=== PATIENT | male | born 1965 | race Hispanic/Latino ===

== ENCOUNTER 2018-03-19 16:24 | Observation (INO) | payer OTHER ==
--- OUTSIDE RECORDS SUMMARY | 2018-03-19 16:27 | XMS REPORT ---
:1965 [facility] Address [address] [place] [address] Care Team Providers Name Role Phone Unavailable Unavailable Unavailable Payers Payer Name Policy Type Policy Number Effective Date Expiration Date Problems This patient has no known problems. Allergies, Adverse Reactions, Alerts Allergy Name Allergy Status Severity Reaction(s) Onset Inactive Treating Comments Type Date Date Clinician STEROIDS DA Active SV 2018-03 MEDICATIONS -14 00:00:0 0 Medications This patient has no known medications.
--- NOTE | 2018-03-19 17:12 | ER ---
Nurse's Notes [facility] Name: Alexandr Laws Age: 53 yrs Sex: Male : 1965 Arrival Date: 03/19/2018 Time: 16:26 Bed 5 Private MD: Corrine Armstrong F Diagnosis: Other chest pain;Type 2 diabetes mellitus Presentation: 03/19 16:29 Presenting complaint: Patient states: "I am having burning in my throat like I did when aa5 I failed my stress test". pt also reports chest pressure. 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 Pt reports having heart cath on Monday. Transition of care: patient was not received from another setting of care. Onset of symptoms was March 2018. Risk Assessment: Do you want to hurt yourself or someone else? Patient reports no desire to harm self or others. Initial Sepsis Screen: Does the patient meet any 2 criteria? No. Patient's initial sepsis screen is negative. Does the patient have a suspected source of infection? No. Patient's initial sepsis screen is negative. Care prior to arrival: None. 16:29 Method Of Arrival: Ambulatory aa5 16:29 Acuity: MIKEY 2 aa5 Historical: - Allergies: 16:31 No Known Allergies; aa5 - PMHx: 16:31 Diabetes - NIDDM; Gastric Reflux; High Cholesterol; Hypertension; aa5 - PSHx: 16:31 Knee surgery; heart cath; aa5 - Immunization history:: Adult Immunizations unknown. - Social history:: Smoking status: Patient/guardian denies using tobacco. - Ebola Screening: : No symptoms or risks identified at this time. - Family history:: not pertinent. Screenin:45 Abuse screen: Denies threats or abuse. Denies injuries from another. Nutritional sg screening: No deficits noted. Tuberculosis screening: No symptoms or risk factors identified. Never had TB. Fall Risk None identified. Assessment: 16:45 General: Appears in no apparent distress. comfortable, well groomed, well developed, sg well nourished, Behavior is calm, cooperative, appropriate for age. Pain: Complains of pain in epigastric area and neck Quality of pain is described as burning, aching, Pain began 1 hour ago. Neuro: No deficits noted. Cardiovascular: Heart tones S1 S2 present Capillary refill is brisk in bilateral fingers Patient's skin is warm and dry. Chest pain is denied. Respiratory: Airway is patent Respiratory effort is even, unlabored, Respiratory pattern is regular, symmetrical, Denies cough, shortness of breath labored breathing, pain with respiration, pain with cough, pain with movement, air hunger. GI: Abdomen is round non-distended, Bowel sounds present X 4 quads. Reports normal bowel habits. : No signs and/or symptoms were reported regarding the genitourinary system. EENT: No signs and/or symptoms were reported regarding the EENT system. Derm: Skin is pink, warm \\T\\ dry. Musculoskeletal: No signs and/or symptoms reported regarding the musculoskeletal system. 17:50 Reassessment: Patient appears in no apparent distress at this time. Patient and/or sg family updated on plan of care and expected duration. Pain level reassessed. Patient is alert, oriented x 3, equal unlabored respirations, skin warm/dry/pink. pt tolerating PO food at this time, no assistance required. 18:20 Reassessment: Patient appears in no apparent distress at this time. attempt to call sg report to fourth floor, Nurse unavailable for report at this time, pt updated on POC and admission to bed 405, will continue to monitor. 19:34 Reassessment: Patient appears in no apparent distress at this time. Patient and/or ak1 family updated on plan of care and expected duration. Pain level reassessed. Patient is alert, oriented x 3, equal unlabored respirations, skin warm/dry/pink. Patient denies pain at this time. Patient states feeling better. Patient states symptoms have improved. pt informed of shift change and wait for transport to room. . Vital Signs: 16:31 BP 134 / 102; Pulse 82; Resp 18 S; Temp 98.3(TE); Pulse Ox 99% on R/A; Weight 77.11 kg aa5 (R); Height 5 ft. 8 in. (172.72 cm) (R); Pain 6/10; 17:30 BP 139 / 94; Pulse 68; Resp 16 S; Pulse Ox 99% on R/A; jl7 18:15 BP 131 / 92; Pulse 67; Resp 16 S; Pulse Ox 98% on R/A; jl7 19:57 BP 117 / 85; Pulse 68; Resp 16; Temp 98.3; Pulse Ox 97% on R/A; Pain 0/10; ak1 16:31 Body Mass Index 25.85 (77.11 kg, 172.72 cm) aa5 ED Course: 16:26 Patient arrived in ED. rg4 16:27 Corrine Armstrong MD is Private Physician. rg4 16:29 Arm band placed on. aa5 16:30 Triage completed. aa5 16:32 Dangelo Zuniga MD is Attending Physician. joni 16:58 EKG done, by color laboratory technician. reviewed by Dangelo Zuniga MD. sm3 17:11 Corrine Armstrong MD is Hospitalizing Provider. joni 17:20 Lebron Chacon, RN is Primary Nurse. sg 17:20 Inserted saline lock: 20 gauge in right antecubital area, using aseptic technique. ss Blood collected. 19:32 Kim Black, RN is Primary Nurse. ak1 19:33 Patient has correct armband on for positive identification. Placed in gown. Bed in low ak1 position. Call light in reach. Side rails up X 1. buttonhole maker on. Pulse ox on. NIBP on. pt given a urinal and explained as to why he needs not to walk down the rodriguez to the restroom. . 19:53 No provider procedures requiring assistance completed. Patient admitted, IV remains in ak1 place. Administered Medications: 17:25 Drug: NS 0.9% 1000 ml Route: IV; Rate: 125 ml/hr; Site: right antecubital; jl7 19:57 Follow up: BP 117 / 85; Pulse 68 bpm; Resp 16 bpm; Temp 98.3; Pulse Ox 97% RA; Pain ak1 0/10 Adult 19:59 Follow up: IV Status: Completed infusion ak1 17:25 Drug: Lopressor 25 mg Route: PO; jl7 18:00 Follow up: Response: No adverse reaction jl7 17:26 Drug: ProTONIX 40 mg Route: IVP; Site: right antecubital; jl7 18:00 Follow up: Response: No adverse reaction jl7 17:27 Drug: Aspirin 162 mg Route: PO; jl7 18:00 Follow up: Response: No adverse reaction jl7 17:30 Drug: Lovenox 1 mg/kg Route: Sub-Q; Site: right lower abdomen; jl7 18:00 Follow up: Response: No adverse reaction jl7 17:32 Drug: Zofran 4 mg Route: IVP; Site: right antecubital; jl7 18:00 Follow up: Response: No adverse reaction jl7 17:35 Drug: Brilinta - Ticagrelor 90 mg Route: PO; jl7 18:00 Follow up: Response: No adverse reaction jl7 17:36 Drug: morphine 2 mg Route: IVP; Site: right femoral; jl7 18:00 Follow up: Response: No adverse reaction; Pain is decreased jl7 Outcome: 17:12 Decision to Hospitalize by Provider. joni 19:54 Admitted to Tele accompanied by [facility], via wheelchair, room 405, with chart, Report ak1 called to [facility] for room 405 19:54 Condition: stable 19:54 Instructed on the need for admit. 20:22 Patient left the ED. ak1 Signatures: Lebron Chacon, RN Dangelo Montesinos MD MD cha Calderon, Audri RN RN aa5 Xin Bunn RN RN ss Krenek, Amber, RN RN michele1 Leonora Segal4 José Miguel Cruz RN RN jl7 Teresa Rogel 3
--- NOTE | 2018-03-19 17:12 | EDPHYS ---
Physician Documentation [facility] Name: Alexandr Laws Age: 53 yrs Sex: Male : 1965 Arrival Date: 03/19/2018 Time: 16:26 Bed 5 Private MD: Corrine Armstrong F ED Physician Dangelo Zuniga HPI: 03/19 17:07 This 53 yrs old Male presents to ER via Ambulatory with complaints of Burning joni In Throat. 17:07 The patient or guardian reports chest pain that is located primarily in the substernal joni area. Onset: just prior to arrival. The pain radiates to Associated signs and symptoms: The patient has no apparent associated signs or symptoms. The chest pain is described as burning. Modifying factors: The symptoms are alleviated by nothing. the symptoms are aggravated by nothing. Severity of pain:. The patient has experienced similar episodes in the past, several times, recent cath, dr crowe. Historical: - Allergies: 16:31 No Known Allergies; aa5 - PMHx: 16:31 Diabetes - NIDDM; Gastric Reflux; High Cholesterol; Hypertension; aa5 - PSHx: 16:31 Knee surgery; heart cath; aa5 - Immunization history:: Adult Immunizations unknown. - Social history:: Smoking status: Patient/guardian denies using tobacco. - Ebola Screening: : No symptoms or risks identified at this time. - Family history:: not pertinent. ROS: 17:07 Constitutional: Negative for fever, chills, and weight loss, Eyes: Negative for injury, joni pain, redness, and discharge, ENT: Negative for injury, pain, and discharge, Neck: Negative for injury, pain, and swelling, Respiratory: Negative for shortness of breath, cough, wheezing, and pleuritic chest pain, Abdomen/GI: Negative for abdominal pain, nausea, vomiting, diarrhea, and constipation, Back: Negative for injury and pain, : Negative for injury, bleeding, discharge, and swelling, MS/Extremity: Negative for injury and deformity, Skin: Negative for injury, rash, and discoloration, Neuro: Negative for headache, weakness, numbness, tingling, and seizure, Psych: Negative for depression, anxiety, suicide ideation, homicidal ideation, and hallucinations, Allergy/Immunology: Negative for hives, rash, and allergies, Endocrine: Negative for neck swelling, polydipsia, polyuria, polyphagia, and marked weight changes, Hematologic/Lymphatic: Negative for swollen nodes, abnormal bleeding, and unusual bruising. 17:07 Cardiovascular: Positive for chest pain. Exam: 17:07 Constitutional: This is a well developed, well nourished patient who is awake, alert, joni and in no acute distress. Head/Face: Normocephalic, atraumatic. Eyes: Pupils equal round and reactive to light, extra-ocular motions intact. Lids and lashes normal. Conjunctiva and sclera are non-icteric and not injected. Cornea within normal limits. Periorbital areas with no swelling, redness, or edema. ENT: Nares patent. No nasal discharge, no septal abnormalities noted. Tympanic membranes are normal and external auditory canals are clear. Oropharynx with no redness, swelling, or masses, exudates, or evidence of obstruction, uvula midline. Mucous membranes moist. Neck: Trachea midline, no thyromegaly or masses palpated, and no cervical lymphadenopathy. Supple, full range of motion without nuchal rigidity, or vertebral point tenderness. No Meningismus. Chest/axilla: Normal chest wall appearance and motion. Nontender with no deformity. No lesions are appreciated. Cardiovascular: Regular rate and rhythm with a normal S1 and S2. No gallops, murmurs, or rubs. Normal PMI, no JVD. No pulse deficits. Respiratory: Lungs have equal breath sounds bilaterally, clear to auscultation and percussion. No rales, rhonchi or wheezes noted. No increased work of breathing, no retractions or nasal flaring. Abdomen/GI: Soft, non-tender, with normal bowel sounds. No distension or tympany. No guarding or rebound. No evidence of tenderness throughout. Back: No spinal tenderness. No costovertebral tenderness. Full range of motion. Male : Normal genitalia with no discharge or lesions. Skin: Warm, dry with normal turgor. Normal color with no rashes, no lesions, and no evidence of cellulitis. MS/ Extremity: Pulses equal, no cyanosis. Neurovascular intact. Full, normal range of motion. Neuro: Awake and alert, GCS 15, oriented to person, place, time, and situation. Cranial nerves II-XII grossly intact. Motor strength 5/5 in all extremities. Sensory grossly intact. Cerebellar exam normal. Normal gait. Psych: Awake, alert, with orientation to person, place and time. Behavior, mood, and affect are within normal limits. Vital Signs: 16:31 BP 134 / 102; Pulse 82; Resp 18 S; Temp 98.3(TE); Pulse Ox 99% on R/A; Weight 77.11 kg aa5 (R); Height 5 ft. 8 in. (172.72 cm) (R); Pain 6/10; 17:30 BP 139 / 94; Pulse 68; Resp 16 S; Pulse Ox 99% on R/A; jl7 18:15 BP 131 / 92; Pulse 67; Resp 16 S; Pulse Ox 98% on R/A; jl7 19:57 BP 117 / 85; Pulse 68; Resp 16; Temp 98.3; Pulse Ox 97% on R/A; Pain 0/10; ak1 16:31 Body Mass Index 25.85 (77.11 kg, 172.72 cm) aa5 MDM: 16:32 Patient medically screened. [facility] 17:10 Data reviewed: vital signs, nurses notes, lab test result(s), EKG, radiologic studies, [facility] CT scan, plain films. 03/19 17:07 Order name: Basic Metabolic Panel; Complete Time: 18:12 [facility] 03/19 17:07 Order name: CBC with Diff; Complete Time: 17:55 [facility] 03/19 17:07 Order name: LFT's; Complete Time: 18:12 [facility] 03/19 17:07 Order name: Magnesium; Complete Time: 18:12 [facility] 03/19 17:07 Order name: NT PRO-BNP; Complete Time: 18:12 [facility] 03/19 17:07 Order name: PT-INR; Complete Time: 17:55 [facility] 03/19 17:07 Order name: Troponin (emerg Dept Use Only); Complete Time: 18:12 [facility] 03/19 17:07 Order name: Lipase; Complete Time: 18:12 [facility] 03/19 17:24 Order name: Basic Metabolic Panel EDMS 03/19 17:24 Order name: Basic Metabolic Panel EDMS 03/19 17:24 Order name: CBC with Automated Diff EDMS 03/19 17:24 Order name: CBC with Automated Diff [facility]MS 03/19 17:24 Order name: Troponin I EDMS 03/19 17:24 Order name: Troponin I [facility] 03/19 17:07 Order name: XRAY Chest (1 view) [facility] 03/19 17:07 Order name: EKG; Complete Time: 17:08 [facility] 03/19 17:23 Order name: CONS Physician Consult [facility] 03/19 17:23 Order name: Echo with Doppler [facility] 03/19 17:24 Order name: Troponin I [facility] 03/19 19:16 Order name: RAD [facility] 03/19 19:58 Order name: Urine Dipstick--Ancillary (enter results) 03/19 17:07 Order name: Cardiac monitoring; Complete Time: 17:23 [facility] 03/19 17:07 Order name: EKG - Nurse/Tech; Complete Time: 17:23 [facility] 03/19 17:07 Order name: IV Saline Lock; Complete Time: 17:20 [facility] 03/19 17:07 Order name: Labs collected and sent; Complete Time: 17:20 [facility] 03/19 17:07 Order name: O2 Per Protocol; Complete Time: 17:20 [facility] 03/19 17:07 Order name: O2 Sat Monitoring; Complete Time: 17:23 [facility] 03/19 17:07 Order name: Urine Dipstick-Ancillary (obtain specimen); Complete Time: 19:59 [facility] 03/19 17:23 Order name: Consistent Carb (ADA) [address] [facility] 03/19 17:23 Order name: EKG Electrocardiogram [facility] 03/19 17:23 Order name: EKG Electrocardiogram [facility] 03/19 17:23 Order name: EKG Electrocardiogram [facility] 03/19 17:23 Order name: EKG Electrocardiogram [facility] Administered Medications: 17:25 Drug: NS 0.9% 1000 ml Route: IV; Rate: 125 ml/hr; Site: right antecubital; 7 19:57 Follow up: BP 117 / 85; Pulse 68 bpm; Resp 16 bpm; Temp 98.3; Pulse Ox 97% RA; Pain ak1 0/10 Adult 19:59 Follow up: IV Status: Completed infusion ak1 17:25 Drug: Lopressor 25 mg Route: PO; jl7 18:00 Follow up: Response: No adverse reaction 7 17:26 Drug: ProTONIX 40 mg Route: IVP; Site: right antecubital; jl7 18:00 Follow up: Response: No adverse reaction 7 17:27 Drug: Aspirin 162 mg Route: PO; jl7 18:00 Follow up: Response: No adverse reaction jl7 17:30 Drug: Lovenox 1 mg/kg Route: Sub-Q; Site: right lower abdomen; jl7 18:00 Follow up: Response: No adverse reaction jl7 17:32 Drug: Zofran 4 mg Route: IVP; Site: right antecubital; jl7 18:00 Follow up: Response: No adverse reaction jl7 17:35 Drug: Brilinta - Ticagrelor 90 mg Route: PO; jl7 18:00 Follow up: Response: No adverse reaction jl7 17:36 Drug: morphine 2 mg Route: IVP; Site: right femoral; jl7 18:00 Follow up: Response: No adverse reaction; Pain is decreased jl7 Disposition: 03/19/18 17:12 Hospitalization ordered by Corrine Armstrong for Observation. Preliminary diagnosis are Other chest pain, Type 2 diabetes mellitus. - Bed requested for Telemetry/MedSurg (observation). - Status is Observation. ak1 - Condition is Fair. - Problem is new. - Symptoms have improved. UTI on Admission? No Signatures: Dispatcher [employer] [facility] Shea Brink Corey, MD MD cha Calderon, Audri, RN RN aa5 Kim Black RN RN ak1 José Miguel Cruz RN RN jl7 Corrections: (The following items were deleted from the chart) 17:14 17:12 Hospitalization Ordered by Corrine Armstrong MD for Observation. Preliminary joni diagnosis is Other chest pain. Bed requested for Telemetry/MedSurg (observation). Status is Observation. Condition is Fair. Problem is new. Symptoms have improved. UTI on Admission? No. joni 17:26 17:23 CONS Physician Consult ordered. [facility] 18:02 17:14 03/19/2018 17:12 Hospitalization Ordered by Corrine Armstrong MD for Observation. bd Preliminary diagnosis is Other chest pain; Type 2 diabetes mellitus. Bed requested for Telemetry/MedSurg (observation). Status is Observation. Condition is Fair. Problem is new. Symptoms have improved. UTI on Admission? No. joni 20:22 18:02 03/19/2018 17:12 Hospitalization Ordered by Corrine Armstrong MD for Observation. ak1 Preliminary diagnosis is Other chest pain; Type 2 diabetes mellitus. Bed requested for Telemetry/MedSurg (observation). Status is Observation. Condition is Fair. Problem is new. Symptoms have improved. UTI on Admission? No. bd
[2018-03-19] MEDS ORDERED: ONDANSETRON 4 MG/2 ML VIAL IV PRN (17:17)
[2018-03-19] MEDS ORDERED: ACETAMINOPHEN 500 MG TAB PO PRN (17:17)
[2018-03-19] MEDS ORDERED: SODIUM CHLORIDE 0.9% 10ML INJ IV PRN (17:19)
[2018-03-19] MEDS ORDERED: D50W 25 GM/50 ML SYRINGE IV PRN (17:20)
[2018-03-19] MEDS ORDERED: GLUCAGON 1 MG/VIAL IM PRN (17:20)
[2018-03-19 17:28] LABS: Absolute Lymphocytes (CBC) 1.8 K/uL (0.7-4.9); Absolute Monocytes 0.6 K/uL (0.1-1.3); Absolute Neutrophil 3.7 K/uL (1.8-8.0); Basophils % 0.8 % (0-1.3); Eosinophils % 4.7 % (0-4.4); Hematocrit 39.3 % (39.6-49.0); Lymphocytes % 28.3 % (15.3-44.8); MCV 85.5 fL (80-100); MPV 7.9 fL (7.6-11.3); Monocytes % 8.6 % (3.3-12.3); Protime INR 1.18
[2018-03-19] MEDS ORDERED: TICAGRELOR 90 MG TABLET PO ONE (17:32)
[2018-03-19] MEDS ORDERED: METOPROLOL TAR 25 MG TAB ONE (17:32)
[2018-03-19] MEDS ORDERED: PANTOPRAZOLE 40 MG INJ ONE (17:32)
[2018-03-19] MEDS ORDERED: ASPIRIN 81 MG CHEWABLE TABLET ONE (17:32)
[2018-03-19] MEDS ORDERED: ONDANSETRON 4 MG/2 ML VIAL ONE (17:32)
[2018-03-19] MEDS ORDERED: MORPHINE 2 MG/ML SYR ONE (17:33)
[2018-03-19] MEDS ORDERED: ENOXAPARIN 80 MG/0.8 ML SQ ONE (17:33)
[2018-03-19] MEDS ORDERED: NA CHLORIDE 0.9% 1,000 ML ONE (17:33)
[2018-03-19 18:00] LABS: ALT/SGPT 31 U/L (12-78); AST/SGOT 22 U/L (15-37); Albumin 3.9 g/dL (3.4-5.0); Alkaline Phosphatase 67 U/L (45-117); BUN Blood Urea Nitrogen 13 mg/dL (7-18); Bicarbonate 28 mmol/L (21-32); Bilirubin Direct 0.2 mg/dL (0-0.2); Bilirubin Total 0.8 mg/dL (0.2-1.0); Glucose Level 98 mg/dL (74-106); Lipase 106 U/L (73-393); Magnesium 2.4 mg/dL (1.8-2.4); NT PRO-BNP 22 pg/mL (<125); Potassium 4.2 mmol/L (3.5-5.1); Protein, Total 7.5 g/dL (6.4-8.2); Sodium Level 137 mmol/L (136-145); Troponin (Emerg Dept Use Only) < 0.02 ng/mL (0.0-0.045)
[2018-03-19] MEDS ORDERED: ENOXAPARIN 80 MG/0.8 ML SQ SCH (18:00)
--- NOTE | 2018-03-19 19:15 | RAD REPORT ---
EXAM DESCRIPTION: RAD - Chest Single View - 03/19/2018 6:21 pm CLINICAL HISTORY: Chest pain and pressure COMPARISON: November 2016 TECHNIQUE: AP portable chest image was obtained 1804 hours . FINDINGS: Lungs are clear. Heart and vasculature are normal. No measurable pleural effusion and no p neumothorax. No acute bony abnormality seen. No acute aortic findings suspected. IMPRESSION: No acute cardiopulmonary process. No significant change from comparison.
[2018-03-19] MEDS ORDERED: ATORVASTATIN 10 MG TAB PO SCH (21:00)
[2018-03-19] MEDS: ENOXAPARIN 80 MG/0.8 ML SQ SCH (21:00)
[2018-03-19] MEDS: INSULIN -REGULAR HUMAN 50 UNIT/0.5 ML ML SQ SCH (21:00)
[2018-03-19] MEDS: TICAGRELOR 90 MG TABLET PO SCH (21:00)
[2018-03-19] MEDS: CARVEDILOL 3.125 MG TAB PO SCH (22:01)
[2018-03-19] MEDS: MORPHINE 4 MG/ML SYR IV PRN (22:02)
[2018-03-19 22:15] LABS: Urine Blood TRACE (NEG); Urine Glucose NEGATIVE (NEG); Urine Protein NEGATIVE (NEG); Urine Specific Gravity 1.015 (1.005-1.030)
[2018-03-20] MEDS: MORPHINE 4 MG/ML SYR IV PRN (02:36)
[2018-03-20 05:03] VITALS: BMI 25.9
[2018-03-20] MEDS: CARVEDILOL 3.125 MG TAB PO SCH ×2 (05:49→17:25)
--- NOTE | 2018-03-20 06:01 | EKG ---
Test Date: 2018-03-19 Test Time: 16:51:54 Tool Dispatcher: RENÉ MEASUREMENT RESULTS: Intervals: Rate: 70 IN: 168 QRSD: 164 QT: 420 QTc: 453 [place]: P: 41 IN: 168 QRS: 97 T: 35 INTERPRETIVE STATEMENTS: Normal sinus rhythm Right bundle branch block Abnormal ECG Compared to ECG 11/05/2016 16:10:59 No significant changes Electronically Signed On 03-20-18 06:00:39 RADIOLOGY AIDE by Mike Thomas
[2018-03-20 06:25] LABS: Absolute Lymphocytes (CBC) 1.9 K/uL (0.7-4.9); Absolute Monocytes 0.5 K/uL (0.1-1.3); Absolute Neutrophil 3.4 K/uL (1.8-8.0); Basophils % 0.4 % (0-1.3); Eosinophils % 5.5 % (0-4.4); Lymphocytes % 30.8 % (15.3-44.8); MCH 30.2 pg (27.0-35.0); MPV 7.5 fL (7.6-11.3); Monocytes % 7.8 % (3.3-12.3); RBC Red Blood Cell Count 4.48 M/uL (4.33-5.43)
[2018-03-20 06:32] LABS: Potassium 4.6 mmol/L (3.5-5.1)
[2018-03-20] MEDS: INSULIN -REGULAR HUMAN 50 UNIT/0.5 ML ML SQ SCH ×3 (07:30→16:30)
[2018-03-20 08:39] VITALS: O2SAT 97
[2018-03-20] MEDS: ENOXAPARIN 80 MG/0.8 ML SQ SCH (09:00)
[2018-03-20] MEDS: TICAGRELOR 90 MG TABLET PO SCH (09:00)
[2018-03-20] MEDS ORDERED: PANTOPRAZOLE 40 MG INJ IVP SCH (09:00)
[2018-03-20] MEDS ORDERED: ASPIRIN EC 81 MG TAB PO SCH (09:00)
--- NOTE | 2018-03-20 11:06 | EKG ---
Test Date: 2018-03-20 Test Time: 09:27:30 Application Operations Engineer: MARGARITO MEASUREMENT RESULTS: Intervals: Rate: 59 NE: 170 QRSD: 162 QT: 424 QTc: 419 [place]: P: 51 NE: 170 QRS: 109 T: 33 INTERPRETIVE STATEMENTS: Sinus bradycardia Right bundle branch block Abnormal ECG Compared to ECG 03/19/2018 16:51:54 Sinus rhythm no longer present Electronically Signed On 03-20-18 11:05:47 CLINICAL ATHLETIC INSTRUCTOR by Maximiliano Arias
--- NOTE | 2018-03-20 12:20 | ECHO ---
HEIGHT: 5 ft 8 in WEIGHT: 171 lb 0 oz DATE OF STUDY: 03/20/[address]: Dangelo Zuniga MD 2-DIMENSIONAL: YES M.MODE: YES DOPPLER: YES COLOR FLOW: YES TDS: NO PORTABLE: NO DEFINITY: NO BUBBLE STUDY: NO DIAGNOSIS: CHEST PAIN CARDIAC HISTORY: CATHERIZATION: YES SURGERY: NO PROSTHETIC VALVE: NO PACEMAKER: NO MEASUREMENTS (cm) DIASTOLIC (NORMALS) SYSTOLIC (NORMALS) IVSd 0.9 (0.6-1.2) LA Diam 3.2 (1.9-4.0) LVEF 62% LVIDd 4.5 (3.5-5.7) LVIDs 3.0 (2.0-3.5) %FS 33% LVPWd 0.9 (0.6-1.2) Ao Diam 2.7 (2.0-3.7) 2 DIMENSIONAL ASSESSMENT: RIGHT ATRIUM: NORMAL LEFT ATRIUM: NORMAL RIGHT VENTRICLE: NORMAL LEFT VENTRICLE: NORMAL TRICUSPID VALVE: NORMAL MITRAL VALVE: NORMAL PULMONIC VALVE: NORMAL AORTIC VALVE: NORMAL PERICARDIAL EFFUSION: NONE AORTIC ROOT: NORMAL LEFT VENTRICULAR WALL MOTION: NORMAL. DOPPLER/COLOR FLOW: NORMAL. COMMENTS: NORMAL 2D ECHOCARDIOGRAM WITH DOPPLER. NO WALL MOTION ABNORMALITIES. NO EFFUSION. TECHNOLOGIST: ARMOND ULRICH RDCS
--- NOTE | 2018-03-20 14:04 | HP ---
Date of Admission: 03/19/2018 History Of Present Illness: The patient is a 53-year-old male with a history of type 2 diabetes belia maxwell with coronary artery disease. He was following with Dr. Fowler when he did the stress test and af ter that he went ahead and did a left heart catheterization and with that he put a stent in one of hi s coronaries, the specifics of that are not yet available. However, after placement of that stent, tabitha kearney was back on Monday, the patient did well. However, the patient on the day of his admission he re came with a complaint that he started having chest pain in the substernal area, described as burni ng, and he has had that same feeling happen to him before when they found that he has coronary artery disease. The patient had no nausea, no vomiting, no increased shortness of breath, and voiced no ot her complaints. Review of Systems: Cardiovascular: No palpitation, no dizziness. Respiratory: No complaints. Genitourinary: No complaints. Skeletomuscular: No complaints. Gastrointestinal: No complaint. Neurological: No complaint. Past Medical History: 1.Type 2 diabetes. 2.Coronary artery disease as mentioned above. 3.Hyperlipidemia. 4.Hypertension. 5.Gastroesophageal reflux disease. Social History: No smoking, alcohol, or drug abuse history. Family History: Noncontributing. Medications: Include pravastatin 40 mg p.o. b.i.d., omeprazole 20 mg p.o. daily, metformin 750 mg p. o. b.i.d., carvedilol 3.125 mg p.o. b.i.d., and recently patient was put on aspirin 81 mg p.o. daily and Brilinta 90 mg p.o. b.i.d. that was done by Dr. Fowler after the stent. Allergies: STEROIDS. Physical Examination: Vital Signs: Blood pressure 120/65, pulse 68, temperature 98.1. Heart: Regular rate and rhythm. Chest: Clear to auscultation. Abdomen: Soft, nontender, nondistended. Bowel sounds normoactive. Extremities: No edema. No cyanosis. Peripheral pulses are felt. Neurologic: Alert, oriented, nonfocal. Grossly intact. Imaging: Chest x-ray, no acute pathology. EKG normal sinus rhythm with right bundle-branch block. Laboratory Data: CBC noted. Chemistry; troponin is less than 0.02. The rest of his chemistry noted . BUN 19 with a creatinine of 1. Assessment And Plan: Coronary artery disease status post stent placement recently. Have had a compl aint, could be angina or restenoses. History of gastroesophageal reflux disease. His cardiac enzyme s and EKG are negative so far for ischemia. However, we will ask Cardiology to see the patient, and they will contact his transonic engineer, Dr. Fowler for association. An echo was ordered for his heart. Meanwhile, we will continue the patient on current treatment and monitor his blood sugar fingerstick s and put him on sliding scale, and we will follow Cardiology recommendations. Look orders for roxana lopez MFS/MODL Voice ID: [id number]
[2018-03-20 14:06] VITALS: BP 118/72; TEMP 98.2
--- NOTE | 2018-03-20 22:31 | CON ---
Date of Consultation: 03/20/2018 History Of Present Illness: Mr. Laws is a 53-year-old white male. He is a patient of Dr. Armstrong and Dr. Fowler. He just had a stent [address] Fowler of the [facility], a long stent, small vessels. Apparently, he had that done because of abnormal stress test because of chest burning. He comes back today with chest burning of the throat without exertion. Normal CPK, normal MB, normal tr oponin, normal EKG except for right bundle-branch block which is chronic. Asymptomatic now. Past Medical History: Includes dyslipidemia, hypertension, diabetes, gastroesophageal reflux disease . Allergies: NONE. Review of Systems: Negative. Social History: Negative. Family History: Negative. Medications: Medications at home include Coreg, glipizide, Brilinta, aspirin, metformin, and Pravach ol. Physical Examination: Vital Signs: Stable. Afebrile. HEENT: Negative. Neck: Supple with no bruit. Chest: Clear. Cardiac Exam: Revealed a regular rhythm and rate without any murmurs, gallops, or rubs. Abdomen: Benign. Extremities: Revealed no clubbing, cyanosis, or edema. Diagnostic Data: Listed earlier. Impression And Plan: 1.Atypical chest pain, similar symptoms to his pre stent. I think this may be secondary to the sten t itself from stretching of the cardiac muscle and the coronaries. The case was discussed with Dr. Garret galvan. There is an echocardiogram pending. If the echo does not show any wall motion abnormalities or effusion, we will probably send him home. He needs to continue his present regimen. His dyslipi demia, hypertension, diabetes, and gastroesophageal reflux disease are within normal limit. He was c learly instructed to come back if his symptoms worsen. I think if his stent already occluded after 3 days, I think we would see much more radical EKG changes and he would be much sicker. JOEL/BERNIE Voice ID: [id number] Report ID: [id number]
== END 2018-03-20 18:25 | disposition home or self-care (01) ==
LOC: ER 16:24 → ERHOLD 17:16 → 4TH 19:55
PROVIDERS: ADMIT Internal Medicine; ATTEND Internal Medicine
DX: R07.89 Other chest pain (principal); I25.10 Atherosclerotic heart disease of native coronary artery without angina pectoris; E11.9 Type 2 diabetes mellitus without complications; E78.5 Hyperlipidemia, unspecified; K21.9 Gastro-esophageal reflux disease without esophagitis; Z95.5 Presence of coronary angioplasty implant and graft
CPT/HCPCS: 36415; 71045; 80048; 80076; 81003; 82962; 83690; 83735; 83880; 84484; 85025; 85610; 93005; 93306; 96372; 99285; C9113; G0378; J1650; J2270; J2405; J7030

== ENCOUNTER 2018-03-24 02:51 | Observation (INO) | payer OTHER ==
--- OUTSIDE RECORDS SUMMARY | 2018-03-24 02:53 | XMS REPORT ---
:1965 [facility] Address [address] [place] [address] Care Team Providers Name Role Phone Unavailable [...]
[2018-03-24 03:52] LABS: Absolute Monocytes 0.7 K/uL (0.1-1.3); Absolute Neutrophil 4.7 K/uL (1.8-8.0); Basophils % 0.4 % (0-1.3); Eosinophils % 2.8 % (0-4.4); Lymphocytes % 25.7 % (15.3-44.8); MPV 7.7 fL (7.6-11.3); Monocytes % 9.5 % (3.3-12.3); RBC Red Blood Cell Count 4.65 M/uL (4.33-5.43)
[2018-03-24 03:53] LABS: Protime INR 1.14
[2018-03-24] MEDS ORDERED: ASPIRIN 81 MG CHEWABLE TABLET ONE (03:53)
[2018-03-24] MEDS ORDERED: PANTOPRAZOLE 40 MG INJ ONE (03:54)
[2018-03-24] MEDS ORDERED: NA CHLORIDE 0.9% 1,000 ML ONE (03:54)
[2018-03-24] MEDS ORDERED: ONDANSETRON 4 MG/2 ML VIAL ONE (03:54)
[2018-03-24] MEDS ORDERED: MORPHINE 2 MG/ML SYR ONE (03:54)
[2018-03-24] MEDS ORDERED: ENOXAPARIN 80 MG/0.8 ML SQ ONE (03:54)
--- NOTE | 2018-03-24 03:54 | EDPHYS ---
Physician Documentation [facility] Name: Alexandr Laws Age: 53 yrs Sex: Male : 1965 Arrival Date: 03/24/2018 Time: 02:54 Bed 6 Private MD: ED Physician Dangelo Zuniga HPI: 03/24 03:34 The patient or guardian complains of decreased range of motion, pain. The symptoms are joni located on the neck. Onset: The symptoms/episode began/occurred just prior to arrival, last night. Context: The problem was sustained at home, The neck injury/problem resulted from from unknown cause. Associated signs and symptoms: The patient has no apparent associated signs or symptoms. The pain does not radiate. Severity of symptoms: At their worst the symptoms were mild, in the emergency department the symptoms are unchanged. Historical: - Allergies: 03:38 No Known Allergies; bb - Home Meds: 03:38 BRILINTA oral oral [Active]; pravastatin oral oral [Active]; carvedilol oral oral bb [Active]; Nexium Oral [Active]; Aspirin Oral [Active]; - PMHx: 03:38 Diabetes - NIDDM; Gastric Reflux; High Cholesterol; Hypertension; bb - PSHx: 03:38 Knee surgery; heart cath; Heart stents; bb - Immunization history:: Adult Immunizations unknown. - Social history:: Smoking status: unknown. - Family history:: not pertinent. - Ebola Screening: : No symptoms or risks identified at this time. ROS: 03:34 Constitutional: Negative for fever, chills, and weight loss, Eyes: Negative for injury, joni pain, redness, and discharge, ENT: Negative for injury, pain, and discharge, Neck: Negative for injury, pain, and swelling, Respiratory: Negative for shortness of breath, cough, wheezing, and pleuritic chest pain, Abdomen/GI: Negative for abdominal pain, nausea, vomiting, diarrhea, and constipation, Back: Negative for injury and pain, : Negative for injury, bleeding, discharge, and swelling, MS/Extremity: Negative for injury and deformity, Skin: Negative for injury, rash, and discoloration, Neuro: Negative for headache, weakness, numbness, tingling, and seizure, Psych: Negative for depression, anxiety, suicide ideation, homicidal ideation, and hallucinations, Allergy/Immunology: Negative for hives, rash, and allergies, Endocrine: Negative for neck swelling, polydipsia, polyuria, polyphagia, and marked weight changes, Hematologic/Lymphatic: Negative for swollen nodes, abnormal bleeding, and unusual bruising. 03:34 Cardiovascular: Positive for chest pain, with cough, with movement, Negative for edema, orthopnea, palpitations, paroxysmal nocturnal dyspnea, acute changes. Exam: 03:34 Constitutional: This is a well developed, well nourished patient who is awake, alert, joni and in no acute distress. Head/Face: Normocephalic, atraumatic. Eyes: Pupils equal round and reactive to light, extra-ocular motions intact. Lids and lashes normal. Conjunctiva and sclera are non-icteric and not injected. Cornea within normal limits. Periorbital areas with no swelling, redness, or edema. ENT: Nares patent. No nasal discharge, no septal abnormalities noted. Tympanic membranes are normal and external auditory canals are clear. Oropharynx with no redness, swelling, or masses, exudates, or evidence of obstruction, uvula midline. Mucous membranes moist. Neck: Trachea midline, no thyromegaly or masses palpated, and no cervical lymphadenopathy. Supple, full range of motion without nuchal rigidity, or vertebral point tenderness. No Meningismus. Chest/axilla: Normal chest wall appearance and motion. Nontender with no deformity. No lesions are appreciated. Cardiovascular: Regular rate and rhythm with a normal S1 and S2. No gallops, murmurs, or rubs. Normal PMI, no JVD. No pulse deficits. Respiratory: Lungs have equal breath sounds bilaterally, clear to auscultation and percussion. No rales, rhonchi or wheezes noted. No increased work of breathing, no retractions or nasal flaring. Abdomen/GI: Soft, non-tender, with normal bowel sounds. No distension or tympany. No guarding or rebound. No evidence of tenderness throughout. Back: No spinal tenderness. No costovertebral tenderness. Full range of motion. Male : Normal genitalia with no discharge or lesions. Skin: Warm, dry with normal turgor. Normal color with no rashes, no lesions, and no evidence of cellulitis. MS/ Extremity: Pulses equal, no cyanosis. Neurovascular intact. Full, normal range of motion. Neuro: Awake and alert, GCS 15, oriented to person, place, time, and situation. Cranial nerves II-XII grossly intact. Motor strength 5/5 in all extremities. Sensory grossly intact. Cerebellar exam normal. Normal gait. Psych: Awake, alert, with orientation to person, place and time. Behavior, mood, and affect are within normal limits. Vital Signs: 03:38 BP 150 / 93; Pulse 74; Resp 16 S; Temp 97.7; Pulse Ox 100% on R/A; Weight 77.11 kg (R); bb Height 5 ft. 8 in. (172.72 cm) (R); Pain 5/10; 06:24 BP 113 / 76; Pulse 60; Resp 18; Pulse Ox 97% on R/A; tl2 03:38 Body Mass Index 25.85 (77.11 kg, 172.72 cm) bb MDM: 03:30 Patient medically screened. [facility] 03/24 03:32 Order name: Basic Metabolic Panel; Complete Time: 05:52 [facility] 03/24 03:32 Order name: CBC with Diff; Complete Time: 05:52 [facility] 03/24 03:32 Order name: LFT's; Complete Time: 05:52 [facility] 03/24 03:32 Order name: Magnesium; Complete Time: 05:52 [facility] 03/24 03:32 Order name: NT PRO-BNP; Complete Time: 05:52 [facility] 03/24 03:32 Order name: PT-INR; Complete Time: 05:52 [facility] 03/24 03:32 Order name: Troponin (emerg Dept Use Only); Complete Time: 05:52 [facility] 03/24 03:32 Order name: XRAY Chest (1 view) [facility] 03/24 03:32 Order name: Lipase; Complete Time: 05:52 [facility] 03/24 03:32 Order name: EKG; Complete Time: 03:33 [facility] 03/24 03:32 Order name: Cardiac monitoring; Complete Time: 04:02 [facility] 03/24 03:32 Order name: EKG - Nurse/Tech; Complete Time: 04:02 [facility] 03/24 03:32 Order name: IV Saline Lock; Complete Time: 04:02 [facility] 03/24 03:32 Order name: Labs collected and sent; Complete Time: 04:02 [facility] 03/24 03:32 Order name: O2 Per Protocol; Complete Time: 04:02 [facility] 03/24 03:32 Order name: O2 Sat Monitoring; Complete Time: 04:02 [facility] 03/24 04:07 Order name: CONS Physician Consult EDMS Administered Medications: 03:53 Drug: Aspirin 81 mg Route: PO; tl2 06:59 Follow up: Response: No adverse reaction; No change in condition tl1 03:54 Drug: morphine 2 mg Route: IVP; Infused Over: 2 mins; Site: right antecubital; tl2 07:00 Follow up: Response: No adverse reaction; Marked relief of symptoms; Pain is decreased tl1 03:54 Drug: Zofran 4 mg Route: IVP; Infused Over: 2 mins; Site: right antecubital; tl2 06:59 Follow up: Response: No adverse reaction; Marked relief of symptoms; Nausea is decreasedtl1 03:55 Drug: NS 0.9% 1000 ml Route: IV; Rate: 75 ml/hr; Site: right antecubital; tl2 07:00 Follow up: IV Status: Infusion continued upon admission tl1 03:55 Drug: ProTONIX 40 mg Route: IVP; Infused Over: 3 mins; Site: right antecubital; tl2 07:00 Follow up: Response: No adverse reaction; Marked relief of symptoms tl1 03:55 Drug: Lovenox 80 mg Route: Sub-Q; Site: abdomen; tl2 07:01 Follow up: Response: No adverse reaction; No change in condition tl1 Disposition: 03/24/18 03:53 Hospitalization ordered by Corrine Armstrong for Observation. Preliminary diagnosis are Other chest pain, Type 2 diabetes mellitus, Essential (primary) hypertension, Gastro-esophageal reflux disease. - Bed requested for Telemetry/MedSurg (observation). - Status is Observation. tl1 - Condition is Fair. - Problem is new. - Symptoms have improved. UTI on Admission? No Signatures: Dispatcher [employer] EDMS Dangelo Zuniga MD MD cha Ballard, Brenda, RN RN bb Lasagna, Tonya, RN RN tl1 Kellen Segal RN RN cg Abbie Gottlieb RN RN tl2 Corrections: (The following items were deleted from the chart) 05:29 03:53 Hospitalization Ordered by Corrine Armstrong MD for Observation. Preliminary cg diagnosis is Other chest pain; Type 2 diabetes mellitus; Essential (primary) hypertension; Gastro-esophageal reflux disease. Bed requested for Telemetry/MedSurg (observation). Status is Observation. Condition is Fair. Problem is new. Symptoms have improved. UTI on Admission? No. [facility] 07:05 05:29 03/24/2018 03:53 Hospitalization Ordered by Corrine Armstrong MD for Observation. tl1 Preliminary diagnosis is Other chest pain; Type 2 diabetes mellitus; Essential (primary) hypertension; Gastro-esophageal reflux disease. Bed requested for Telemetry/MedSurg (observation). Status is Observation. Condition is Fair. Problem is new. Symptoms have improved. UTI on Admission? No.
--- NOTE | 2018-03-24 03:54 | ER ---
Nurse's Notes [facility] Name: Alexandr Laws Age: 53 yrs Sex: Male : 1965 Arrival Date: 03/24/2018 Time: 02:54 Bed 6 Private MD: Diagnosis: Other chest pain;Type 2 diabetes mellitus;Essential (primary) hypertension;Gastro-esophageal reflux disease Presentation: 03/24 03:34 Presenting complaint: Patient states: pt states he has recent cardiac stent and started bb on Brillinta he is now having a tightness in his throat and a funny taste in his mouth he was driving today and is just unable to get comfortable he is having neck and throat pain of 5/10. Transition of care: patient was not received from another setting of care. Onset of symptoms was March 24, 2018. Risk Assessment: Do you want to hurt yourself or someone else? Patient reports no desire to harm self or others. Initial Sepsis Screen: Does the patient meet any 2 criteria? No. Patient's initial sepsis screen is negative. Does the patient have a suspected source of infection? No. Patient's initial sepsis screen is negative. Care prior to arrival: None. 03:34 Method Of Arrival: Ambulatory bb 03:34 Acuity: MIKEY 3 bb Triage Assessment: 03:15 General: Appears in no apparent distress. Behavior is calm, cooperative, appropriate tl1 for age. Pain: Denies pain. Historical: - Allergies: 03:38 No Known Allergies; bb - Home Meds: 03:38 BRILINTA oral oral [Active]; pravastatin oral oral [Active]; carvedilol oral oral bb [Active]; Nexium Oral [Active]; Aspirin Oral [Active]; - PMHx: 03:38 Diabetes - NIDDM; Gastric Reflux; High Cholesterol; Hypertension; bb - PSHx: 03:38 Knee surgery; heart cath; Heart stents; bb - Immunization history:: Adult Immunizations unknown. - Social history:: Smoking status: unknown. - Family history:: not pertinent. - Ebola Screening: : No symptoms or risks identified at this time. Screenin:11 Abuse screen: Denies threats or abuse. Nutritional screening: No deficits noted. tl2 Tuberculosis screening: No symptoms or risk factors identified. Fall Risk None identified. Assessment: 03:15 General: Appears in no apparent distress. Behavior is calm, cooperative, appropriate tl1 for age. Pain: Denies pain. Neuro: Level of Consciousness is awake, alert, obeys commands, Oriented to person, place, time, situation. Cardiovascular: Denies chest pain. Respiratory: Airway is patent Trachea midline Respiratory effort is even, unlabored, Respiratory pattern is regular, symmetrical, Breath sounds are clear bilaterally. GI: Abdomen is non-distended, Bowel sounds present X 4 quads. Abd is soft and non tender X 4 quads. Reports indigestion. : No signs and/or symptoms were reported regarding the genitourinary system. EENT: Reports metalic taste in mouth. Vital Signs: 03:38 BP 150 / 93; Pulse 74; Resp 16 S; Temp 97.7; Pulse Ox 100% on R/A; Weight 77.11 kg (R); bb Height 5 ft. 8 in. (172.72 cm) (R); Pain 5/10; 06:24 BP 113 / 76; Pulse 60; Resp 18; Pulse Ox 97% on R/A; tl2 03:38 Body Mass Index 25.85 (77.11 kg, 172.72 cm) bb ED Course: 02:54 Patient arrived in ED. ag3 03:30 Dangelo Zuniga MD is Attending Physician. joni 03:36 Triage completed. bb 03:38 Arm band placed on Patient placed in an exam room, on a stretcher, on oracle specialist, bb on pulse oximetry. EKG completed in triage. Results shown to MD. 03:41 X-ray completed. Portable x-ray completed in exam room. Patient tolerated procedure sg4 well. 03:45 XRAY Chest (1 view) In Process Unspecified. EDMS 03:51 Corrine Armstrong MD is Hospitalizing Provider. joni 03:52 Abbie Gottlieb RN is Primary Nurse. tl2 04:00 Inserted saline lock: 20 gauge in right antecubital area, using aseptic technique. tl2 Blood collected. 06:11 Patient has correct armband on for positive identification. Placed in gown. Bed in low tl2 position. Call light in reach. Side rails up X2. 06:11 No provider procedures requiring assistance completed. tl2 07:03 Patient admitted, IV remains in place. tl1 Administered Medications: 03:53 Drug: Aspirin 81 mg Route: PO; tl2 06:59 Follow up: Response: No adverse reaction; No change in condition tl1 03:54 Drug: morphine 2 mg Route: IVP; Infused Over: 2 mins; Site: right antecubital; tl2 07:00 Follow up: Response: No adverse reaction; Marked relief of symptoms; Pain is decreased tl1 03:54 Drug: Zofran 4 mg Route: IVP; Infused Over: 2 mins; Site: right antecubital; tl2 06:59 Follow up: Response: No adverse reaction; Marked relief of symptoms; Nausea is decreasedtl1 03:55 Drug: NS 0.9% 1000 ml Route: IV; Rate: 75 ml/hr; Site: right antecubital; tl2 07:00 Follow up: IV Status: Infusion continued upon admission tl1 03:55 Drug: ProTONIX 40 mg Route: IVP; Infused Over: 3 mins; Site: right antecubital; tl2 07:00 Follow up: Response: No adverse reaction; Marked relief of symptoms tl1 03:55 Drug: Lovenox 80 mg Route: Sub-Q; Site: abdomen; tl2 07:01 Follow up: Response: No adverse reaction; No change in condition tl1 Outcome: 03:53 Decision to Hospitalize by Provider. joni 07:02 Admitted to Tele accompanied by tech, via stretcher, with chart. tl1 07:02 Condition: stable 07:02 Instructed on the need for admit. 07:05 Patient left the ED. tl1 Signatures: Dispatcher [employer] Dangelo Cobos MD MD cha Ballard, Brenda, RN RN bb Lasagna, Tonya, RN RN tl1 Abbie Gottlieb RN RN tl2 Lakesha Elam Susana 4
[2018-03-24 04:08] LABS: ALT/SGPT 63 U/L (12-78); AST/SGOT 30 U/L (15-37); Albumin 4.1 g/dL (3.4-5.0); Alkaline Phosphatase 76 U/L (45-117); BUN Blood Urea Nitrogen 20 mg/dL (7-18); Bicarbonate 27 mmol/L (21-32); Bilirubin Direct 0.3 mg/dL (0-0.2); Glucose Level 117 mg/dL (74-106); Lipase 113 U/L (73-393); Magnesium 2.3 mg/dL (1.8-2.4); NT PRO-BNP 10 pg/mL (<125); Protein, Total 7.9 g/dL (6.4-8.2); Sodium Level 136 mmol/L (136-145); Troponin (Emerg Dept Use Only) < 0.02 ng/mL (0.0-0.045)
[2018-03-24] MEDS ORDERED: ONDANSETRON 4 MG/2 ML VIAL IV PRN (06:40)
[2018-03-24] MEDS ORDERED: MORPHINE 4 MG/ML SYR IV PRN ×2 (06:40→10:23)
[2018-03-24] MEDS ORDERED: ACETAMINOPHEN 500 MG TAB PO PRN ×2 (06:40→10:21)
[2018-03-24] MEDS ORDERED: SODIUM CHLORIDE 0.9% 10ML INJ IV PRN (06:40)
[2018-03-24] MEDS ORDERED: ENOXAPARIN 80 MG/0.8 ML SQ SCH ×2 (09:00→21:00)
[2018-03-24] MEDS ORDERED: TICAGRELOR 90 MG TABLET PO SCH ×2 (09:00→21:00)
[2018-03-24] MEDS ORDERED: PANTOPRAZOLE 40 MG INJ IVP SCH (09:00)
[2018-03-24] MEDS ORDERED: ASPIRIN EC 81 MG TAB PO SCH (09:00)
[2018-03-24] MEDS ORDERED: ATORVASTATIN 10 MG TAB PO SCH ×3 (09:00→21:00)
--- NOTE | 2018-03-24 10:06 | RAD REPORT ---
EXAM DESCRIPTION: Lanie Single View03/24/2018 6:53 am CLINICAL HISTORY: Chest pain COMPARISON: March 19 2018 FINDINGS: The lungs appear clear of acute infiltrate. The heart is normal size IMPRESSION: No acute abnormalities displayed
[2018-03-24 11:10] VITALS: BMI 25.8
[2018-03-24 11:46] LABS: Urine Appearance CLEAR; Urine Bilirubin NEGATIVE (NEG); Urine Blood NEGATIVE (NEG); Urine Color YELLOW; Urine Glucose NEGATIVE (NEG); Urine Protein NEGATIVE (NEG); Urine Specific Gravity 1.015 (1.005-1.030); Urine pH 6.5 (5.0-7.0)
[2018-03-24] MEDS ORDERED: RANITIDINE 150 MG TABLET PO PRN (12:00)
[2018-03-24 12:03] LABS: Urine Microscopic Reflex NO UMIC
[2018-03-24] MEDS ORDERED: CARVEDILOL 3.125 MG TAB PO SCH (13:00)
[2018-03-24 14:54] VITALS: O2SAT 94
[2018-03-24] MEDS ORDERED: D50W 25 GM/50 ML SYRINGE IV PRN (15:30)
[2018-03-24] MEDS ORDERED: GLUCAGON 1 MG/VIAL IM PRN (15:30)
--- NOTE | 2018-03-24 16:09 | EKG ---
Test Date: 2018-03-24 Test Time: 03:29:07 Needle Punch Machine Operator: MARLENA MEASUREMENT RESULTS: Intervals: Rate: 66 NV: 160 QRSD: 162 QT: 426 QTc: 446 Byron: P: 36 NV: 160 QRS: 102 T: 26 INTERPRETIVE STATEMENTS: Normal sinus rhythm Right bundle branch block Abnormal ECG Compared to ECG 03/20/2018 09:27:30 Sinus bradycardia no longer present Electronically Signed On 03-24-18 16:08:00 HEAVY EQUIPMENT FIELD MECHANIC by Maximiliano Arias
[2018-03-24] MEDS ORDERED: INSULIN -REGULAR HUMAN 50 UNIT/0.5 ML ML SQ SCH (16:30)
[2018-03-24 18:35] VITALS: BP 121/75; TEMP 98.2
[2018-03-24] MEDS ORDERED: HOME MED 1 EA UNK (Pravastatin [Pravachol*] 40 MG) PO SCH (21:00)
[2018-03-25] MEDS ORDERED: PANTOPRAZOLE 40 MG INJ IV SCH (09:00)
[2018-03-25] MEDS ORDERED: ASPIRIN EC 81 MG TAB PO SCH (09:00)
[2018-03-25] MEDS ORDERED: SODIUM CHLORIDE 0.9% 10ML INJ IV SCH (09:00)
--- NOTE | 2018-03-25 16:57 | SS ---
Date of Discharge: 03/24/2018 A 53-year-old male with a history of type 2 diabetes along with coronary artery disease and gastroeso phageal reflux disease. The patient recently had a coronary artery stent placed by Dr. Fowler. A f ew days after that placement, he came here to the emergency room with a complaint of having burning i n the throat with a bitter taste, but because of his recent stent placement, he was admitted for atyp ical chest pain. Cardiology seen him, I have seen him, and Cardiology talked with Dr. Fowler, and h is workup during that hospitalization was negative, so it was thought the patient has atypical chest pain most likely from gastroesophageal reflux disease as also the patient said that he has been havin g those symptoms before he had the stent placement and his heart catheterization and stent placement in the coronary artery was done because of a screening stress test that came back positive, and he wa s catheterized at that time, but this symptom of burning in the throat has been for him for a long ti me, many months now because of reflux disease most likely. Anyway, with the above history, he was di scharged 2 days ago. He came back last night, complaining of the same symptom of burning in his neck front area and he described to me that Rolaids have helped that sensation to be markedly less, howev er, in the emergency room again because of his coronary artery history, he was admitted for observati on again. Review of Systems: Cardiovascular: No palpitation. No shortness of breath. No dizziness. No other complaint. Respir atory: No complaints. Gastrointestinal: Chronic gastroesophageal reflux disease symptoms including heartburn, otherwise no complaint. Genitourinary: No complaints. Skeletomuscular: No complaint. Neurological: No complaint. Past Medical History: Kindly currently look his admit and discharge summaries recently. Social History: Kindly currently look his admit and discharge summaries recently. Family History: Kindly currently look his admit and discharge summaries recently. Medications: Kindly currently look his admit and discharge summaries recently. Allergies: KINDLY CURRENTLY LOOK HIS ADMIT AND DISCHARGE SUMMARIES RECENTLY. Physical Examination: Vital signs: Blood pressure 125/72, pulse 74, temperature 97.7, room air pulse oximetry 99%. Heart: Regular rate and rhythm. Chest: Clear to auscultation. Abdomen: Soft, nontender. No hepatosplenomegaly. Bowel sounds are normoactive. Extremities: No edema. No cyanosis. Peripheral pulses are felt. Neurological: Alert, oriented, nonfocal. Grossly intact. Diagnostic Studies: Chest x-ray, no acute pathology. EKG, normal sinus rhythm with right bundle-bra nch block, no change from previous. On his labs, troponin negative, less than 0.02, repeated 3 times . Chemistry noted and CBC noted. UA noted. Hospital Course: The patient was admitted for observation. He was put on telemetry and maintained s inus rhythm, along with serial cardiac enzymes were drawn and came back negative. Cardiology has see n the patient and I talked with Dr. Arias too and they thought that the patient's complaint is nonc ardiac, and at this time, he could be discharged to follow up with Dr. Fowler, his checkering machine adjuster, and to follow up with me. At this time, I have instructed the patient to take Nexium twice a day. He t akes 40 mg b.i.d. and takes p.r.n. Rolaids. At this time, he said he still has this burning feeling since he was admitted for the past many hours now and he still feels that slight burning, but when he takes Rolaids, it eases that off. I think we will see the patient and we will have him also refer t o Gastroenterology. The patient is to continue all his home medications and he was instructed to do so and to follow up with Dr. Fowler and follow up with me. Look dischar ge orders for details. MFS/MODL Voice ID: [id number] Report ID: [id number]
--- NOTE | 2018-03-26 02:52 | CON ---
Date of Consultation: 03/24/[address] Armstrong's service on 03/24/2018. The patient was seen on 03/24/2018. Reason For Consultation: Chest pain. History Of Present Illness: Mr. Laws is a 53-year-old male. He was just in the hospital a few da ys ago for similar symptoms. His story is that he had a stent approximately [address] Don clay of a mid to distal LAD small vessel. This was done because of a positive stress test, which was do ne because of throat burning. The patient continued to have throat burning postoperatively, and he c darlyn in about few days ago when he had a normal echocardiogram, ruled out for an OR. EKG showed chron ic right bundle-branch block. He was sent home with the plan to see Dr. Fowler, but he continued to have more chest burning and he came back to the emergency room where he was admitted again for the s darlyn reason. So far, he had normal chest x-ray and normal troponin. EKG showed right bundle-branch b lock. CPKs and MBs are negative. The patient complained of throat burning that has been going on fo r hours, unrelieved with antacids. He has called Dr. Lela's office and has an appointment coming u p with him in the near future. He also has an appointment coming up with Dr. Fowler. Past Medical History: Includes CAD status post PCI of the LAD, gastroesophageal reflux disease, diab etes, and hypertension. Allergies: TO STEROIDS. Review of Systems: Negative. Social History: Negative. Family History: Negative. Medications: At home include aspirin, Brilinta, Pravachol, Zantac, metformin, and Coreg. Physical Examination: Vital Signs: Stable. Afebrile. HEENT: Negative. Neck: Supple. No bruit. Chest: Clear. Cardiac: Exam revealed a regular rhythm and rate. No murmurs, gallops, or rubs. Abdomen: Benign. Extremities: Revealed no clubbing, cyanosis, or edema. Diagnostic Data: All within normal limits except for the EKG of right bundle-branch block, which is chronic. Echocardiogram in March of 2018 was normal. Impression And Plan: Symptoms are very much consistent with gastroesophageal reflux disease or esoph agitis. I recommended he increase his Zantac or get on Dexilant. Apparently, he has tried different medication before that did not work. Dexilant can certainly be prescribed by Dr. Armstrong or he can see Dr. Leal in the near future. Certainly, combination of aspirin and Brilinta may be exacerbatin g his esophageal symptoms. His other problems including diabetes and hypertension seem to be well co ntrolled. I am pretty confident that Mr. Laws did not close his stent that close to his procedure . The case had been discussed with Dr. Fowler in the past, and I discussed his case with Dr. Arabella olson. Certainly, if his Dexilant down the road does not work and if his symptoms continue despite aggre ssive GI treatment, maybe repeat catheterization would be in order. JOEL/BERNIE Voice ID: [id number] Report ID: [id number]
== END 2018-03-24 17:26 | disposition home or self-care (01) ==
LOC: ER 02:51 → ERHOLD 04:04 → 2ND 06:20
PROVIDERS: ADMIT Internal Medicine; ATTEND Internal Medicine
DX: R07.9 Chest pain, unspecified (principal); I25.10 Atherosclerotic heart disease of native coronary artery without angina pectoris; K21.9 Gastro-esophageal reflux disease without esophagitis; E11.9 Type 2 diabetes mellitus without complications; I10 Essential (primary) hypertension; Z95.5 Presence of coronary angioplasty implant and graft
CPT/HCPCS: 36415; 71045; 80048; 80076; 81003; 82962; 83690; 83735; 83880; 84484; 85025; 85610; 93005; 96361; 96372; 96374; 96375; 99285; C9113; G0378; J1650; J2270; J2405; J7030

== ENCOUNTER 2018-09-23 05:54 | Emergency (ER) | payer OTHER ==
--- OUTSIDE RECORDS SUMMARY | 2018-09-23 05:57 | XMS REPORT ---
:1965 Author Organization [facility] Address [address] [place] [address] Care Team Providers Name Role Phone Unavailable Unavailable Unavailable Payers Payer Name Policy Type Policy Number Effective Date Expiration Date Problems This patient has no known problems. Allergies, Adverse Reactions, Alerts Allergy Name Allergy Status Severity Reaction(s) Onset Inactive Treating Comments Type Date Date Clinician STEROIDS DA Active SV 2018-03 MEDICATIONS -14 00:00:0 0 Medications This patient has no known medications. Results Test Description Test Time Test Comments Text Results Atomic Results Result Comments CBC W/AUTO DIFF 2018-06-24 10:36:00 Test Item Value Reference Range Comments WHITE BLOOD CELL (test code=WBC) 7.3 K/MM3 3.8-9.8 RED BLOOD CELL (test code=RBC) 4.09 M/MM3 3.95-5.67 HEMOGLOBIN (test code=HGB) 12.0 G/DL 12.4-16.7 HEMATOCRIT (test code=HCT) 36.5 % 35.9-49.5 MEAN CELL VOLUME (test code=MCV) 89 fL 81.7-96.1 MEAN CELL HGB (test code=MCH) 29.3 pg 27.6-33.2 MEAN CELL HGB CONCETRATION (test code=MCHC) 32.9 % 32.9-35.5 RED CELL DISTRIBUTION WIDTH (test code=RDW) 13.4 % 12.1-15.2 PLATELET COUNT (test code=PLT) 230 K/MM3 129-368 MEAN PLATELET VOLUME (test code=MPV) 9.3 fl 7.4-10.4 NEUTROPHIL % (test code=NT%) 62.2 % 43-75 IMMATURE GRANULOCYTE % (test code=IG%) 0.3 % 0.0-2.0 LYMPHOCYTE % (test code=LY%) 24.6 % 14-44 MONOCYTE % (test code=MO%) 9.3 % 4-13 EOSINOPHIL % (test code=EO%) 3.2 % 0-6 BASOPHIL % (test code=BA%) 0.4 % 0-2 NUCLEATED RBC % (test code=NRBC%) 0.0 % 0-1.0 NEUTROPHIL # (test code=NT#) 4.53 K/mm3 2.0-7.6 IMMATURE GRANULOCYTE # (test code=IG#) 0.02 x10 3/uL 0-0.03 LYMPHOCYTE # (test code=LY#) 1.79 K/mm3 1.0-3.8 MONOCYTE # (test code=MO#) 0.68 K/mm3 0.1-0.8 EOSINOPHIL # (test code=EO#) 0.23 K/mm3 0.0-0.2 BASOPHIL # (test code=BA#) 0.03 K/mm3 0.0-0.2 NUCLEATED RBC # (test code=NRBC#) 0.00 K/mm3 0.0-0.1 GLUCOSE BEDSIDE [id number] 06:25:00 Test Item Value Reference Range Comments GLUCOSE BEDSIDE TESTING (test code=GLUBED) 81 MG/DL 60-99 BASIC METABOLIC [id number] 05:21:00 Test Item Value Reference Range Comments SODIUM (test code=NA) 135 MMOL/L 137-145 POTASSIUM (test code=K) 4.6 MMOL/L 3.5-5.1 CHLORIDE (test code=CL) 104 MMOL/L 98-107 CARBON DIOXIDE (test code=CO2) 22 MMOL/L 22-30 ANION GAP (test code=GAP) 14 MMOL/L 14-24 GLUCOSE (test code=GLU) 103 MG/DL 74-106 BLOOD UREA NITROGEN (test 21 MG/DL 9-20 code=BUN) GLOMERULAR FILTRATION RATE > 60 Reporting units: ml/min/1.73 (test code=GFR) m2 (Modified MDRD Formula)Reference Range: > or=60 ml/min/1.73 m2 CREATININE (test code=CREAT) 0.90 MG/DL 0.66-1.25 CALCIUM (test code=CA) 8.8 MG/DL 8.4-10.2 GLUCOSE BEDSIDE [id number] 16:56:00 Test Item Value Reference Range Comments GLUCOSE BEDSIDE TESTING (test code=GLUBED) 169 MG/DL 60-99 [id number] 13:33:00 Test Item Value Reference Range Comments ACT-ISTAT (test code=ACTI) 334 SEC 74-137 BASIC METABOLIC [id number] 06:34:00 Test Item Value Reference Range Comments SODIUM (test code=NA) 137 MMOL/L 137-145 POTASSIUM (test code=K) 4.4 MMOL/L 3.5-5.1 CHLORIDE (test code=CL) 101 MMOL/L 98-107 CARBON DIOXIDE (test code=CO2) 26 MMOL/L 22-30 GLUCOSE (test code=GLU) 123 MG/DL 74-106 BLOOD UREA NITROGEN (test 15 MG/DL 9-20 code=BUN) GLOMERULAR FILTRATION RATE > 60 Reporting units: ml/min/1.73 (test code=GFR) m2 (Modified MDRD Formula)Reference Range: > or=60 ml/min/1.73 m2 CREATININE (test code=CREAT) 0.90 MG/DL 0.66-1.25 CALCIUM (test code=CA) 9.7 MG/DL 8.4-10.2 LIPID PROFILE (CORONARY RISK)2018-06-23 06:34:00 Test Item Value Reference Range Comments TRIGLYCERIDES (test code=TRIG) 117 MG/DL TRIGLYCERIDES REFERENCE RANGE:Normal: <150 mg/dLBorderline High: 150-199 mg/dLHigh: 200-499 mg/dLVery High: >=500 mg/dL CHOLESTEROL (test code=CHOL) 144 MG/DL <200 HDL CHOLESTEROL (test 49 MG/DL 40-59 code=HDL) LIPOPROTEIN LDL (test 93 MG/DL 0-99 code=LDL) OPTIMAL.........<100 mg/dLNEAR OPTIMAL/ABOVE OPTIMAL.........100-129 mg/dL BORDERLINE HIGH.........130-159 mg/dL HIGH.........160-189 mg/dL VERY HIGH.........>/=190 mg/dL [id number] 06:34:00 Test Item Value Reference Range Comments MAGNESIUM (test code=MAG) 2.4 MG/DL 1.6-2.3 PROTHROMBIN [id number] 06:29:00 Test Item Value Reference Range Comments PROTHROMBIN TIME PATIENT (test 11.0 SECONDS 9.6-11.6 code=PTP) INTERNATIONAL NORMAL RATIO 1.0 0.8-1.1 The INR is to be used only (test code=INR) for monitoring oral anticoagulanttherapy. INDICATION INR VALUE 1. Prophylaxis, deep venous thrombosis, including high risk surgery. 2.0 - 3.0 2. Prophylaxis, deep venous thrombosis, hip surgery, treatment for deep venous thrombosis or pulmonary prevention of systemic embolism in patients with valvular heart disease, atrial fibrillation, tissue heart valve, or acute myocardial infarction. 2.0 - 3.0 3. Mechanical prosthesis heart valves, recurrent systemic embolism. 3.0 - 4.5 Comments to Jeep Driver: WILL BRING TO LABPTT [id number] 06:29:00 Test Item Value Reference Range Comments PTT ACTIVATED (test code=APTT) 32.0 SECONDS 22.0-33.0 Comments to Jeep Driver: WILL BRING TO LABBASIC METABOLIC [id number] 06:23 :00 Test Item Value Reference Range Comments SODIUM (test code=NA) 137 MMOL/L 137-145 POTASSIUM (test code=K) 4.4 MMOL/L 3.5-5.1 CHLORIDE (test code=CL) 101 MMOL/L 98-107 CARBON DIOXIDE (test code=CO2) 26 MMOL/L 22-30 GLUCOSE (test code=GLU) 123 MG/DL 74-106 BLOOD UREA NITROGEN (test 15 MG/DL 9-20 code=BUN) GLOMERULAR FILTRATION RATE > 60 Reporting units: ml/min/1.73 (test code=GFR) m2 (Modified MDRD Formula)Reference Range: > or=60 ml/min/1.73 m2 CREATININE (test code=CREAT) 0.90 MG/DL 0.66-1.25 CALCIUM (test code=CA) 9.7 MG/DL 8.4-10.2 LIPID PROFILE (CORONARY RISK)2018-06-23 06:23:00 Test Item Value Reference Range Comments TRIGLYCERIDES (test code=TRIG) 117 MG/DL TRIGLYCERIDES REFERENCE RANGE:Normal: <150 mg/dLBorderline High: 150-199 mg/dLHigh: 200-499 mg/dLVery High: >=500 mg/dL CHOLESTEROL (test code=CHOL) 144 MG/DL <200 HDL CHOLESTEROL (test 49 MG/DL 40-59 code=HDL) LIPOPROTEIN LDL (test MG/DL 0-99 code=LDL) [id number] 06:23:00 Test Item Value Reference Range Comments MAGNESIUM (test code=MAG) 2.4 MG/DL 1.6-2.3 CBC W/AUTO [id number] 06:11:00 Test Item Value Reference Range Comments WHITE BLOOD CELL (test code=WBC) 7.5 K/MM3 3.8-9.8 RED BLOOD CELL (test code=RBC) 4.78 M/MM3 3.95-5.67 HEMOGLOBIN (test code=HGB) 14.1 G/DL 12.4-16.7 HEMATOCRIT (test code=HCT) 41.8 % 35.9-49.5 MEAN CELL VOLUME (test code=MCV) 87 fL 81.7-96.1 MEAN CELL HGB (test code=MCH) 29.5 pg 27.6-33.2 MEAN CELL HGB CONCETRATION (test code=MCHC) 33.7 % 32.9-35.5 RED CELL DISTRIBUTION WIDTH (test code=RDW) 13.2 % 12.1-15.2 PLATELET COUNT (test code=PLT) 265 K/MM3 129-368 MEAN PLATELET VOLUME (test code=MPV) 8.7 fl 7.4-10.4 NEUTROPHIL % (test code=NT%) 66.2 % 43-75 IMMATURE GRANULOCYTE % (test code=IG%) 0.7 % 0.0-2.0 LYMPHOCYTE % (test code=LY%) 20.6 % 14-44 MONOCYTE % (test code=MO%) 7.3 % 4-13 EOSINOPHIL % (test code=EO%) 4.5 % 0-6 BASOPHIL % (test code=BA%) 0.7 % 0-2 NUCLEATED RBC % (test code=NRBC%) 0.0 % 0-1.0 NEUTROPHIL # (test code=NT#) 4.99 K/mm3 2.0-7.6 IMMATURE GRANULOCYTE # (test code=IG#) 0.05 x10 3/uL 0-0.03 LYMPHOCYTE # (test code=LY#) 1.55 K/mm3 1.0-3.8 MONOCYTE # (test code=MO#) 0.55 K/mm3 0.1-0.8 EOSINOPHIL # (test code=EO#) 0.34 K/mm3 0.0-0.2 BASOPHIL # (test code=BA#) 0.05 K/mm3 0.0-0.2 NUCLEATED RBC # (test code=NRBC#) 0.00 K/mm3 0.0-0.1
--- OUTSIDE RECORDS SUMMARY | 2018-09-23 05:57 | XMS REPORT ---
:1965 Author Organization [employer] Care Team Providers Name Role Phone Moustapha Washington Provider Role Unavailable Allergies, Adverse Reactions, Alerts Substance Reaction Event Type N.K.D.A. Info Not Available Non Drug Allergy Problems Problem Type Condition Code Onset Dates Condition Status Assessment Elbow pain, left M25.522 Active Problem Elbow pain, left M25.522 Active Assessment Effusion of bursa of left elbow M25.422 Active Medications Medication Code Code Instructions Start End Status Dosage System Date Date Brilinta [facility] [address]-86 Active not defined Clindamycin HCl [facility] [address]-14 Active not defined Sulfamethoxazol [facility] [address]-27 Active not e-Trimethoprim defined Carvedilol [facility] [address]-19 Active not defined MetFORMIN HCl [facility] [address]-23 Active not ER defined Aspirin 81 [facility] [address]40 Active not defined Pravastatin [facility] [address]-23 Active not Sodium defined Bactrim [facility] [address]-09 Active not defined Omeprazole [facility] [id number] Active not defined Results No Known Results Summary Purpose [employer] Submission
--- NOTE | 2018-09-23 07:14 | ER ---
Nurse's Notes [facility] Name: Alexandr Laws Age: 53 yrs Sex: Male : 1965 Arrival Date: 09/23/2018 Time: 05:58 Bed X-Ray Private MD: Corrine Armstrong F Diagnosis: Radiculopathy, lumbar region Presentation: 09/23 06:07 Presenting complaint: Patient states: left upper leg/hip pain since Monday. sitting tl2 and laying down makes it worse. Pt is able to bear weight. Transition of care: patient was not received from another setting of care. Onset of symptoms was September 20, 2018. Risk Assessment: Do you want to hurt yourself or someone else? Patient reports no desire to harm self or others. Initial Sepsis Screen: Does the patient meet any 2 criteria? No. Patient's initial sepsis screen is negative. Does the patient have a suspected source of infection? No. Patient's initial sepsis screen is negative. Care prior to arrival: None. 06:07 Method Of Arrival: Ambulatory tl2 06:07 Acuity: MIKEY 3 tl2 Triage Assessment: 06:11 General: Appears in no apparent distress. uncomfortable, Behavior is calm, cooperative, tl2 appropriate for age. Pain: Complains of pain in left quadriceps Pain does not radiate. Neuro: Level of Consciousness is awake, alert, obeys commands, Oriented to person, place, time, situation. Respiratory: Airway is patent Respiratory effort is even, unlabored, Respiratory pattern is regular, symmetrical. GI: No signs and/or symptoms were reported involving the gastrointestinal system. : No signs and/or symptoms were reported regarding the genitourinary system. Derm: Skin is pink, warm \\T\\ dry. Musculoskeletal: Circulation, motion, and sensation intact. Historical: - Allergies: 06:11 No Known Allergies; tl2 - Home Meds: 06:11 aspirin 81 mg oral chew once daily [Active]; BRILINTA 90 mg oral tab [Active]; tl2 carvedilol 3.125 mg oral tab 1 tab [Active]; Nexium 40 mg oral cpDR [Active]; pravastatin 80 mg oral tab once daily [Active]; metformin 750 mg Oral Tb24 1 tab once daily [Active]; - PMHx: 06:11 Diabetes - NIDDM; Gastric Reflux; High Cholesterol; Hypertension; tl2 - PSHx: 06:11 Heart stents; tl2 - Immunization history:: Adult Immunizations up to date. - Social history:: Smoking status: Patient/guardian denies using tobacco. - Ebola Screening: : No symptoms or risks identified at this time. Screenin:13 Abuse screen: Denies threats or abuse. Nutritional screening: No deficits noted. tl2 Tuberculosis screening: No symptoms or risk factors identified. Fall Risk None identified. Assessment: 06:13 General: see triage assessment. tl2 07:00 Reassessment: Patient is alert, oriented x 3, equal unlabored respirations, skin aa5 warm/dry/pink. Awaiting x-ray results. Asked pt if he need pain medication at this time, pt states "I don't, the pain is bearable now". Pt rates pain 5/10 on a pain scale. . 07:48 Reassessment: Patient is alert, oriented x 3, equal unlabored respirations, skin aa5 warm/dry/pink. Vital Signs: 06:12 BP 134 / 97; Pulse 80; Resp 18; Temp 97.7(O); Pulse Ox 95% on R/A; Weight 75.3 kg; tl2 Height 5 ft. 8 in. (172.72 cm); Pain 5/10; 06:12 Body Mass Index 25.24 (75.30 kg, 172.72 cm) tl2 ED Course: 05:58 Patient arrived in ED. am2 05:58 Corrine Armstrong MD is Private Physician. am2 06:08 Triage completed. tl2 06:11 Josr Del Valle PA is PHCP. jr8 06:11 Angel Navarro MD is Attending Physician. jr8 06:12 Arm band placed on right wrist. tl2 06:13 Patient has correct armband on for positive identification. Bed in low position. Call tl2 light in reach. 06:51 XRAY Hip LEFT 2 view In Process Unspecified. EDMS 07:04 eBa Guevara, WANDY is Primary Nurse. aa5 07:13 Corrine Armstrong MD is Referral Physician. jr8 07:48 No provider procedures requiring assistance completed. Patient did not have IV access aa5 during this emergency room visit. Administered Medications: 07:21 Drug: TORadol - Ketorolac 15 mg Route: IM; Site: right deltoid; aa5 07:45 Follow up: Response: No adverse reaction aa5 Outcome: 07:13 Discharge ordered by . dagmar 07:48 Discharged to home ambulatory. aa5 07:48 Condition: stable 07:48 Discharge instructions given to patient, Instructed on discharge instructions, follow up and referral plans. medication usage, Demonstrated understanding of instructions, follow-up care, medications, Prescriptions given X 3. 07:50 Patient left the ED. aa5 Signatures: Dispatcher [employer] EDBea Foster, RN RN aa5 Josr Del Valle PA PA jr8 Abbie Gottlieb RN RN 2 Sara Cottrell
--- NOTE | 2018-09-23 07:14 | EDPHYS ---
Physician Documentation [facility] Name: Alexandr Laws Age: 53 yrs Sex: Male : 1965 Arrival Date: 09/23/2018 Time: 05:58 Bed X-Ray Private MD: Corrine Armstrong F ED Physician Angel Navarro HPI: 09/23 06:24 This 53 yrs old Male presents to ER via Ambulatory with complaints of Leg jr8 Pain, Groin Pain. 06:24 The patient presents with decreased range of motion, pain. The complaints affect the jr8 lateral aspect of left thigh. Context: The problem was sustained at home, resulted from an unknown cause, the patient can fully bear weight, the patient is able to ambulate, Problem is a result from a previous injury: No. Onset: The symptoms/episode began/occurred gradually, 4 day(s) ago, and became worse last night. Modifying factors: The symptoms are alleviated by nothing. the symptoms are aggravated by movement. Associated signs and symptoms: The patient has no apparent associated signs or symptoms. Severity of symptoms: At their worst the symptoms were moderate, in the emergency department the symptoms are unchanged. The patient has not experienced similar symptoms in the past. The patient has not recently seen a physician. Denies recent trauma to back or leg. Pain main to lateral left leg with motion. Stated that it had been tolerable until last night when it woke him up . Historical: - Allergies: 06:11 No Known Allergies; tl2 - Home Meds: 06:11 aspirin 81 mg oral chew once daily [Active]; BRILINTA 90 mg oral tab [Active]; tl2 carvedilol 3.125 mg oral tab 1 tab [Active]; Nexium 40 mg oral cpDR [Active]; pravastatin 80 mg oral tab once daily [Active]; metformin 750 mg Oral Tb24 1 tab once daily [Active]; - PMHx: 06:11 Diabetes - NIDDM; Gastric Reflux; High Cholesterol; Hypertension; tl2 - PSHx: 06:11 Heart stents; tl2 - Immunization history:: Adult Immunizations up to date. - Social history:: Smoking status: Patient/guardian denies using tobacco. - Ebola Screening: : No symptoms or risks identified at this time. ROS: 06:24 Eyes: Negative for injury, pain, redness, and discharge, ENT: Negative for injury, jr8 pain, and discharge, Neck: Negative for injury, pain, and swelling, Cardiovascular: Negative for chest pain, palpitations, and edema, Respiratory: Negative for shortness of breath, cough, wheezing, and pleuritic chest pain, Abdomen/GI: Negative for abdominal pain, nausea, vomiting, diarrhea, and constipation, Back: Negative for injury and pain, Skin: Negative for injury, rash, and discoloration, Neuro: Negative for headache, weakness, numbness, tingling, and seizure. 06:24 MS/extremity: Positive for pain, of the lateral aspect of left thigh. Exam: 06:24 Eyes: Pupils equal round and reactive to light, extra-ocular motions intact. Lids and jr8 lashes normal. Conjunctiva and sclera are non-icteric and not injected. Cornea within normal limits. Periorbital areas with no swelling, redness, or edema. ENT: Nares patent. No nasal discharge, no septal abnormalities noted. Tympanic membranes are normal and external auditory canals are clear. Oropharynx with no redness, swelling, or masses, exudates, or evidence of obstruction, uvula midline. Mucous membranes moist. Neck: Trachea midline, no thyromegaly or masses palpated, and no cervical lymphadenopathy. Supple, full range of motion without nuchal rigidity, or vertebral point tenderness. No Meningismus. Cardiovascular: Regular rate and rhythm with a normal S1 and S2. No gallops, murmurs, or rubs. Normal PMI, no JVD. No pulse deficits. Respiratory: Lungs have equal breath sounds bilaterally, clear to auscultation and percussion. No rales, rhonchi or wheezes noted. No increased work of breathing, no retractions or nasal flaring. Abdomen/GI: Soft, non-tender, with normal bowel sounds. No distension or tympany. No guarding or rebound. No evidence of tenderness throughout. Skin: Warm, dry with normal turgor. Normal color with no rashes, no lesions, and no evidence of cellulitis. Neuro: Awake and alert, GCS 15, oriented to person, place, time, and situation. Cranial nerves II-XII grossly intact. Motor strength 5/5 in all extremities. Sensory grossly intact. Cerebellar exam normal. Normal gait. 06:24 Back: pain, that is moderate, of the left low back, ROM is painful, with rotation to the right, normal spinal alignment noted, CVA tenderness, is absent, vertebral tenderness, is not appreciated. 06:24 Musculoskeletal/extremity: Extremities: grossly normal except: noted in the left leg: pain, tenderness, lateral aspect left thigh just distal to the great trochanter , ROM: intact in all extremities, full active range of motion, full passive range of motion, limited active range of motion due to pain, limited passive range of motion due to pain, Circulation is intact in all extremities. Pulses: noted to be 2+ in the right radial artery, right dorsalis pedis artery, left radial artery and left dorsalis pedis artery, Sensation intact. Vital Signs: 06:12 BP 134 / 97; Pulse 80; Resp 18; Temp 97.7(O); Pulse Ox 95% on R/A; Weight 75.3 kg; tl2 Height 5 ft. 8 in. (172.72 cm); Pain 5/10; 06:12 Body Mass Index 25.24 (75.30 kg, 172.72 cm) tl2 MDM: 06:11 Patient medically screened. jr8 07:11 Data reviewed: vital signs, nurses notes, radiologic studies, plain films. Data jr8 interpreted: Pulse oximetry: on room air is 95 %. Interpretation: normal. Test interpretation: by ED physician or midlevel provider: plain radiologic studies, No acute osseous findings to the left hip and parts of pelvis imaged . Counseling: I had a detailed discussion with the patient and/or guardian regarding: the historical points, exam findings, and any diagnostic results supporting the discharge/admit diagnosis, radiology results, the need for outpatient follow up, a family practitioner, to return to the emergency department if symptoms worsen or persist or if there are any questions or concerns that arise at home. ED course: Discussed with patient that the combined back pain with hip pain leads me to think that it is radicular pain to the hip that he is feeling. Will treat as such. No other acute findings noted on imaging or physical exam. Recommend f/u after a few days. To come back if worse. Patient good with plan . 09/23 06:24 Order name: XRAY Hip LEFT 2 view jr8 Administered Medications: 07:21 Drug: TORadol - Ketorolac 15 mg Route: IM; Site: right deltoid; aa5 07:45 Follow up: Response: No adverse reaction aa5 Disposition: 09/23/18 07:13 Discharged to Home. Impression: Radiculopathy, lumbar region. - Condition is Stable. - Discharge Instructions: Lumbosacral Radiculopathy, Neuropathic Pain, Back Exercises, Kamu-gi-Cizt. - Prescriptions for Ibuprofen 800 mg Oral Tablet - take 1 tablet by ORAL route every 12 hours As needed take with food; 20 tablet. Skelaxin 800 mg Oral Tablet - take 1 tablet by ORAL route every 8 hours As needed; 30 tablet. Tramadol 50 mg Oral Tablet - take 1 tablet by ORAL route every 8 hours as needed; 12 tablet. - Medication Reconciliation Form, Thank You Letter, Antibiotic Education, Prescription Opioid Use form. - Follow up: Corrine Armstrong MD; When: 5 - 6 days; Reason: Recheck today's complaints, Continuance of care, Re-evaluation by your physician. - Problem is new. - Symptoms have improved. Signatures: Dispatcher [employer] EDMS Bea Guevara, RN RN aa5 Josr Del Valle PA PA jr8 Abbie Gottlieb RN RN tl2 Corrections: (The following items were deleted from the chart) 07:50 07:13 09/23/2018 07:13 Discharged to Home. Impression: Radiculopathy, lumbar region. aa5 Condition is Stable. Forms are Medication Reconciliation Form, Thank You Letter, Antibiotic Education, Prescription Opioid Use. Follow up: Corrine Armstrong; When: 5 - 6 days; Reason: Recheck today's complaints, Continuance of care, Re-evaluation by your physician. Problem is new. Symptoms have improved. jr8
[2018-09-23] MEDS ORDERED: KETOROLAC 30 MG/ML INJ ONE (07:34)
[2018-09-23 07:57] VITALS: BP 134/97; TEMP 97.7; O2SAT 95
--- NOTE | 2018-09-23 08:37 | RAD REPORT ---
EXAM DESCRIPTION: RAD - Hip Left 2 View - 09/23/2018 6:51 am CLINICAL HISTORY: Left hip pain COMPARISON: None. FINDINGS: AP and frogleg views of the left hip were obtained. There is no fracture or dislocation. N o AVN or focal femoral head abnormality. Mild degenerative changes seen along the superior acetabular rim. No periarticular abnormality identified. No soft tissue abnormality. IMPRESSION: Negative left hip examination for acute or significant findings.
== END 2018-09-23 07:50 | disposition home or self-care (01) ==
LOC: ER 05:54
DX: M54.16 Radiculopathy, lumbar region (principal); I10 Essential (primary) hypertension; E78.00 Pure hypercholesterolemia, unspecified; E11.9 Type 2 diabetes mellitus without complications; Z79.82 Long term (current) use of aspirin; Z95.818 Presence of other cardiac implants and grafts
CPT/HCPCS: 96372; 99283

== ENCOUNTER 2019-06-21 03:11 | Emergency (ER) | payer OTHER ==
--- OUTSIDE RECORDS SUMMARY | 2019-06-21 03:13 | XMS REPORT ---
:1965 [facility] Address [address] [place] [address] Care Team Providers Name Role Phone Unavailable [...] (test code=NRBC#) 0.00 K/mm3 0.0-0.1 GLUCOSE BEDSIDE [id number] 06:25:00 Test Item Value Reference Range Comments GLUCOSE BEDSIDE TESTING (test code=GLUBED) 81 MG/DL 60-99 BASIC METABOLIC [id number] 05:21:00 Test Item Value Reference Range Comments [...] (test code=CA) 8.8 MG/DL 8.4-10.2 GLUCOSE BEDSIDE [id number] 16:56:00 Test Item Value Reference Range Comments GLUCOSE BEDSIDE TESTING (test code=GLUBED) 169 MG/DL 60-99 [id number] 13:33:00 Test Item Value Reference Range Comments ACT-ISTAT (test code=ACTI) 334 SEC 74-137 BASIC METABOLIC [id number] 06:34:00 Test Item Value Reference Range Comments [...] HIGH.........130-159 mg/dL HIGH.........160-189 mg/dL VERY HIGH.........>/=190 mg/dL [id number] 06:34:00 Test Item Value Reference Range Comments MAGNESIUM (test code=MAG) 2.4 MG/DL 1.6-2.3 PROTHROMBIN [id number] 06:29:00 Test Item Value Reference Range Comments [...] systemic embolism. 3.0 - 4.5 Comments to Supply Chain Buyer: WILL BRING TO LABPTT [id number] 06:29:00 Test Item Value Reference Range Comments PTT ACTIVATED (test code=APTT) 32.0 SECONDS 22.0-33.0 Comments to Supply Chain Buyer: WILL BRING TO LABBASIC METABOLIC [id number] 06:23 :00 Test Item Value Reference Range [...] code=HDL) LIPOPROTEIN LDL (test MG/DL 0-99 code=LDL) [id number] 06:23:00 Test Item Value Reference Range Comments MAGNESIUM (test code=MAG) 2.4 MG/DL 1.6-2.3 CBC W/AUTO [id number] 06:11:00 Test Item Value Reference Range Comments [...]
--- OUTSIDE RECORDS SUMMARY | 2019-06-21 03:13 | XMS REPORT ---
[...] End Status Dosage System Date Date Brilinta [facility] [address]-11 Active not defined Clindamycin HCl [facility] [address]-61 Active not defined Sulfamethoxazol [facility] [address]-52 Active not e-Trimethoprim defined Carvedilol [facility] [address]-06 Active not defined MetFORMIN HCl [facility] [address]-31 Active not ER defined Aspirin 81 [facility] [address]272 Active not defined Pravastatin [facility] [address]-31 Active not Sodium defined Bactrim [facility] [address]-17 Active not defined Omeprazole [facility] 50608318071 Active not defined Results No Known Results Summary Purpose eClinicalWorks Submission
--- OUTSIDE RECORDS SUMMARY | 2019-06-21 03:13 | XMS REPORT ---
:1965 Author Organization eClinical[employer] Care Team Providers Name Role Phone Keisha Quesada Provider Role Unavailable Allergies, Adverse Reactions, Alerts Substance Reaction Event Type N.K.D.A. Info Not Available Non Drug Allergy Problems Problem Type Condition Code Onset Dates Condition Status Problem Renal cell carcinoma C64.9 Active Problem Elbow pain, left M25.522 Active Problem Renal mass N28.89 Active Assessment Renal mass N28.89 Active Medications Medication Code Code Instructions Start End Status Dosage System Date Date Brilinta [facility] 03217031338 90 MG Orally Active 1 tablet Twice a day Sulfamethoxazol [facility] [address]-22 Active not e-Trimethoprim defined Bactrim [facility] [address]-84 Active not defined Carvedilol [facility] [address]-34 Active not defined MetFORMIN HCl [facility] 67364358495 750 MG Orally Active 1 tablet ER bid with evening meal Clindamycin HCl [facility] [address]-69 Active not defined Aspirin 81 [facility] 21158415808 81 MG Orally Active 1 tablet Once a day Pravastatin [facility] 77235653315 80 MG Orally Active 1 tablet Sodium Once a day Omeprazole [facility] 53238981132 40 MG Orally Active 1 capsule Once a day 30 minutes before morning meal Results Name Result Date Reference Range Unit Abnormality Flag URINALYSIS AUTO W/O SCOPE (33143) ----NIT neg [id number] ----URO >=8.0 [id number] ----PROTEIN neg [id number] ----pH 6.5 [id number] ----BLO 2+ [id number] ----GLUCOSE tr [id number] ----RYAN neg [id number] ----BILIRUBIN neg [id number] ----KETONES neg [id number] ----SPECIFIC GRAVITY 1.020 [id number] Summary Purpose eClinicalWorks Submission
[2019-06-21] MEDS ORDERED: ONDANSETRON 4 MG/2 ML VIAL ONE (03:43)
[2019-06-21] MEDS ORDERED: NA CHLORIDE 0.9% 500 ML ONE (03:43)
[2019-06-21] MEDS ORDERED: NA CHLORIDE 0.9% 1,000 ML ONE (03:43)
[2019-06-21] MEDS ORDERED: MORPHINE 4 MG/ML SYR ONE (03:43)
[2019-06-21 03:50] LABS: Absolute Lymphocytes (CBC) 1.9 K/uL (0.7-4.9); Basophils % 0.7 % (0-1.3); Hematocrit 33.9 % (39.6-49.0); Lymphocytes % 29.1 % (15.3-44.8); MPV 6.6 fL (7.6-11.3); RBC Red Blood Cell Count 3.86 M/uL (4.33-5.43)
[2019-06-21 04:13] LABS: Albumin 3.9 g/dL (3.4-5.0); Bilirubin Direct 0.2 mg/dL (0-0.2); Bilirubin Total 0.8 mg/dL (0.2-1.0); Potassium 3.6 mmol/L (3.5-5.1); Protein, Total 7.7 g/dL (6.4-8.2)
--- NOTE | 2019-06-21 05:11 | EDPHYS ---
Physician Documentation [facility] Name: Alexandr Laws Age: 54 yrs Sex: Male : 1965 Arrival Date: 06/21/2019 Time: 03:14 Bed 5 Private MD: Dangelo Mac HPI: 06/20 03:32 This 54 yrs old Male presents to ER via Ambulatory with complaints of Groin joni Pain. 03:32 The patient presents with abdominal pain right lower quadrant. Onset: The joni symptoms/episode began/occurred 1 day(s) ago. The patient complains of pain in the right mid back and right low back. The pain radiates to the right mid back and right low back. Onset: The symptoms/episode began/occurred 1 day(s) ago. Modifying factors: The symptoms are alleviated by nothing. the symptoms are aggravated by nothing. Associated signs and symptoms: The patient has no apparent associated signs or symptoms. The symptoms radiate to. Associated signs and symptoms: none. Historical: - Allergies: 03:31 No Known Allergies; jd3 - Home Meds: 03:31 aspirin 81 mg Oral chew once daily [Active]; BRILINTA 90 mg Oral tab [Active]; jd3 carvedilol 3.125 mg Oral tab 1 tab [Active]; Nexium 40 mg Oral cpDR [Active]; metformin 750 mg Oral Tb24 1 tab once daily [Active]; pravastatin 80 mg Oral tab once daily [Active]; - PMHx: 03:31 Diabetes - NIDDM; Gastric Reflux; High Cholesterol; Hypertension; jd3 - PSHx: 03:31 Heart stents; jd3 - Immunization history:: Adult Immunizations up to date. - Social history:: Smoking status: Patient denies any tobacco usage or history of. - Family history:: not pertinent. ROS: 03:32 Constitutional: Negative for fever, chills, and weight loss, Eyes: Negative for injury, joni pain, redness, and discharge, ENT: Negative for injury, pain, and discharge, Neck: Negative for injury, pain, and swelling, Cardiovascular: Negative for chest pain, palpitations, and edema, Respiratory: Negative for shortness of breath, cough, wheezing, and pleuritic chest pain, : Negative for injury, bleeding, discharge, and swelling, MS/Extremity: Negative for injury and deformity, Skin: Negative for injury, rash, and discoloration, Neuro: Negative for headache, weakness, numbness, tingling, and seizure, Psych: Negative for depression, anxiety, suicide ideation, homicidal ideation, and hallucinations, Allergy/Immunology: Negative for hives, rash, and allergies, Endocrine: Negative for neck swelling, polydipsia, polyuria, polyphagia, and marked weight changes, Hematologic/Lymphatic: Negative for swollen nodes, abnormal bleeding, and unusual bruising. 03:32 Back: Positive for flank pain, on the right. Exam: 03:32 Constitutional: This is a well developed, well nourished patient who is awake, alert, joni and in no acute distress. Head/Face: Normocephalic, atraumatic. Eyes: Pupils equal round and reactive to light, extra-ocular motions intact. Lids and lashes normal. Conjunctiva and sclera are non-icteric and not injected. Cornea within normal limits. Periorbital areas with no swelling, redness, or edema. ENT: Nares patent. No nasal discharge, no septal abnormalities noted. Tympanic membranes are normal and external auditory canals are clear. Oropharynx with no redness, swelling, or masses, exudates, or evidence of obstruction, uvula midline. Mucous membranes moist. Neck: Trachea midline, no thyromegaly or masses palpated, and no cervical lymphadenopathy. Supple, full range of motion without nuchal rigidity, or vertebral point tenderness. No Meningismus. Chest/axilla: Normal chest wall appearance and motion. Nontender with no deformity. No lesions are appreciated. Cardiovascular: Regular rate and rhythm with a normal S1 and S2. No gallops, murmurs, or rubs. Normal PMI, no JVD. No pulse deficits. Respiratory: Lungs have equal breath sounds bilaterally, clear to auscultation and percussion. No rales, rhonchi or wheezes noted. No increased work of breathing, no retractions or nasal flaring. Abdomen/GI: Soft, non-tender, with normal bowel sounds. No distension or tympany. No guarding or rebound. No evidence of tenderness throughout. Male : Normal genitalia with no discharge or lesions. Skin: Warm, dry with normal turgor. Normal color with no rashes, no lesions, and no evidence of cellulitis. MS/ Extremity: Pulses equal, no cyanosis. Neurovascular intact. Full, normal range of motion. Neuro: Awake and alert, GCS 15, oriented to person, place, time, and situation. Cranial nerves II-XII grossly intact. Motor strength 5/5 in all extremities. Sensory grossly intact. Cerebellar exam normal. Normal gait. Psych: Awake, alert, with orientation to person, place and time. Behavior, mood, and affect are within normal limits. 03:32 Abdomen/GI: Inspection: abdomen appears normal, Bowel sounds: normal, Palpation: mild abdominal tenderness, in the anterior aspect of right lateral abdomen, posterior aspect of right lateral abdomen and right lower quadrant, Liver: no appreciated palpable abnormalities, Hernia: not appreciated. 03:32 Back: pain, that is mild, that is moderate, ROM is normal, normal spinal alignment noted, CVA tenderness, is absent, muscle spasm, is appreciated in the left low back, left mid back, right mid back and right low back. 05:10 Skin: Appearance: Color: normal in color, Temperature: normal temperature, Moisture: [facility] normal moisture, petechiae, not noted, ecchymosis, not noted, no rash present. Vital Signs: 03:31 BP 135 / 99; Pulse 75; Resp 17 S; Temp 98.4; Pulse Ox 98% on R/A; Weight 78.93 kg (R); jd3 Height 5 ft. 8 in. (172.72 cm) (R); Pain 8/10; 04:38 BP 118 / 78; Pulse 80; Resp 17 S; Pulse Ox 95% on R/A; Pain 3/10; jd3 05:31 BP 113 / 72; Pulse 78; Resp 17 S; Pulse Ox 96% on R/A; Pain 0/10; jd3 03:31 Body Mass Index 26.46 (78.93 kg, 172.72 cm) jd3 MDM: 03:22 Patient medically screened. [facility] 03:36 Data reviewed: vital signs, nurses notes, lab test result(s), radiologic studies, CT joni scan. 06/20 03:32 Order name: Basic Metabolic Panel [facility] 06/20 03:32 Order name: CBC with Diff; Complete Time: 04:41 [facility] 06/20 03:32 Order name: Creatinine for Radiology; Complete Time: 04:41 [facility] 06/20 03:32 Order name: Hepatic Function; Complete Time: 04:41 [facility] 06/20 03:32 Order name: Lipase; Complete Time: 04:41 joni 06/20 03:32 Order name: Basic Metabolic Panel; Complete Time: 04:41 EDMS 06/20 03:32 Order name: IV Saline Lock; Complete Time: 03:48 [facility] 06/20 03:32 Order name: Labs collected and sent; Complete Time: 03:48 [facility] 06/20 03:32 Order name: CT Stone Protocol [facility] 06/20 05:11 Order name: Urine Dipstick--Ancillary (enter results) ds4 06/20 04:41 Order name: Urine Dipstick-Ancillary (obtain specimen); Complete Time: 05:09 ea Administered Medications: 03:48 Drug: morphine 4 mg Route: IVP; Site: right antecubital; jd3 04:40 Follow up: Response: No adverse reaction; RASS: Alert and Calm (0) jd3 03:48 Drug: Zofran (Ondansetron) 4 mg Route: IVP; Site: right antecubital; jd3 04:40 Follow up: Response: No adverse reaction jd3 04:05 Drug: NS 0.9% 500 ml Route: IV; Rate: bolus; Site: right antecubital; jd3 05:00 Follow up: Response: No adverse reaction; IV Status: Completed infusion; IV Intake: jd3 500ml 04:05 Drug: NS 0.9% 1000 ml Route: IV; Rate: 125 ml/hr; Site: right antecubital; jd3 05:34 Follow up: Response: No adverse reaction; IV Status: Order to discontinue infusion; IV jd3 Intake: 150ml Disposition: 06/21/19 05:10 Discharged to Home. Impression: Abdominal tenderness, Type 2 diabetes mellitus. - Condition is Stable. - Discharge Instructions: Abdominal Pain, Adult, Type 2 Diabetes Mellitus, Diagnosis, Adult, Abdominal Pain, Adult, [id number], Type 2 Diabetes Mellitus, Diagnosis, Adult, [id number]. - Prescriptions for Bentyl 20 mg Oral Tablet - take 1 tablet by ORAL route every 6 hours As needed; 20 tablet. Tylenol- Codeine #3 300-30 mg Oral Tablet - take 2 tablets by ORAL route every 6 hours As needed; 20 tablet. - Medication Reconciliation Form, Thank You Letter, Antibiotic Education, Prescription Opioid Use form. - Follow up: Private Physician; When: 2 - 3 days; Reason: Recheck today's complaints, Continuance of care, Re-evaluation by your physician. - Problem is new. - Symptoms have improved. Signatures: Dispatcher [employer] EDDangelo Head MD MD cha Antunez, Elena, RN RN Alex Alvarado RN RN jd3 Corrections: (The following items were deleted from the chart) 05:34 05:10 06/21/2019 05:10 Discharged to Home. Impression: Abdominal tenderness; Type 2 jd3 diabetes mellitus. Condition is Stable. Discharge Instructions: Abdominal Pain, Adult, Type 2 Diabetes Mellitus, Diagnosis, Adult, Abdominal Pain, Adult, Bima-ec-Nomg, Type 2 Diabetes Mellitus, Diagnosis, Adult, Ezsy-[id number]-Umyv. Prescriptions for Bentyl 20 mg Oral Tablet - take 1 tablet by ORAL route every 6 hours As needed; 20 tablet, Tylenol-Codeine #3 300-30 mg Oral Tablet - take 2 tablets by ORAL route every 6 hours As needed; 20 tablet. and Forms are Medication Reconciliation Form, Thank You Letter, Antibiotic Education, Prescription Opioid Use. Follow up: Private Physician; When: 2 - 3 days; Reason: Recheck today's complaints, Continuance of care, Re-evaluation by your physician. Problem is new. Symptoms have improved. joni
--- NOTE | 2019-06-21 05:11 | ER ---
Nurse's Notes [facility] Name: Alexandr Laws Age: 54 yrs Sex: Male : 1965 Arrival Date: 06/21/2019 Time: 03:14 Bed 5 Private MD: Diagnosis: Abdominal tenderness;Type 2 diabetes mellitus Presentation: 06/20 03:29 Chief complaint: Patient states: "I am having tight lower abdominal pain that travels j down into my groin. no nausea or vomiting. it just woke me up out of my sleep.". Coronavirus screen: The patient has NOT traveled to a country currently being monitored by the [facility] within the last 14 days. The patient has NOT had contact with any known and/or suspected case of coronavirus. Proceed with normal triage procedures. Ebola Screen: Patient negative for fever greater than or equal to 101.5 degrees Fahrenheit, and additional compatible Ebola Virus Disease symptoms. Initial Sepsis Screen: Does the patient meet any 2 criteria? No. Patient's initial sepsis screen is negative. Does the patient have a suspected source of infection? No. Patient's initial sepsis screen is negative. Risk Assessment: Do you want to hurt yourself or someone else? Patient reports no desire to harm self or others. 03:29 Method Of Arrival: Ambulatory jd3 03:29 Acuity: MIKEY 3 jd3 03:36 Onset of symptoms was June 21, 2019. jd3 Historical: - Allergies: 03:31 No Known Allergies; jd3 - Home Meds: 03:31 aspirin 81 mg Oral chew once daily [Active]; BRILINTA 90 mg Oral tab [Active]; jd3 carvedilol 3.125 mg Oral tab 1 tab [Active]; Nexium 40 mg Oral cpDR [Active]; metformin 750 mg Oral Tb24 1 tab once daily [Active]; pravastatin 80 mg Oral tab once daily [Active]; - PMHx: 03:31 Diabetes - NIDDM; Gastric Reflux; High Cholesterol; Hypertension; jd3 - PSHx: 03:31 Heart stents; jd3 - Immunization history:: Adult Immunizations up to date. - Social history:: Smoking status: Patient denies any tobacco usage or history of. - Family history:: not pertinent. Screenin:36 Abuse screen: Denies threats or abuse. Nutritional screening: No deficits noted. jd3 Tuberculosis screening: No symptoms or risk factors identified. Fall Risk Fall in past 12 months (25 points). Ambulatory Aid- None/Bed Rest/Nurse Assist (0 pts). Gait- Normal/Bed Rest/Wheelchair (0 pts) Mental Status- Oriented to own ability (0 pts). Total Abernathy Fall Scale indicates Low Risk Score (25-44 pts). Fall prevention measures have been instituted. Side Rails Up X 2 Placed close to Nursing Station Frequent Obs/Assesments occuring. Assessment: 03:33 General: Appears in no apparent distress. uncomfortable, Behavior is calm, cooperative, jd3 appropriate for age. Pain: Complains of pain in right upper quadrant and right lower quadrant Pain radiates to groin Quality of pain is described as sharp, shooting, tender. Neuro: Level of Consciousness is awake, alert, obeys commands, Oriented to person, place, time, situation. Cardiovascular: Denies chest pain, Capillary refill < 3 seconds Patient's skin is warm and dry. Respiratory: Airway is patent Respiratory effort is even, unlabored, Respiratory pattern is regular, symmetrical, Denies cough, shortness of breath. GI: Abdomen is round non-distended, Bowel sounds present X 4 quads. Abd is soft X 4 quads Abdomen is tender to palpation in right upper quadrant and right lower quadrant Reports lower abdominal pain, upper abdominal pain, Patient currently denies constipation, diarrhea, nausea, vomiting. : No signs and/or symptoms were reported regarding the genitourinary system. EENT: No signs and/or symptoms were reported regarding the EENT system. Derm: Skin is intact, Skin is dry, Skin is normal, Skin temperature is warm Bruising that is dark purple, on epigastric area, left upper quadrant and left lower quadrant. Musculoskeletal: Circulation, motion, and sensation intact. Range of motion: intact in all extremities. 04:38 Reassessment: Patient appears in no apparent distress at this time. Patient and/or jd3 family updated on plan of care and expected duration. Pain level reassessed. Patient is alert, oriented x 3, equal unlabored respirations, skin warm/dry/pink. Patient states feeling better. 05:31 Reassessment: Patient appears in no apparent distress at this time. Patient and/or jd3 family updated on plan of care and expected duration. Pain level reassessed. Patient is alert, oriented x 3, equal unlabored respirations, skin warm/dry/pink. Patient denies pain at this time. Patient states feeling better. Vital Signs: 03:31 BP 135 / 99; Pulse 75; Resp 17 S; Temp 98.4; Pulse Ox 98% on R/A; Weight 78.93 kg (R); jd3 Height 5 ft. 8 in. (172.72 cm) (R); Pain 8/10; 04:38 BP 118 / 78; Pulse 80; Resp 17 S; Pulse Ox 95% on R/A; Pain 3/10; jd3 05:31 BP 113 / 72; Pulse 78; Resp 17 S; Pulse Ox 96% on R/A; Pain 0/10; jd3 03:31 Body Mass Index 26.46 (78.93 kg, 172.72 cm) jd3 ED Course: 03:14 Patient arrived in ED. cl3 03:22 Dangelo Zuniga MD is Attending Physician. joni 03:29 Alex Borrego RN is Primary Nurse. jd3 03:31 Triage completed. jd3 03:33 Arm band placed on. jd3 03:36 Patient has correct armband on for positive identification. Placed in gown. Bed in low jd3 position. Call light in reach. Pulse ox on. NIBP on. 03:46 Initial lab(s) drawn, by me, sent to lab. Inserted saline lock: 20 gauge in right ah antecubital area, using aseptic technique. 04:06 CT Stone Protocol In Process Unspecified. EDMS 05:32 No provider procedures requiring assistance completed. IV discontinued, intact, jd3 bleeding controlled, No redness/swelling at site. Pressure dressing applied. Administered Medications: 03:48 Drug: morphine 4 mg Route: IVP; Site: right antecubital; jd3 04:40 Follow up: Response: No adverse reaction; RASS: Alert and Calm (0) jd3 03:48 Drug: Zofran (Ondansetron) 4 mg Route: IVP; Site: right antecubital; jd3 04:40 Follow up: Response: No adverse reaction jd3 04:05 Drug: NS 0.9% 500 ml Route: IV; Rate: bolus; Site: right antecubital; jd3 05:00 Follow up: Response: No adverse reaction; IV Status: Completed infusion; IV Intake: jd3 500ml 04:05 Drug: NS 0.9% 1000 ml Route: IV; Rate: 125 ml/hr; Site: right antecubital; jd3 05:34 Follow up: Response: No adverse reaction; IV Status: Order to discontinue infusion; IV jd3 Intake: 150ml Intake: 05:00 IV: 500ml; Total: 500ml. jd3 05:34 IV: 150ml; Total: 650ml. jd3 Outcome: 05:10 Discharge ordered by MD. quinones 05:32 Discharged to home ambulatory, with family. jd3 05:32 Condition: stable 05:32 Discharge instructions given to patient, Instructed on discharge instructions, follow up and referral plans. medication usage, Demonstrated understanding of instructions, follow-up care, medications, Prescriptions given X 2. 05:34 Patient left the ED. jd3 Signatures: Dispatcher [employer] EDMS Dangelo Zuniga MD MD cha Davies, Jonathon, RN RN jd3 Lewis, Charde 3 Angelique Thomas RN RN Corrections: (The following items were deleted from the chart) 05:32 03:31 BP 135 / 99; Pulse 75bpm; Resp 17bpm; Spontaneous; Pulse Ox 98% RA; 78.93 kg jd3 Reported; Height 5 ft. 8 in. Reported; BMI: 26.4; Pain 8/10; jd3
[2019-06-21 05:42] VITALS: TEMP 98.4
[2019-06-21 05:45] VITALS: BP 113/72; O2SAT 96
[2019-06-21 06:01] LABS: Urine Blood NEGATIVE (NEG); Urine Glucose TRACE (NEG); Urine Protein NEGATIVE (NEG); Urine Specific Gravity 1.025 (1.005-1.030); Urine pH 6.5 (5.0-7.0)
--- NOTE | 2019-06-21 11:57 | RAD REPORT ---
EXAM DESCRIPTION: CT abdomen and pelvis without intravenous contrast CLINICAL HISTORY: 54-year-old male with abdominal pain and left flank pain TECHNIQUE: Axial CT imaging of the abdomen and pelvis was performed. Sagittal and coronal reconstr ucted images were then performed. The CT study is performed according to ALARA (as low as reasonably achievable) or ALARA/IMAGE GENTLY, with automatic adjustment of mA and/or kV according to patient perry farooq. Performed on: 06/21/2019 at 3:58 AM COMPARISON: 05/17/2016. FINDINGS: Lung bases: The lung bases are clear. Liver: The liver is normal in size and configuration. No focal hepatic abnormalities are appreciated on this unenhanced scan. Liver attenuation is within normal limits. Spleen: The spleen is normal is size, configuration and attenuation. No focal splenic abnormalities a re appreciated on this unenhanced scan. Gallbladder and bile duct: The gallbladder is well distended and unremarkable. There is no biliary ductal dilatation. Pancreas: The pancreas is grossly normal in size and configuration. Adrenal Glands: The adrenal glands are normal in size and configuration. Kidneys: The kidneys are normal in size and configuration. There is no evidence of hydronephrosis. Th ere is no evidence of nephrolithiasis. No focal renal abnormalities are identified. Stomach: The stomach is grossly normal. There is no definite hiatal hernia. Bowel: The bowel gas pattern is non specific and non obstructive. Appendix: The appendix is normal. Free air: There is no evidence of free air. Free fluid: There is no evidence of free fluid. Vasculature: The aorta is normal in caliber and contour. The inferior vena cava is grossly unremarkab le. Lymphadenopathy: No pathologic lymphadenopathy is identified. Bladder: The bladder is well distended and smooth in contour. Reproductive: The prostate gland is grossly within normal limits. Bones: No acute osseous abnormalities are identified. Soft tissues: There is infiltration of the subcutaneous fat along the left lateral abdominal wall, le ft hip and left anterior chest wall most consistent with contusion in light of the patient's reported history of a recent fall. There is an approximately 1.7 x 1.3 x 1.7 cm focal soft tissue mass adjace nt to the left iliac crest likely representing a hematoma. IMPRESSION: 1. Normal unenhanced CT scan of the abdomen and pelvis. There is no evidence of urinary tract calcification or urinary tract obstruction. 2. Contusion suspected along the left lateral abdominal wall, left hip and left anterior chest wall a nd small hematoma adjacent to the left iliac crest in light of the patient's reported clinical histor y of a recent fall. Electronically signed by: Rere Gaitan DO 06/21/2019 4:22 AM CDT Due to temporary technical issues with the PACS/Fluency reporting system, reports are being signed by the in house radiologist as a courtesy to ensure prompt reporting. The interpreting radiologist is f ully responsible for the content of the report.
== END 2019-06-21 05:34 | disposition home or self-care (01) ==
LOC: ER 03:11
DX: R10.813 Right lower quadrant abdominal tenderness (principal); E11.9 Type 2 diabetes mellitus without complications; I10 Essential (primary) hypertension; E78.00 Pure hypercholesterolemia, unspecified; Z79.82 Long term (current) use of aspirin; Z95.818 Presence of other cardiac implants and grafts
CPT/HCPCS: 96361; 85025; 80048; 36415; 80076; 81003; 83690; 76377; 74176; 96375; 96374; 99284; J7040; J7030; J2405

== ENCOUNTER 2022-08-29 17:57 | Emergency (ER) | payer OTHER ==
--- OUTSIDE RECORDS SUMMARY | 2022-08-29 18:05 | XMS REPORT | Continuity of Care Document ---
:1965 Author Organization [facility] t Address [address] [place] [address] [address] [place] [address] Care Team Providers Name Role Phone Corrine Armstrong MD Primary Care Physician [phone] Corrine Armstrong Attending Clinician Unavailable SRIDHAR GUTIERRES Attending Clinician Unavailable Rolo Birch Attending Clinician Unavailable Moramia Davis Attending Clinician Unavailable Miguel Godfrey Attending Clinician Unavailable SRIDHAR GUTIERRES Attending Clinician Unavailable Billy Shields Attending Clinician ROBINA DELA CRUZ Attending Clinician Unavailable Robina Dela Cruz DO Attending Clinician SHO_Eyal_Rolo_ Attending Clinician Unavailable GRADY LAY Attending Clinician Unavailable Grady Lay MD Attending Clinician Wesley Sal Attending Clinician RADIOLOGY Attending Clinician Unavailable Radiology Attending Clinician Unavailable Sridhar Gutierres MD Attending Clinician Corine Be Attending Clinician Unavailable Corine Be Attending Clinician [phone] Rolo Birch Attending Clinician [phone] EMERSON ROSALES Attending Clinician Unavailable Emerson Rosales APN Attending Clinician ALEXANDRA FITZGERALD Attending Clinician Unavailable Alexandra Fitzgerald MD Attending Clinician Doctor Unassigned, [facility] Attending Clinician Unavailable Prashanth Calderón MD Attending Clinician Vijay Fritz Attending Clinician SRIDHAR GUTIERRES Admitting Clinician Unavailable Hal Fowler Admitting Clinician Unavailable Miguel Godfrey Admitting Clinician Unavailable SHO_Eyal_Rolo_ Admitting Clinician Unavailable GRADY LAY Admitting Clinician Unavailable Grady Lay MD Admitting Clinician WESLEY SAL Admitting Clinician Unavailable EMERSON ROSALES Admitting Clinician Unavailable ALEXANDRA FITZGERALD Admitting Clinician Unavailable Payers Payer Name Policy Type Policy Number Effective Date Expiration Date Elza loomis [facility] [id number] 2019 00:00:00 OPEN ACCESS PLUS - [id number] 2017 [employer]IG[employer] 00:00:00 [facility] [id number] 2015 00:00:00 [facility] [id number] 2001 00:00:00 Problems Condition Condition Condition Status Onset Resolution Last Treating Co mments Source Name Details Category Date Date Treatment Clinician Date Crush Crush Problem Active 2021-04 Zeny injury of Injury of 2-06 Orth ope left foot Left Foot 00:00: dic 00 Sports Medicin [facility] Cellulitis Cellulitis Problem Active 2021-04 A zalea of left of Left 2-06 Orthope foot Foot 00:00: dic 00 Sports Medicin e Hematoma Hematoma Problem Active 2021-04 Azale a of left of Left 2-06 Orthope foot Foot 00:00: dic 00 Sports Medicin e Foot Foot Disease Active 2021-04 Univers infection infection 04-23 ity of 00:00: [place] 00 Medical Branch Acromiocla Acromiocla Problem Active A zalea vicular vicular 2-08 Orthope joint pain Joint Pain 00:00: di c 00 Sports Medicin e 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 Syndrome 00:00: dic 00 Sports Medicin e Strain of Strain of Problem Active Aza josefa muscle of Muscle of 2-08 Orth ope chest wall Chest Wall 00:00: di c 00 Sports Medicin e Pain in Pain in Problem Active 2020-04 Zeny right hand Right Hand 1-15 Or thope 00:00: dic 00 Sports Medicin e Sprain of Sprain of Problem Active Aza josefa left ankle Left Ankle 9-30 Or thope 00:00: dic 00 Sports Medicin e Inflamed Inflamed Problem Active Azale a joint Joint 9-30 Orthope 00:00: dic 00 Sports Medicin e Renal mass Renal mass Disease Active [facility] Calculus Calculus Disease Active [facility] of 3-24 College gallbladde gallbladde 00:00: of r without r without 00 Medi karin cholecysti cholecysti e tis tis without without obstructio obstructio n n Peroneal Peroneal Problem Active Azale a tenosynovi Tenosynovi 3-03 Or thope tis tis 00:00: dic 00 Sports Medicin e Spontaneou Spontaneou Problem Active A zalea s rupture s Rupture 3-03 Orth ope of flexor of Flexor 00:00: dic tendons Tendons 00 Sports Medicin e Left hip Left hip Disease Active 2015-04 Unive rs pain pain 0-21 ity of 00:00: [place] 00 Medical Branch GERD GERD Disease Active [facility] (gastroeso (gastroeso Co llege phageal phageal of reflux reflux Medicin disease) disease) e Diverticul Diverticul Disease Active [facility] of Medicin e Hypertensi Problem Active 2022-08-19 M emoria ve Hypertensi 22:57:45 l disorder, ve [place] systemic disorder, arterial systemic (disorder) arterial (disorder) Active Problem 08/19/2022 [facility] [place] Transient Transient Problem Active 2022-08-19 Memoria visual visual 22:57:45 l loss loss [place] (disorder) (disorder) Active Problem 08/19/2022 [facility] Neuro,[facility]NA [facility] [place] LEAD LEAD Diagnosis Active 2014-05-17 Mem oria TESTING TESTING 09:19:00 l Active KATERIN cruz [facility] Cholestero Cholester Problem Resolve 2021-10-08 [facility] losis of olosis of d 22:50:05 l gallbladde juanaadde Phil rmann r r (disorder) (disorder) Resolved Problem 10/08/2021 [facility] Neuro 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 Herm emil (disorder) of kidney (disorder) Active Problem 08/19/2022 [facility] [place] Diabetes Diabetes Problem Active 2022-08-19 [facility] mellitus mellitus 22:57:45 l (disorder) (disorder) He rmann Active Problem 08/19/2022 [facility] [place] Hyperlipid Problem Active 2022-08-19 M emoria emia Hyperlipid 22:57:45 l (disorder) emlakesha cruz (disorder) Active Problem 08/19/2022 [facility] [place] Elbow Elbow Problem Active Common pain, left pain, left Sp [facility] 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 Spir it [facility] Renal mass Renal mass Problem Active C mon Spirit [facility] Allergies, Adverse Reactions, Alerts Allergy Allergy Status Severity Reaction(s) Onset Inactive Treating Comm ents Source Name Type Date Date Clinician No Known DA Active U 2019-0 [facility] Clear s 00:[facility]: [address] No Known DA Active U 2020-0 [facility] Allergie 3-26 Clear s 00:00: [place] 00 [facility] STEROIDS DA Active SV ALLERGY 2017-04 [facility] MEDICATI 2-14 Clear ONS 00:00: [address] PREDNISO DRUG Active Other-Cmnt 2015-04 Univ ers NE INGREDI 0-21 ity of 00:00: [place] 00 Medical Branch Predniso Propensi Active Other - See 2015-04 Caused U nivers ne ty to comments 0-21 uncontrol ity o f adverse 00:00: lable [place] reaction 00 crying - Medica l s causing Branch him to have suicidal thoughts to end the tears Jia Pizarro 6 10:33 AM Predniso Propensi Active Other (See 2016- Caused Ba [facility] ty to Comments) 0-21 uncontrol Phan ege adverse 00:00: lable of reaction 00 crying - Medici n s to causing e drug him to have suicidal thoughts to end the tears Jia Pizarro 6 10:33 AM NO KNOWN Allergy Active [facility] NO KNOWN Drug Active [place] [facility] Social History Social Habit Start Date Stop Date Quantity Comments Source Gender identity 2021-01-24 Identifies as [facility] 19:03:11 male gender of Medicine (finding) Sexual orientation 2021-01-24 [facility] 19:03:11 of Medicine History SDOH [facility] Alcohol Std Drinks Medica l Center History SDOH [facility] Alcohol Binge Medical [place] [address] History SDOH [facility] Alcohol Comment Medical C enter History of Social 2022-08-25 2022-08-25 [facility] function 00:00:00 00:00:00 of Medicine Exposure to 2022-08-09 2022-08-[address] [facility] Colleg e SARS-CoV-2 (event) 00:00:00 23:53:00 of Med icine Cigarette 2021-08-26 2021-08-26 [facility] pack-years 00:00:00 00:00:00 of Medicine Tobacco use and 2021-08-26 2021-08-26 Smokeless tobacco [facility] exposure 00:00:00 00:00:00 non-user of Medicine Alcohol intake 2019-09-06 2019-09-[address] [facility] 00:00:00 00:00:00 non-drinker of Medical Ce nter alcohol (finding) History SDOH 2019-09-03 2019-09-[address] [facility] Alcohol Frequency 00:00:00 00:00:00 Medical Center Sex Assigned At [address] [facility] kes 00:00:00 00:00:00 Medical Center Smoking Status Start Date Stop Date Source Tobacco smoking status [facility] Medications Ordered Filled Start Stop Current Ordering Indication Dosage Frequency Signature Comments Components Source Medication Medication Date Date Medication? Clinician (SIG) Name Name Diclofenac 2023-0 Yes diclofenac [facility] Sodium 1 % 5-25 1 % [place] GEL 09:18: topical of 05 gel Medicin e aspirin 81 Yes 81mg Take 1 [facility] MG tablet 5-25 Tablet by Colle ge 09:16: mouth of 14 daily. Medicin e Ticagrelor Yes 90mg Take 90 mg B aylor 90 MG TABS 5-25 by mouth Colle ge 09:16: two times of 14 daily. Medicin e FAMOTIDINE Yes Take by [facility] OR 5-25 mouth. College 09:16: of 14 Medicin e Esomeprazol Yes Take by [place] [facility] e Magnesium 5-25 mouth. Colleg e 40 MG PACK 09:16: of 14 Medicin e pravastatin Yes Take by [place] h[place] (PRAVACHOL) 5-25 mouth. Colleg e 40 MG 09:16: of tablet 14 Medicin e metformin 2021-04 Yes 750mg Take 750 Uni vers ER 1-22 mg by ity of (GLUCOPHAGE 16:29: mouth 2 Cesar as -XR) 750 mg 47 (two) Medical 24 hr times Branch tablet daily with meals. pravastatin 2021-04 Yes 80mg Take 80 mg Univers (PRAVACHOL) 1-22 by mouth ity of 40 mg 16:29: at [place] tablet 47 bedtime. Medical Branch carvedilol 2021-04 Yes 3.125mg Take 3.125 Univers (COREG) 1-22 mg by ity of 3.125 mg 16:29: mouth 2 [place] tablet 47 (two) Medical times Branch daily with meals. VITAMIN B 2021-04 Yes Take by Unive rs COMPLEX 1-22 mouth. ity of ORAL 16:29: [place] 47 Medical Branch GABAPENTIN 2021-04 Yes 300mg Take 300 Un umer ORAL 1-22 mg by ity of 16:29: mouth [place] 47 daily. Medical Branch losartan 50 2021-04 Yes 50mg Take 50 mg Univers mg tablet -22 by mouth ity of 16:29: in the [place] morning Medical and 50 mg Branch in the evening. ticagrelor 2021-04 Yes 90mg Take 90 mg U nivers (BRILINTA) 1-22 by mouth 2 ity of 90 mg 16:29: (two) [place] tablet 47 times Medical daily. Branch omeprazole 2021-04 Yes 40mg Take 40 mg U nivers 10 mg -22 by mouth ity of capsule 16:29: in the [place] [address] morning. Medical Branch metformin 2021-04 Yes 750mg Take 750 Uni vers ER 1-22 mg by ity of (GLUCOPHAGE 16:29: mouth 2 Cesar as -XR) 750 mg 47 (two) Medical 24 hr times Branch tablet daily with meals. pravastatin 2021-04 Yes 80mg Take 80 mg Univers (PRAVACHOL) 22 by mouth ity of 40 mg 16:29: at [place] tablet 47 bedtime. Medical Branch carvedilol 2021-04 Yes 3.125mg Take 3.125 Univers (COREG) 1-22 mg by ity of 3.125 mg 16:29: mouth 2 [place] tablet 47 (two) Medical times Branch daily with meals. VITAMIN B 2021-04 Yes Take by Unive rs COMPLEX -22 mouth. ity of ORAL 16:29: [place] Medical Branch GABAPENTIN 2021-04 Yes 300mg Take 300 Un umer ORAL 1-22 mg by ity of 16:29: mouth [place] [address] daily. Medical Branch losartan 50 2021-04 Yes 50mg Take 50 mg Univers mg tablet 22 by mouth ity of 16:29: in the [place] [address] morning Medical and 50 mg Branch in the evening. ticagrelor 2021-04 Yes 90mg Take 90 mg U nivers (BRILINTA) 22 by mouth 2 ity of 90 mg 16:29: (two) [place] tablet 47 times Medical daily. Branch omeprazole 2021-04 Yes 40mg Take 40 mg U nivers 10 mg 22 by mouth ity of capsule 16:29: in the [place] [address] morning. Medical Branch gabapentin 2021-04 Yes 300mg 300 mg, Uni vers (NEURONTIN) -22 Oral, ity of capsule 300 15:00: DAILY, [place] 00 First dose Medical on [facility] Branch 02/22/22 at 0900, Until Discontinu ed ticagrelor 2021-04 Yes 90mg 90 mg, Unive rs (BRILINTA) -22 Oral, BID, ity of tablet 90 14:00: First dose [place] mg 00 on [facility] 02/22/22 Branch at 0800, Until Discontinu ed, Routine losartan 2021-04 Yes 50mg 50 mg, Univers (COZAAR) 04-24 Oral, BID, ity o f tablet 50 14:00: First dose [place] mg 00 on [facility] 02/22/22 Branch at 0800, Until Discontinu ed, Routine carvediloL 2021-04 Yes 3.125mg 3.125 mg, Univers (COREG) 04-24 Oral, BID ity of tablet 14:00: MEALS, [place] 3.125 mg 00 First dose Medic al on [facility] Branch 02/22/22 at 0800, Until Discontinu ed, Routine Sliding 2021-04 Yes Subcutaneo Univ ers Scale 04-24 us, AC+HS, ity of Insulin-Reg 13:30: First dose [place] ular + Fsbg 00 on [facility] Medica l Testing 02/22/22 Branch at 0730, Until Discontinu ed, Routine clindamycin 2021-04 Yes 600mg 600 mg, IV Univers in 5 % 04-24 Piggyback, ity of dextrose 10:30: Q8H ABX, [place] (CLEOCIN) 00 First dose Medi marie 600 mg/50 on [facility] mL IV 02/22/22 piggyback at 0430, RTU 600 mg Until Discontinu ed, Administer over 30 Minutes, 50 mL
Reas on for Anti-Infec tive: Empiric Therapy for Suspected Infection< br>Empiric Therapy Site: Skin / Soft tissue
Duration of therapy: 5 days
Re stricted use approved by: After Hours (for ADC, CLC, LCC ONLY) clindamycin 2021-04 600mg 600 mg, IV Univers in 5 % 04-24 Piggyback, ity of dextrose 10:30: 10:40 ONCE, 1 [place] (CLEOCIN) 00 :00 dose, On Medica l 600 mg/50 [facility] mL IV 02/22/22 piggyback at 0430, RTU 600 mg Administer over 30 Minutes, 50 mL
R kirstie for Anti-Infec tive: Empiric Therapy for Suspected Infection< br>Empiric Therapy Site: Skin / Soft tissue
Duration of therapy: 5 days
Re stricted use approved by: After Hours (for ADC, CLC, LCC ONLY) glucagon 2021-04 Yes 1mg 1 mg, Univers (GLUCAGEN 04-24 Intramuscu ity of DIAGNOSTIC 05:39: lar, PRN, [place] KIT) 38 Starting Medical injection 1 on [facility] mg 02/21/22 at 2339, Until Discontinu ed, MARCELO, Blood Glucose < or = 70 mg/dL and patient is unable to swallow or has mental changes. dextrose 50 2021-04 Yes 25mL 25 mL, Univ ers % in water 04-24 Slow IV ity of (D50W) 05:39: Push, PRN, [place] injection 38 Starting Medica l 25 mL on [facility] 02/21/22 at 2339, Until Discontinu ed, MARCELO, Blood Glucose < or = 70 mg/dL and patient is unable to swallow or has mental status changes. ondansetron 2021-04 Yes 4mg 4 mg, Slow Univers (ZOFRAN 04-24 IV Push, ity of (PF)) 05:30: Q6HPRN [place] injection 4 02 Starting Medi marie mg on [facility] 02/21/22 at 2330, Until Discontinu ed, Routine, Nausea and Vomiting (N/V) morpHINE (2 2021-04 Yes 2mg 2 mg, Slow Univers mg/mL) 04-24 IV Push, ity of injection 2 05:29: Q4HPRN, Cesar as mg 56 Starting Medical on [facility] 02/21/22 at 2329, Until Discontinu ed, Routine, Pain (scale 7-10) traMADoL 2021-04 Yes 50mg 50 mg, Univers (ULTRAM) 04-24 Oral, ity of tablet 50 05:29: Q6HPRN [place] mg 55 Starting Medical on [facility] 02/21/22 at 2329, Until Discontinu ed, Routine, Pain (scale 4-6) acetaminoph 2021-04 Yes 650mg 650 mg, Un umer en 04-24 Oral, ity of (TYLENOL) 05:29: [facility] [place] tablet 650 52 Starting Medic al mg on [facility] 02/21/22 at 2329, Until Discontinu ed, Routine, Pain (scale 1-3) ampicillin- 2021-04 202- No 3g 3 g, IV Un umer sulbactam 04-24 Piggyback, ity of (UNASYN) 3 02:00: 02:50 ONCE, 1 Cesar as g in NaCl 00 :00 dose, On Medica l 0.9% (NS) Mon Branch 100 mL 02/21/22 MINI-BAG at 2000, Administer over 30 Minutes, 100 mL
R kirstie for Anti-Infec tive: Empiric Therapy for Suspected Infection< br>Empiric Therapy Site: Skin / Soft tissue
Duration of therapy: 72 hours clindamycin 2021-04 [id number] 300mg Take 1 Univers 300 mg 04-24 capsule by ity of capsule 00:00: 05:59 mouth 4 [place] 00 :00 (four) Medical times Branch daily for 10 days. traMADoL 50 2021-04 [id number] 50mg Take 1 Uni vers mg tablet 04-24 tablet by ity of 00:00: 05:59 mouth [place] 00 :00 every 6 Medical (six) Branch hours as needed for Pain (scale 4-6) for up to 7 days. Indication s: acute pain esomeprazol 2021-04 No 40mg Take 40 mg Univers e (NEXIUM 04-23 by mouth ity o f PACKET) 40 23:36: 00:00 daily with [place] mg packet 41 :00 breakfast. [facility] Branch FAMOTIDINE 2021-04 No Take by Uni vers (PEPCID AC 04-23 mouth. ity of ORAL) 23:36: 00:00 [place] 41 :00 Medical Branch ERGOCALCIFE 2021-04- No Take by Dom GIBBS, 04-23 mouth ity of VITAMIN D2, 23:36: 00:00 daily. Cesar as (VITAMIN D 41 :00 Medical ORAL) Branch barium 2021-04- No [id number] 355mL 355 mL, U nivers sulfate 001-12 Oral, ity of (LIQUID E-Z 20:00: 19:48 ONCE, 1 [place] PATANJA) 60 % 00 :00 dose, On Medi marie (w/v) oral Wed Branch suspension 01/12/22 355 mL at 1500, Routine Ticagrelor Yes 90mg Take 90 mg B [facility] 90 MG TABS 9-29 by mouth Colle ge 11:20: two times of 12 daily. Medicin e FAMOTIDINE Yes Take by [facility] OR 12-30 mouth. [place] 11:20: of 12 Medicin e Esomeprazol Yes Take by [place] [facility] Magnesium 12-30 mouth. Colleg e 40 MG PACK 11:20: of 12 Medicin e pravastatin Yes Take by [place] [facility] (PRAVACHOL) 12-30 mouth. Colleg e 40 MG 11:20: of tablet 12 Medicin e Cyanocobala 2021- No Take by [facility] min 12-30 mouth. [place] (VITAMIN B 11:19: 00:00 of 12 OR) 55 :00 Medicin e aspirin 81 Yes 81mg Take 81 mg B a[facility] MG tablet 12-30 by mouth Colleg e 11:19: daily. of 53 Medicin e ondansetron 2021- No 4mg 4 mg, Slow Univers (ZOFRAN 10-06 IV Push, ity of (PF)) 00:30: 00:42 ONCE, 1 [place] injection 4 00 :00 dose, On Medi marie mg Mon10/05/21 Branch at 1930, MARCELO NaCl 0.9% 2021- No 1000mL at 999 Uni vers (NS) bolus 10-05 mL/hr, ity of infusion 22:30: 00:37 1,000 mL, Cesar as 1,000 mL 00 :00 IV Medical Infusion, Branch ONCE, 1 dose, On Mon10/05/21 at 1730, STAT acetaminoph 2021- No 650mg 650 mg, U nivers en 10-05 Oral, ity of (TYLENOL) 21:45: 22:46 ONCE, 1 [place] tablet 650 00 :00 dose, On Medic al mg Mon10/05/21 Branch at 1645, MARCELO proMETHazin Yes [id number] 25mg Insert 1 Univers e 25 mg 10-05 Suppositor ity of suppository 00:00: y into [place] 00 rectum Medical every 6 Branch (six) hours as needed for N/V unresponsi ve to oral antiemetic s. proMETHazin Yes [id number] 25mg Take 1 Univers e 25 mg 7-05 tablet by ity of tablet 00:00: mouth [place] 00 every 6 Medical (six) Branch hours as needed for Nausea and Vomiting (N/V). proMETHazin 0 Yes [id number] 25mg Insert 1 Univers e 25 mg 7-05 Suppositor ity of suppository 00:00: y [place] 00 rectum Medical every 6 Branch (six) hours as needed for N/V unresponsi ve to oral antiemetic s. proMETHazin 0 Yes [id number] 25mg Take 1 Univers e 25 mg 7-05 tablet by ity of tablet 00:00: mouth [place] 00 every 6 Medical (six) Branch hours as needed for Nausea and Vomiting (N/V). proMETHazin Yes [id number] 25mg Insert 1 Univers e 25 mg 7-05 Suppositor ity of suppository 00:00: [facility] Medical every 6 Branch (six) hours as needed for N/V unresponsi ve to oral antiemetic s. proMETHazin Yes [id number] 25mg Take 1 Univers e 25 mg 7-05 tablet by ity of tablet 00:00: mouth [place] 00 every 6 Medical (six) Branch hours as needed for Nausea and Vomiting (N/V). proMETHazin 2021- No [id number] 25mg Take 1 Univers e 25 mg 7-05 11-21 tablet by ity of tablet 00:00: 00:00 mouth [place] 00 :00 every 6 Medical (six) Branch hours as needed for Nausea and Vomiting (N/V). proMETHazin 0 2021- No [id number] 25mg Insert 1 Univers e 25 mg 7-05 11-21 Suppositor ity o f suppository 00:00: 00:00 y into Cesar as 00 :00 rectum Medical every 6 Branch (six) hours as needed for N/V unresponsi ve to oral antiemetic s. aspirin 81 0 Yes 81mg Take 81 mg B ayl[facility] MG tablet 5-26 by mouth Colleg e 09:34: daily. of 05 Medicin e Ticagrelor 0 Yes 90mg Take 90 mg [facility] 90 MG TABS 5-26 by mouth Colle ge 09:34: two times of 05 daily. Medicin e FAMOTIDINE Yes Take by [facility] OR 5-26 mouth. College 09:34: of 05 Medicin e Cyanocobala 0 Yes Take by [place] min 5-26 mouth. College (VITAMIN B 09:34: of 12 OR) 05 Medicin e Esomeprazol Yes Take by [place] [facility] e Magnesium 5-26 mouth. Colleg e 40 MG PACK 09:34: of 05 Medicin e pravastatin Yes Take by [place] (PRAVACHOL) 5-26 mouth. Colleg e 40 MG 09:34: of tablet 05 Medicin e losartan 50 Yes 0 Memori a mg oral 5-20 Refill(s) l tablet 14:34: Saad omeprazole 0 Yes 0 Memoria 40 mg oral 5-20 Refill(s) l delayed 14:34: [place] release capsule pravastatin 2021-0 Yes 0 Memori a 80 mg oral 5-20 Refill(s) l tablet 14:34: [place] 00 gabapentin 2021-0 Yes 0 Memoria 300 mg oral 5-20 Refill(s) l capsule 14:34: Saad 00 carvedilol 2021-0 Yes 0 Memoria 3.125 mg 5-20 Refill(s) l oral tablet 14:34: Jimi n losartan 50 0 Yes 0 Memori a mg oral 5-20 Refill(s) l tablet 14:34: Saad omeprazole 2021-0 Yes 0 Memoria 40 mg oral 5-20 Refill(s) l delayed 14:34: Saad release 00 capsule pravastatin 2021-0 Yes 0 Memori a 80 mg oral 5-20 Refill(s) l tablet 14:34: Saad gabapentin 2021-0 Yes 0 Memoria 300 mg oral 5-20 Refill(s) l capsule 14:34: Saad 00 carvedilol 2021-0 Yes 0 Memoria 3.125 mg 5-20 Refill(s) l oral tablet 14:34: Jimi n losartan 50 2021-0 Yes 0 Memori a mg oral 5-20 Refill(s) l tablet 14:34: Saad omeprazole 2021-0 Yes 0 Memoria 40 mg oral 5-20 Refill(s) l delayed 14:34: capsule pravastatin 2021-0 Yes 0 Memori a 80 mg oral 5-20 Refill(s) l tablet 14:34: gabapentin 2021-0 Yes 0 Memoria 300 mg oral 5-20 Refill(s) l capsule 14:34: carvedilol 2021-0 Yes 0 Memoria 3.125 mg 5-20 Refill(s) l oral tablet 14:34: Jimi n losartan 50 2021-0 Yes 0 Memori a mg oral 5-20 Refill(s) l tablet 14:34: omeprazole 2021-0 Yes 0 Memoria 40 mg oral 5-20 Refill(s) l delayed 14:34: capsule pravastatin 2021-0 Yes 0 Memori a 80 mg oral 5-20 Refill(s) l tablet 14:34: gabapentin 2021-0 Yes 0 Memoria 300 mg oral 5-20 Refill(s) l capsule 14:34: carvedilol 2021-0 Yes 0 Memoria 3.125 mg 5-20 Refill(s) l oral tablet 14:34: Jimi n losartan 50 2021-0 Yes 0 Memori a mg oral 5-20 Refill(s) l tablet 14:34: omeprazole 2021-0 Yes 0 Memoria 40 mg oral 5-20 Refill(s) l delayed 14:34: capsule pravastatin 2021-0 Yes 0 Memori a 80 mg oral 5-20 Refill(s) l tablet 14:34: gabapentin 2021-0 Yes 0 Memoria 300 mg oral 5-20 Refill(s) l capsule 14:34: carvedilol 2-0 Yes 0 Memoria 3.125 mg 5-20 Refill(s) l oral tablet 14:34: [place]i n losartan 50 2021-0 Yes 0 Memori a mg oral 5-20 Refill(s) l tablet 14:34: omeprazole 2021-0 Yes 0 Memoria 40 mg oral 5-20 Refill(s) l delayed 14:34: [place] release 00 capsule pravastatin 2022-0 Yes 0 Memori a 80 mg oral 5-20 Refill(s) l tablet 14:34: [place] gabapentin 0 Yes 0 Memoria 300 mg oral 5-20 Refill(s) l capsule 14:34: Saad 00 carvedilol 0 Yes 0 Memoria 3.125 mg 5-20 Refill(s) l oral tablet 14:34: [place]i n losartan 50 0 Yes 0 Memori a mg oral 5-20 Refill(s) l tablet 14:34: [place] 00 omeprazole 0 Yes 0 Memoria 40 mg oral 5-20 Refill(s) l delayed 14:34: [place] release 00 capsule pravastatin 0 Yes 0 Memori a 80 mg oral 5-20 Refill(s) l tablet 14:34: gabapentin 0 Yes 0 Memoria 300 mg oral 5-20 Refill(s) l capsule 14:34: carvedilol 0 Yes 0 Memoria 3.125 mg 5-20 Refill(s) l oral tablet 14:34: [place] metFORMIN 0 Yes 0 Memoria 750 mg oral 5-20 Refill(s) l tablet, 14:33: Saad extended 00 release Brilinta 2021-0 Yes 0 Memoria (ticagrelor 5-20 Refill(s) l ) 90 mg 14:33: [place] oral tablet 00 metFORMIN 0 Yes 0 Memoria 750 mg oral 5-20 Refill(s) l tablet, 14:33: [place] extended 00 release Brilinta 2021-0 Yes 0 Memoria (ticagrelor 5-20 Refill(s) l ) 90 mg 14:33: [place] oral tablet 00 metFORMIN 2021-0 Yes 0 Memoria 750 mg oral 5-20 Refill(s) l tablet, 14:33: [place] extended 00 release Brilinta 2021-0 Yes 0 Memoria (ticagrelor 5-20 Refill(s) l ) 90 mg 14:33: [place] oral tablet 00 metFORMIN 2021-0 Yes 0 Memoria 750 mg oral 5-20 Refill(s) l tablet, 14:33: Saad extended 00 release Brilinta 2021-0 Yes 0 [facility] (ticagrelor 5-20 Refill(s) l ) 90 mg 14:33: [facility] oral tablet 00 metFORMIN Yes 0 [facility] 750 mg oral 5-20 Refill(s) l tablet, 14:33: [place] extended 00 release Brilinta 0 Yes 0 [facility] (ticagrelor 5-20 Refill(s) l ) 90 mg 14:33: [place] oral tablet 00 metFORMIN 0 Yes 0 [facility] 750 mg oral 5-20 Refill(s) l tablet, 14:33: [facility] extended 00 release Brilinta 0 Yes 0 [facility] (ticagrelor 5-20 Refill(s) l ) 90 mg 14:33: [facility] oral tablet 00 metFORMIN Yes 0 [facility] 750 mg oral 5-20 Refill(s) l tablet, 14:33: [facility] extended 00 release Brilinta 0 Yes 0 [facility] (ticagrelor 5-20 Refill(s) l ) 90 mg 14:33: [facility] oral tablet 00 acetaminoph Yes TAKE 1 [facility] en-codeine 5-20 TABLET BY [facility] (TYLENOL 00:00: MOUTH of #3) 300-30 00 EVERY 6 TO Med icin MG per 8 HOURS e tablet NEEDED FOR PAIN ondansetron Yes TAKE 1 [facility] (ZOFRAN) 4 5-20 TABLET BY [facility] MG tablet 00:00: MOUTH of 00 EVERY 6 Medicin HOURS e NEEDED FOR NAUSEA AND VOMITING acetaminoph 0 Yes TAKE 1 [facility] en-codeine 5-20 TABLET BY [facility] (TYLENOL 00:00: MOUTH of #3) 300-30 00 EVERY 6 TO Med icin MG per 8 HOURS e tablet NEEDED FOR PAIN ondansetron Yes TAKE 1 [facility] (ZOFRAN) 4 5-20 TABLET BY [facility] MG tablet 00:00: MOUTH of 00 EVERY 6 Medicin HOURS e NEEDED FOR NAUSEA AND VOMITING acetaminoph 0 Yes TAKE 1 [facility] en-codeine 5-20 TABLET BY [facility] (TYLENOL 00:00: MOUTH of #3) 300-30 00 EVERY 6 TO Med icin MG per 8 HOURS e tablet NEEDED FOR PAIN ondansetron Yes TAKE 1 [facility] (ZOFRAN) 4 5-20 TABLET BY [facility] MG tablet 00:00: MOUTH of 00 EVERY 6 Medicin HOURS e NEEDED FOR NAUSEA AND VOMITING aspirin 81 2020-04 Yes 81mg Take 81 mg [facility] tablet 1-18 by mouth [facility] e 09:11: daily. of 42 Medicin e Ticagrelor 2020-04 Yes 90mg Take 90 mg [facility] 90 MG TABS 1-18 by mouth [facility]le [facility] 09:11: two times of 42 daily. Medicin e clindamycin 2020-04 Yes [facility] (CLEOCIN) -12 [facility] 300 MG 00:00: of capsule 00 Medicin e mupirocin 2020-04 Yes [facility] (BACTROBAN) 04-14 College 2 % 00:00: of ointment 00 Medicin e clindamycin 2020-04- No [place] [facility] (CLEOCIN) 04-14 05-26 [facility] 300 MG 00:00: 00:00 of capsule 00 :00 Medicin e mupirocin 2020-04- No [facility] (BACTROBAN) 04-14 05-26 College 2 % 00:00: 00:00 of ointment 00 :00 Medicin e ONETOUCH 2020-[address] [facility] VERIO 0-21 College 00:00: of 00 Medicin e ONETOUCH 2020-[address] [facility] VERIO 0-21 College 00:00: of 00 Medicin e ONETOUCH 2020-[address] [facility] VERIO 0-21 College 00:00: of 00 Medicin e ONETOUCH 2020-[address] [facility] VERIO 0-21 College 00:00: of 00 Medicin e losartan 2020-04 Yes [facility] (COZAAR) 50 0-18 College MG tablet 00:00: of 00 Medicin e losartan 2020-04 Yes [facility] (COZAAR) 50 0-18 College MG tablet 00:00: of 00 Medicin e losartan 2020-04 Yes [facility] (COZAAR) 50 0-18 College MG tablet 00:00: of 00 Medicin e losartan 2020-04 Yes [facility] (COZAAR) 50 0-18 College MG tablet 00:00: of 00 Medicin e acetaminoph acetaminoph 2019-04 No acetaminop [facility] en 300 en 300 -17 hen 300 [facility] mg-codeine mg-codeine 00:00: mg-codeine dic 30 mg 30 mg 00 30 mg Sports tablet 1 tablet 1 tablet 1 Med icin tab po q tab po q tab po q e 4-6 hrs prn 4-6 hrs prn 4-6 hrs pain pain prn pain gabapentin 2019-04 Yes ORAL TAKE [facility] (NEURONTIN) 17 1 [facility] 300 MG 00:00: BY MOUTH of capsule 00 EVERYDAY Medicin AT BEDTIME e gabapentin 2019-04 Yes ORAL TAKE [facility] (NEURONTIN) 04-19 1 CAPSU[facility] 300 MG 00:00: BY MOUTH of capsule 00 EVERYDAY Medicin AT BEDTIME e gabapentin 2019-04 Yes ORAL TAKE [facility] (NEURONTIN) 17 1 CAPSULE [facility] 300 MG 00:00: BY MOUTH of capsule 00 EVERYDAY Medicin AT BEDTIME e gabapentin 2019-04 Yes ORAL TAKE [facility] (NEURONTIN) 04-19 1 CAPSULE [facility] 300 MG 00:00: BY MOUTH of capsule 00 EVERYDAY Medicin AT BEDTIME e gabapentin 2019-04 Yes ORAL TAKE [facility] (NEURONTIN) 17 1 CAPSULE [facility] 300 MG 00:00: BY MOUTH of capsule 00 EVERYDAY Medicin AT BEDTIME e gabapentin 2019-04 Yes ORAL TAKE [facility] (NEURONTIN) 17 1 CAPSULE [facility] 300 MG 00:00: BY MOUTH of capsule 00 EVERYDAY Medicin AT BEDTIME e pravastatin 2019-04 Yes TAKE 1 [facility] (PRAVACHOL) 0-29 TABLET BY [facility] 80 MG 00:00: MOUTH of tablet 00 EVERY DAY Medicin e pravastatin 2019-04 Yes TAKE 1 [facility] (PRAVACHOL) 0-29 TABLET BY [facility] 80 MG 00:00: MOUTH of tablet 00 EVERY DAY Medicin e pravastatin 2019-04 Yes TAKE 1 [facility] (PRAVACHOL) 0-29 TABLET BY [facility] 80 MG 00:00: MOUTH of tablet 00 EVERY DAY Medicin e pravastatin 2019-04- No TAKE 1 [place] [facility] (PRAVACHOL) 0-29 05-26 TABLET BY Co llege 80 MG 00:00: 00:00 MOUTH of tablet 00 :00 EVERY DAY Medicin e ondansetron ondansetron 2019-04 No ondansetro [facility] HCl 8 mg HCl 8 mg 0-28 n HCl 8 mg [facility] tablet 1 tablet 1 00:00: tablet 1 d ic tab po q 8 tab po q 8 00 tab po q 8 Sports hrs prn for hrs prn for hrs prn Medicin nausea nausea for nausea e ondansetron ondansetron 2019-04 No ondansetro [facility] HCl 8 mg HCl 8 mg 0-28 n HCl 8 mg [facility] tablet 1 tablet 1 00:00: tablet 1 d ic tab po q 8 tab po q 8 00 tab po q 8 Sports hrs prn for hrs prn for hrs prn Medicin nausea nausea for nausea e ondansetron ondansetron 2019-04 No ondansetro [facility] HCl 8 mg HCl 8 mg 0-28 n HCl 8 mg [facility] tablet 1 tablet 1 00:00: tablet 1 d ic tab po q 8 tab po q 8 00 tab po q 8 Sports hrs prn for hrs prn for hrs prn Medicin nausea nausea for nausea e ondansetron ondansetron 2019-04 No ondansetro [facility] HCl 8 mg HCl 8 mg 0-28 n HCl 8 mg [facility] tablet 1 tablet 1 00:00: tablet 1 d ic tab po q 8 tab po q 8 00 tab po q 8 Sports hrs prn for hrs prn for hrs prn Medicin nausea nausea for nausea e ondansetron ondansetron 2019-04 No ondansetro [facility] HCl 8 mg HCl 8 mg 0-28 n HCl 8 mg [facility] tablet 1 tablet 1 00:00: tablet 1 d ic tab po q 8 tab po q 8 00 tab po q 8 Sports hrs prn for hrs prn for hrs prn Medicin nausea nausea for nausea e Mobic 15 mg Mobic 15 mg 2019-04 No Mobic 15 [facility] tablet 1 tablet 1 0-20 mg tablet Or thope tab po qd tab po qd 00:00: 1 tab po dic prn pain prn pain 00 qd prn Sport s pain Medicin e [place] 7.5 [place] 7.5 2019-04 No [place] 7.5 [facility] mg-325 mg mg-325 mg 0-12 mg-325 mg [facility] tablet 1 tablet 1 00:00: tablet 1 d ic tab po q tab po q 00 tab po q Spo rts 4-6 hrs prn 4-6 hrs prn 4-6 hrs Medicin pain pain prn pain e [place] 7.5 [place] 7.5 2019- No [place] 7.5 [facility] mg-325 mg mg-325 mg 0-12 mg-325 mg [facility] tablet 1 tablet 1 00:00: tablet 1 d ic tab po q tab po q 00 tab po q Spo rts 4-6 hrs prn 4-6 hrs prn 4-6 hrs Medicin pain pain prn pain e [place] 7.5 [place] 7.5 2019-04 No [place] 7.5 [facility] mg-325 mg mg-325 mg 0-12 mg-325 mg [facility] tablet 1 tablet 1 00:00: tablet 1 d ic tab po q tab po q 00 tab po q Spo rts 4-6 hrs prn 4-6 hrs prn 4-6 hrs Medicin pain pain prn pain e [place] 7.5 [place] 7.5 2019-04 No [place] 7.5 [facility] mg-325 mg mg-325 mg 0-12 mg-325 mg [facility] tablet 1 tablet 1 00:00: tablet 1 d ic tab po q tab po q 00 tab po q Spo rts 4-6 hrs prn 4-6 hrs prn 4-6 hrs Medicin pain pain prn pain e [place] 7.5 [place] 7.5 2019-04 No [place] 7.5 [facility] mg-325 mg mg-325 mg 0-12 mg-325 mg [facility] tablet 1 tablet 1 00:00: tablet 1 d ic tab po q tab po q 00 tab po q Spo rts 4-6 hrs prn 4-6 hrs prn 4-6 hrs Medicin pain pain prn pain e tramadol 50 tramadol 50 2019-0 No tramadol [facility] mg tablet 1 mg tablet 1 12-04 50 mg [facility] tab po q tab po q 00:00: tablet 1 d ic 4-6 hrs prn 4-6 hrs prn 00 tab po q Sports pain pain 4-6 hrs Medicin prn pain e tramadol 50 tramadol 50 2019-0 No tramadol [facility] mg tablet 1 mg tablet 1 12-04 50 mg [facility] tab po q tab po q 00:00: tablet 1 d ic 4-6 hrs prn 4-6 hrs prn 00 tab po q Sports pain pain 4-6 hrs Medicin prn pain e tramadol 50 tramadol 50 2020-0 No tramadol [facility] mg tablet 1 mg tablet 1 12-04 50 mg [facility] tab po q tab po q 00:00: tablet 1 d ic 4-6 hrs prn 4-6 hrs prn 00 tab po q Sports pain pain 4-6 hrs Medicin prn pain e tramadol 50 tramadol 50 2020-0 No tramadol [facility] mg tablet 1 mg tablet 1 12-04 50 mg [facility] tab po q tab po q 00:00: tablet 1 d ic 4-6 hrs prn 4-6 hrs prn 00 tab po q Sports pain pain 4-6 hrs Medicin prn pain e cephALEXin 2019-0 2020- No 500mg Take 1 [facility] (KEFLEX) - 12 by mouth [facility] 500 MG 00:00: 00:00 four times of capsule 00 :00 daily. Medicin e sulfamethox 2019-0 2020- No 1{tbl} Take 1 Tab [facility] azole-trime 09-28 by mouth [facility] thoprim 00:00: 00:00 two times of (BACTRIM 00 :00 daily. Medicin DS) 800-160 e MG per tablet aspirin 81 2020-0 Yes 81mg Take 81 mg [facility] MG tablet 6-25 by mouth [facility] e 19:12: daily. of 10 Medicin e Ticagrelor 2020-0 Yes 90mg Take 90 mg [facility] 90 MG TABS 6-25 by mouth Colle ge 19:12: two times of 10 daily. Medicin e aspirin 81 2020-0 Yes 81mg Take 81 mg [facility] MG tablet 6-25 by mouth [facility] 19:12: daily. of 10 Medicin e Ticagrelor 2020-0 Yes 90mg Take 90 mg [facility] 90 MG TABS 6-25 by mouth Colle ge 19:12: two times of 10 daily. Medicin e aspirin 81 2020-0 Yes 81mg Take 81 mg [facility] MG tablet 6-25 by mouth [facility] 14:12: daily. of 10 Medicin e Ticagrelor 2020-0 Yes 90mg Take 90 mg [facility] 90 MG TABS 6-25 by mouth Colle ge 14:12: two times of 10 daily. Medicin e carvediloL 2020-0 Yes 3.125mg Take 3.[address] [facility] (COREG) 6-08 mg [facility] 3.[facility] MG 18:53: mouth 2 Medica l tablet 36 (two) Center times daily with breakfast and dinner. gabapentin 2020-0 Yes 300mg QD Take [address] (NEURONTIN) 6-08 mg by [facility] 300 MG 18:53: mouth Medical capsule 36 daily. [place] pravastatin 2020-0 Yes 80mg QD Take [address] [facility] (PRAVACHOL) 6-08 by mouth [facility] 80 MG 18:53: daily. Medical tablet 36 [place] metFORMIN 2020-0 Yes 750mg Q.5D Take [address] [facility] (GLUCOPHAGE 6-08 mg by [facility] -XR) 750 MG 18:53: mouth 2 Med ical 24 hr 36 (two) Center tablet times daily. omeprazole 2020-0 Yes 40mg QD Take [address] (PRILOSEC) 6-08 by mouth [facility] 40 MG 18:53: daily. Medical capsule 36 [place] aspirin 81 2020-0 Yes 81mg QD Take [address] MG EC 6-08 by mouth [facility] tablet 18:53: daily. Medical [address] [place] [address] ticagrelor 2020-0 Yes Q.5D Take by [facility] (BRILINTA) 6-08 mouth 2 [facility] 90 mg Tab 18:53: (two) Medical tablet 36 times Center daily. carvediloL 2020-0 Yes 3.125mg Take 3.[address] [facility] [address] (COREG) 6-08 mg by [facility] 3.125 MG 18:53: mouth 2 Medica l tablet 36 (two) Center times daily with breakfast and dinner. gabapentin 2020-0 Yes 300mg QD Take [address] (NEURONTIN) 6-08 mg by [facility] 300 MG 18:53: mouth Medical capsule 36 daily. [place] pravastatin 2020-0 Yes 80mg QD Take [address] [facility] (PRAVACHOL) 6-08 by mouth [facility] 80 MG 18:53: daily. Medical tablet 36 [place] metFORMIN 2020-0 Yes 750mg Q.5D Take [address] [facility] [address] (GLUCOPHAGE 6-08 mg by [facility] -XR) 750 MG 18:53: mouth 2 Med ical 24 hr 36 (two) Center tablet times daily. omeprazole 2020-0 Yes 40mg QD Take [address] (PRILOSEC) 6-08 by mouth [facility] 40 MG 18:53: daily. Medical capsule [address] [place] [address] aspirin 81 2020-0 Yes 81mg QD Take [address] MG EC 6-08 by mouth [facility] tablet 18:53: daily. [address] ticagrelor 2020-0 Yes Q.5D Take by [facility] (BRILINTA) 6-08 mouth 2 [facility] 90 mg Tab 18:53: (two) Medical tablet 36 times Center daily. carvediloL 2020-0 Yes 3.125mg Take 3.[address] [facility] [address] (COREG) 6-08 mg by [facility] 3.125 MG 18:53: mouth 2 Medica l tablet 36 (two) Center times daily with breakfast and dinner. gabapentin 2020-0 Yes 300mg QD Take [address] (NEURONTIN) 6-08 mg by [facility] 300 MG 18:53: mouth Medical capsule 36 daily. [place] pravastatin 2020-0 Yes 80mg QD Take [address] [facility] (PRAVACHOL) 6-08 by mouth [facility] 80 MG 18:53: daily. Medical tablet [address] [place] [address] metFORMIN 2020-0 Yes 750mg Q.5D Take [address] [address] (GLUCOPHAGE 6-08 mg by [facility] -XR) 750 MG 18:53: mouth 2 Med ical 24 hr 36 (two) Center tablet times daily. omeprazole 2020-0 Yes 40mg QD Take [address] (PRILOSEC) 6-08 by mouth [facility] 40 MG 18:53: daily. Medical capsule [address] [place] [address] aspirin 81 2020-0 Yes 81mg QD Take [address] MG EC 6-08 by mouth [facility] tablet 18:53: daily. [address] ticagrelor 2020-0 Yes Q.5D Take by [facility] (BRILINTA) 6-08 mouth 2 [facility] 90 mg Tab 18:53: (two) Medical tablet 36 times Center daily. carvediloL 2020-0 Yes 3.125mg Take 3.[address] [facility] [address] (COREG) 6-08 mg by [facility] 3.125 MG 18:53: mouth 2 Medica l tablet 36 (two) Center times daily with breakfast and dinner. gabapentin 2020-0 Yes 300mg QD Take [address] (NEURONTIN) 6-08 mg by [facility] 300 MG 18:53: mouth Medical capsule 36 daily. Center pravastatin 2020-0 Yes 80mg QD Take [address] [facility] (PRAVACHOL) 6-08 by mouth [facility] 80 MG 18:53: daily. Medical tablet 36 [place] metFORMIN 2020-0 Yes 750mg Q.5D Take [address] [address] (GLUCOPHAGE 6-08 mg by [facility] -XR) 750 MG 18:53: mouth 2 Med ical 24 hr 36 (two) Center tablet times daily. omeprazole 2020-0 Yes 40mg QD Take [address] (PRILOSEC) 6-08 by mouth [facility] 40 MG 18:53: daily. Medical capsule 36 [place] aspirin 81 2020-0 Yes 81mg QD Take [address] MG EC 6-08 by mouth [facility] tablet 18:53: daily. [address] ticagrelor 2020-0 Yes Q.5D Take by [facility] (BRILINTA) 6-08 mouth 2 [facility] 90 mg Tab 18:53: (two) Medical tablet 36 times Center daily. carvediloL 2020-0 Yes 3.125mg Take 3.[address] [facility] [address] (COREG) 6-08 mg by [facility] 3.125 MG 18:53: mouth 2 Medica l tablet 36 (two) Center times daily with breakfast and dinner. gabapentin 2020-0 Yes 300mg QD Take [address] (NEURONTIN) 6-08 mg by [facility] 300 MG 18:53: mouth Medical capsule 36 daily. [place] pravastatin 2020-0 Yes 80mg QD Take [address] [facility] (PRAVACHOL) 6-08 by mouth [facility] 80 MG 18:53: daily. Medical tablet 36 [place] metFORMIN 2020-0 Yes 750mg Q.5D Take [address] [facility] [address] (GLUCOPHAGE 6-08 mg by [facility] -XR) 750 MG 18:53: mouth 2 Med ical 24 hr 36 (two) Center tablet times daily. omeprazole 2020-0 Yes 40mg QD Take [address] (PRILOSEC) 6-08 by mouth [facility] 40 MG 18:53: daily. Medical capsule 36 [place] aspirin 81 2020-0 Yes 81mg QD Take [address] MG EC 6-08 by mouth [facility] tablet 18:53: daily. [address] ticagrelor 2020-0 Yes Q.5D Take by [facility] (BRILINTA) 6-08 mouth 2 [facility] 90 mg Tab 18:53: (two) Medical tablet 36 times Center daily. carvediloL 2020-0 Yes 3.125mg Take 3.[address] [facility] [address] (COREG) 6-08 mg by [facility] 3.125 MG 18:53: mouth 2 Medica l tablet 36 (two) Center times daily with breakfast and dinner. gabapentin 2020-0 Yes 300mg QD Take [address] (NEURONTIN) 6-08 mg by [facility] 300 MG 18:53: mouth Medical capsule 36 daily. Center pravastatin 2020-0 Yes 80mg QD Take [address] [facility] (PRAVACHOL) 6-08 by mouth [facility] 80 MG 18:53: daily. Medical tablet 36 Center metFORMIN 2020-0 Yes 750mg Q.5D Take [address] [address] (GLUCOPHAGE 6-08 mg by [facility] -XR) 750 MG 18:53: mouth 2 Med ical 24 hr 36 (two) Center tablet times daily. omeprazole 2020-0 Yes 40mg QD Take [address] (PRILOSEC) 6-08 by mouth [facility] 40 MG 18:53: daily. Medical capsule 36 [place] aspirin 81 2020-0 Yes 81mg QD Take [address] MG EC 6-08 by mouth [facility] tablet 18:53: daily. Medical 36 Center ticagrelor 2020-0 Yes Q.5D Take by [facility] (BRILINTA) 6-08 mouth 2 [facility] 90 mg Tab 18:53: (two) Medical tablet 36 times Center daily. Ticagrelor 2020-0 Yes 90mg Take 90 mg [facility] 90 MG TABS 3-24 by mouth Colle ge 21:16: two times of 18 daily. Medicin e Ticagrelor 2020-0 Yes 90mg Take 90 mg [facility] 90 MG TABS 3-24 by mouth Colle ge 21:16: two times of 18 daily. Medicin e aspirin 81 2020-0 Yes 81mg Take 81 mg [facility] MG tablet 3-24 by mouth [facility] 20:20: daily. of 16 Medicin e aspirin 81 2020-0 Yes 81mg Take 81 mg [facility] MG tablet 3-24 by mouth [facility] 20:20: daily. of 16 Medicin e cefUROXime 2020-0 Yes 500mg Take 500 [facility] (CEFTIN) 3-23 mg by [place] 500 MG 00:00: mouth two of tablet 00 times Medicin daily. e metronidazo 2020-0 Yes 500mg Take 500 [facility] (FLAGYL) 3-23 mg by [place] 500 MG 00:00: mouth two of tablet 00 times Medicin daily. e cefUROXime 2020-0 Yes 500mg Take 500 [facility] (CEFTIN) 3-23 mg by [place] 500 MG 00:00: mouth two of tablet 00 times Medicin daily. e metronidazo 2020-0 Yes 500mg Take 500 [facility] (FLAGYL) 3-23 mg by [place] 500 MG 00:00: mouth two of tablet 00 times Medicin daily. e cefUROXime 2020-0 2020- No 500mg Take 500 [facility] (CEFTIN) 3-23 06-25 mg by [place] 500 MG 00:00: 00:00 mouth two of tablet 00 :00 times Medicin daily. e metronidazo 2020-0 2020- No 500mg Take [address] [facility] le (FLAGYL) 3-23 06-25 mg by [facility] e 500 MG 00:00: 00:00 mouth two of tablet 00 :00 times Medicin daily. e carvedilol 2020-0 Yes 3.125mg Take 3.125 [facility] (COREG) 3-19 mg by [place] 3.125 MG 00:00: mouth two of tablet 00 times Medicin daily. e carvedilol 2020-0 Yes 3.125mg Take 3.125 [facility] (COREG) 3-19 mg by [place] 3.125 MG 00:00: mouth two of tablet 00 times Medicin daily. e carvedilol 2020-0 Yes 3.125mg Take 3.125 [facility] (COREG) 3-19 mg by [place] 3.125 MG 00:00: mouth two of tablet 00 times Medicin daily. e carvedilol 2020-0 Yes 3.125mg Take 3.[address] [facility] (COREG) 3-19 mg by [place] 3.125 MG 00:00: mouth two of tablet 00 times Medicin daily. e carvedilol 2020-0 Yes 3.125mg Take 3.125 [facility] (COREG) 3-19 mg by [place] 3.125 MG 00:00: mouth two of tablet 00 times Medicin daily. e carvedilol 2020-0 Yes 3.125mg Take 1 [facility] (COREG) 3-19 Tablet by [place] 3.125 MG 00:00: mouth two of tablet 00 times Medicin daily. e carvedilol 2020-0 Yes 3.125mg Take 3.125 [facility] (COREG) 3-19 mg by [place] 3.125 MG 00:00: mouth two of tablet 00 times Medicin daily. e carvedilol 2020-0 Yes 3.125mg Take 3.[address] [facility] (COREG) 3-19 mg by [place] 3.125 MG 00:00: mouth two of tablet 00 times Medicin daily. e carvedilol 2020-0 Yes 3.125mg Take 3.125 [facility] (COREG) 3-19 mg by [place] 3.125 MG 00:00: mouth two of tablet 00 times Medicin daily. e metformin 2020-0 Yes 750mg Take 750 [place] [facility] (GLUCOPHAGE 3-18 mg by [place] -XR) 750 MG 00:00: mouth two o f XR tablet 00 times Medicin daily. e omeprazole 2020-0 Yes 40mg Take 40 mg [facility] (PRILOSEC) 3-18 by mouth [facility]le [facility] 40 MG 00:00: daily. of capsule 00 Medicin e metformin 2020-0 Yes 750mg Take 750 [place] (GLUCOPHAGE 3-18 mg by [place] -XR) 750 MG 00:00: mouth two o f XR tablet 00 times Medicin daily. e omeprazole 2020-0 Yes 40mg Take 40 mg [facility] (PRILOSEC) 3-18 by mouth [facility]le [facility] 40 MG 00:00: daily. of capsule 00 Medicin e metformin 2020-0 Yes 750mg Take 750 [place] (GLUCOPHAGE 3-18 mg by [place] -XR) 750 MG 00:00: mouth two o f XR tablet 00 times Medicin daily. e omeprazole 2020-0 Yes 40mg Take 40 mg [facility] (PRILOSEC) 3-18 by mouth Colle [facility] 40 MG 00:00: daily. of capsule 00 Medicin e metformin 2020-0 Yes 750mg Take 750 [place] (GLUCOPHAGE 3-18 mg by [place] -XR) 750 MG 00:00: mouth two o f XR tablet 00 times Medicin daily. e omeprazole 2020-0 Yes 40mg Take 40 mg [facility] (PRILOSEC) 3-18 by mouth [facility]le [facility] 40 MG 00:00: daily. of capsule 00 Medicin e metformin 2020-0 Yes 750mg Take 750 [place] (GLUCOPHAGE 3-18 mg by [place] -XR) 750 MG 00:00: mouth two o f XR tablet 00 times Medicin daily. e omeprazole 2020-0 Yes 40mg Take 40 mg [facility] (PRILOSEC) 3-18 by mouth [facility]le [facility] 40 MG 00:00: daily. of capsule 00 Medicin e metformin 2020-0 Yes 750mg Take 1 [facility] (GLUCOPHAGE 3-18 Tablet by [facility] -XR) 750 MG 00:00: mouth two o f XR tablet 00 times Medicin daily. e omeprazole 2020-0 Yes 40mg Take 1 [facility] (PRILOSEC) 3-18 Capsule by [facility] 40 MG 00:00: mouth of capsule 00 daily. Medicin e metformin 2020-0 Yes 750mg Take 750 [place] (GLUCOPHAGE 3-18 mg by [facility] -XR) 750 MG 00:00: mouth two o f XR tablet 00 times Medicin daily. e omeprazole 2020-0 Yes 40mg Take 40 mg [facility] (PRILOSEC) 3-18 by mouth Colle [facility] 40 MG 00:00: daily. of capsule 00 Medicin e metformin 2020-0 Yes 750mg Take 750 [place] (GLUCOPHAGE 3-18 mg by [facility] -XR) 750 MG 00:00: mouth two o f XR tablet 00 times Medicin daily. e omeprazole 2020-0 Yes 40mg Take 40 mg [facility] (PRILOSEC) 3-18 by mouth Colle [facility] 40 MG 00:00: daily. of capsule 00 Medicin e metformin 2020-0 Yes 750mg Take 750 [place] (GLUCOPHAGE 3-18 mg by [facility] -XR) 750 MG 00:00: mouth two o f XR tablet 00 times Medicin daily. e omeprazole 2020-0 Yes 40mg Take 40 mg [facility] (PRILOSEC) 3-18 by mouth Colle ge 40 MG 00:00: daily. of capsule 00 Medicin e pravastatin pravastatin 2020-0 No pravastati [facility] 10 mg 10 mg 3-03 n 10 mg [facility] tablet RX tablet RX 00:00: tablet RX dic by other MD by chad FERNANDEZ 00 by other Sports MD Cindi farooq Brilinta 60 Brilinta 60 2020-0 No Brilinta [facility] mg tablet mg tablet 3-03 60 mg [facility] RX by other RX by other 00:00: tablet RX dic MD FERNANDEZ 00 by other Sports MD Cindi farooq omeprazole omeprazole 2020-0 No omeprazole [facility] 20 mg 20 mg 3-03 20 mg [facility] tablet,zoya tablet,zoya 00:00: tablet,del dic yed release yed release 00 ayed S ports RX by other RX by other release RX Cindi FERNANDEZ MD by other oseas FERNANDEZ pravastatin pravastatin 2020-0 No pravastati [facility] 10 mg 10 mg 3-03 n 10 mg [facility] tablet RX tablet RX 00:00: tablet RX dic by other MD by other 00 by other Sports MD Cindi farooq Brilinta 60 Brilinta 60 2019-0 No Brilinta [facility] mg tablet mg tablet 3-03 60 mg [facility] RX by other RX by other 00:00: tablet RX dic MD FERNANDEZ 00 by other Sports MD Cindi farooq omeprazole omeprazole 2020-0 No omeprazole [facility] 20 mg 20 mg 3-03 20 mg [facility] tablet,zoya tablet,zoya 00:00: tablet,del dic yed release yed release 00 ayed S ports RX by other RX by other release RX Cindi FERNANDEZ MD by other oseas FERNANDEZ pravastatin pravastatin 2020-0 No pravastati [facility] 10 mg 10 mg 3-03 n 10 mg [facility] tablet RX tablet RX 00:00: tablet RX dic by other MD by other 00 by other Sports MD Cindi farooq Brilinta 60 Brilinta 60 2020-0 No Brilinta [facility] mg tablet mg tablet 3-03 60 mg [facility] RX by other RX by other 00:00: tablet RX dic MD FERNANDEZ 00 by other Sports MD [place] omeprazole omeprazole 2020-0 No omeprazole [facility] 20 mg 20 mg 3-03 20 mg [facility] tablet,zoya tablet,zoya 00:00: tablet,del dic yed release yed release 00 ayed S ports RX by other RX by other release RX Cindi FERNANDEZ MD by other oseas FERNANDEZ pravastatin pravastatin 2020-0 No pravastati [facility] 10 mg 10 mg 3-03 n 10 mg [facility] tablet RX tablet RX 00:00: tablet RX dic by other MD by chad FERNANDEZ 00 by other Sports MD [place] Brilinta 60 Brilinta 60 2020-0 No Brilinta [facility] mg tablet mg tablet 3-03 60 mg [facility] RX by other RX by other 00:00: tablet RX dic MD FERNANDEZ 00 by other Sports MD Cindi farooq carvedilol carvedilol 2020-0 No carvedilol [facility] 3.125 mg 3.125 mg 3-03 3.125 mg [facility] tablet RX tablet RX 00:00: tablet RX dic by other MD by chad FERNANDEZ 00 by other Sports MD Cindi farooq metformin metformin 2020-0 No metformin [facility] ER 750 mg ER 750 mg 3-03 ER 750 mg [facility] tablet,exte tablet,exte 00:00: tablet,ext dic nded nded 00 ended Sports release 24 release 24 release 24 Medicin hr RX by hr RX by hr RX by e chad bonilla MD omeprazole omeprazole 2019-0 No omeprazole [facility] 20 mg 20 mg 3-03 20 mg [facility] tablet,zoya tablet,zoya 00:00: tablet,del dic yed release yed release 00 ayed S ports RX by other RX by other release RX Cindi FERNANDEZ MD by other e pravastatin pravastatin 2019-0 No pravastati [facility] 10 mg 10 mg 3-03 n 10 mg [facility] tablet RX tablet RX 00:00: tablet RX dic by other MD by other 00 by other Sports MD Cindi farooq Brilinta 60 Brilinta 60 2019-0 No Brilinta [facility] mg tablet mg tablet 3-03 60 mg [facility] RX by other RX by other 00:00: tablet RX dic MD FERNANDEZ 00 by other Sports MD Cindi farooq omeprazole omeprazole 2019-0 No omeprazole [facility] 20 mg 20 mg 3-03 20 mg [facility] tablet,zoya tablet,zoya 00:00: tablet,del dic yed release yed release 00 ayed S ports RX by other RX by other release RX Cindi FERNANDEZ MD by other e GABAPENTIN 2015-04 Yes Take by [facility] [employer] ORAL 0-27 mouth. ity of 10:08: [address] GABAPENTIN 2015-04 Yes Take by [facility] ers ORAL 0-27 mouth. ity of 10:08: [address] GABAPENTIN 2015-04 Yes Take by [employer] [facility] ORAL 0-27 mouth. ity of 10:08: [address] GABAPENTIN 2015-04 Yes Take by [facility] [employer] ORAL 0-27 mouth. ity of 10:08: [address] GABAPENTIN 2015-04 Yes Take by Univ ers ORAL 0-27 mouth. ity of 10:08: [place] 07 [facility] metformin 2015-04 Yes 750mg Take 750 Uni vers ER 0-27 mg by ity of (GLUCOPHAGE 10:06: mouth 2 Cesar as -XR) 750 mg 19 (two) Medical 24 hr times Branch tablet daily with meals. pravastatin 2015-04 Yes 40mg Take 40 mg Univers (PRAVACHOL) 0-27 by mouth ity of 40 mg 10:06: at [place] tablet 19 bedtime. Medical Branch carvedilol 2015-04 Yes 3.125mg Take 3.125 Univers (COREG) 0-27 mg by ity of 3.125 mg 10:06: mouth 2 [place] tablet 19 (two) Medical times Branch daily with meals. metformin 2015-04 Yes 750mg Take 750 Uni vers ER 0-27 mg by ity of (GLUCOPHAGE 10:06: mouth 2 Cesar as -XR) 750 mg 19 (two) Medical 24 hr times Branch tablet daily with meals. esomeprazol 2015-04 Yes 40mg Take 40 mg Univers e (NEXIUM 0-27 by mouth ity of PACKET) 40 10:06: daily with [place] mg packet 19 breakfast. [facility] ERGOCALCIFE 2015-04 Yes Take by Uni vers ROL, 0-27 mouth ity of VITAMIN D2, 10:06: daily. Margaret s (VITAMIN D 19 Medical ORAL) Branch VITAMIN B 2015-04 Yes Take by Unive rs COMPLEX 0-27 mouth. ity of ORAL 10:06: [place] 19 Medical Branch pravastatin 2015-04 Yes 40mg Take 40 mg Univers (PRAVACHOL) 0-27 by mouth ity of 40 mg 10:06: at [place] tablet 19 bedtime. Medical Branch carvedilol 2015-04 Yes 3.125mg Take 3.125 Univers (COREG) 0-27 mg by ity of 3.125 mg 10:06: mouth 2 [place] tablet 19 (two) Medical times Branch daily with meals. esomeprazol 2015-04 Yes 40mg Take 40 mg Univers e (NEXIUM 0-27 by mouth ity of PACKET) 40 10:06: daily with [place] mg packet 19 breakfast. [facility] ERGOCALCIFE 2015-04 Yes Take by Uni vers ROL, 0-27 mouth ity of VITAMIN D2, 10:06: daily. [place] s (VITAMIN D 19 Medical ORAL) Branch VITAMIN B 2015-04 Yes Take by Unive rs COMPLEX 0-27 mouth. ity of ORAL 10:06: [address] Branch metformin 2015-04 Yes 750mg Take 750 Uni vers ER 0-27 mg by ity of (GLUCOPHAGE 10:06: mouth 2 Cesar as -XR) 750 mg 19 (two) Medical 24 hr times Branch tablet daily with meals. pravastatin 2015-04 Yes 40mg Take 40 mg Univers (PRAVACHOL) 0-27 by mouth ity of 40 mg 10:06: at [place] tablet 19 bedtime. Medical Branch carvedilol 2015-04 Yes 3.125mg Take 3.125 Univers (COREG) 0-27 mg by ity of 3.125 mg 10:06: mouth 2 [place] tablet 19 (two) Medical times Branch daily with meals. esomeprazol 2015-04 Yes 40mg Take 40 mg Univers e (NEXIUM 0-27 by mouth ity of PACKET) 40 10:06: daily with [place] mg packet 19 breakfast. [facility] ERGOCALCIFE 2015-04 Yes Take by Uni vers ROL, 0-27 mouth ity of VITAMIN D2, 10:06: daily. [place] s (VITAMIN D 19 Medical ORAL) Branch VITAMIN B 2015-04 Yes Take by Unive rs COMPLEX 0-27 mouth. ity of ORAL 10:06: [address] metformin 2015-04 Yes 750mg Take 750 Uni vers ER 0-27 mg by ity of (GLUCOPHAGE 10:06: mouth 2 Cesar as -XR) 750 mg 19 (two) Medical 24 hr times Branch tablet daily with meals. pravastatin 2015-04 Yes 40mg Take 40 mg Univers (PRAVACHOL) 0-27 by mouth ity of 40 mg 10:06: at [place] tablet 19 bedtime. Medical Branch carvedilol 2015-04 Yes 3.125mg Take 3.125 Univers (COREG) 0-27 mg by ity of 3.125 mg 10:06: mouth 2 [place] tablet 19 (two) Medical times Branch daily with meals. esomeprazol 2015-04 Yes 40mg Take 40 mg Univers e (NEXIUM 0-27 by mouth ity of PACKET) 40 10:06: daily with [place] mg packet 19 breakfast. [facility] ERGOCALCIFE 2015-04 Yes Take by Uni vers ROL, 0-27 mouth ity of VITAMIN D2, 10:06: daily. [place] s (VITAMIN D 19 Medical ORAL) Branch VITAMIN B 2015-04 Yes Take by Unive rs COMPLEX 0-27 mouth. ity of ORAL 10:06: [address] metformin 2015-04 Yes 750mg Take 750 Uni vers ER 0-27 mg by ity of (GLUCOPHAGE 10:06: mouth 2 [facility]esar as -XR) 750 mg 19 (two) Medical 24 hr times Branch tablet daily with meals. pravastatin 2015-04 Yes 40mg Take 40 mg Univers (PRAVACHOL) 0-27 by mouth ity of 40 mg 10:06: at [place] tablet 19 bedtime. Medical Branch carvedilol 2015-04 Yes 3.125mg Take 3.125 Univers (COREG) 0-27 mg by ity of 3.125 mg 10:06: mouth 2 [place] tablet 19 (two) Medical times Branch daily with meals. esomeprazol 2015-04 Yes 40mg Take 40 mg Univers e (NEXIUM 0-27 by mouth ity of PACKET) 40 10:06: daily with [place] mg packet 19 breakfast. [facility] Branch ERGOCALCIFE 2015-04 Yes Take by Uni vers ROL, 0-27 mouth ity of VITAMIN D2, 10:06: daily. [place] s (VITAMIN D 19 Medical ORAL) Branch VITAMIN B 2015-04 Yes Take by Unive rs COMPLEX 0-27 mouth. ity of ORAL 10:06: [address] FAMOTIDINE 2015-04 Yes Take by [facility] ers (PEPCID AC [id number] mouth. ity of ORAL) 10:37: [address] FAMOTIDINE 2015-04 Yes Take by [facility] ers (PEPCID AC 0-21 mouth. ity of ORAL) 10:37: [address] FAMOTIDINE 2015-04 Yes Take by [facility] ers (PEPCID AC 0-21 mouth. ity of ORAL) 10:37: [address] FAMOTIDINE 2015-04 Yes Take by Uni vers (PEPCID AC 0-21 mouth. ity of ORAL) 10:37: [address] FAMOTIDINE 2015-04 Yes Take by [facility] ers (PEPCID AC 0-21 mouth. ity of ORAL) 10:37: [address] methylPREDN 2015-04 Yes 84mg Take 21 Uni vers ISolone 0-21 tablets by ity of (MEDROL, 00:00: mouth [place] MICHEAL,) 4 mg 00 SEE-INSTRU Med ical tablets CTIONS. Branch follow package directions methylPREDN 2015-04 Yes 84mg Take 21 Uni vers ISolone 0-21 tablets by ity of (MEDROL, 00:00: mouth [place] MICHEAL,) 4 mg 00 SEE-INSTRU Med ical tablets CTIONS. Branch follow package directions methylPREDN 2015-04 Yes 84mg Take 21 Uni vers ISolone 0-21 tablets by ity of (MEDROL, 00:00: mouth [place] MICHEAL,) 4 mg 00 SEE-INSTRU Med ical tablets CTIONS. Branch follow package directions methylPREDN 2015-04 Yes 84mg Take 21 Uni vers ISolone 0-21 tablets by ity of (MEDROL, 00:00: mouth [place] MICHEAL,) 4 mg 00 SEE-INSTRU Med ical tablets CTIONS. Branch follow package directions methylPREDN 2015-04 Yes 84mg Take 21 Uni vers ISolone 0-21 tablets by ity of (MEDROL, 00:00: mouth [place] MICHEAL,) 4 mg 00 SEE-INSTRU Med ical tablets CTIONS. Branch follow package directions methylPREDN 2015-04- No 84mg Take 21 Un umer ISolone 0-21 11-21 tablets by ity o f (MEDROL, 00:00: 00:00 mouth [place] MICHEAL,) 4 mg 00 :00 SEE-INSTRU Med ical tablets CTIONS. Branch follow package directions Clindamycin Clindamycin Yes Keisha not Common HCl HCl [place] [facility] Sulfamethox Sulfamethox Yes Keisha not Common azole-Trime azole-Trime [place] [facility] thoprim thoprim - [facility] Carvedilol Carvedilol Yes Keisha not Co mmon [place] [facility] Pravastatin Pravastatin Yes Keisha 1 tablet Common Sodium Sodium [facility] Brilinta Brilinta Yes Keisha 1 tablet Co mmon [facility] Bactrim Bactrim Yes Keisha not Common [place] [facility] MetFORMIN MetFORMIN Yes Keisha 1 tablet Common HCl ER HCl ER [place] [facility] evening - [facility] meal [facility] Aspirin 81 Aspirin 81 Yes Keisha 1 tablet Common [facility] Omeprazole Omeprazole Yes Keisha 1 capsule Common [facility] 30 minutes Spiri t before - [facility] morning [facility] ondansetron ondansetron No ondansetro Zeny HCl 4 mg HCl 4 mg n HCl 4 mg O [facility]ope tablet TAKE tablet TAKE tablet dic 1 TABLET BY 1 TABLET BY TAKE 1 Sports MOUTH EVERY MOUTH EVERY TABLET BY Medicin 6 HOURS 6 HOURS MOUTH e NEEDED FOR NEEDED FOR EVERY 6 NAUSEA AND NAUSEA AND HOURS VOMITING VOMITING NEEDED FOR NAUSEA AND VOMITING OneTouch OneTouch No OneTouch Aza josefa Verio test Verio test Verio test [facility] strips USE strips USE strips USE dic TO CHECK TO CHECK TO CHECK Spo rts GLUCOSE GLUCOSE GLUCOSE Medici n TWICE DAILY TWICE DAILY TWICE e DAILY Paxlovid Paxlovid No Paxlovid Aza josefa 300 mg (150 300 mg (150 300 mg [facility] mg x 2)-100 mg x 2)-100 (150 mg x dic mg tablets mg tablets 2)-100 mg Sports in a dose in a dose tablets in Medicin pack (EUA) pack (EUA) a dose e TAKE 3 TAKE 3 pack (EUA) TABLETS BY TABLETS BY TAKE 3 MOUTH TWICE MOUTH TWICE TABLETS BY A DAY A DAY MOUTH TWICE A DAY pravastatin pravastatin No pravastati Zeny 80 mg 80 mg n 80 mg [facility] tablet TAKE tablet TAKE tablet dic 1 TABLET BY 1 TABLET BY TAKE 1 Sports MOUTH EVERY MOUTH EVERY TABLET BY Medicin DAY DAY MOUTH e EVERY DAY promethazin promethazin No promethazi Zeny e 25 mg e 25 mg ne 25 mg Ortho pe tablet TAKE tablet TAKE tablet dic 1 TABLET BY 1 TABLET BY TAKE 1 Sports MOUTH EVERY MOUTH EVERY TABLET BY Medicin 6 HOURS 6 HOURS MOUTH e NEEDED FOR NEEDED FOR EVERY 6 NAUSEA AND NAUSEA AND HOURS VOMITING VOMITING NEEDED FOR NAUSEA AND VOMITING Pulmicort Pulmicort No Pulmicort Zeny Flexhaler Flexhaler Flexhaler [facility] 180 180 180 dic mcg/actuati mcg/actuati mcg/actuat Sports on breath on breath ion breath Medicin activated activated activated e INHALE BY INHALE BY INHALE BY MOUTH 1 MOUTH 1 MOUTH 1 PUFF EVERY PUFF EVERY PUFF EVERY 12 HOURS 12 HOURS 12 HOURS FOR 2 WEEKS FOR 2 WEEKS FOR 2 WEEKS Sutab Sutab No Sutab Zeny 1.479-0.188 1.479-0.188 1.479-0.18 Orthope -0.225 gram -0.225 gram 8-0.225 dic tablet tablet gram Sports PLEASE SEE PLEASE SEE tablet M edicin ATTACHED ATTACHED PLEASE SEE e FOR FOR ATTACHED DETAILED DETAILED FOR DIRECTIONS DIRECTIONS DETAILED DIRECTIONS acetaminoph acetaminoph No acetaminop Zeny en 300 en 300 hen 300 [facility] mg-codeine mg-codeine mg-codeine dic 30 mg 30 mg 30 mg Sports tablet TAKE tablet TAKE tablet Medicin 1 TABLET BY 1 TABLET BY TAKE 1 e MOUTH EVERY MOUTH EVERY TABLET BY 6 TO 8 6 TO 8 MOUTH HOURS HOURS EVERY 6 TO NEEDED FOR NEEDED FOR 8 HOURS PAIN PAIN NEEDED FOR PAIN azithromyci azithromyci No azithromyc Zeny n 250 mg n 250 mg in 250 mg Or thope tablet TAKE tablet TAKE tablet dic 2 TABLETS 2 TABLETS TAKE 2 Spo rts BY MOUTH BY MOUTH TABLETS BY Martha peres TODAY, THEN TODAY, THEN MOUTH e TAKE 1 TAKE 1 TODAY, TABLET TABLET THEN TAKE DAILY FOR 4 DAILY FOR 4 1 TABLET DAYS DAYS DAILY FOR 4 DAYS Brilinta 90 Brilinta 90 No Brilinta Ezny mg tablet mg tablet 90 mg Orth ope TAKE 1 TAKE 1 tablet dic TABLET BY TABLET BY TAKE 1 Spo rts MOUTH TWICE MOUTH TWICE TABLET BY Medicin A DAY A DAY MOUTH e TWICE A DAY carvedilol carvedilol No carvedilol Zeny 3.125 mg 3.125 mg 3.125 mg Ort hope tablet TAKE tablet TAKE tablet dic 1 TABLET BY 1 TABLET BY TAKE 1 Sports MOUTH TWICE MOUTH TWICE TABLET BY Medicin A DAY A DAY MOUTH e TWICE A DAY clindamycin clindamycin No clindamyci Zeny HCl 300 mg HCl 300 mg n HCl 300 [facility] capsule capsule mg capsule dic TAKE 1 TAKE 1 TAKE 1 Sports CAPSULE BY CAPSULE BY CAPSULE BY Medicin MOUTH THREE MOUTH THREE MOUTH e TIMES A DAY TIMES A DAY THREE TIMES A DAY famotidine famotidine No famotidine Zeny 20 mg 20 mg 20 mg [facility] tablet TAKE tablet TAKE tablet dic 1 TABLET BY 1 TABLET BY TAKE 1 Sports MOUTH EVERY MOUTH EVERY TABLET BY Medicin 12 HOURS 12 HOURS MOUTH e FOR 14 DAYS FOR 14 DAYS EVERY 12 HOURS FOR 14 DAYS gabapentin gabapentin No gabapentin Zeny 300 mg 300 mg 300 mg [facility] capsule capsule capsule dic TAKE 1 TAKE 1 TAKE 1 Sports CAPSULE BY CAPSULE BY CAPSULE BY Medicin MOUTH EVERY MOUTH EVERY MOUTH e DAY DAY EVERY DAY hyoscyamine hyoscyamine No hyoscyamin Zeny 0.125 mg 0.125 mg e 0.125 mg O rthope disintegrat disintegrat disintegra dic ing tablet ing tablet ting Spo rts TAKE 1-2 TAKE 1-2 tablet Medic in TABLETS BY TABLETS BY TAKE 1-2 e MOUTH EVERY MOUTH EVERY TABLETS BY 4-6 HOURS 4-6 HOURS MOUTH EVERY 4-6 HOURS Lidocaine Lidocaine No Lidocaine Zeny Viscous 2 % Viscous 2 % Viscous 2 [facility] mucosal mucosal % mucosal dic solution solution solution Spo rts TAKE 5 ML TAKE 5 ML TAKE 5 ML Medicin SWISH AND SWISH AND SWISH AND e SPIT OUT SPIT OUT SPIT OUT EVERY 6 EVERY 6 EVERY 6 HOURS HOURS HOURS NEEDED NEEDED NEEDED losartan 50 losartan 50 No losartan Zeny mg tablet mg tablet 50 mg Orth ope TAKE 1 TAKE 1 tablet dic TABLET BY TABLET BY TAKE 1 Spo rts MOUTH TWICE MOUTH TWICE TABLET BY Medicin A DAY EVERY A DAY EVERY MOUTH e MORNING AND MORNING AND TWICE A EVERY EVERY DAY EVERY EVENING EVENING MORNING AND EVERY EVENING meloxicam meloxicam No meloxicam Zeny 15 mg 15 mg 15 mg [facility] tablet TAKE tablet TAKE tablet dic 1 TABLET BY 1 TABLET BY TAKE 1 Sports MOUTH DAILY MOUTH DAILY TABLET BY Medicin MOUTH e DAILY metformin metformin No metformin Zeny ER 750 mg ER 750 mg ER 750 mg [facility] tablet,exte tablet,exte tablet,ext dic nded nded ended Sports release 24 release 24 release 24 Medicin hr TAKE 1 hr TAKE 1 hr TAKE 1 e TABLET BY TABLET BY TABLET BY MOUTH TWICE MOUTH TWICE MOUTH A DAY A DAY TWICE A DAY metoclopram metoclopram No metoclopra Zeny mindy 10 mg mindy 10 mg mide 10 mg [facility] tablet TAKE tablet TAKE tablet dic 3 TABLETS 3 TABLETS TAKE 3 Spo rts BY MOUTH BY MOUTH TABLETS BY Medicin DIRECTED DIRECTED MOUTH e USE USE DIRECTED DIRECTED DIRECTED USE PER YOUR PER YOUR DIRECTED COLONOSCOPY COLONOSCOPY PER YOUR PREP PACKET PREP PACKET COLONOSCOP Y PREP PACKET mometasone mometasone No mometasone Zeny 50 50 50 [facility] mcg/actuati mcg/actuati mcg/actuat dic on nasal on nasal ion nasal Sp orts spray TAKE spray TAKE spray TAKE Medicin 2 SPRAYS IN 2 SPRAYS IN 2 SPRAYS e EACH EACH IN EACH NOSTRIL NOSTRIL NOSTRIL EVERY DAY EVERY DAY EVERY DAY mupirocin 2 mupirocin 2 No mupirocin Zeny % topical % topical 2 % Ortho pe ointment ointment topical dic APPLY 1 APPLY 1 ointment Sport s APPLICATION APPLICATION APPLY 1 Medicin ON THE SKIN ON THE SKIN APPLICATIO e TWICE A DAY TWICE A DAY N ON THE SKIN TWICE A DAY omeprazole omeprazole No omeprazole Zeny 40 mg 40 mg 40 mg [facility] capsule,del capsule,del capsule,de dic ayed ayed layed Sports release release release Medici n TAKE 1 TAKE 1 TAKE 1 e CAPSULE BY CAPSULE BY CAPSULE BY MOUTH EVERY MOUTH EVERY MOUTH DAY DAY EVERY DAY ondansetron ondansetron No ondansetro Zeny 4 mg 4 mg n 4 mg [facility] disintegrat disintegrat disintegra dic ing tablet ing tablet ting Spo rts DISSOLVE IN DISSOLVE IN tablet Medicin MOUTH 1 MOUTH 1 DISSOLVE e TABLET TABLET IN MOUTH 1 EVERY 8 EVERY 8 TABLET HOURS HOURS EVERY 8 NEEDED FOR NEEDED FOR HOURS NAUSEA AND NAUSEA AND NEEDED FOR VOMITING VOMITING NAUSEA AND VOMITING ondansetron ondansetron No ondansetro Zeny HCl 4 mg HCl 4 mg n HCl 4 mg O rthope tablet TAKE tablet TAKE tablet dic 1 TABLET BY 1 TABLET BY TAKE 1 Sports MOUTH EVERY MOUTH EVERY TABLET BY Medicin 6 HOURS 6 HOURS MOUTH e NEEDED FOR NEEDED FOR EVERY 6 NAUSEA AND NAUSEA AND HOURS VOMITING VOMITING NEEDED FOR NAUSEA AND VOMITING OneTouch OneTouch No OneTouch Aza josefa Verio test Verio test Verio test [facility] strips USE strips USE strips USE dic TO CHECK TO CHECK TO CHECK Spo rts GLUCOSE GLUCOSE GLUCOSE Medici n TWICE DAILY TWICE DAILY TWICE e DAILY Paxlovid Paxlovid No Paxlovid Aza josefa 300 mg (150 300 mg (150 300 mg [facility] mg x 2)-100 mg x 2)-100 (150 mg x dic mg tablets mg tablets 2)-100 mg Sports in a dose in a dose tablets in Medicin pack (EUA) pack (EUA) a dose e TAKE 3 TAKE 3 pack (EUA) TABLETS BY TABLETS BY TAKE 3 MOUTH TWICE MOUTH TWICE TABLETS BY A DAY A DAY MOUTH TWICE A DAY pravastatin pravastatin No pravastati Zeny 80 mg 80 mg n 80 mg [facility] tablet TAKE tablet TAKE tablet dic 1 TABLET BY 1 TABLET BY TAKE 1 Sports MOUTH EVERY MOUTH EVERY TABLET BY Medicin DAY DAY MOUTH e EVERY DAY promethazin promethazin No promethazi Zeny e 25 mg e 25 mg ne 25 mg Ortho pe tablet TAKE tablet TAKE tablet dic 1 TABLET BY 1 TABLET BY TAKE 1 Sports MOUTH EVERY MOUTH EVERY TABLET BY Medicin 6 HOURS 6 HOURS MOUTH e NEEDED FOR NEEDED FOR EVERY 6 NAUSEA AND NAUSEA AND HOURS VOMITING VOMITING NEEDED FOR NAUSEA AND VOMITING Pulmicort Pulmicort No Pulmicort Zeny Flexhaler Flexhaler Flexhaler [facility]ope 180 180 180 dic mcg/actuati mcg/actuati mcg/actuat Sports on breath on breath ion breath Medicin activated activated activated e INHALE BY INHALE BY INHALE BY MOUTH 1 MOUTH 1 MOUTH 1 PUFF EVERY PUFF EVERY PUFF EVERY 12 HOURS 12 HOURS 12 HOURS FOR 2 WEEKS FOR 2 WEEKS FOR 2 WEEKS Sutab Sutab No Sutab Zeny 1.479-0.188 1.479-0.188 1.479-0.18 Orthope -0.225 gram -0.225 gram 8-0.225 dic tablet tablet gram Sports PLEASE SEE PLEASE SEE tablet M edicin ATTACHED ATTACHED PLEASE SEE e FOR FOR ATTACHED DETAILED DETAILED FOR DIRECTIONS DIRECTIONS DETAILED DIRECTIONS acetaminoph acetaminoph No acetaminop Zeny en 300 en 300 hen 300 [facility] mg-codeine mg-codeine mg-codeine dic 30 mg 30 mg 30 mg Sports tablet TAKE tablet TAKE tablet Medicin 1 TABLET BY 1 TABLET BY TAKE 1 e MOUTH EVERY MOUTH EVERY TABLET BY 6 HOURS 6 HOURS MOUTH NEEDED FOR NEEDED FOR EVERY 6 ACUTE PAIN ACUTE PAIN HOURS NEEDED FOR ACUTE PAIN azithromyci azithromyci No azithromyc Zeny n 250 mg n 250 mg in 250 mg Or thope tablet TAKE tablet TAKE tablet dic 2 TABLETS 2 TABLETS TAKE 2 Spo rts BY MOUTH BY MOUTH TABLETS BY M edicin TODAY, THEN TODAY, THEN MOUTH e TAKE 1 TAKE 1 TODAY, TABLET TABLET THEN TAKE DAILY FOR 4 DAILY FOR 4 1 TABLET DAYS DAYS DAILY FOR 4 DAYS Brilinta 90 Brilinta 90 No Brilinta Zeny mg tablet mg tablet 90 mg Orth ope TAKE 1 TAKE 1 tablet dic TABLET BY TABLET BY TAKE 1 Spo rts MOUTH TWICE MOUTH TWICE TABLET BY Medicin A DAY A DAY MOUTH e TWICE A DAY carvedilol carvedilol No carvedilol Zeny 3.125 mg 3.125 mg 3.125 mg Ort hope tablet TAKE tablet TAKE tablet dic 1 TABLET BY 1 TABLET BY TAKE 1 Sports MOUTH TWICE MOUTH TWICE TABLET BY Medicin A DAY A DAY MOUTH e TWICE A DAY cephalexin cephalexin No cephalexin Zeny 500 mg 500 mg 500 mg [facility] capsule capsule capsule dic TAKE 1 TAKE 1 TAKE 1 Sports CAPSULE BY CAPSULE BY CAPSULE BY Medicin MOUTH EVERY MOUTH EVERY MOUTH e 8 HOURS FOR 8 HOURS FOR EVERY 8 10 DAYS 10 DAYS HOURS FOR 10 DAYS clindamycin clindamycin No clindamyci Zeny HCl 300 mg HCl 300 mg n HCl 300 [facility] capsule capsule mg capsule dic TAKE 1 TAKE 1 TAKE 1 Sports CAPSULE BY CAPSULE BY CAPSULE BY Medicin MOUTH 4 MOUTH 4 MOUTH 4 e TIMES DAILY TIMES DAILY TIMES FOR 10 FOR 10 DAILY FOR DAYS. DAYS. 10 DAYS. desoximetas desoximetas No desoximeta Zeny one 0.05 % one 0.05 % sone 0.05 [facility] topical topical % topical dic ointment ointment ointment Spo rts Medicin e diclofenac diclofenac No diclofenac Zeny 1 % topical 1 % topical 1 % O r[facility]ope gel gel topical dic gel Sports Medicin e doxycycline doxycycline No doxycyclin Zeny hyclate 100 hyclate 100 e hyclate Orth[facility] mg tablet mg tablet 100 mg dic TAKE 1 TAKE 1 tablet Sports TABLET BY TABLET BY TAKE 1 Med icin MOUTH EVERY MOUTH EVERY TABLET BY e 12 HOURS 12 HOURS MOUTH FOR 10 DAYS FOR 10 DAYS EVERY 12 HOURS FOR 10 DAYS famotidine famotidine No famotidine Zeny 20 mg 20 mg 20 mg [facility] tablet TAKE tablet TAKE tablet dic 1 TABLET BY 1 TABLET BY TAKE 1 Sports MOUTH EVERY MOUTH EVERY TABLET BY Medicin 12 HOURS 12 HOURS MOUTH e FOR 14 DAYS FOR 14 DAYS EVERY 12 HOURS FOR 14 DAYS gabapentin gabapentin No gabapentin Zeny 300 mg 300 mg 300 mg [facility] capsule capsule capsule dic TAKE 1 TAKE 1 TAKE 1 Sports CAPSULE BY CAPSULE BY CAPSULE BY Medicin MOUTH EVERY MOUTH EVERY MOUTH e DAY DAY EVERY DAY hyoscyamine hyoscyamine No hyoscyamin Zeny 0.125 mg 0.125 mg e 0.125 mg O r[facility]ope disintegrat disintegrat disintegra dic ing tablet ing tablet ting Spo rts TAKE 1-2 TAKE 1-2 tablet Medic in TABLETS BY TABLETS BY TAKE 1-2 e MOUTH EVERY MOUTH EVERY TABLETS BY 4-6 HOURS 4-6 HOURS MOUTH EVERY 4-6 HOURS lidocaine 5 lidocaine 5 No lidocaine Zeny % topical % topical 5 % Ortho pe ointment ointment topical dic ointment Sports Medicin e Lidocaine Lidocaine No Lidocaine Zeny Viscous 2 % Viscous 2 % Viscous 2 Orthope mucosal mucosal % mucosal dic solution solution solution Spo rts TAKE 5 ML TAKE 5 ML TAKE 5 ML Medicin SWISH AND SWISH AND SWISH AND e SPIT OUT SPIT OUT SPIT OUT EVERY 6 EVERY 6 EVERY 6 HOURS HOURS HOURS NEEDED NEEDED NEEDED losartan 50 losartan 50 No losartan Zeny mg tablet mg tablet 50 mg Orth ope TAKE 1 TAKE 1 tablet dic TABLET BY TABLET BY TAKE 1 Spo rts MOUTH TWICE MOUTH TWICE TABLET BY Medicin A DAY FOR A DAY FOR MOUTH e 90 DAYS 90 DAYS TWICE A DAY FOR 90 DAYS meloxicam meloxicam No meloxicam Zeny 15 mg 15 mg 15 mg [facility] tablet TAKE tablet TAKE tablet dic 1 TABLET BY 1 TABLET BY TAKE 1 Sports MOUTH DAILY MOUTH DAILY TABLET BY Medicin MOUTH e DAILY metformin metformin No metformin Zeny ER 750 mg ER 750 mg ER 750 mg [facility] tablet,exte tablet,exte tablet,ext dic nded nded ended Sports release 24 release 24 release 24 Medicin hr TAKE 1 hr TAKE 1 hr TAKE 1 e TABLET BY TABLET BY TABLET BY MOUTH TWICE MOUTH TWICE MOUTH A DAY A DAY TWICE A DAY metoclopram metoclopram No metoclopra Zeny mindy 10 mg mindy 10 mg mide 10 mg [facility] tablet TAKE tablet TAKE tablet dic 3 TABLETS 3 TABLETS TAKE 3 Spo rts BY MOUTH BY MOUTH TABLETS BY Medicin DIRECTED DIRECTED MOUTH e USE USE DIRECTED DIRECTED DIRECTED USE PER YOUR PER YOUR DIRECTED COLONOSCOPY COLONOSCOPY PER YOUR PREP PACKET PREP PACKET COLONOSCOP Y PREP PACKET mometasone mometasone No mometasone Zeny 50 50 50 [facility] mcg/actuati mcg/actuati mcg/actuat dic on nasal on nasal ion nasal Sp orts spray TAKE spray TAKE spray TAKE Medicin 2 SPRAYS IN 2 SPRAYS IN 2 SPRAYS e EACH EACH IN EACH NOSTRIL NOSTRIL NOSTRIL EVERY DAY EVERY DAY EVERY DAY mupirocin 2 mupirocin 2 No mupirocin Zeny % topical % topical 2 % Ortho pe ointment ointment topical dic APPLY 1 APPLY 1 ointment Sport s APPLICATION APPLICATION APPLY 1 Medicin ON THE SKIN ON THE SKIN APPLICATIO e TWICE A DAY TWICE A DAY N ON THE SKIN TWICE A DAY omeprazole omeprazole No omeprazole Zeny 40 mg 40 mg 40 mg [facility] capsule,del capsule,del capsule,de dic ayed ayed layed Sports release release release Medici n TAKE 1 TAKE 1 TAKE 1 e CAPSULE BY CAPSULE BY CAPSULE BY MOUTH EVERY MOUTH EVERY MOUTH DAY DAY EVERY DAY ondansetron ondansetron No ondansetro Zeny 4 mg 4 mg n 4 mg [facility] disintegrat disintegrat disintegra dic ing tablet ing tablet ting Spo rts DISSOLVE IN DISSOLVE IN tablet Medicin MOUTH 1 MOUTH 1 DISSOLVE e TABLET TABLET IN MOUTH 1 EVERY 8 EVERY 8 TABLET HOURS HOURS EVERY 8 NEEDED FOR NEEDED FOR HOURS NAUSEA AND NAUSEA AND NEEDED FOR VOMITING VOMITING NAUSEA AND VOMITING ondansetron ondansetron No ondansetro Zeny HCl 4 mg HCl 4 mg n HCl 4 mg O [facility]ope tablet TAKE tablet TAKE tablet dic 1 TABLET BY 1 TABLET BY TAKE 1 Sports MOUTH EVERY MOUTH EVERY TABLET BY Medicin 6 HOURS 6 HOURS MOUTH e NEEDED FOR NEEDED FOR EVERY 6 NAUSEA AND NAUSEA AND HOURS VOMITING VOMITING NEEDED FOR NAUSEA AND VOMITING OneTouch OneTouch No OneTouch Aza josefa Verio test Verio test Verio test [facility] strips USE strips USE strips USE dic TO CHECK TO CHECK TO CHECK Spo rts GLUCOSE GLUCOSE GLUCOSE Medici n TWICE DAILY TWICE DAILY TWICE e DAILY Paxlovid Paxlovid No Paxlovid Aza josefa 300 mg (150 300 mg (150 300 mg [facility] mg x 2)-100 mg x 2)-100 (150 mg x dic mg tablets mg tablets 2)-100 mg Sports in a dose in a dose tablets in Medicin pack (EUA) pack (EUA) a dose e TAKE 3 TAKE 3 pack (EUA) TABLETS BY TABLETS BY TAKE 3 MOUTH TWICE MOUTH TWICE TABLETS BY A DAY A DAY MOUTH TWICE A DAY pravastatin pravastatin No pravastati Zeny 80 mg 80 mg n 80 mg [facility] tablet TAKE tablet TAKE tablet dic 1 TABLET BY 1 TABLET BY TAKE 1 Sports MOUTH EVERY MOUTH EVERY TABLET BY Medicin DAY DAY MOUTH e EVERY DAY promethazin promethazin No promethazi Zeny e 25 mg e 25 mg ne 25 mg Ortho pe tablet TAKE tablet TAKE tablet dic 1 TABLET BY 1 TABLET BY TAKE 1 Sports MOUTH EVERY MOUTH EVERY TABLET BY Medicin 6 HOURS 6 HOURS MOUTH e NEEDED FOR NEEDED FOR EVERY 6 NAUSEA AND NAUSEA AND HOURS VOMITING VOMITING NEEDED FOR NAUSEA AND VOMITING Pulmicort Pulmicort No Pulmicort Zeny Flexhaler Flexhaler Flexhaler [facility] 180 180 180 dic mcg/actuati mcg/actuati mcg/actuat Sports on breath on breath ion breath Medicin activated activated activated e INHALE BY INHALE BY INHALE BY MOUTH 1 MOUTH 1 MOUTH 1 PUFF EVERY PUFF EVERY PUFF EVERY 12 HOURS 12 HOURS 12 HOURS FOR 2 WEEKS FOR 2 WEEKS FOR 2 WEEKS Sutab Sutab No Sutab Zeny 1.479-0.188 1.479-0.188 1.479-0.18 [facility] -0.225 gram -0.225 gram 8-0.225 dic tablet tablet gram Sports PLEASE SEE PLEASE SEE tablet M edicin ATTACHED ATTACHED PLEASE SEE e FOR FOR ATTACHED DETAILED DETAILED FOR DIRECTIONS DIRECTIONS DETAILED DIRECTIONS tramadol 50 tramadol 50 No tramadol Zeny mg tablet mg tablet 50 mg Orth ope PLEASE SEE PLEASE SEE tablet d ic ATTACHED ATTACHED PLEASE SEE S ports FOR FOR ATTACHED Medicin DETAILED DETAILED FOR e DIRECTIONS DIRECTIONS DETAILED DIRECTIONS acetaminoph acetaminoph No acetaminop Zeny en 300 en 300 hen 300 [facility] mg-codeine mg-codeine mg-codeine dic 30 mg 30 mg 30 mg Sports tablet TAKE tablet TAKE tablet Medicin 1 TABLET BY 1 TABLET BY TAKE 1 e MOUTH EVERY MOUTH EVERY TABLET BY 6 TO 8 6 TO 8 MOUTH HOURS HOURS EVERY 6 TO NEEDED FOR NEEDED FOR 8 HOURS PAIN PAIN NEEDED FOR PAIN azithromyci azithromyci No azithromyc Zeny n 250 mg n 250 mg in 250 mg Or thope tablet TAKE tablet TAKE tablet dic 2 TABLETS 2 TABLETS TAKE 2 Spo rts BY MOUTH BY MOUTH TABLETS BY M edicin TODAY, THEN TODAY, THEN MOUTH e TAKE 1 TAKE 1 TODAY, TABLET TABLET THEN TAKE DAILY FOR 4 DAILY FOR 4 1 TABLET DAYS DAYS DAILY FOR 4 DAYS Brilinta 90 Brilinta 90 No Brilinta Zeny mg tablet mg tablet 90 mg Orth ope TAKE 1 TAKE 1 tablet dic TABLET BY TABLET BY TAKE 1 Spo rts MOUTH TWICE MOUTH TWICE TABLET BY Medicin A DAY A DAY MOUTH e TWICE A DAY carvedilol carvedilol No carvedilol Zeny 3.125 mg 3.125 mg 3.125 mg Ort hope tablet TAKE tablet TAKE tablet dic 1 TABLET BY 1 TABLET BY TAKE 1 Sports MOUTH TWICE MOUTH TWICE TABLET BY Medicin A DAY A DAY MOUTH e TWICE A DAY clindamycin clindamycin No clindamyci Zeny HCl 300 mg HCl 300 mg n HCl 300 [facility] capsule capsule mg capsule dic TAKE 1 TAKE 1 TAKE 1 Sports CAPSULE BY CAPSULE BY CAPSULE BY Medicin MOUTH THREE MOUTH THREE MOUTH e TIMES A DAY TIMES A DAY THREE TIMES A DAY famotidine famotidine No famotidine Zeny 20 mg 20 mg 20 mg [facility] tablet TAKE tablet TAKE tablet dic 1 TABLET BY 1 TABLET BY TAKE 1 Sports MOUTH EVERY MOUTH EVERY TABLET BY Medicin 12 HOURS 12 HOURS MOUTH e FOR 14 DAYS FOR 14 DAYS EVERY 12 HOURS FOR 14 DAYS gabapentin gabapentin No gabapentin Zeny 300 mg 300 mg 300 mg [facility] capsule capsule capsule dic TAKE 1 TAKE 1 TAKE 1 Sports CAPSULE BY CAPSULE BY CAPSULE BY Medicin MOUTH EVERY MOUTH EVERY MOUTH e DAY DAY EVERY DAY hyoscyamine hyoscyamine No hyoscyamin Zeny 0.125 mg 0.125 mg e 0.125 mg O rthope disintegrat disintegrat disintegra dic ing tablet ing tablet ting Spo rts TAKE 1-2 TAKE 1-2 tablet Medic in TABLETS BY TABLETS BY TAKE 1-2 e MOUTH EVERY MOUTH EVERY TABLETS BY 4-6 HOURS 4-6 HOURS MOUTH EVERY 4-6 HOURS Lidocaine Lidocaine No Lidocaine Zeny Viscous 2 % Viscous 2 % Viscous 2 [facility] mucosal mucosal % mucosal dic solution solution solution Spo rts TAKE 5 ML TAKE 5 ML TAKE 5 ML Medicin SWISH AND SWISH AND SWISH AND e SPIT OUT SPIT OUT SPIT OUT EVERY 6 EVERY 6 EVERY 6 HOURS HOURS HOURS NEEDED NEEDED NEEDED losartan 50 losartan 50 No losartan Zeny mg tablet mg tablet 50 mg Orth ope TAKE 1 TAKE 1 tablet dic TABLET BY TABLET BY TAKE 1 Spo rts MOUTH TWICE MOUTH TWICE TABLET BY Medicin A DAY EVERY A DAY EVERY MOUTH e MORNING AND MORNING AND TWICE A EVERY EVERY DAY EVERY EVENING EVENING MORNING AND EVERY EVENING meloxicam meloxicam No meloxicam Zeny 15 mg 15 mg 15 mg [facility] tablet TAKE tablet TAKE tablet dic 1 TABLET BY 1 TABLET BY TAKE 1 Sports MOUTH DAILY MOUTH DAILY TABLET BY Medicin MOUTH e DAILY metformin metformin No metformin Zeny ER 750 mg ER 750 mg ER 750 mg [facility] tablet,exte tablet,exte tablet,ext dic nded nded ended Sports release 24 release 24 release 24 Medicin hr TAKE 1 hr TAKE 1 hr TAKE 1 e TABLET BY TABLET BY TABLET BY MOUTH TWICE MOUTH TWICE MOUTH A DAY A DAY TWICE A DAY metoclopram metoclopram No metoclopra Zeny mindy 10 mg mindy 10 mg mide 10 mg [facility] tablet TAKE tablet TAKE tablet dic 3 TABLETS 3 TABLETS TAKE 3 Spo rts BY MOUTH BY MOUTH TABLETS BY Medicin DIRECTED DIRECTED MOUTH e USE USE DIRECTED DIRECTED DIRECTED USE PER YOUR PER YOUR DIRECTED COLONOSCOPY COLONOSCOPY PER YOUR PREP PACKET PREP PACKET COLONOSCOP Y PREP PACKET mometasone mometasone No mometasone Zeny 50 50 50 [facility] mcg/actuati mcg/actuati mcg/actuat dic on nasal on nasal ion nasal Sp orts spray TAKE spray TAKE spray TAKE Medicin 2 SPRAYS IN 2 SPRAYS IN 2 SPRAYS e EACH EACH IN EACH NOSTRIL NOSTRIL NOSTRIL EVERY DAY EVERY DAY EVERY DAY mupirocin 2 mupirocin 2 No mupirocin Zeny % topical % topical 2 % Ortho pe ointment ointment topical dic APPLY 1 APPLY 1 ointment Sport s APPLICATION APPLICATION APPLY 1 Medicin ON THE SKIN ON THE SKIN APPLICATIO e TWICE A DAY TWICE A DAY N ON THE SKIN TWICE A DAY omeprazole omeprazole No omeprazole Zeny 40 mg 40 mg 40 mg [facility] capsule,del capsule,del capsule,de dic ayed ayed layed Sports release release release Medici n TAKE 1 TAKE 1 TAKE 1 e CAPSULE BY CAPSULE BY CAPSULE BY MOUTH EVERY MOUTH EVERY MOUTH DAY DAY EVERY DAY ondansetron ondansetron No ondansetro Zeny 4 mg 4 mg n 4 mg [facility] disintegrat disintegrat disintegra dic ing tablet ing tablet ting Spo rts DISSOLVE IN DISSOLVE IN tablet Medicin MOUTH 1 MOUTH 1 DISSOLVE e TABLET TABLET IN MOUTH 1 EVERY 8 EVERY 8 TABLET HOURS HOURS EVERY 8 NEEDED FOR NEEDED FOR HOURS NAUSEA AND NAUSEA AND NEEDED FOR VOMITING VOMITING NAUSEA AND VOMITING ondansetron ondansetron No ondansetro Zeny HCl 4 mg HCl 4 mg n HCl 4 mg O rthope tablet TAKE tablet TAKE tablet dic 1 TABLET BY 1 TABLET BY TAKE 1 Sports MOUTH EVERY MOUTH EVERY TABLET BY Medicin 6 HOURS 6 HOURS MOUTH e NEEDED FOR NEEDED FOR EVERY 6 NAUSEA AND NAUSEA AND HOURS VOMITING VOMITING NEEDED FOR NAUSEA AND VOMITING OneTouch OneTouch No OneTouch Aza josefa Verio test Verio test Verio test [facility] strips USE strips USE strips USE dic TO CHECK TO CHECK TO CHECK Spo rts GLUCOSE GLUCOSE GLUCOSE Medici n TWICE DAILY TWICE DAILY TWICE e DAILY Paxlovid Paxlovid No Paxlovid Aza josefa 300 mg (150 300 mg (150 300 mg [facility] mg x 2)-100 mg x 2)-100 (150 mg x dic mg tablets mg tablets 2)-100 mg Sports in a dose in a dose tablets in Medicin pack (EUA) pack (EUA) a dose e TAKE 3 TAKE 3 pack (EUA) TABLETS BY TABLETS BY TAKE 3 MOUTH TWICE MOUTH TWICE TABLETS BY A DAY A DAY MOUTH TWICE A DAY pravastatin pravastatin No pravastati Zeny 80 mg 80 mg n 80 mg [facility] tablet TAKE tablet TAKE tablet dic 1 TABLET BY 1 TABLET BY TAKE 1 Sports MOUTH EVERY MOUTH EVERY TABLET BY Medicin DAY DAY MOUTH e EVERY DAY promethazin promethazin No promethazi Zeny e 25 mg e 25 mg ne 25 mg Ortho pe tablet TAKE tablet TAKE tablet dic 1 TABLET BY 1 TABLET BY TAKE 1 Sports MOUTH EVERY MOUTH EVERY TABLET BY Medicin 6 HOURS 6 HOURS MOUTH e NEEDED FOR NEEDED FOR EVERY 6 NAUSEA AND NAUSEA AND HOURS VOMITING VOMITING NEEDED FOR NAUSEA AND VOMITING Pulmicort Pulmicort No Pulmicort Zeny Flexhaler Flexhaler Flexhaler Orthope 180 180 180 dic mcg/actuati mcg/actuati mcg/actuat Sports on breath on breath ion breath Medicin activated activated activated e INHALE BY INHALE BY INHALE BY MOUTH 1 MOUTH 1 MOUTH 1 PUFF EVERY PUFF EVERY PUFF EVERY 12 HOURS 12 HOURS 12 HOURS FOR 2 WEEKS FOR 2 WEEKS FOR 2 WEEKS Sutab Sutab No Sutab Zeny 1.479-0.188 1.479-0.188 1.479-0.18 Orthope -0.225 gram -0.225 gram 8-0.225 dic tablet tablet gram Sports PLEASE SEE PLEASE SEE tablet M edicin ATTACHED ATTACHED PLEASE SEE e FOR FOR ATTACHED DETAILED DETAILED FOR DIRECTIONS DIRECTIONS DETAILED DIRECTIONS acetaminoph acetaminoph No acetaminop Zeny en 300 en 300 hen 300 [facility] mg-codeine mg-codeine mg-codeine dic 30 mg 30 mg 30 mg Sports tablet TAKE tablet TAKE tablet Medicin 1 TABLET BY 1 TABLET BY TAKE 1 e MOUTH EVERY MOUTH EVERY TABLET BY 6 TO 8 6 TO 8 MOUTH HOURS HOURS EVERY 6 TO NEEDED FOR NEEDED FOR 8 HOURS PAIN PAIN NEEDED FOR PAIN azithromyci azithromyci No azithromyc Zeny n 250 mg n 250 mg in 250 mg Or thope tablet TAKE tablet TAKE tablet dic 2 TABLETS 2 TABLETS TAKE 2 Spo rts BY MOUTH BY MOUTH TABLETS BY M edicin TODAY, THEN TODAY, THEN MOUTH e TAKE 1 TAKE 1 TODAY, TABLET TABLET THEN TAKE DAILY FOR 4 DAILY FOR 4 1 TABLET DAYS DAYS DAILY FOR 4 DAYS Brilinta 90 Brilinta 90 No Brilinta Zeny mg tablet mg tablet 90 mg Orth ope TAKE 1 TAKE 1 tablet dic TABLET BY TABLET BY TAKE 1 Spo rts MOUTH TWICE MOUTH TWICE TABLET BY Medicin A DAY A DAY MOUTH e TWICE A DAY carvedilol carvedilol No carvedilol Zeny 3.125 mg 3.125 mg 3.125 mg Ort hope tablet TAKE tablet TAKE tablet dic 1 TABLET BY 1 TABLET BY TAKE 1 Sports MOUTH TWICE MOUTH TWICE TABLET BY Medicin A DAY A DAY MOUTH e TWICE A DAY clindamycin clindamycin No clindamyci Zeny HCl 300 mg HCl 300 mg n HCl 300 [facility] capsule capsule mg capsule dic TAKE 1 TAKE 1 TAKE 1 Sports CAPSULE BY CAPSULE BY CAPSULE BY Medicin MOUTH THREE MOUTH THREE MOUTH e TIMES A DAY TIMES A DAY THREE TIMES A DAY famotidine famotidine No famotidine Zeny 20 mg 20 mg 20 mg [facility] tablet TAKE tablet TAKE tablet dic 1 TABLET BY 1 TABLET BY TAKE 1 Sports MOUTH EVERY MOUTH EVERY TABLET BY Medicin 12 HOURS 12 HOURS MOUTH e FOR 14 DAYS FOR 14 DAYS EVERY 12 HOURS FOR 14 DAYS gabapentin gabapentin No gabapentin Zeny 300 mg 300 mg 300 mg [facility] capsule capsule capsule dic TAKE 1 TAKE 1 TAKE 1 Sports CAPSULE BY CAPSULE BY CAPSULE BY Medicin MOUTH EVERY MOUTH EVERY MOUTH e DAY DAY EVERY DAY hyoscyamine hyoscyamine No hyoscyamin Zeny 0.125 mg 0.125 mg e 0.125 mg O r[facility]ope disintegrat disintegrat disintegra dic ing tablet ing tablet ting Spo rts TAKE 1-2 TAKE 1-2 tablet Medic in TABLETS BY TABLETS BY TAKE 1-2 e MOUTH EVERY MOUTH EVERY TABLETS BY 4-6 HOURS 4-6 HOURS MOUTH EVERY 4-6 HOURS Lidocaine Lidocaine No Lidocaine Zeny Viscous 2 % Viscous 2 % Viscous 2 [facility] mucosal mucosal % mucosal dic solution solution solution Spo rts TAKE 5 ML TAKE 5 ML TAKE 5 ML Medicin SWISH AND SWISH AND SWISH AND e SPIT OUT SPIT OUT SPIT OUT EVERY 6 EVERY 6 EVERY 6 HOURS HOURS HOURS NEEDED NEEDED NEEDED losartan 50 losartan 50 No losartan Zeny mg tablet mg tablet 50 mg Orth ope TAKE 1 TAKE 1 tablet dic TABLET BY TABLET BY TAKE 1 Spo rts MOUTH TWICE MOUTH TWICE TABLET BY Medicin A DAY EVERY A DAY EVERY MOUTH e MORNING AND MORNING AND TWICE A EVERY EVERY DAY EVERY EVENING EVENING MORNING AND EVERY EVENING meloxicam meloxicam No meloxicam Zeny 15 mg 15 mg 15 mg [facility] tablet TAKE tablet TAKE tablet dic 1 TABLET BY 1 TABLET BY TAKE 1 Sports MOUTH DAILY MOUTH DAILY TABLET BY Medicin MOUTH e DAILY metformin metformin No metformin Zeny ER 750 mg ER 750 mg ER 750 mg [facility] tablet,exte tablet,exte tablet,ext dic nded nded ended Sports release 24 release 24 release 24 Medicin hr TAKE 1 hr TAKE 1 hr TAKE 1 e TABLET BY TABLET BY TABLET BY MOUTH TWICE MOUTH TWICE MOUTH A DAY A DAY TWICE A DAY metoclopram metoclopram No metoclopra Zeny midny 10 mg mindy 10 mg mide 10 mg [facility] tablet TAKE tablet TAKE tablet dic 3 TABLETS 3 TABLETS TAKE 3 Spo rts BY MOUTH BY MOUTH TABLETS BY Medicin DIRECTED DIRECTED MOUTH e USE USE DIRECTED DIRECTED DIRECTED USE PER YOUR PER YOUR DIRECTED COLONOSCOPY COLONOSCOPY PER YOUR PREP PACKET PREP PACKET COLONOSCOP Y PREP PACKET mometasone mometasone No mometasone Zeny 50 50 50 [facility] mcg/actuati mcg/actuati mcg/actuat dic on nasal on nasal ion nasal Sp orts spray TAKE spray TAKE spray TAKE Medicin 2 SPRAYS IN 2 SPRAYS IN 2 SPRAYS e EACH EACH IN EACH NOSTRIL NOSTRIL NOSTRIL EVERY DAY EVERY DAY EVERY DAY mupirocin 2 mupirocin 2 No mupirocin Zeny % topical % topical 2 % Ortho pe ointment ointment topical dic APPLY 1 APPLY 1 ointment Sport s APPLICATION APPLICATION APPLY 1 Medicin ON THE SKIN ON THE SKIN APPLICATIO e TWICE A DAY TWICE A DAY N ON THE SKIN TWICE A DAY omeprazole omeprazole No omeprazole Zeny 40 mg 40 mg 40 mg [facility] capsule,del capsule,del capsule,de dic ayed ayed layed Sports release release release Medici n TAKE 1 TAKE 1 TAKE 1 e CAPSULE BY CAPSULE BY CAPSULE BY MOUTH EVERY MOUTH EVERY MOUTH DAY DAY EVERY DAY ondansetron ondansetron No ondansetro Zeny 4 mg 4 mg n 4 mg [facility] disintegrat disintegrat disintegra dic ing tablet ing tablet ting Spo rts DISSOLVE IN DISSOLVE IN tablet Medicin MOUTH 1 MOUTH 1 DISSOLVE e TABLET TABLET IN MOUTH 1 EVERY 8 EVERY 8 TABLET HOURS HOURS EVERY 8 NEEDED FOR NEEDED FOR HOURS NAUSEA AND NAUSEA AND NEEDED FOR VOMITING VOMITING NAUSEA AND VOMITING Immunizations Ordered Immunization Filled Immunization Date Status Commen ts Source Name Name [facility] 2018-08-02 Formerly [facility] 00:00:00 of Medicine [facility] 2018-08-02 [facility] 00:00:00 of Medicine [facility] 2018-08-02 [facility] 00:00:00 of Medicine [facility] 2018-08-02 [facility] 00:00:00 of Medicine Vital Signs Vital Name Observation Time Observation Value Comments Source HEIGHT 2019-07-18 00:00:00 172.7 cm WEIGHT 2019-07-18 00:00:00 75.7 kg Systolic blood 2022-08-25 14:13:00 126 mm[Hg] [facility] Medicine Diastolic blood 2022-08-25 14:13:00 86 mm[Hg] [facility] Medicine Heart rate 2022-08-25 14:13:00 80 /min [facility] Body temperature 2022-08-25 14:13:00 36.78 Courtney [facility] Respiratory rate 2022-08-25 14:13:00 16 /min [facility] Body height 2022-08-25 14:13:00 172.7 cm [facility] Body weight 2022-08-25 14:13:00 81.647 kg [facility] BMI 2022-08-25 14:13:00 27.37 kg/m2 [facility] Systolic blood 2022-06-04 06:25:00 120 mm[Hg] [facility] Diastolic blood 2022-06-04 06:25:00 92 mm[Hg] [facility] of pressure [facility] Heart rate 2022-06-04 06:25:00 89 /min [facility] Body temperature 2022-06-04 06:25:00 36.61 Courtney [facility] Respiratory rate 2022-06-04 06:25:00 18 /min [facility] Body height 2022-06-04 06:25:00 172.7 cm [facility] Body weight 2022-06-04 06:25:00 77.111 kg [facility] BMI 2022-06-04 06:25:00 25.85 kg/m2 [facility] Oxygen saturation in 2022-06-04 06:25:00 97 /min [facility] blood by [place] [employer] [facility] Systolic blood 2022-02-22 17:31:00 106 mm[Hg] [facility] Diastolic blood 2022-02-22 17:31:00 66 mm[Hg] [facility] rs[facility] of pressure [facility] Heart rate 2022-02-22 17:31:00 66 /min [facility] Body temperature 2022-02-22 17:31:00 35.72 Courtney [facility] Respiratory rate 2022-02-22 17:31:00 16 /min [facility] Oxygen saturation in 2022-02-22 17:31:00 98 /min [facility] Arterial blood by [place] [employer] marie [facility] Branch Body weight 2022-02-22 09:29:00 84.959 kg [facility] BMI 2022-02-22 09:29:00 28.48 kg/m2 [facility] Body height 2022-02-22 01:51:00 172.7 cm [facility] Systolic blood 2021-12-30 16:20:00 127 mm[Hg] [facility] pressure Medicine Diastolic blood 2021-12-30 16:20:00 86 mm[Hg] [facility] pressure Medicine Heart rate 2021-12-30 16:20:00 73 /min [facility] Medicine Body height 2021-12-30 16:20:00 172.7 cm [facility] Body weight 2021-12-30 16:20:00 82.555 kg [facility] of Medicine BMI 2021-12-30 16:20:00 27.67 kg/m2 [facility] Systolic blood 2021-10-06 01:39:00 109 mm[Hg] Univer [facility]ity of [facility] Diastolic blood 2021-10-06 01:39:00 89 mm[Hg] Unive rsity of [facility] Heart rate 2021-10-06 01:39:00 72 /min [facility]i ty of [facility] Body temperature 2021-10-06 01:39:00 36.22 Courtney [facility] Respiratory rate 2021-10-06 01:39:00 20 /[facility] 2021-10-06 01:39:00 99 /min [facility] Arterial blood by [facility] Pulse oximetry Branch Body height 2021-10-05 21:02:00 172.7 cm Universi ty of [facility] Body weight 2021-10-05 21:02:00 79.606 kg [facility]i ty of [facility] BMI 2021-10-05 21:02:00 26.68 kg/m2 Universi ty [facility] Systolic blood 2021-08-26 14:30:00 119 mm[Hg] [facility] pressure Medicine Diastolic blood 2021-08-26 14:30:00 82 mm[Hg] [facility] Medicine Heart rate 2021-08-26 14:30:00 71 /min [facility] of Medicine Body height 2021-08-26 14:30:00 171.5 cm [facility] of Medicine Body weight 2021-08-26 14:30:00 81.647 kg Mario C ol[facility] of Medicine BMI 2021-08-26 14:30:00 27.78 kg/m2 [facility] ollege of Medicine Body height 2021-02-18 15:12:[address] [facility] C ollege of Medicine Body weight 2021-02-18 15:12:[address] [facility] ol[facility] of Medicine BMI 2021-02-18 15:12:00 27.22 kg/m2 [facility] ol[facility] of Medicine Systolic blood 2020-08-27 15:19:00 111 mm[Hg] [facility] pressure Medicine Diastolic blood 2020-08-27 15:19:00 76 mm[Hg] [facility] pressure Medicine Heart rate 2020-08-27 15:19:00 82 /min [facility] ol[facility] of Medicine Body weight 2020-08-27 15:19:[address] [facility] ol[facility] of Medicine BMI 2020-08-27 15:19:00 26.61 kg/m2 [facility] ol[facility] of Medicine Systolic blood 2019-09-26 19:11:00 110 mm[Hg] [facility] pressure Medicine Diastolic blood 2019-09-26 19:11:00 70 mm[Hg] [facility] of pressure Medicine Heart rate 2019-09-26 19:11:00 78 /min [facility] ol[facility] of Medicine Body temperature 2019-09-26 19:11:00 36.78 Courtney [facility] Respiratory rate 2019-09-26 19:11:00 18 /min [facility] Body height 2019-09-26 19:11:00 [address] [facility] C ol[facility] of Medicine Body weight 2019-09-26 19:11:[address] [facility] ol[facility] of Medicine BMI 2019-09-26 19:11:00 24.63 kg/m2 [facility] ol[facility] of Medicine Systolic blood 2019-09-26 19:11:00 110 mm[Hg] [facility] pressure Medicine Diastolic blood 2019-09-26 19:11:00 70 mm[Hg] [facility] of pressure Medicine Heart rate 2019-09-26 19:11:00 78 /min [facility] ollege of Medicine Body temperature 2019-09-26 19:11:00 36.78 Courtney [facility] Respiratory rate 2019-09-26 19:11:00 18 /min [facility] Body height 2019-09-26 19:11:00 172.7 cm [facility] Body weight 2019-09-26 19:11:00 73.483 kg [facility] of Medicine BMI 2019-09-26 19:11:00 24.63 kg/m2 [facility] ollege of [facility] HEIGHT 2019-07-18 00:00:00 172.7 cm WEIGHT 2019-07-18 00:00:00 75.7 kg Systolic blood 2019-06-25 20:07:00 123 mm[Hg] [facility] pressure Medicine Diastolic blood 2019-06-25 20:07:00 84 mm[Hg] [facility] Medicine Heart rate 2019-06-25 20:07:00 92 /min [facility] Medicine Body temperature 2019-06-25 20:07:00 36.72 Courtney [facility] Respiratory rate 2019-06-25 20:07:00 18 /min [facility] Body height 2019-06-25 20:07:00 172.7 cm [facility] Body weight 2019-06-25 20:07:00 78.019 kg [facility] BMI 2019-06-25 20:07:00 26.15 kg/m2 [facility] Systolic blood 2019-06-25 20:07:00 123 mm[Hg] [facility] Medicine Diastolic blood 2019-06-25 20:07:00 84 mm[Hg] [facility] Medicine Heart rate 2019-06-25 20:07:00 92 /min [facility] Medicine Body temperature 2019-06-25 20:07:00 36.72 Courtney [facility] Respiratory rate 2019-06-25 20:07:00 18 /min [facility] Body height 2019-06-25 20:07:00 172.7 cm [facility] of Medicine Body weight 2019-06-25 20:07:00 78.019 kg [facility] Medicine BMI 2019-06-25 20:07:00 26.15 kg/m2 [facility] Systolic (mm Hg) 2021-08-20 14:26:00 [place] Diastolic (mm Hg) 2021-08-20 14:26:00 [place] Heart Rate 2021-08-20 14:26:00 Pily [place] Respitory Rate 2021-08-20 14:26:00 Alvaro Gutierrez Height 2021-08-20 14:26:00 170.18 cm Pily [facility] Weight 2021-08-20 14:26:00 Pily Nash BMI Calculated 2021-08-20 14:26:00 Alvaro Gutierrez Procedures Procedure Date / Time Performing Clinician Source Performed POCT URINALYSIS DIPSTICK 2022-08-25 14:30:00 Sridhar Gutierres [facility] URINALYSIS W REFLEX 2022-08-25 10:29:48 [facility] POCT URINALYSIS DIPSTICK 2022-08-25 09:30:00 [facility] CBC W/AUTO DIFF WITH 2022-08-25 09:23:05 [facility] COMPREHENSIVE METABOLIC 2022-08-25 09:23:05 [facility] RAPID STREP SCREEN FOR 2022-06-04 06:34:00 Robina Dela Cruz [facility] GROUP A [facility] NOTICE OF PRIVACY 2022-06-04 06:24:18 Doctor Unassigned, No [facility] PRACTICES Name [facility] CONSENT/REFUSAL FOR 2022-06-04 06:23:57 Doctor Unassigned, No [facility] DIAGNOSIS AND TREATMENT Name [facility] POCT GLUCOSE (AUTOMATED) 2022-02-22 14:13:00 Grady Lay [facility] BASIC METABOLIC PANEL 2022-02-22 09:33:00 Grady Lay [facility] (NA, K, CL, CO2, Medical Branch GLUCOSE, BUN, CREATININE, CA) CBC WITH DIFF 2022-02-22 09:33:00 Grady Lay [facility] XR FOOT <3 VW LEFT 2022-02-22 02:29:17 Robina Dela Cruz [facility] BLOOD CULTURE SCREEN 2022-02-22 02:07:00 Robina Dela Cruz [facility] C-REACTIVE PROTEIN 2022-02-22 02:07:00 Robina Dela Cruz [facility] COMP. METABOLIC PANEL 2022-02-22 02:07:00 Robina Dela [facility] ([id number]) Medical Branch SEDIMENTATION RATE 2022-02-22 02:07:00 Robina Dela Cruz [facility] CBC WITH DIFF 2022-02-22 02:07:00 Robina Dela Cruz [facility] NOTICE OF PRIVACY 2022-02-22 01:44:36 Doctor Unassigned, No [facility] PRACTICES Name Medical Branch CONSENT/REFUSAL FOR 2022-02-22 01:42:46 Doctor Unassigned, No [facility] DIAGNOSIS AND TREATMENT Name [facility] URINALYSIS W REFLEX 2021-12-30 11:44:19 [facility] POCT URINALYSIS DIPSTICK 2021-12-30 00:00:00 [facility] POCT URINALYSIS DIPSTICK 2021-12-30 00:00:00 Sridhar Gutierres [facility] XR, knee, 1 or 2 view 2021-12-14 00:00:00 [facility], knee, w/o contrast 2021-12-14 00:00:00 [facility] XR, ankle, 3 or more 2021-11-26 00:00:00 [facility] RAPID STREP SCREEN FOR 2021-10-05 22:42:00 Emerson Rosales [facility] GROUP A Medical Branch COMP. METABOLIC PANEL 2021-10-05 22:40:00 Emerson Rosales [facility] ([id number]) [facility] CBC WITH DIFF 2021-10-05 22:40:[address] [facility] URINALYSIS 2021-10-05 22:40:[address] [facility] RAPID INFLUENZA A/B 2021-10-05 22:40:00 Emerson Rosales [facility] COVID-19 (ID NOW RAPID 2021-10-05 22:40:00 Emerson Rosales [facility] 2 VW 2021-10-05 22:09:[address] [facility] POCT URINALYSIS DIPSTICK 2021-08-26 00:00:00 [facility] POCT URINALYSIS DIPSTICK 2021-08-26 00:00:00 Sridhar Gutierres [facility] US SCROTUM AND CONTENTS 2021-07-20 14:44:23 Alexandra Fitzgerald [facility] ASSIGNMENT OF BENEFITS 2021-07-20 14:12:34 Doctor Unassigned, No [facility] Name [facility] POCT URINALYSIS DIPSTICK 2021-02-18 00:00:00 Sridhar Gutierres [facility] POCT URINALYSIS DIPSTICK 2020-08-27 00:00:00 Sridhar Gutierres [facility] POCT URINALYSIS DIPSTICK 2020-03-05 00:00:00 Sridhar Gutierres [facility] POCT URINALYSIS DIPSTICK 2019-09-26 00:00:00 Sridhar Gutierres [facility] Plan of Care Planned Activity Planned Date Details Comments Source Future Scheduled 2028-08-02 DTAP/TDAP/TD VACCINES [facility] Test 00:00:00 (2 - Td or Tdap) [code Medic al Center = DTAP/TDAP/TD VACCINES (2 - Td or Tdap)] Future Scheduled 2028-08-02 DTAP/TDAP/TD VACCINES [facility] Test 00:00:00 (2 - Td or Tdap) [code Medic al Center = DTAP/TDAP/TD VACCINES (2 - Td or Tdap)] Future Scheduled 2028-08-02 DTAP/TDAP/TD VACCINES [facility] Test 00:00:00 (2 - Td or Tdap) [code Medic al Center = DTAP/TDAP/TD VACCINES (2 - Td or Tdap)] Future Scheduled 2028-08-02 DTAP/TDAP/TD VACCINES [facility] Test 00:00:00 (2 - Td or Tdap) [code Medic al Center = DTAP/TDAP/TD VACCINES (2 - Td or Tdap)] Future Scheduled 2023-08-26 CT ABDOMEN PELVIS W WO Expected: [employer] Test 00:00:00 CONTRAST [code = 08/26/2023 of Medicine 57121-1] (Approximate), Expires: 08/26/2023 Future Scheduled 2022-12-[address] [facility] Test 00:00:00 (Season Ended) [code = Medic al Center INFLUENZA VACCINE (Season Ended)] Future Scheduled 2022-12-[address] [facility] Test 00:00:00 (Season Ended) [code = Medic al Center INFLUENZA VACCINE (Season Ended)] Future Scheduled 2022-12-[address] [facility] Test 00:00:00 (Season Ended) [code = Medic al Center INFLUENZA VACCINE (Season Ended)] Future Scheduled 2022-12-[address] [facility] Test 00:00:00 (Season Ended) [code = Medic al Center INFLUENZA VACCINE (Season Ended)] Future Scheduled 2022-08-26 CT ABDOMEN W WO Expected: [facility] [employer] Test 00:00:00 CONTRAST [code = 08/26/2022 of Medicine 74102-6] (Approximate), Expires: 09/26/2022 Future Scheduled 2022-08-25 Screening for [facility] [employer] Test 17:57:13 malignant neoplasm of of Med icine colon (procedure) [code = 496349221] Future Scheduled 2022-08-25 COVID-19 Vaccine (#1) [facility] Test 17:57:13 [code = COVID-19 of Medicine Vaccine (#1)] Future Scheduled 2022-08-25 Pneumococcal Combined [employer] Test 17:57:13 (1 - PCV) [code = of Medicin e Pneumococcal Combined (1 - PCV)] Future Scheduled 2022-08-25 Diabetic foot [facility] [employer] Test 17:57:13 examination of Medicine (regime/therapy) [code = 425524254] Future Scheduled 2022-08-25 Annual Diabetic [facility] [employer] Test 17:57:13 Retinopathy Screening of Med icine [code = Annual Diabetic Retinopathy Screening] Future Scheduled 2022-08-25 BMI Follow Up Plan [employer] Test 17:57:13 [code = BMI Follow Up of Med icine Plan] Future Scheduled 2022-08-25 Human immunodeficiency [facility] Test 17:57:13 virus screening of Medicine (procedure) [code = 645601469] Future Scheduled 2022-08-25 Hepatitis C screening [facility] Test 17:57:13 (procedure) [code = of Medic ine 117666090] Future Scheduled 2022-08-25 Zoster Vaccine (1 of [place] [facility] Test 17:57:13 2) [code = Zoster of Medicin e Vaccine (1 of 2)] Future Scheduled 2022-08-25 FLU VACCINE > 6 MONTHS B [facility] [employer] Test 17:57:13 [code = FLU VACCINE > of Med icine 6 MONTHS] Future Scheduled 2022-08-25 TETANUS SHOT (ADULT) [facility] Test 17:57:13 [code = TETANUS SHOT of Medi cine (ADULT)] Future Scheduled 2022-08-25 URINALYSIS W REFLEX Ordered: [facility] Test 10:29:48 MICRO [code = NOCPT] 08/25/2022 of Medi cine Future Scheduled 2022-08-25 COMPREHENSIVE Ordered: [facility] Test 09:23:06 METABOLIC PANEL [code 08/25/2022 of Med icine = 11716-1] Future Scheduled 2022-08-25 XR CHEST PA AND 1 Occurrences [facility] Test 09:23:06 LATERAL [code = starting of Medicine 44267-1] 08/25/2022 until 08/26/2023 Future Scheduled 2022-08-25 CT ABDOMEN PELVIS W WO 1 Occurrences [facility] Test 09:23:06 CONTRAST [code = starting of Medicine 58697-6] 08/25/2022 until 08/26/2023 Future Scheduled 2022-08-25 CBC W/AUTO DIFF WITH Ordered: [facility] [employer] Test 09:23:05 PLATELETS [code = 08/25/2022 of Medicin e 38878-1] Future Scheduled 2022-04-[address] [facility] Test 00:00:00 (12+) [code = Medical Center DEPRESSION SCREENING (12+)] Future Scheduled 2022-04-[address] [facility] Test 00:00:00 (12+) [code = Medical Center DEPRESSION SCREENING (12+)] Future Scheduled 2022-04-[address] [facility] Test 00:00:00 (12+) [code = Medical Center DEPRESSION SCREENING (12+)] Future Scheduled 2022-04-[address] [facility] Test 00:00:00 (12+) [code = Medical Center DEPRESSION SCREENING (12+)] Future Scheduled 2021-12-30 Screening [address] [facility] Test 18:26:41 malignant neoplasm of of Med icine colon (procedure) [code = 619990222] Future Scheduled 2021-12-30 COVID-19 Vaccine (#1) [employer] Test 18:26:41 [code = COVID-19 of Medicine Vaccine (#1)] Future Scheduled 2021-12-30 Pneumococcal Combined [facility] Test 18:26:41 (1 - PCV) [code = of Medicin e Pneumococcal Combined (1 - PCV)] Future Scheduled 2021-12-30 Diabetic foot [facility] Test 18:26:41 examination of Medicine (regime/therapy) [code = 339862822] Future Scheduled 2021-12-30 ANNUAL DIABETIC [facility] Test 18:26:41 RETINOPATHY SCREENING of Med icine [code = ANNUAL DIABETIC RETINOPATHY SCREENING] Future Scheduled 2021-12-30 BMI FOLLOW UP PLAN [facility] Test 18:26:41 [code = BMI FOLLOW UP of Med icine PLAN] Future Scheduled 2021-12-30 Hepatitis C screening [facility] Test 18:26:41 (procedure) [code = of Medic ine 719101706] Future Scheduled 2021-12-30 Human immunodeficiency [facility] Test 18:26:41 virus screening of Medicine (procedure) [code = 879990637] Future Scheduled 2021-12-30 ZOSTER VACCINE (1 of [place] Test 18:26:41 2) [code = ZOSTER of Medicin e VACCINE (1 of 2)] Future Scheduled 2021-12-30 MEDICARE AWV (Initial) [facility] Test 18:26:41 [code = MEDICARE AWV of Medi cine (Initial)] Future Scheduled 2021-12-30 FLU VACCINE > 6 MONTHS [facility] Test 18:26:41 [code = FLU VACCINE > of Med icine 6 MONTHS] Future Scheduled 2021-12-30 TETANUS SHOT (ADULT) [facility] Test 18:26:41 [code = TETANUS SHOT of Medi cine (ADULT)] Future Scheduled 2021-12-30 URINALYSIS W REFLEX Ordered: [facility] or [place] Test 11:44:19 MICRO [code = NOCPT] 12/30/2021 of [employer] [facility] Future Scheduled 2021-12-02 INFLUENZA VACCINE (#1[facility]:00[facility]00 [code = INFLUENZA Medical Ce nter VACCINE (#1)] Future Scheduled 2021-12-02 INFLUENZA VACCINE (#1) [facility] 00:00:00 [code = INFLUENZA Medical Ce nter VACCINE (#1)] Future Scheduled 2021-08-[address] [facility] Test 10:13:04 malignant neoplasm of of Med icine colon (procedure) [code = 097792088] Future Scheduled 2021-08-26 COVID-19 Vaccine (#1) [employer] Test 10:13:04 [code = COVID-19 of Medicine Vaccine (#1)] Future Scheduled 2021-08-26 Pneumococcal Combined [facility] Test 10:13:04 (1 - PCV) [code = of Medicin e Pneumococcal Combined (1 - PCV)] Future Scheduled 2021-08-26 [address] [facility] Test 10:13:04 examination of Medicine (regime/therapy) [code = 052111744] Future Scheduled 2021-08-26 ANNUAL DIABETIC [facility] Test 10:13:04 RETINOPATHY SCREENING of Med icine [code = ANNUAL DIABETIC RETINOPATHY SCREENING] Future Scheduled 2021-08-26 BMI FOLLOW UP PLAN [facility] Test 10:13:04 [code = BMI FOLLOW UP of Med icine PLAN] Future Scheduled 2021-08-26 Hepatitis C screening [facility] Test 10:13:04 (procedure) [code = of Medic ine 408628780] Future Scheduled 2021-08-26 Human immunodeficiency B [facility] [employer] Test 10:13:04 virus screening of Medicine (procedure) [code = 150546263] Future Scheduled 2021-08-26 ZOSTER VACCINE (1 of [facility] [employer] Test 10:13:04 2) [code = ZOSTER of Medicin e VACCINE (1 of 2)] Future Scheduled 2021-08-26 FLU VACCINE > 6 MONTHS [facility] Test 10:13:04 [code = FLU VACCINE > of Med icine 6 MONTHS] Future Scheduled 2021-08-26 TETANUS SHOT (ADULT) [employer] Test 10:13:04 [code = TETANUS SHOT of Medi cine (ADULT)] Future Scheduled 2021-08-10 COMPREHENSIVE Expected: [facility] Test 00:00:00 METABOLIC PANEL [code 08/10/2021 of Med icine = 10314-0] (Approximate), Expires: 09/10/2021 Future Scheduled 2021-08-10 CBC W/AUTO DIFF WITH Expected: [employer] Test 00:00:00 PLATELETS [code = 08/10/2021 of Medicin e 81685-3] (Approximate), Expires: 09/10/2021 Future Scheduled 2021-08-09 CT ABDOMEN PELVIS W WO Expected: [employer] Test 00:00:00 CONTRAST [code = 08/09/2021 of Medicine 23499-3] (Approximate), Expires: 09/09/2021 Future Scheduled 2021-08-09 XR CHEST PA AND Expected: [facility] [employer] Test 00:00:00 LATERAL [code = 08/09/2021 of Medicine 04544-4] (Approximate), Expires: 09/09/2021 Future Scheduled 2021-04-[address] [facility] Test 00:00:00 (12+) [code = Medical Center DEPRESSION SCREENING (12+)] Future Scheduled 2021-04-[address] [facility] Test 00:00:00 (12+) [code = Medical Center DEPRESSION SCREENING (12+)] Future Scheduled 2021-02-27 CT ABDOMEN PELVIS W WO Expected: [employer] Test 00:00:00 CONTRAST [code = 02/27/2021 of Medicine 94857-1] (Approximate), Expires: 03/29/2021 Future Scheduled 2021-02-25 COMPREHENSIVE Expected: [facility] Test 00:00:00 METABOLIC PANEL [code 02/25/2021 of Med icine = 55816-4] (Approximate), Expires: 03/28/2021 Future Scheduled 2021-02-25 CBC W/AUTO DIFF WITH Expected: [employer] Test 00:00:00 PLATELETS [code = 02/25/2021 of Medicin e 36772-7] (Approximate), Expires: 03/28/2021 Future Scheduled 2021-02-23 PHI PANEL (URO DEPT) Expected: [facility] Test 00:00:00 [code = 25039] 02/23/2021 of Medicine (Approximate), Expires: 03/11/2021 Future Scheduled 2021-02-18 Scre[address] [facility] Test 12:36:49 malignant neoplasm of of Med icine colon (procedure) [code = 402927569] Future Scheduled 2021-02-18 Pneumococcal Combined [facility] Test 12:36:49 (1 of 2 - PPSV23) of Medicin e [code = Pneumococcal Combined (1 of 2 - PPSV23)] Future Scheduled 2021-02-18 COVID-19 Vaccine (1) [place] [facility] Test 12:36:49 [code = COVID-19 of Medicine Vaccine (1)] Future Scheduled 2021-02-18 [address] [facility] Test 12:36:49 examination of Medicine (regime/therapy) [code = 792950093] Future Scheduled 2021-02-18 ANNUAL DIABETIC [facility] Test 12:36:49 RETINOPATHY SCREENING of Med icine [code = ANNUAL DIABETIC RETINOPATHY SCREENING] Future Scheduled 2021-02-18 BMI FOLLOW UP PLAN [facility] Test 12:36:49 [code = BMI FOLLOW UP of Med icine PLAN] Future Scheduled 2021-02-18 Hepatitis C screening [facility] Test 12:36:49 (procedure) [code = of Medic ine 551619992] Future Scheduled 2021-02-18 Human immunodeficiency B [facility] Test 12:36:49 virus screening of Medicine (procedure) [code = 294076003] Future Scheduled 2021-02-18 ZOSTER VACCINE (1 of [place] Test 12:36:49 2) [code = ZOSTER of Medicin e VACCINE (1 of 2)] Future Scheduled 2021-02-18 FLU VACCINE > 6 MONTHS B [facility] Test 12:36:49 [code = FLU VACCINE > of Med icine 6 MONTHS] Future Scheduled 2021-02-18 TETANUS SHOT (ADULT) [place] [facility] Test 12:36:49 [code = TETANUS SHOT of Medi cine (ADULT)] Future Scheduled 2021-02-18 XR CHEST PA AND 1 Occurrences [facility] Test 09:26:42 LATERAL [code = starting of Medicine 34433-8] 02/18/2021 until 02/09/2022 Future Scheduled 2020-09-[address] [facility] Test 00:00:00 Counseling and Medical Cente r Screening (12+) [code = Tobacco Cessation Counseling and Screening (12+)] Future Scheduled 2020-09-[address] [facility] Test 00:00:00 Counseling and Medical Cente r Screening (12+) [code = Tobacco Cessation Counseling and Screening (12+)] Future Scheduled 2020-09-[address] [facility] Test 00:00:00 Counseling and Medical Cente r Screening (12+) [code = Tobacco Cessation Counseling and Screening (12+)] Future Scheduled 2020-09-[address] [facility] Test 00:00:00 Counseling and Medical Cente r Screening (12+) [code = Tobacco Cessation Counseling and Screening (12+)] Diagnostic Test 2020-09-03 COMPREHENSIVE Expected: [facility] [employer] Pending 00:00:00 METABOLIC PANEL [code 09/03/2020 of Med icine = 33206-0] (Approximate), Expires: 10/04/2020 Diagnostic Test 2020-09-03 CBC W/AUTO DIFF WITH Expected: [employer] Pending 00:00:00 PLATELETS [code = 09/03/2020 of Medicin e 18882-7] (Approximate), Expires: 10/04/2020 Diagnostic Test 2020-09-03 CT ABDOMEN PELVIS W WO Expected: [facility] Pending 00:00:00 CONTRAST [code = 09/03/2020 of Medicine 41173-4] (Approximate), Expires: 10/03/2020 Diagnostic Test 2020-09-03 XR CHEST PA AND Expected: [facility] [employer] Pending 00:00:00 LATERAL [code = 09/03/2020 of Medicine 36694-2] (Approximate), Expires: 10/03/2020 Future Scheduled 2020-08-27 URINALYSIS W REFLEX Ordered: [employer] Test 10:43:14 MICRO [code = NOCPT] 08/27/2020 of Medi cine Future Scheduled 2020-08-[address] [facility] Test 10:42:45 malignant neoplasm of of Med icine colon (procedure) [code = 148981621] Future Scheduled 2020-08-27 COVID-19 Vaccine (1) [place] Test 10:42:45 [code = COVID-19 of Medicine Vaccine (1)] Future Scheduled 2020-08-27 TETANUS SHOT (ADULT) [place] Test 10:42:45 [code = TETANUS SHOT of Medi cine (ADULT)] Future Scheduled 2020-08-27 Diabetic foot [facility] Test 10:42:45 examination of Medicine (regime/therapy) [code = 570153869] Future Scheduled 2020-08-27 ANNUAL DIABETIC [facility] Test 10:42:45 RETINOPATHY SCREENING of Med icine [code = ANNUAL DIABETIC RETINOPATHY SCREENING] Future Scheduled 2020-08-27 BMI FOLLOW UP PLAN [facility] Test 10:42:45 [code = BMI FOLLOW UP of Med icine PLAN] Future Scheduled 2020-08-27 Hepatitis C screening [facility] Test 10:42:45 (procedure) [code = of Medic ine 323338603] Future Scheduled 2020-08-27 Human immunodeficiency [facility] Test 10:42:45 virus screening of Medicine (procedure) [code = 335995721] Future Scheduled 2020-08-27 ZOSTER VACCINE (1 of [place] Test 10:42:45 2) [code = ZOSTER of Medicin e VACCINE (1 of 2)] Future Scheduled 2020-08-27 FLU VACCINE > 6 MONTHS B [facility] Test 10:42:45 [code = FLU VACCINE > of Med icine 6 MONTHS] Diagnostic Test 2020-03-26 CT ABDOMEN PELVIS W WO Expected: [facility] Pending 00:00:00 CONTRAST [code = 03/26/2020 of Medicine 76657-9] (Approximate), Expires: 04/26/2020 Diagnostic Test 2020-03-26 XR CHEST PA AND Expected: [facility] [employer] Pending 00:00:00 LATERAL [code = 03/26/2020 of [facility] 24803-9] (Approximate), Expires: 04/26/2020 Diagnostic Test 2020-03-26 PSA,TOTAL AND FREE Expected: [facility] Pending 00:00:00 [code = 52290-6] 03/26/2020 of Medicine (Approximate), Expires: 03/26/2020 Diagnostic Test 2020-03-25 CBC W/AUTO DIFF WITH Expected: [facility] Pending 00:00:00 PLATELETS [code = 03/25/2020 of Medicin e 14736-7] (Approximate), Expires: 04/25/2020 Diagnostic Test 2020-03-25 COMPREHENSIVE Expected: [facility] Pending 00:00:00 METABOLIC PANEL [code 03/25/2020 of Med icine = 61395-0] (Approximate), Expires: 04/25/2020 Diagnostic Test 2020-03-19 PHI PANEL (URO DEPT) Expected: [facility] Pending 00:00:00 [code = 52519] 03/19/2020 of Medicine (Approximate), Expires: 04/04/2020 Future Scheduled 2013 SHINGLES VACCINES ([address] [facility] Test 00:00:00 of 2) [code = SHINGLES Medic al Center VACCINES (1 of 2)] Future Scheduled 2013 SHINGLES VACCINES ([address] [facility] Test 00:00:00 of 2) [code = SHINGLES Medic al Center VACCINES (1 of 2)] Future Scheduled 2013 SHINGLES VACCINES ([address] [facility] Test 00:00:00 of 2) [code = SHINGLES Medic al Center VACCINES (1 of 2)] Future Scheduled 2013 SHINGLES VACCINES ([address] [facility] Test 00:00:00 of 2) [code = SHINGLES Medic al Center VACCINES (1 of 2)] Future Scheduled 2013 SHINGLES VACCINES ([address] [facility] Test 00:00:00 of 2) [code = SHINGLES Medic al Center VACCINES (1 of 2)] Future Scheduled 2013 SHINGLES VACCINES ([address] [facility] Test 00:00:00 of 2) [code = SHINGLES Medic al Center VACCINES (1 of 2)] Future Scheduled [address] [facility] Test 00:00:00 (procedure) [code = [facility] 14963717] Future Scheduled [address] [facility] Test 00:00:00 (procedure) [code = [facility] 90210633] Future Scheduled [address] [facility] Test 00:00:00 (procedure) [code = [facility] 42814980] Future Scheduled [address] [facility] Test 00:00:00 (procedure) [code = [facility] 57898971] Future Scheduled [address] [facility] Test 00:00:00 (procedure) [code = [facility] 51482809] Future Scheduled [address] [facility] Test 00:00:00 (procedure) [code = [facility] 10308857] Future Scheduled 1982 DTAP/TDAP/TD [facility]ACCINES [facility] Test 00:00:00 (1 - Tdap) [code = Medical C enter DTAP/TDAP/TD VACCINES (1 - Tdap)] Future Scheduled 1982 DTAP/TDAP/TD [facility]ACCINES [facility] Test 00:00:00 (1 - Tdap) [code = Medical C enter DTAP/TDAP/TD VACCINES (1 - Tdap)] Future Scheduled 1981 HEPATITIS C SCRE[facility]ING [facility] Test 00:00:00 [code = HEPATITIS C Medical Center SCREENING] Future Scheduled 1981 HEPATITIS C [facility]CRE[facility]ING [facility] Test 00:00:00 [code = HEPATITIS C Medical Center SCREENING] Future Scheduled 1981 HEPATITIS C [facility]CRE[facility]ING [facility] Test 00:00:00 [code = HEPATITIS C Medical Center SCREENING] Future Scheduled 1981 HEPATITIS C [facility] Test 00:00:00 [code = HEPATITIS C Medical Center SCREENING] Future Scheduled 1981 HEPATITIS C [facility] Test 00:00:00 [code = HEPATITIS C Medical Center SCREENING] Future Scheduled 1981 HEPATITIS C [facility] Test 00:00:00 [code = HEPATITIS C Medical Center SCREENING] Future Scheduled 1963 COVID-19 VACCINE (#1) [facility] Test 00:00:00 [code = COVID-[address] VACCINE (#1)] Future Scheduled 1963 COVID-19 VACCINE (#1) [facility] Test 00:00:00 [code = COVID-[address] VACCINE (#1)] Future Scheduled 1963 COVID-19 VACCINE (#1) [facility] Test 00:00:00 [code = COVID-[address] VACCINE (#1)] Future Scheduled 1963 COVID-19 VACCINE (#1) [facility] Test 00:00:00 [code = COVID-[address] VACCINE (#1)] Future Scheduled 1963 COVID-19 VACCINE (#1) [facility] Test 00:00:00 [code = COVID-[address] VACCINE (#1)] Future Scheduled 1963 COVID-19 VACCINE (#1) [facility] 00:00:00 [code = COVID-[address] VACCINE (#1)] Future Scheduled [address] [facility] Test 00:00:00 (combo) [code = CT Medical C enter Colonography (combo)] Future Scheduled [address] [facility] Test 00:00:00 malignant neoplasm of Medica l Center colon (procedure) [code = 085699899] Future Scheduled [address] [facility] Test 00:00:00 malignant neoplasm of Medica l Center colon (procedure) [code = 431056584] Future Scheduled [address] [facility] Test 00:00:00 malignant neoplasm of Medica l Center colon (procedure) [code = 550532557] Future Scheduled [address] [facility] Test 00:00:00 malignant neoplasm of Medica l Center colon (procedure) [code = 090984841] Future Scheduled 1963 Sigmoidoscopy [facility]] Medical Cente r Future Scheduled [address] [facility] Test 00:00:00 (combo) [code = CT Medical C enter Colonography (combo)] Future Scheduled [address] [facility] Test 00:00:00 malignant neoplasm of Medica l Center colon (procedure) [code = 882120043] Future Scheduled [address] [facility] Test 00:00:00 malignant neoplasm of Medica l Center colon (procedure) [code = 851258459] Future Scheduled [address] [facility] Test 00:00:00 malignant neoplasm of Medica l Center colon (procedure) [code = 761445390] Future Scheduled [address] [facility] Test 00:00:00 malignant neoplasm of Medica l Center colon (procedure) [code = 032088695] Future Scheduled 1963 Sigmoidoscopy [facility]] [facility] Future Scheduled [address] [facility] Test 00:00:00 (combo) [code = CT Medical C enter Colonography (combo)] Future Scheduled [address] [facility] Test 00:00:00 malignant neoplasm of Medica l Center colon (procedure) [code = 321080474] Future Scheduled [address] [facility] Test 00:00:00 malignant neoplasm of Medica l Center colon (procedure) [code = 637566683] Future Scheduled [address] [facility] Test 00:00:00 malignant neoplasm of Medica l Center colon (procedure) [code = 414183704] Future Scheduled [address] [facility] Test 00:00:00 malignant neoplasm of Medica l Center colon (procedure) [code = 917834896] Future Scheduled 1963 Sigmoidoscopy [facility]] Medical [facility] Future Scheduled [address] [facility] Test 00:00:00 (combo) [code = CT Medical C enter Colonography (combo)] Future Scheduled [address] [facility] Test 00:00:00 malignant neoplasm of Medica l Center colon (procedure) [code = 123348598] Future Scheduled [address] [facility] Test 00:00:00 malignant neoplasm of Medica l Center colon (procedure) [code = 794172751] Future Scheduled 1963 Screening for [facility] colon (procedure) [code = 850981297] Future Scheduled [address] [facility] 00:[facility]00 malignant neoplasm [facility] colon (procedure) [code = 320858189] Future Scheduled 1963 Sigmoidoscopy [facility]code [facility] Scheduled [address] [facility] 00:00:00 (combo) [code = CT Medical C enter Colonography (combo)] Future Scheduled [address] [facility] 00:00:00 malignant neoplasm of [facility] colon (procedure) [code = 073483571] Future Scheduled [address] [facility] 00:00:00 malignant neoplasm [facility] colon (procedure) [code = 275648188] Future Scheduled [address] [facility] 00:00:00 malignant neoplasm of [facility] colon (procedure) [code = 019899398] Future Scheduled [address] [facility] 00:00:00 malignant neoplasm [facility] colon (procedure) [code = 496679838] Future Scheduled 1963 Sigmoidoscopy [facility]code = [facility]] [facility]z r Future Scheduled [address] [facility] 00:00:00 (combo) [code = CT Medical C enter Colonography (combo)] Future Scheduled [address] [facility] 00:00:00 malignant neoplasm of [facility] colon (procedure) [code = 548421318] Future Scheduled [address] [facility] 00:00:00 malignant neoplasm of [facility] colon (procedure) [code = 051799955] Future Scheduled [address] [facility] 00:00:00 malignant neoplasm of [facility] colon (procedure) [code = 940768869] Future Scheduled [address] [facility] 00:00:00 malignant neoplasm of [facility] Center colon (procedure) [code = 248021142] Future Scheduled 1963 S[facility]oid[facility]code [facility]] [facility] r Future Scheduled URINALYSIS W REFLEX Ordered: [facility] or [place] Test MICRO [code = NOCPT] 03/05/2020 of Medi cine Future Scheduled CULTURE, Ordered: [facility] Phan ege Test URINE/SENSITIVITY ON 03/05/2020 of Medi cine ALL [code = 64787-8] Future Scheduled COLON CANCER [facility] Phan ege Test SCREENING: COLONOSCOPY of dicine [code = COLON CANCER SCREENING: COLONOSCOPY] Future Scheduled TETANUS SHOT (ADULT) [employer] Test [code = TETANUS SHOT of Medi cine (ADULT)] Future Scheduled Diabetic foot [facility] [employer] Test examination of Medicine (regime/therapy) [code = 836191718] Future Scheduled ANNUAL DIABETIC [facility] C ollege Test RETINOPATHY SCREENING of Med icine [code = ANNUAL DIABETIC RETINOPATHY SCREENING] Future Scheduled HEPATITIS C SCREENING [employer] Test [code = HEPATITIS C of Medic ine SCREENING] Future Scheduled HIV SCREENING [code = [employer] [facility] HIV SCREENING] of Medicine Future Scheduled ZOSTER VACCINE (1 of [employer] Test 2) [code = ZOSTER of Medicin e VACCINE (1 of 2)] Future Scheduled FLU VACCINE > 6 MONTHS [employer] Test [code = FLU VACCINE > of Med icine 6 MONTHS] Future Scheduled COLON CANCER [facility] Phan ege Test SCREENING: COLONOSCOPY of dicine [code = COLON CANCER SCREENING: COLONOSCOPY] Future Scheduled TETANUS SHOT (ADULT) [employer] Test [code = TETANUS SHOT of Medi cine (ADULT)] Future Scheduled BMI FOLLOW UP PLAN [employer] Test [code = BMI FOLLOW UP of Med icine PLAN] Future Scheduled HEPATITIS C SCREENING [employer] Test [code = HEPATITIS C of Medic ine SCREENING] Future Scheduled HIV SCREENING [code = [employer] Test HIV SCREENING] of Medicine Future Scheduled FLU VACCINE > 6 MONTHS [employer] Test [code = FLU VACCINE > of Med icine 6 MONTHS] Future Scheduled COLON CANCER [facility] Phan ege Test SCREENING: COLONOSCOPY of dicine [code = COLON CANCER SCREENING: COLONOSCOPY] Future Scheduled TETANUS SHOT (ADULT) [employer] Test [code = TETANUS SHOT of Medi cine (ADULT)] Future Scheduled Diabetic foot [facility] Col lege Test examination of Medicine (regime/therapy) [code = 406284261] Future Scheduled ANNUAL DIABETIC [facility] [employer] Test RETINOPATHY SCREENING of Med icine [code = ANNUAL DIABETIC RETINOPATHY SCREENING] Future Scheduled BMI FOLLOW UP PLAN [employer] Test [code = BMI FOLLOW UP of Med icine PLAN] Future Scheduled HEPATITIS C SCREENING [employer] Test [code = HEPATITIS C of Medic ine SCREENING] Future Scheduled HIV SCREENING [code = [employer] Test HIV SCREENING] of Medicine Future Scheduled FLU VACCINE > 6 MONTHS [employer] Test [code = FLU VACCINE > of Med icine 6 MONTHS] Future Scheduled COLON CANCER [facility] Phan ege Test SCREENING: COLONOSCOPY of Me dicine [code = COLON CANCER SCREENING: COLONOSCOPY] Future Scheduled TETANUS SHOT (ADULT) [facility] Test [code = TETANUS SHOT of Medi cine (ADULT)] Future Scheduled Diabetic foot [facility] Col lege Test examination of Medicine (regime/therapy) [code = 522707340] Future Scheduled ANNUAL DIABETIC [facility] C ollege Test RETINOPATHY SCREENING of Med icine [code = ANNUAL DIABETIC RETINOPATHY SCREENING] Future Scheduled HEPATITIS C SCREENING [employer] Test [code = HEPATITIS C of Medic ine SCREENING] Future Scheduled HIV SCREENING [code = [employer] [facility] HIV SCREENING] of Medicine Future Scheduled FLU VACCINE > 6 MONTHS [employer] Test [code = FLU VACCINE > of Med icine 6 MONTHS] Instructions [facility] Encounters Start End Encounter Admission Attending Care Care Encounter Source Date/Time Date/Time Type Type Clinicians Facility Department ID 2021-04-28 Outpatient Nathaniel [facility] [id number] Common 11:14:04 Mouin 23258 [facility] 2021-04-28 Outpatient Nathaniel [facility] [id number] Common 11:13:33 Mouin 25087 [facility] 2021-01-05 Inpatient ALEKSANDR GUTIERRES Surgery [id number] [facility] 14:32:28 SRIDHAR 2020-01-06 Inpatient CLINT EspitiaTO DAYS [id number] [facility] 10:45:[address] [place] [address] Orthope dic Hospita l 2019-07-02 Inpatient [place] [id number] [facility] 09:30:00 Eseroghene 21 [facility] 2019-06-23 Inpatient EM Epifanio, HCAPM MEDI.01 [id number] [facility] 03:41:00 Musaddiq 72 [facility] 2022-08-25 2022-08-25 Office ERNESTO GUTIERRES 1.2.840.[id number] [facility] 09:11:58 14:10:35 Visit SRIDHAR AMBULATOR 350.1.13.21 College Y 0.2.7.2.686 [id number] [facility] karin 300 e 2022-08-25 2022-08-25 Outpatient [facility] [id number] [facility] 09:55:30 09:55:30 Colleg e of Medicin e 2022-08-17 2022-08-17 Ambulatory MHIE MNA [id number] [facility] 15:00:00 15:00:00 Pre-Reg Neurology 02 l [place] 2022-08-17 2022-08-17 Ambulatory MHIE MNA [id number] [facility] 15:00:00 15:00:00 Pre-Reg Neurology 02 l [place] 2022-08-17 2022-08-17 Outpatient MHIE MHIE [id number] [facility] 10:00:00 10:00:00 02 l Saad 2022-08-17 2022-08-17 [facility] [id number] 10:00:00 10:00:00 Billy 02 [facility] 2022-06-04 2022-06-04 Emergency X [facility] ERT [id number] Univers 00:34:00 02:11:00 ROBINA gustafson [facility] 2022-06-04 2022-06-04 Emergency [facility] 1.2.840.114 [id number] Univers 00:34:00 02:11:00 Robina [facility]AG[facility] 4[facility]2.7.[facility].686 [facility] [id number] [facility] [address] Branch 2022-03-08 2022-03-08 Outpatient FOG_Eyal_ SO AO [id number] Zeny 00:00:00 00:00:00 Inez [id number] Ortho pe dic Sports Medicin e 2022-03-08 2022-03-08 Rolo RIZZO [place] - Ortho [id number] [facility] 00:00:00 00:00:00 Jesika Birch MD: [id number] FOG_Ofc dic [facility], [place] [address] , Ph. [phone] 2022-02-21 2022-02-22 Outpatient X ROSANNE [facility] [id number] Univers 19:53:00 16:24:00 GRADY ity of [facility] 2022-02-21 2022-02-22 Emergency Robina Dela Cruz [facility] 1.2.8 40.114 [id number] Univers 19:53:00 16:24:00 Grady Lay 350.1.13.10 ity of [place] [id number] [facility] [address] 2022-01-17 2022-01-17 Telephone Mel, UNIVERSIT 1.2.840.114 [id number] Univers 00:00:00 00:00:00 Wesley Y HEALTH 350.1.13.10 i ty of [place] [id number] [facility] 0[address] Branch 2022-01-12 2022-01-12 Outpatient R RADIOLOGY [facility] [id number] Univers 12:18:12 23:59:00 ity of [facility] 2022-01-12 2022-01-12 Hospital Radiology UNIVERSIT 1.2.840.114 [id number] Univers 12:18:12 23:59:00 Encounter Y HEALTH 350.1.13.10 ity of [place] [id number] [facility] 807 Branch 2021-12-30 2021-12-30 Office ERNESTO Gutierres 1.2.840.[id number] [facility] 11:15:00 16:46:25 Visit Sridhar Aiken AMBULATOR 350.1.13.21 [place] Y 0.2.7.2.686 of [id number] [facility] 300 e 2021-12-24 2021-12-24 Outpatient FOG_Bloome_ AOSM AOSM 594 [id number] Zeny 00:00:00 00:00:00 Inez [id number] Ortho pe dic Sports Medicin e 2021-12-24 2021-12-24 Outpatient FOG_[place]_ AOSM AOSM 594 4949-20 Zeny 00:00:00 00:00:00 Inez [id number] Ortho pe dic Sports Medicin e 2021-12-22 2021-12-22 Outpatient FOG_[place]_ AOSM AOSM 594 [id number] Zeny 00:00:00 00:00:00 Inez [id number] Ortho pe dic Sports Medicin e 2021-12-22 2021-12-22 Corine Bertrand AOSM [place] - Ortho [id number] [facility] 00:00:00 00:00:00 Jesika Be MD: 7401 FOG_[place] [address] , Ph. 2021-12-21 2021-12-21 [facility] [id number] [facility] 12:28:00 12:28:00 Corine Singh [facility] 2021-12-14 2021-12-14 Outpatient FOG_[place]_ AOSM AOSM 594 [id number] Zeny 00:00:00 00:00:00 Inez 737358 Ortho pe dic Sports Medicin e 2021-12-14 2021-12-14 Outpatient SO Be AOSM [id number] f6-3 00:00:00 00:00:00 Corine Bertrand [id number] 2021-12-14 2021-12-14 Outpatient SO Birch AOSM [id number] a-3 00:00:00 00:00:00 Rolo Thomas [id number] 2021-12-14 2021-12-14 Corine RIZZO [place] - Orth[place] [id number] [facility] 00:00:00 00:00:00 Jesika Be MD: 7401 FOG_Ofc dic [facility] e [address] , Ph. [phone] 2021-11-26 2021-11-26 Outpatient FOG_Bloome_ AOSM AOSM 594 [id number] Zeny 00:00:00 00:00:00 Inez [id number] Ortho pe dic Sports Medicin e 2021-11-26 2021-11-26 Rolo Thomas MISAELRENÉ [place] - Ortho [id number] [facility]y 00:00:00 00:00:00 Jesika Birch MD: [id number] FOG_Ofc dic [facility] Medicin [address], [place] [address] , Ph. [phone] 2021-11-26 2021-11-26 Outpatient LjSO farooq AOSM [id number] 0-2 00:00:00 00:00:00 Rolo Thomas [id number] 2021-10-06 2021-10-06 Ambulatory nullFlavo MNA [id number] Memoria 18:00:00 18:00:00 Pre-Reg r Neurology 01 l Jean Paul Nash 2021-10-06 2021-10-06 Ambulatory nullFlavo MNA [id number] [facility] 18:00:00 18:00:00 Pre-Reg r Neurology 01 l Jean Paul Nash 2021-10-06 2021-10-06 Outpatient URI Shields RASHARD 131 [id number] 13:00:00 13:00:00 Billy 01 [facility] 2021-10-05 2021-10-05 Emergency X [facility] ERT [id number] Univers 16:05:00 20:49:00 EMERSON gustafson [facility] 2021-10-05 2021-10-[address] [facility] 1.2.151.507 [id number] Univers 16:05:00 20:49:00 Emerson Jasmine [place] 350.1.13.10 [facility] 4.2.7.2.686 [facility] [id number] [address] 2021-10-01 2021-10-01 Outpatient MHIE KATERINIE [id number] [facility] 10:45:00 10:45:00 01 demarcus Nash 2021-09-07 2021-09-07 Outpatient FOG_Bloome_ AOSM AOSM 594 [id number] Zeny 00:00:00 00:00:00 Inez [id number] Ortho pe dic Sports Medicin e 2021-08-26 2021-08-26 Office ERNESTO Gutierres 1.2.840.[id number] [place] [address] 09:15:00 10:13:20 Visit Sridhar Aiken AMBULATOR 350.1.13.21 College Y 0.2.7.2.686 [id number] [facility] 300 e 2021-08-20 2021-08-21 Outpatient nullFlavo MNA [id number] [facility] 14:00:00 04:59:59 r Neurology 00 l Jean Paul Nash 2021-08-20 2021-08-21 Outpatient nullFlavo MNA [id number] [facility] 14:00:00 04:59:59 r Neurology 00 l Jean Paul Nash 2021-08-20 2021-08-20 Outpatient Cornelius MHMISCHER MHMISCHER 158 [id number] 09:00:00 23:59:59 Billy 00 Wesley 2021-08-20 2021-08-20 Outpatient KATERINIE MATTHEW [id number] [facility] 09:00:00 09:00:00 00 l Saad 2021-07-20 2021-07-20 Outpatient R LOURDES [facility] [id number] Univers 09:15:25 23:59:00 ALEXANDRA ity of [facility] 2021-07-20 2021-07-20 [facility] 1.2.532.995 [id number] Univers 09:00:00 23:59:00 Encounter Alexandra SANTIAGO 350.1.13.10 ity of [place] 4.2.7.2.686 [facility] [id number] [facility] 8[address] 2021-07-20 2021-07-20 Orders Doctor POOL 1.2.840.114 [id number] Univers 00:00:00 00:00:00 Only Unassigned, EMILIANO 350.1.13.[address] [place] [facility] 4.2.7.2.686 Cesar [id number] [facility] 009 Branch 2021-02-19 2021-02-23 Outpatient BCM ERNESTO [id number] [facility] 10:52:06 12:30:46 Donnie farooq of Medicin e 2021-02-18 2021-02-18 Office ERNESTO GUTIERRES 1.2.840.[id number] [facility] 09:05:39 10:04:21 Visit SRIDHAR AMBULATOR 350.1.13.21 College Y 0.2.7.2.686 of [id number] Medi karin 300 e 2021-01-25 2021-01-25 Outpatient [facility] [id number] [facility] 12:17:46 12:17:46 Colleg e of Medicin e 2020-08-27 2020-09-09 Outpatient [facility] [id number] [facility] 11:46:06 10:19:38 Colleg e of Medicin e 2020-08-27 2020-08-27 Office ERNESTO Gutierres 1.2.840.[id number] [facility] 09:59:02 11:19:34 Visit Sridhar Aiken AMBULATOR 350.1.13.21 College Y 0.2.7.2.686 of [id number] Medi karin 300 e 2020-03-30 2020-03-30 Outpatient ALPHONSO [facility] [id number] [facility] 00:00:00 00:00:00 SRIDHAR 2020-03-30 2020-03-30 Outpatient GUTIERRES [facility] [id number] SLE 00:00:00 00:00:00 BUCHANAN 2020-03-05 2020-03-05 Office AKASH Gutierres 1.2.840.114 [id number] 13:00:57 14:19:08 Visit Sridhar Aiken AMBULATOR 350.1.13.21 Y 0.2.7.2.[id number] [facility] 2020-03-05 2020-03-05 Office AKASH Gutierres 1.2.840.[id number] [facility] 13:00:57 14:19:08 Visit Sridhar Aiken AMBULATOR 350.1.13.21 College Y 0.2.7.2.686 of [id number] Medi karin 300 e 2020-01-01 2020-01-01 Outpatient BUSHRA Birch LABO [id number] [facility] 17:51:00 17:51:00 Rolo Phillips [facility] 2019-12-25 2019-12-25 Outpatient DANUTA Birch RADI [id number] [facility] 09:15:00 09:15:00 Rolo [place] [facility] 2019-09-26 2019-09-26 Office ERNESTO Gutierres 1.2.840.114 [id number] 13:22:53 14:39:20 Visit Sridhar Aiken AMBULATOR 350.1.13.21 Y 0.2.7.2.686 [id number] 300 2019-09-26 2019-09-26 Office ERNESTO Gutierres 1.2.840.[id number] [facility] 13:22:53 14:39:20 Visit Sridhar Aiken AMBULATOR 350.1.13.21 College Y 0.2.7.2.686 of [id number] Medi karin 300 e 2019-09-03 2019-09-03 Outpatient [facility] SLE [id number] 488 [facility] 00:00:00 00:00:00 2019-06-25 2019-06-25 Office ERNESTO Gutierres 1.2.840.114 [id number] 16:47:42 16:53:42 Visit Sridhar Aiken AMBULATOR 350.1.13.21 Y 0.2.7.2.686 [id number] 300 2019-06-25 2019-06-25 Office ERNESTO Gutierres 1.2.840.[id number] [place] [address] 16:47:42 16:53:42 Visit Sridhar Aiken AMBULATOR 350.1.13.21 College Y 0.2.7.2.686 of [id number] [facility] karin 300 e 2019-06-25 2019-06-25 Office ERNESTO Calderón 1.2.840.114 [id number] 14:47:42 15:02:42 Visit Prashanth P AMBULATOR 350.1.13.21 Y 0.2.7.2.686 [id number] 300 2019-06-25 2019-06-25 Office ERNESTO Calderón 1.2.840.[id number] [facility] 14:47:42 15:02:42 Visit Prashanth P AMBULATOR 350.1.13.21 College Y 0.2.7.2.686 of [id number] Medi karin 300 e 2019-06-23 2019-06-23 Outpatient BUSHRA Godfrey [id number] [place] [address] 07:56:00 07:56:00 Musaddiq 51 [facility] 2019-06-20 2019-06-20 Outpatient Vic Dorsey [id number] Common 16:24:00 16:24:00 t Specialty/U Sp quinn Specialty rology - [facility] 2019-06-17 2019-06-17 Outpatient Vic Hot 29 [id number] Common 15:15:00 15:15:00 t Specialty/U Sp quinn Specialty rology - [facility] 2018-06-26 2018-06-26 Outpatient Vic Hot 24 [id number] Common 11:00:00 11:00:00 t Bone Bone and Spiri t [facility] 2014-05-22 2014-08-21 [facility] 3746 [id number] Memoria 14:00:00 04:59:59 n Patient r [address] 2014-05-22 2014-08-21 [facility] 3746 [id number] Memoria 14:00:00 04:59:59 n Patient r [address] 2014-05-22 2014-08-20 Outpatient Catrina, 2.16.840. 2.16.840.1. 3 [id number] 08:00:00 23:59:59 Farid Raif [id number]. [id number] 3.615.0.1 5.0.101 01 Results Test Description Test Time Test Comments Results Result Comments Source POCT URINALYSIS DIPSTICK 2022-08-25 14:30:00 Test Item Value Reference Range Interpretation Comme nts COLOR UA (test code = 5778-6) Yellow YELLOW/STRAW CLARITY UA (test code = 84332-9) Clear CLEAR GLUCOSE UA (test code = 5792-7) Negative NEGATIVE BILIRUBIN UA (test code = 5770-3) Negative NEGATIVE KETONES UA (test code = 95602-9) Negative NEGATIVE SPECIFIC GRAVITY UA (test code = 5811-5) 1.015 1.005-1.035 BLOOD UA (test code = 5794-3) Trace NEGATIVE PH UA (test code = 5803-2) 6.5 5-9 PROTEIN UA (test code = 5804-0) Trace NEGATIVE UROBILINOGEN UA (test code = 5818-0) 0.02 E.U/DL NORMAL MG/DL LEUKOCYTE ESTERASE UA (test code = 5799-2) Negative NEGATIVE NITRITE UA (test code = 5802-4) Negative NEGATIVE REDUCING SUBSTANCES URINE (test code = 66990-5) negative NEGATI VE Lab Interpretation (test code = 76645-0) Abnormal [facility] [id number] 16:08:31 Test Item Value Reference Range Interpretation Comments CRP (test code = 0.3 mg/dL See_Comment [Automated message] 8043536128) The system [employer] generated this result transmit alexandra reference range : <=0.8. The refe rence range was not u sed to interpret th is result as normal/abnormal . Lab Interpretation (test Normal code = 86307-9) [facility] GLUCOSE (AUTOMATED)2022-02-22 14:18:10 Test Item Value Reference Range Interpretation Comments POCT GLU (test code = 7469483599) 111 mg/dL 70-110 H Lab Interpretation (test code = Abnormal 93868-4) [facility] Metabolic Panel (NA, K, CL, CO2, GLUCOSE, BUN, CREATININE, CA)2022-02-22 11:09:58 Test Item Value Reference Range Interpretation Comments NA (test code = 140 mmol/L 135-145 8260836668) K (test code = 4.1 mmol/L 3.5-5.0 6012966130) CL (test code = 106 mmol/L 98-108 8476761000) CO2 TOTAL (test code = 26 mmol/L 23-31 9277129761) AGAP (test code = 2-16 4147138235) BUN (test code = 26 mg/dL 7-23 H 3563158632) GLUCOSE (test code = 104 mg/dL 70-110 5744131019) CREATININE (test code = 1.03 mg/dL 0.60-1.25 1526209409) CALCIUM (test code = 9.1 mg/dL 8.6-10.6 7222982474) eGFR (test code = mL/min/1.73m2 3690554376) AVA (test code = AVA) Association of Glomerular Filtration Rate (GFR) and Staging of Kidney Disease* + --+ --+ ------+| GFR (mL/min/1.73 m2) ?| With Kidney Damage ?| ?Without Kidney Damage+ --------+ --------+ +| ?>90 ?| ?Stage one ?| ? Normal ?+ ---+ ---+ -------+| ?60-89 ?| ?Stage two ?| ? Decreased GFR ? + --+ --+ ------+| ?30-59 ?| ?Stage three ?| ? Stage three ? + --+ --+ ------+| ?15-29 ?| ?Stage four ? | ? Stage four ?+ ---+ ---+ -------+| ?<15 (or dialysis) ? ?| ?Stage five ? | ? Stage five ?+ ---+ ---+ -------+ *Each stage assumes the associated GFR level has been in effect for at least three months. ?Stages 1 to 5, with or without kidney disease, indicate chronic kidney disease. Notes: Determination of stages one and two (with eGFR >59mL/min/1.73 m2) requires estimation of kidney damage for at least three months as defined by structural or functional abnormalities of the kidney, manifested by either:Pathological abnormalities or Markers of kidney damage (including abnormalities in the composition of the blood or urine or abnormalities in imaging tests). Lab Interpretation Abnormal (test code = 98613-3) [facility] with Heomjhvhksaf5032-08-19 10:29:11 Test Item Value Reference Range Interpretation Comments WBC (test code = See_Comment [Automated 7990-2) message] The sy stem which generated this result transmitted reference range : 4.20 - 10.70 10*3/?L. The reference range was not used to interpret this result as normal/abnormal . RBC (test code = See_Comment L [Automated 9-8) message] The sy stem which generated this result transmitted reference range : 4.26 - 5.52 10*6/?L. The reference range was not used to interpret this result as normal/abnormal . HGB (test code = 11.7 g/dL 12.2-16.4 L 718-7) HCT (test code = 34.3 % 38.4-49.3 L 4544-3) MCV (test code = 88.4 fL 81.7-95.6 787-2) MCH (test code = 30.2 pg 26.1-32.7 785-6) MCHC (test code = 34.1 g/dL 31.2-35.0 786-4) RDW-SD (test code = 40.5 fL 38.5-51.6 89327-3) RDW-CV (test code = 12.6 % 12.1-15.4 788-0) PLT (test code = See_Comment [Automated 777-3) message] The sy stem which generated this result transmitted reference range : 150 - 328 10*3/ ?L. The reference r meghan was not used to interpret this result as normal/abnormal . MPV (test code = 9.3 fL 9.8-13.0 L 41608-2) NRBC/100 WBC (test See_Comment [Automat ed code = 6908612496) message] The system which generated this result transmitted reference range : 0.0 - 10.0 /100 WBCs. The refer ence range was not u sed to interpret th is result as normal/abnormal . NRBC x10^3 (test code See_Comment [Auto mated = 6037113727) message] The s ystem which generated this result transmitted reference range : 10*3/?L. The reference range was not used to interpret this result as normal/abnormal . GRAN MAT (NEUT) % 53.1 % (test code = 770-8) IMM GRAN % (test code 0.10 % = 1331346747) LYMPH % (test code = 34.8 % 736-9) MONO % (test code = 7.8 % 5905-5) EOS % (test code = 3.6 % 713-8) BASO % (test code = 0.6 % 706-2) GRAN MAT x10^3(ANC) 3.72 10*3/uL 1.99-6.95 (test code = [id number]) IMM GRAN x10^3 (test 0.00-0.06 code = [id number]) LYMPH x10^3 (test code 2.44 10*3/uL 1.09-3.23 = 731-0) MONO x10^3 (test code 0.55 10*3/uL 0.36-1.02 = 742-7) EOS x10^3 (test code = 0.25 10*3/uL 0.06-0.53 711-2) BASO x10^3 (test code 0.04 10*3/uL 0.01-0.09 = 704-7) Lab Interpretation Abnormal (test code = 87404-9) [facility] [id number] 02:55:45 Test Item Value Reference Range Interpretation Comments ESR (test code = See_Comment H [Automated message] 09887-2) The system [employer] generated this result transmitted ref erence range: 0 - 10 m m/HR. The reference r meghan was not used to interpret this result as normal/abnor mal. Lab Interpretation (test Abnormal code = 68195-5) [facility] [place]. METABOLIC PANEL ([id number])2022-02-22 02:35:28 Test Item Value Reference Range Interpretation Comments NA (test code = 139 mmol/L 135-145 1146327602) K (test code = 4.4 mmol/L 3.5-5.0 0218817429) CL (test code = 105 mmol/L 98-108 7419746855) CO2 TOTAL (test code = 22 mmol/L 23-31 L 4743132102) AGAP (test code = 2-16 7153106440) BUN (test code = 25 mg/dL 7-23 H 2704235174) GLUCOSE (test code = 131 mg/dL 70-110 H 4504575226) CREATININE (test code = 1.07 mg/dL 0.60-1.25 4542589461) TOTAL BILI (test code = 0.6 mg/dL 0.1-1.6 0743544784) CALCIUM (test code = 9.6 mg/dL 8.6-10.6 9188211426) T PROTEIN (test code = 7.5 g/dL 6.3-8.2 9003895683) ALBUMIN (test code = 4.8 g/dL 3.5-5.0 2573434630) ALK PHOS (test code = 67 U/L 34-122 7757668846) ALTv (test code = 31 U/L 5-50 1742-6) AST(SGOT) (test code = 30 U/L 13-40 4796318828) eGFR (test code = mL/min/1.73m2 4588088541) AVA (test code = AVA) Association of Glomerular Filtration Rate (GFR) and Staging of Kidney Disease* + --+ --+ ------+| GFR (mL/min/1.73 m2) ?| With Kidney Damage ?| ?Without Kidney Damage+ --------+ --------+ +| ?>90 ?| ?Stage one ?| ? Normal ?+ ---+ ---+ -------+| ?60-89 ?| ?Stage two ?| ? Decreased GFR ? + --+ --+ ------+| ?30-59 ?| ?Stage three ?| ? Stage three ? + --+ --+ ------+| ?15-29 ?| ?Stage four ? | ? Stage four ?+ ---+ ---+ -------+| ?<15 (or dialysis) ? ?| ?Stage five ? | ? Stage five ?+ ---+ ---+ -------+ *Each stage assumes the associated GFR level has been in effect for at least three months. ?Stages 1 to 5, with or without kidney disease, indicate chronic kidney disease. Notes: Determination of stages one and two (with eGFR >59mL/min/1.73 m2) requires estimation of kidney damage for at least three months as defined by structural or functional abnormalities of the kidney, manifested by either:Pathological abnormalities or Markers of kidney damage (including abnormalities in the composition of the blood or urine or abnormalities in imaging tests). Lab Interpretation Abnormal (test code = 14309-3) [facility] WITH [id number] 02:23:02 Test Item Value Reference Range Interpretation Comments WBC (test code = See_Comment [Automated 8963-2) message] The sy stem which generated this result transmitted reference range : 4.20 - 10.70 10*3/?L. The reference range was not used to interpret this result as normal/abnormal . RBC (test code = See_Comment L [Automated 173-2) message] The sy stem which generated this result transmitted reference range : 4.26 - 5.52 10*6/?L. The reference range was not used to interpret this result as normal/abnormal . HGB (test code = 12.9 g/dL 12.2-16.4 718-7) HCT (test code = 36.1 % 38.4-49.3 L 4544-3) MCV (test code = 84.9 fL 81.7-95.6 787-2) MCH (test code = 30.4 pg 26.1-32.7 785-6) MCHC (test code = 35.7 g/dL 31.2-35.0 H 786-4) RDW-SD (test code = 38.5 fL 38.5-51.6 53452-7) RDW-CV (test code = 12.5 % 12.1-15.4 788-0) PLT (test code = See_Comment [Automated 777-3) message] The sy stem which generated this result transmitted reference range : 150 - 328 10*3/ ?L. The reference r meghan was not used to interpret this result as normal/abnormal . MPV (test code = 9.2 fL 9.8-13.0 L 71787-5) NRBC/100 WBC (test See_Comment [Automat ed code = 6965715876) message] The system which generated this result transmitted reference range : 0.0 - 10.0 /100 WBCs. The refer ence range was not u sed to interpret th is result as normal/abnormal . NRBC x10^3 (test code See_Comment [Auto mated = 7511464414) message] The s ystem which generated this result transmitted reference range : 10*3/?L. The reference range was not used to interpret this result as normal/abnormal . GRAN MAT (NEUT) % 56.9 % (test code = 770-8) IMM GRAN % (test code 0.40 % = 3783017170) LYMPH % (test code = 30.6 % 736-9) MONO % (test code = 8.1 % 5905-5) EOS % (test code = 3.3 % 713-8) BASO % (test code = 0.7 % 706-2) GRAN MAT x10^3(ANC) 4.17 10*3/uL 1.99-6.95 (test code = 7696801192) IMM GRAN x10^3 (test 0.03 10*3/uL 0.00-0.06 code = 8756107959) LYMPH x10^3 (test code 2.24 10*3/uL 1.09-3.23 = 731-0) MONO x10^3 (test code 0.59 10*3/uL 0.36-1.02 = 742-7) EOS x10^3 (test code = 0.24 10*3/uL 0.06-0.53 711-2) BASO x10^3 (test code 0.05 10*3/uL 0.01-0.09 = 704-7) Lab Interpretation Abnormal (test code = 39571-4) [facility] URINALYSIS [id number] 00:00:00 Test Item Value Reference Range Interpretation Comments COLOR UA (test code = 5778-6) Yellow YELLOW/STRAW CLARITY UA (test code = 34336-4) Clear CLEAR GLUCOSE UA (test code = 5792-7) Negative NEGATIVE BILIRUBIN UA (test code = 5770-3) Negative NEGATIVE KETONES UA (test code = 49742-5) Negative NEGATIVE SPECIFIC GRAVITY UA (test code = 1.005-1.035 5811-5) BLOOD UA (test code = 5794-3) Moderate 2+ NEGATIVE PH UA (test code = 5803-2) 5-9 PROTEIN UA (test code = 5804-0) Trace NEGATIVE UROBILINOGEN UA (test code = 0.02 E.U/DL NORMAL MG/DL 5818-0) LEUKOCYTE ESTERASE UA (test code Negative NEGATIVE = 5799-2) NITRITE UA (test code = 5802-4) Negative NEGATIVE REDUCING SUBSTANCES URINE (test code = 55212-1) [facility] [place] LOWER EXTRM W/O C [id number] 13:41:00 [facility] : 1965 Sex: M PatientName: EDNA LAWS Unit No: [id number] EXAMS: CPT CODE: [id number] [place]TR[place] W/[place] [address] CTOF THE LEFT KNEE WITH SAGITTAL AND CORONAL RECONSTRUCTIONS DIAGNOSIS: There is narrowing of the medial compartment with sclerosis and small osteophytes. There is no evidence for a loose body. COMMENT: COMPARISON: No prior exams available. Scans were performed with thin sections and reconstructions were obtained. CT radiation dose optimization is achieved for this examination by the use of a CT protocol in accordance with ACR practice standards and adherence to assistant producer's recommendations. Bony abnormalities are as described. There is no evidence for fracture. at 1341 Reported and signed by: Kevin Miller MD CC: Hal Fowler MD; Corine Be MD Technologist: Bandar Albright(R) CTDI: DLP: Trnscrpt: 12/21/2021 (1341) t.SDR.[facility] NAME: EDNA LAWS [address] [place] [address] PHYS: HAROWEN.Corine Park MD : 1965 AGE: 56 SEX: M [place] [address] LOC: Y.RAD PHONE #: [phone] EXAM DATE: 12/21/2021 STATUS: REG CLI FAX #: [phone] RAD #: D/C DT PAGE 1 Signed Report Patient Name: EDNA LAWS Unit No: [id number] EXAMS: CPT CODE: [id number] CT LOWER EXTRM W/[place] [address] (Continued) Orig Print D/T: S: 12/21/2021 (1345) [facility] NAME: EDNA LAWS [facility] PHYS: Corine Garcia MD : 1965 AGE:56 SEX: M [place] [address] LOC: Y.RAD PHONE #: [phone] EXAM DATE: 12/21/2021 STATUS: REG CLI FAX #: [phone] RAD #: D/C DT PAGE 2 Signed ReportCBC WITH DIFF 2021-10-05 23:38:23 Test Item Value Reference Range Interpretation Comments WBC (test code = See_Comment H [Automated 6690-2) message] The sy stem which generated this result transmitted reference range : 4.20 - 10.70 10*3/?L. The reference range was not used to interpret this result as normal/abnormal . RBC (test code = See_Comment [Automated 789-8) message] The sy stem which generated this result transmitted reference range : 4.26 - 5.52 10*6/?L. The reference range was not used to interpret this result as normal/abnormal . HGB (test code = 15.5 g/dL 12.2-16.4 718-7) HCT (test code = 45.1 % 38.4-49.3 4544-3) MCV (test code = 87.6 fL 81.7-95.6 787-2) MCH (test code = 30.1 pg 26.1-32.7 785-6) MCHC (test code = 34.4 g/dL 31.2-35.0 786-4) RDW-SD (test code = 41.1 fL 38.5-51.6 74782-4) RDW-CV (test code = 13.0 % 12.1-15.4 788-0) PLT (test code = See_Comment H [Automated 777-3) message] The sy stem which generated this result transmitted reference range : 150 - 328 10*3/ ?L. The reference r meghan was not used to interpret this result as normal/abnormal . MPV (test code = 9.3 fL 9.8-13.0 L 33123-8) NRBC/100 WBC (test See_Comment [Automat ed code = 0911954998) message] The system which generated this result transmitted reference range : 0.0 - 10.0 /100 WBCs. The refer ence range was not u sed to interpret th is result as normal/abnormal . NRBC x10^3 (test code <0.01 See_Comment [Auto mated = 4363362037) message] The s ystem which generated this result transmitted reference range : 10*3/?L. The reference range was not used to interpret this result as normal/abnormal . SEG % (test code = 58 % 33-76 99725-7) BAND % (test code = 7 % 0-1 H 08335-5) LYMPH % (test code = 25 % 14-54 06997-5) REACT LYMPH % (test 1 % code = 7794617186) MONO % (test code = 8 % 0-4 H 82710-8) EOS % (test code = 1 % 0-3 20193-5) ANC (test code = 7.03 10*3/uL 1.99-6.95 H 753-4) TOXIC CHANGES (test Present A code = 803-7) Lab Interpretation Abnormal (test code = 79096-7) [facility]. METABOLIC PANEL ([id number])2021-10-05 23:14:58 Test Item Value Reference Range Interpretation Comments NA (test code = 138 mmol/L 135-145 7703169247) K (test code = 5.3 mmol/L 3.5-5.0 H 8946398395) CL (test code = 101 mmol/L 98-108 1601430452) CO2 TOTAL (test code = 25 mmol/L 23-31 2854368381) AGAP (test code = 2-16 4564473097) BUN (test code = 33 mg/dL 7-23 H 5922577940) GLUCOSE (test code = 195 mg/dL 70-110 H 8422309358) CREATININE (test code = 1.20 mg/dL 0.60-1.25 4345479420) TOTAL BILI (test code = 0.8 mg/dL 0.1-1.7 3126537798) CALCIUM (test code = 10.0 mg/dL 8.6-10.6 2049999460) T PROTEIN (test code = 8.1 g/dL 6.3-8.2 6757047433) ALBUMIN (test code = 4.9 g/dL 3.5-5.0 9411964674) ALK PHOS (test code = 67 U/L 34-122 4210134401) ALTv (test code = 45 U/L 5-50 1742-6) AST(SGOT) (test code = 28 U/L 13-40 2093021019) eGFR (test code = mL/min/1.73m2 8475777686) AVA (test code = AVA) Association of Glomerular Filtration Rate (GFR) and Staging of Kidney Disease* + --+ --+ ------+| GFR (mL/min/1.73 m2) ?| With Kidney Damage ?| ?Without Kidney Damage+ --------+ --------+ +| ?>90 ?| ?Stage one ?| ? Normal ?+ ---+ ---+ -------+| ?60-89 ?| ?Stage two ?| ? Decreased GFR ? + --+ --+ ------+| ?30-59 ?| ?Stage three ?| ? Stage three ? + --+ --+ ------+| ?15-29 ?| ?Stage four ? | ? Stage four ?+ ---+ ---+ -------+| ?<15 (or dialysis) ? ?| ?Stage five ? | ? Stage five ?+ ---+ ---+ -------+ *Each stage assumes the associated GFR level has been in effect for at least three months. ?Stages 1 to 5, with or without kidney disease, indicate chronic kidney disease. Notes: Determination of stages one and two (with eGFR >59mL/min/1.73 m2) requires estimation of kidney damage for at least three months as defined by structural or functional abnormalities of the kidney, manifested by either:Pathological abnormalities or Markers of kidney damage (including abnormalities in the composition of the blood or urine or abnormalities in imaging tests). Lab Interpretation Abnormal (test code = 69897-9) [facility] URINALYSIS [id number] 00:00:00 Test Item Value Reference Range Interpretation Comments COLOR UA (test code = 5778-6) Yellow YELLOW/STRAW CLARITY UA (test code = 57541-0) Clear CLEAR GLUCOSE UA (test code = 5792-7) Negative NEGATIVE BILIRUBIN UA (test code = 5770-3) Negative NEGATIVE KETONES UA (test code = 41060-6) Negative NEGATIVE SPECIFIC GRAVITY UA (test code = 1.005-1.035 5811-5) BLOOD UA (test code = 5794-3) Negative NEGATIVE PH UA (test code = 5803-2) 5-9 PROTEIN UA (test code = 5804-0) Trace NEGATIVE UROBILINOGEN UA (test code = 0.02 E.U/DL NORMAL MG/DL 5818-0) LEUKOCYTE ESTERASE UA (test code Negative NEGATIVE = 5799-2) NITRITE UA (test code = 5802-4) Negative NEGATIVE REDUCING SUBSTANCES URINE (test code = 75078-7) [facility] URINALYSIS [id number] 00:00:00 Test Item Value Reference Range Interpretation Comments COLOR UA (test code = 5778-6) Yellow YELLOW/STRAW CLARITY UA (test code = 31924-3) Clear CLEAR GLUCOSE UA (test code = 5792-7) Negative NEGATIVE BILIRUBIN UA (test code = 5770-3) Negative NEGATIVE KETONES UA (test code = 07813-6) Negative NEGATIVE SPECIFIC GRAVITY UA (test code = 1.005-1.035 5811-5) BLOOD UA (test code = 5794-3) Trace NEGATIVE PH UA (test code = 5803-2) 5-9 PROTEIN UA (test code = 5804-0) Trace NEGATIVE UROBILINOGEN UA (test code = 0.02 E.U/DL NORMAL MG/DL 5818-0) LEUKOCYTE ESTERASE UA (test code Negative NEGATIVE = 5799-2) NITRITE UA (test code = 5802-4) Negative NEGATIVE REDUCING SUBSTANCES URINE (test code = 59952-6) [facility] URINALYSIS [id number] 00:00:00 Test Item Value Reference Range Interpretation Comments COLOR UA (test code = 5778-6) Yellow YELLOW/STRAW CLARITY UA (test code = 49729-9) Clear CLEAR GLUCOSE UA (test code = 5792-7) Negative NEGATIVE BILIRUBIN UA (test code = 5770-3) Negative NEGATIVE KETONES UA (test code = 74696-6) Negative NEGATIVE SPECIFIC GRAVITY UA (test code = 1.005-1.035 5811-5) BLOOD UA (test code = 5794-3) Negative NEGATIVE PH UA (test code = 5803-2) 5.0-9.0 PROTEIN UA (test code = 5804-0) Trace NEGATIVE UROBILINOGEN UA (test code = 0.02 E.U/DL NORMAL MG/DL 5818-0) LEUKOCYTE ESTERASE UA (test code Negative NEGATIVE = 5799-2) NITRITE UA (test code = 5802-4) Negative NEGATIVE REDUCING SUBSTANCES URINE (test code = 08276-2) [facility] [id number] 00:00:00 Test Item Value Reference Range Interpretation Comments COLOR UA (test code = 5778-6) Yellow YELLOW/STRAW CLARITY UA (test code = Clear CLEAR 44808-8) GLUCOSE UA (test code = Negative NEGATIVE 5792-7) BILIRUBIN UA (test code = Negative NEGATIVE 5770-3) KETONES UA (test code = Negative NEGATIVE 43416-2) SPECIFIC GRAVITY UA (test 1.005-1.035 code = 5811-5) BLOOD UA (test code = 5794-3) Hemolyzed Trace NEGATIVE PH UA (test code = 5803-2) 5-9 PROTEIN UA (test code = 1+ NEGATIVE 5804-0) UROBILINOGEN UA (test code = 0.02 E.U/DL NORMAL MG/DL 5818-0) LEUKOCYTE ESTERASE UA (test Negative NEGATIVE code = 5799-2) NITRITE UA (test code = Negative NEGATIVE 5802-4) REDUCING SUBSTANCES URINE (test code = 77540-7) [id number] 12:27:00 Test Item Value Reference Range Interpretation Comments GLUBED (test code = GLUBED) 151 mg/dL 60-125 H [id number] 10:56:00 Test Item Value Reference Range Interpretation Comments GLUBED (test code = GLUBED) 110 mg/dL 60-125 N BASIC METABOLIC [id number] 06:35:00 Test Item Value Reference Range Interpretation Comments SODIUM (test code = 137 mmol/L 136-145 N NA) POTASSIUM (test code = 4.4 mmol/L 3.5-5.1 N K) CHLORIDE (test code = 99.0 mmol/L 98-107 N CL) CARBON DIOXIDE (test 28.3 mmol/L 21-32 N code = CO2) GLUCOSE (test code = 116 mg/dL 70-110 H GLU) BLOOD UREA NITROGEN 19 mg/dL 7-18 H (test code = BUN) GLOMERULAR FILTRATION 59.2 >60 Unit o f measure: RATE (test code = GFR) mL/mi n/1.73 [id number] Range:Healthy A dults >90 mL/min/1.73 m2 For Chronic Kid trae Disease: Stage II Mild Decrease i n GFR 60-90 Stage III Moderate Decrea se in GFR 30-59 Stage IV Severe Decrease in GFR 15-29 Stage V Kidney Failure <15 CREATININE (test code 1.26 mg/dL 0.55-1.30 N = CREAT) CALCIUM (test code = 8.8 mg/dL 8.2-10.1 N CA) CBC W/AUTO [id number] 06:09:00 Test Item Value Reference Range Interpretation Comments WHITE BLOOD CELL (test code = 12.3 K/mm3 5.7-10.5 H WBC) RED BLOOD CELL (test code = RBC) 4.27 M/mm3 4.2-5.4 N HEMOGLOBIN (test code = HGB) 12.2 g/dL 12-16 N HEMATOCRIT (test code = HCT) 36.2 % 37-47 L MEAN CELL VOLUME (test code = 85 fL 80-98 N MCV) MEAN CELL HGB (test code = MCH) 28.6 pg 27-34 N MEAN CELL HGB CONCENTRATION (test 33.7 g/dL 30.8-34.1 N code = MCHC) RED CELL DISTRIBUTION WIDTH (test 13.5 % 11-16 N code = RDW) PLT (test code = PLT) 238 K/mm3 130-400 N MEAN PLATELET VOLUME (test code = 9.5 fL 8.9-12.1 N MPV) NEUTROPHIL % (test code = NT%) 81.8 % 45-70 H LYMPHOCYTE % (test code = LY%) 10.1 % 20-40 L MONOCYTE % (test code = MO%) 7.4 % 3-10 N EOSINOPHIL % (test code = EO%) 0.1 % 1-5 L BASOPHIL % (test code = BA%) 0.2 % 0.0-1.1 N NEUTROPHIL # (test code = NT#) 10.07 K/mm3 2.00-7.50 H LYMPHOCYTE # (test code = LY#) 1.24 K/mm3 1.50-4.00 L MONOCYTE # (test code = MO#) 0.91 K/mm3 0.2-0.8 H EOSINOPHIL # (test code = EO#) 0.01 K/mm3 0.04-0.4 L BASOPHIL # (test code = BA#) 0.02 K/mm3 0.02-0.10 N MANUAL DIFF REQUIRED (test code = NO MANUAL DIFF MDIFF) NUCLEATED RED BLOOD CELL (test 0 % 0-0 N code = NRBC) [id number] 05:31:00 Test Item Value Reference Range Interpretation Comments GLUBED (test code = GLUBED) 119 mg/dL 60-125 N [id number] 20:18:00 Test Item Value Reference Range Interpretation Comments GLUBED (test code = GLUBED) 125 mg/dL 60-125 N [id number] 16:25:00 Test Item Value Reference Range Interpretation Comments GLUBED (test code = GLUBED) 169 mg/dL 60-125 H Novel Coronavirus 2018 [id number] 09:16:00 Test Item Value Reference Range Interpretation Comments Novel Coronavirus Negative Negative Positive r esults are 2019 Inhouse (test indicativ e of the presence code = COVNONPUI) ofSARS-CoV -2 RNA, clinical correlation wit h patient historyand othe r diagnostic info rmation is necessary to determinepatien t infection status. Positiv e results do not rule out bacterial infection or co -infection with other viru ses. Negative result s do not preclude SARS-C oV-2 infection andsh ould not be used as the sujatha e basis for patient managementdecis ions. Negative result s must be combined with otherclinical observations, p atient history, and epidemiological information . Detection of SARS-CoV-2 RNA may be affe cted bysample collec tion methods, storag e conditions, and /or stageof infection. Lucero l RNA mutations, vacc inations, antiviraltherap eutics, antibiotics, chemotherapeuti c orimmunosuppres randall drugs have not been e valuated for effectson d etection. Results are for the identification of SARS-CoV-2 RNA usingthe Parada M2000 Sy stem under the FDA Emergen cy UseAuthorizatio n. The testing is perf ormed by frankie vega in the procedures for the Parada M2000 molecular diagnostic SARS-CoV-2 assa y in vitro. SPECIMEN COMMENT: NNovel Coronavirus 2018 [id number] 09:16:00 Test Item Value Reference Range Interpretation Comments Novel Coronavirus Negative Negative Positive r esults are 2019 Inhouse (test indicativ e of the presence code = COVNONPUI) ofSARS-CoV -2 RNA, clinical correlation wit h patient historyand othe r diagnostic info rmation is necessary to determinepatien t infection status. Positiv e results do not rule out bacterial infection or co -infection with other viru ses. Negative result s do not preclude SARS-C oV-2 infection andsh ould not be used as the sujatha e basis for patient managementdecis ions. Negative result s must be combined with otherclinical observations, p atient history, and epidemiological information . Detection of SARS-CoV-2 RNA may be affe cted bysample collec tion methods, storag e conditions, and /or stageof infection. Lucero l RNA mutations, vacc inations, antiviraltherap eutics, antibiotics, chemotherapeuti c orimmunosuppres randall drugs have not been e valuated for effectson d etection. Results are for the identification of SARS-CoV-2 RNA usingthe [employer] M2000 Sy stem under the FDA Emergen cy UseAuthorizatio n. The testing is perf ormed by personneltraine d in the procedures for the [employer] M2000 molecular diagnostic SARS-CoV-2 assa y in vitro. SPECIMEN COMMENT: NCOMPREHENSIVE METABOLIC [id number] 12:53:00 Test Item Value Reference Range Interpretation Comments SODIUM (test code = 138 mmol/L 136-145 N NA) POTASSIUM (test code = 4.6 mmol/L 3.5-5.1 N K) CHLORIDE (test code = 101.0 mmol/L 98-107 N CL) CARBON DIOXIDE (test 31.4 mmol/L 21-32 N code = CO2) GLUCOSE (test code = 108 mg/dL 70-110 N GLU) BLOOD UREA NITROGEN 20 mg/dL 7-18 H (test code = BUN) GLOMERULAR FILTRATION 73.9 >60 Unit o f measure: RATE (test code = GFR) mL/mi n/1.73 [id number] Range:Healthy Adults >90 mL/min/1.73 m2 For Chronic Kidney Disease: Stage II Mild Decrease i n GFR 60-90 Stage III Moderate Decrea se in GFR 30-59 St age IV Severe Decre ase in GFR 15-29 St age V Kidney Failur e <15 CREATININE (test code 1.04 mg/dL 0.55-1.30 N = CREAT) TOTAL PROTEIN (test 7.5 g/dL 6.4-8.2 N code = PROT) ALBUMIN (test code = 4.1 g/dL 3.4-5.0 N ALB) GLOBULIN (test code = 3.4 g/dL 2.2-4.2 N GLOB) ALBUMIN/GLOBULIN RATIO 1.2 0.7-2.0 N (test code = A/G) CALCIUM (test code = 9.0 mg/dL 8.2-10.1 N CA) BILIRUBIN TOTAL (test 0.60 mg/dL 0.2-1.00 N code = BILT) SGOT/AST (test code = 16.0 U/L 15-37 N AST) SGPT/ALT (test code = 22.0 U/L 12-78 N Please note new ALT) normal range. ALKALINE PHOSPHATASE 75 U/L 46-116 N TOTAL (test code = ALKP) CBC W/AUTO [id number] 12:34:00 Test Item Value Reference Range Interpretation Comments WHITE BLOOD CELL (test code = WBC) 6.3 K/mm3 5.7-10.5 N RED BLOOD CELL (test code = RBC) 4.53 M/mm3 4.2-5.4 N HEMOGLOBIN (test code = HGB) 12.8 g/dL 12-16 N HEMATOCRIT (test code = HCT) 38.1 % 37-47 N MEAN CELL VOLUME (test code = MCV) 84 fL 80-98 N MEAN CELL HGB (test code = MCH) 28.3 pg 27-34 N MEAN CELL HGB CONCENTRATION (test 33.6 g/dL 30.8-34.1 N code = MCHC) RED CELL DISTRIBUTION WIDTH (test 13.5 % 11-16 N code = RDW) PLT (test code = PLT) 235 K/mm3 130-400 N MEAN PLATELET VOLUME (test code = 9.0 fL 8.9-12.1 N MPV) NEUTROPHIL % (test code = NT%) 58.1 % 45-70 N LYMPHOCYTE % (test code = LY%) 30.2 % 20-40 N MONOCYTE % (test code = MO%) 7.6 % 3-10 N EOSINOPHIL % (test code = EO%) 3.5 % 1-5 N BASOPHIL % (test code = BA%) 0.3 % 0.0-1.1 N NEUTROPHIL # (test code = NT#) 3.66 K/mm3 2.00-7.50 N LYMPHOCYTE # (test code = LY#) 1.90 K/mm3 1.50-4.00 N MONOCYTE # (test code = MO#) 0.48 K/mm3 0.2-0.8 N EOSINOPHIL # (test code = EO#) 0.22 K/mm3 0.04-0.4 N BASOPHIL # (test code = BA#) 0.02 K/mm3 0.02-0.10 N MANUAL DIFF REQUIRED (test code = NO MANUAL DIFF MDIFF) NUCLEATED RED BLOOD CELL (test 0 % 0-0 N code = NRBC) [facility] [id number] 10:08:00 Patient Name: EDNA LAWS Unit No: [id number] EXAMS: CPT CODE: [id number] [id number] MRI OF THE LEFT ANKLE DIAGNOSIS: 1. The patient is status post lateral ligament reconstructionwith the peroneus brevis tendon. There is edema adjacent to the tip of the lateral malleolus and distal to the malleolus. The peroneus longus tendon is intact. No definite evidence for tearing of the tendon transfer is seen. There is attenuation of the fibular and of the anterior talofibular ligamentwithout retraction. The anterior tibiofibular ligament is intact. The calcaneofibular ligament is not clearly seen. 2. Partial-thickness tearing of the distal posterior tibial tendon with tenosynovitis. 3. Degenerative change in the medial naviculocuneiform joint with subchondral cyst formation in the navicular bone. There is also degenerative change of the dorsal talonavicular joint with osteophyte formation. COMMENT: COMPARISON: No prior exams available. Scans were performed in the sagittal, axialand coronal planes utilizing T1, spin density with and without fat saturation and inversion recoveryimages. Bony abnormalities are present as noted. Postsurgical change is as described. No deltoid ligament abnormality is seen. The posterior tibial and peroneal tendons are as noted. No other tendon abnormalities are identified. The plantar fascia is mildly thickened at the insertion with a small plantar calcaneal spur but no evidence for plantar fasciitis or tearing. at 1008 Reported and signed by: Kevin Miller MD CC: Rolo Birch MD Technologist: SANJANA MARCOS, MRI Transcribed D/ (1008) [facility] NAME: EDNA LAWS [address] [place] [address] PHYS: Rolo Kumar MD : 1965 AGE: 54 SEX: M [place] [address] LOC: Y.MRI PHONE #: [phone] EXAM DATE: 12/25/2019 STATUS: REG CLI FAX #: [phone] RAD #: D/C DT PAGE 1 Signed Report PatientName: EDNA LAWS Unit No: [id number] EXAMS: CPT CODE: [id number] [place] J[place] [id number] <Continued> Orig Print D/T: S: 12/25/2019 (1011) [facility] NAME: EDNA LAWS [address] [place] [address] PHYS: Rolo Kumar MD : 1965 AGE: 54 SEX: M [place], [place] [address] LOC: Y.MRI PHONE #: [phone] EXAM DATE: 12/25/2019 STATUS: REG CLI FAX #: [phone] RAD #: D/C DT PAGE 2 Signed ReportPOCT URINALYSIS [id number] 00:00:00 Test Item Value Reference Range Interpretation Comments COLOR UA (test code = 5778-6) Yellow YELLOW/STRAW CLARITY UA (test code = 24147-3) Clear CLEAR GLUCOSE UA (test code = 5792-7) Negative NEGATIVE BILIRUBIN UA (test code = 5770-3) Negative NEGATIVE KETONES UA (test code = 81617-0) Negative NEGATIVE SPECIFIC GRAVITY UA (test code = 1.005-1.035 5811-5) BLOOD UA (test code = 5794-3) Moderate 2+ NEGATIVE PH UA (test code = 5803-2) 5-9 PROTEIN UA (test code = 5804-0) Trace NEGATIVE UROBILINOGEN UA (test code = 0.02 E.U/DL NORMAL MG/DL 5818-0) LEUKOCYTE ESTERASE UA (test code Negative NEGATIVE = 5799-2) NITRITE UA (test code = 5802-4) Negative NEGATIVE REDUCING SUBSTANCES URINE (test code = 62248-9) [facility] [id number] 18:10:00Surgical Pathology Report Case: [id number] Authorizing Provider: Sridhar Gutierres MD Collected: 09/06/2019 09:43 AM Ordering Location: [facility] PERIOPERATIVE Received: 09/06/2019 11:21 AM SERVICES Pathologist: Zechariah Vu MD Specimens: A) - Lymph Node, Paracaval Lymph Node B) - Soft Tissue, Other, FatOverlying Tumor C) - Soft Tissue, Other, Base of tumor from the right kidney D) - Renal, Right, Right Renal Mass A. LYMPH NODE, PARACAVAL, BIOPSY: - TWO BENIGN LYMPH NODES (0/2)B. SOFT TISSUE, RIGHT PERINEPHRIC, "FAT OVERLYING TUMOR", EXCISION: - BENIGN FIBROADIPOSE TISSUE - NEGATIVE FOR MALIGNANCYC.KIDNEY, RIGHT, "BASE OF TUMOR", BIOPSY: - BENIGN RENAL PARENCHYMA - NEGATIVE FOR MALIGNANCYD. 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 Focal tumor capsule is disrupted. Taken together with part C, the tumor base, the final resection margin is considered to be negative. Clinical correlation is recommended. KIDNEY: Nephrectomy (Kidney - All Specimens)8th Edition -Protocol posted: 11/28/2018SPECIMEN Procedure: Partial nephrectomy Specimen Laterality: Right TUMOR Tumor Site: Upper pole Histologic Type: Clear cell renal cell carcinoma Histologic Grade: G3: Nucleoliconspicuous and eosinophilic at 100x magnification Tumor Size: Greatest Dimension (Centimeters): 4.2cm Additional Dimension (Centimeters): 3.5 cm Additional Dimension (Centimeters): 3.2 cm Tumor Focality: Unifocal Tumor Extension: Tumor limited to kidney Sarcomatoid Features: Not identified Rhabdoid Features: Not identified Tumor Necrosis: Not identified Lymphovascular Invasion: Not identified MARGINS Margins: Uninvolved by invasive carcinoma LYMPH NODES Number of Lymph Nodes Involved: 0 Number of L ymph Nodes Examined: 2 PATHOLOGIC STAGE CLASSIFICATION (pTNM, AJCC 8th Edition) Primary Tumor (pT): pT1b Regional Lymph Nodes (pN): pN0 ADDITIONAL FINDINGS Pathologic Findings in Nonneoplastic Kidney: None identified A. 21503U. 41733I. 03060, 74436T. 09473Emmxc massA. Pericaval lymph nodeB. Fat overlying tumor C. Base of tumor from the right kidneyD. Right renal massA. Received fresh labelled with the patient's name, medical record number and "lymph node" is a 1.7 x 0.9 x 0.4 cm irregular red-yellowadipose tissue fragment. The specimen is bisected and a lymph node is not identified. The specimen is entirely submitted in A1.B. Received fresh labelled with the patient's name, medical record number and "soft tissue, other" is is a 2.8 x 2.1 x 0.5 cm irregular portion of red-yellow adipose tissue. The outer surface is inked blue, the specimen is serially sectioned. No gross lesions are identified. The specimen is entirely submitted in B1-B3.SHARONA Robertson PA (ASCP)C. Received fresh for intraoperative frozen consultation labeled with the patient's accession number and "soft tissue" is a 0.3 x0.3 x 0.2 cm gaitan-pink to red-brown irregular portion of tissue which is submitted entirely in cassette FSC1 for frozen section. HS/plD. Received fresh labelled with the patient's name, medical record number and "renal, right" is a 49 g, 5.2 x 5.2 x 3.7 cm irregular portion of renal parenchyma. There is a moderate amount of attached perinephric fat.The specimen is serially sectioned to reveal a well-circumscribed, mackey yellow, gaitan-pink mass measuring 4.2 x 3.5 x 3.2 cm. The mass is 0.1 cm from the parenchymal margin, and abuts the capsule, but does not invade into the perinephric fat. The mass is 50% necrotic and hemorrhagic. The remaining renal parenchyma is gaitan and smooth. Manual Arts Therapy Teacher sections are submitted.Ink code:Blue: Parenchymal marginBlack: Outer surfaceSection code: D1-D3: Mass to closest parenchymal marginD4-D8: Mass to renal capsuleD9-D 10 mass to uninvolved parenchymaSHARONA Robetrson, PA (ASCP)FSC1, BASE OF TUMOR: - NEGATIVE FOR TUMOR Reported by Dr. Vu to Dr. Gutierres on September 06, 2019, at 11:46 a.m. A-D. Performed.[facility], Department of Pathology, [address] [place] [address], [facility], [address] [place] [address], [facility], Department of [facility], [address] [place] [address], DLILXWHHNY AND [id number] 12:45:00 Test Item Value Reference Range Interpretation Comments HEMOGLOBIN (BEAKER) (test code = 9.9 GM/DL 13.7-17.5 L 410) HEMATOCRIT (BEAKER) (test code = 30.2 % 40.1-51.0 L 411) Respiratory Equipment Assistant ID - [id number]-GLUCOSE [id number] 11:41:00 Test Item Value Reference Range Interpretation Comments POC-GLUCOSE METER 183 mg/dL 70-110 H : TESTED A T [employer] 6720 (BEAKER) (test code = [facility] [employer] [facility], 153) [address]: Respiratory Equipment Assistant/Techni mazin ID = [id number] for NESTOR IQBAL CREATININE, RANDOM [id number] 10:07:00 Test Item Value Reference Range Interpretation Comments CREATININE URINE (BEAKER) (test code < mg/dL = 375) Reference Range: No NormalsOperator ID - TANNA CPOCT-GLUCOSE [id number] 08:39:00 Test Item Value Reference Range Interpretation Comments POC-GLUCOSE METER 135 mg/dL 70-110 H : TESTED A T [facility] 6720 (BEAKER) (test code = [facility] [employer] [facility], 153) 708[address]: Respiratory Equipment Assistant/Techni mazin ID = [id number] for NESTOR IQBAL [id number] 05:33:00 Test Item Value Reference Range Interpretation Comments PHOSPHORUS (BEAKER) (test code = 2.4 mg/dL 2.3-4.7 604) Respiratory Equipment Assistant ID - MARIKA [id number] 05:33:00 Test Item Value Reference Range Interpretation Comments MAGNESIUM (BEAKER) (test code = 2.0 mg/dL 1.6-2.6 627) Respiratory Equipment Assistant ID - MARIKA MBASIC METABOLIC [id number] 05:33:00 Test Item Value Reference Range Interpretation Comments SODIUM (BEAKER) 136 meq/L 136-145 (test code = 381) POTASSIUM (BEAKER) 4.1 meq/L 3.5-5.1 (test code = 379) CHLORIDE (BEAKER) 104 meq/L 98-107 (test code = 382) CO2 (BEAKER) (test 29 meq/L 22-29 code = 355) BLOOD UREA NITROGEN 12 mg/dL 7-21 (BEAKER) (test code = 354) CREATININE (BEAKER) 1.00 mg/dL 0.57-1.25 (test code = 358) GLUCOSE RANDOM 118 mg/dL 70-105 H (BEAKER) (test code = 652) CALCIUM (BEAKER) 8.5 mg/dL 8.4-10.2 (test code = 697) EGFR (BEAKER) (test 77 mL/min/1.73 ESTIMA ALEXANDRA GFR IS code = 1092) sq m NOT ACCURATE CREATININE CLEARANCE IN PREDICTING GLOMERULAR FILTRATION RATE . ESTIMATED GFR I S NOT APPLICABLE FOR DIALYSIS PATIEN TS. Respiratory Equipment Assistant ID - MARIKA MHEMOGLOBIN AND [id number] 05:04:00 Test Item Value Reference Range Interpretation Comments HEMOGLOBIN (BEAKER) (test code = 9.6 GM/DL 13.7-17.5 L 410) HEMATOCRIT (BEAKER) (test code = 29.3 % 40.1-51.0 L 411) Respiratory Equipment Assistant ID - [id number]-GLUCOSE [id number] 21:13:00 Test Item Value Reference Range Interpretation Comments POC-GLUCOSE METER 141 mg/dL 70-110 H : TESTED A T [facility] 6720 (BEAKER) (test code [facility], = 1538) 57265: Respiratory Equipment Assistant/Techni mazin ID = [id number] for CHUNG LUCAS POCT-GLUCOSE [id number] 17:40:00 Test Item Value Reference Range Interpretation Comments POC-GLUCOSE METER 126 mg/dL 70-110 H : TESTED A T [facility] 6720 (BEAKER) (test code = [facility], 1538) [address]: Respiratory Equipment Assistant/Techni mazin ID = [id number] for REKHA PIERREYL HEMOGLOBIN AND [id number] 15:06:00 Test Item Value Reference Range Interpretation Comments HEMOGLOBIN (BEAKER) (test code = 10.9 GM/DL 13.7-17.5 L 410) HEMATOCRIT (BEAKER) (test code = 33.5 % 40.1-51.0 L 411) Respiratory Equipment Assistant ID - [id number]-GLUCOSE [id number] 13:06:00 Test Item Value Reference Range Interpretation Comments POC-GLUCOSE METER 126 mg/dL 70-110 H : TESTED A T [facility] 6720 (BEAKER) (test code = [facility], 1538) 92639: Respiratory Equipment Assistant/Techni mazin ID = [id number] for GA PIERRE POCT-GLUCOSE [id number] 07:41:00 Test Item Value Reference Range Interpretation Comments POC-GLUCOSE METER 134 mg/dL 70-110 H : TESTED A T [facility] 6720 (BEAKER) (test code = [facility], 1538) 649[address]: Respiratory Equipment Assistant/Techni mazin ID = [id number] for GA PIERRE BASIC METABOLIC [id number] 06:05:00 Test Item Value Reference Range Interpretation Comments SODIUM (BEAKER) 138 meq/L 136-145 (test code = 381) POTASSIUM (BEAKER) 4.0 meq/L 3.5-5.1 (test code = 379) CHLORIDE (BEAKER) 109 meq/L 98-107 H (test code = 382) CO2 (BEAKER) (test 25 meq/L 22-29 code = 355) BLOOD UREA NITROGEN 11 mg/dL 7-21 (BEAKER) (test code = 354) CREATININE (BEAKER) 0.94 mg/dL 0.57-1.25 (test code = 358) GLUCOSE RANDOM 117 mg/dL 70-105 H (BEAKER) (test code = 652) CALCIUM (BEAKER) 7.7 mg/dL 8.4-10.2 L (test code = 697) EGFR (BEAKER) (test 83 mL/min/1.73 ESTIMA ALEXANDRA GFR IS code = 1092) sq m NOT ACCURATE CREATININE CLEARANCE IN PREDICTING GLOMERULAR FILTRATION RATE . ESTIMATED GFR I S NOT APPLICABLE FOR DIALYSIS PATIEN TS. Respiratory Equipment Assistant ID - MARIKA [id number] 05:59:00 Test Item Value Reference Range Interpretation Comments PHOSPHORUS (BEAKER) (test code = 1.9 mg/dL 2.3-4.7 L 604) Respiratory Equipment Assistant ID - MARIKA [id number] 05:59:00 Test Item Value Reference Range Interpretation Comments MAGNESIUM (BEAKER) (test code = 2.1 mg/dL 1.6-2.6 627) Respiratory Equipment Assistant ID - MARIKA MHEMOGLOBIN AND [id number] 05:21:00 Test Item Value Reference Range Interpretation Comments HEMOGLOBIN (BEAKER) (test code = 10.1 GM/DL 13.7-17.5 L 410) HEMATOCRIT (BEAKER) (test code = 31.2 % 40.1-51.0 L 411) Respiratory Equipment Assistant ID - [id number]-GLUCOSE [id number] 20:51:00 Test Item Value Reference Range Interpretation Comments POC-GLUCOSE METER 126 mg/dL 70-110 H : TESTED A T [facility] 6720 (BEAKER) (test code [facility], = 1538) 50467: Respiratory Equipment Assistant/Techni mazin ID = [id number] for OZZ, CHUNG POCT-GLUCOSE [id number] 17:38:00 Test Item Value Reference Range Interpretation Comments POC-GLUCOSE METER 145 mg/dL 70-110 H : TESTED A T [facility] 6720 (BEAKER) (test code = [facility], 1538) 74032: Respiratory Equipment Assistant/Techni mazin ID = [id number] for CHAS MESSER NESTOR POCT-GLUCOSE [id number] 13:01:00 Test Item Value Reference Range Interpretation Comments POC-GLUCOSE METER 121 mg/dL 70-110 H : TESTED A T [facility] 6720 (BEAKER) (test code = [facility], 1538) 31002: Respiratory Equipment Assistant/Techni mazin ID = [id number] for NESTOR IQBAL POCT-GLUCOSE [id number] 09:00:00 Test Item Value Reference Range Interpretation Comments POC-GLUCOSE METER 147 mg/dL 70-110 H : [facility] ([facility]ER[facility] (test code = [facility], 1538) 16654: Respiratory Equipment Assistant/Techni mazin ID = [id number] for NESTOR IQBAL [id number] 04:04:00 Test Item Value Reference Range Interpretation Comments PHOSPHORUS (BEAKER) (test code = 4.4 mg/dL 2.3-4.7 604) Respiratory Equipment Assistant ID - JOEL [id number] 04:04:00 Test Item Value Reference Range Interpretation Comments MAGNESIUM (BEAKER) (test code = 1.8 mg/dL 1.6-2.6 627) Respiratory Equipment Assistant ID - JOEL WBASIC METABOLIC [id number] 04:04:00 Test Item Value Reference Range Interpretation Comments SODIUM (BEAKER) 137 meq/L 136-145 (test code = 381) POTASSIUM (BEAKER) 4.5 meq/L 3.5-5.1 (test code = 379) CHLORIDE (BEAKER) 106 meq/L 98-107 (test code = 382) CO2 (BEAKER) (test 22 meq/L 22-29 code = 355) BLOOD UREA NITROGEN 17 mg/dL 7-21 (BEAKER) (test code = 354) CREATININE (BEAKER) 1.16 mg/dL 0.57-1.25 (test code = 358) GLUCOSE RANDOM 146 mg/dL 70-105 H (BEAKER) (test code = 652) CALCIUM (BEAKER) 8.3 mg/dL 8.4-10.2 L (test code = 697) EGFR (BEAKER) (test 65 mL/min/1.73 ESTIMA ALEXANDRA GFR IS code = 1092) sq m NOT ACCURATE CREATININE CLEARANCE IN PREDICTING GLOMERULAR FILTRATION RATE . ESTIMATED GFR I S NOT APPLICABLE FOR DIALYSIS PATIEN TS. Respiratory Equipment Assistant ID - JOEL WHEMOGLOBIN AND [id number] 03:31:00 Test Item Value Reference Range Interpretation Comments HEMOGLOBIN (BEAKER) (test code = 12.0 GM/DL 13.7-17.5 L 410) HEMATOCRIT (BEAKER) (test code = 37.5 % 40.1-51.0 L 411) Respiratory Equipment Assistant ID - [id number]-GLUCOSE [id number] 23:49:00 Test Item Value Reference Range Interpretation Comments POC-GLUCOSE METER 146 mg/dL 70-110 H : TESTED A T [facility] 6720 (BEAKER) (test code = [facility], 1538) 94921: Respiratory Equipment Assistant/Techni mazin ID = [id number] for SE ANDREA CIFUENTES POCT-GLUCOSE [id number] 19:07:00 Test Item Value Reference Range Interpretation Comments POC-GLUCOSE METER 162 mg/dL 70-110 H : TESTED A T [facility] 6720 (BEAKER) (test code = [facility], 1538) 19390: Respiratory Equipment Assistant/Techni mazin ID = [id number] for RUBIA NIXON BASIC METABOLIC [id number] 14:36:00 Test Item Value Reference Range Interpretation Comments SODIUM (BEAKER) 136 meq/L 136-145 (test code = 381) POTASSIUM (BEAKER) 4.7 meq/L 3.5-5.1 Specimen slightly (test code = 379) hemolyzed CHLORIDE (BEAKER) 108 meq/L 98-107 H (test code = 382) CO2 (BEAKER) (test 22 meq/L 22-29 code = 355) BLOOD UREA NITROGEN 19 mg/dL 7-21 (BEAKER) (test code = 354) CREATININE (BEAKER) 0.99 mg/dL 0.57-1.25 Specimen slightly (test code = 358) hemolyzed GLUCOSE RANDOM 156 mg/dL 70-105 H (BEAKER) (test code = 652) CALCIUM (BEAKER) 7.8 mg/dL 8.4-10.2 L (test code = 697) EGFR (BEAKER) (test 78 mL/min/1.73 ESTIMA ALEXANDRA GFR IS code = 1092) sq m NOT ACCURATE CREATININE CLEARANCE IN PREDICTING GLOMERULAR FILTRATION RATE . ESTIMATED GFR I S NOT APPLICABLE FOR DIALYSIS PATIEN TS. Respiratory Equipment Assistant ID - NTPHEMOGLOBIN AND [id number] 14:04:00 Test Item Value Reference Range Interpretation Comments HEMOGLOBIN (BEAKER) (test code = 12.1 GM/DL 13.7-17.5 L 410) HEMATOCRIT (BEAKER) (test code = 36.0 % 40.1-51.0 L 411) Respiratory Equipment Assistant ID - [id number]-GLUCOSE [id number] 14:00:00 Test Item Value Reference Range Interpretation Comments POC-GLUCOSE METER 142 mg/dL 70-110 H : TESTED A T [facility] 6720 (BEAKER) (test code = [facility], 1538) 51760: Respiratory Equipment Assistant/Techni mazin ID = [id number] for WILMER ROSE POCT-GLUCOSE [id number] 06:24:00 Test Item Value Reference Range Interpretation Comments POC-GLUCOSE METER 128 mg/dL 70-110 H : TESTED A T [facility] 6720 (BEAKER) (test code = [facility], 1538) 73982: Respiratory Equipment Assistant/Techni mazin ID = [id number] for ANTOINE HERZOG [id number] 13:20:00 RUN DATE: 07/03/19 [facility] PAGE 1 RUN TIME: 1320 Specimen Inquiry RUN USER: INTERFACE ----- -------PATIENT: EDNA LAWS LOC: SUDHEER U #: [id number] AGE/SX: 54/M ROOM: RE07/02/19REG DR: Moraima Davis MD : 61 BED: DIS: STATUS: DEP [facility] TLOC: SPEC #: [id number] RECD: 07/02/19 STATUS: MARIO CR #: [id number] PHAN: 07/02/[address]: Moraima Davis MD ENTERED: 07/02/19 SP TYPE: SURG OTHR DR: Hal Fowler MD ORDERED: SURG PATH LVL 3 COPIES TO: Hal Fowler MD [address] [place] [address] [address] [place] [id number] [email or web address] Moraima Davis MD [address] [place] [address] HISTOLOGY: TISSUE ID BLK PCS JEAN LEV PROCEDURE DISPOSITION ____ ___ ___ ___ GALLBLADDER, NO A 1 PROCEDURES: SURG PATH LVL 3 (07/03/19) TISSUES: A. GALLBLADDER, NOS - GALLBLADDER CLINICAL HISTORY ACUTE CHOLECYSTITIS -K81.0 CPT CODES CPT CODE(S): 07425 , , , , , , FINAL DIAGNOSIS Gallbladder, laparoscopiccholecystectomy: CHRONIC CHOLECYSTITIS WITH MILD ACUTE CHOLECYSTITIS GROSS DESCRIPTION Gallbladder. Received in formalin is a collapsed gallbladder, 7.7 x 3.7 x 1.5 cm, with a wall, 0.3 cm in average th ickness and with a defect in the body, 0.5 cm. The mucosa is brown-green, smooth and velvety. The lumen contains less than 2 mL of dark green-brown slightly viscous bile. No calculus is identified. Manual Arts Therapy Teacher sections submitted as A. ba/nr CONTINUED ON NEXT PAGE RUN DATE: 07/03/19 [facility] - LAB PAGE 2 RUN TIME: 1320 Specimen Inquiry RUN USER: INTERFACE SPEC #: [facility]:[id number] PATIENT: EDNA LAWS #[id number] (Continued) GROSS DESCRIPTION (Continued) Grossing performed at [facility] Pathology, [address] [place] [address], [address], [place] [address]. Lining Vamper: Mark Mejia M.D. MICROSCOPIC DESCRIPTION Gallbladder. Sections of gastric gallbladder with associated mucosa. The mucosa demonstratesacute and chronic inflammation. Inflammation involves the muscular wall. The muscular wall is slightly thickened with areas of hemorrhage. No dysplasia or malignancy is identified. Signed SIGNATURE ON FILE Moustapha Hamm 07/03/19 1320 END OF REPORT GLUCOSE BEDSIDE [id number] 14:29:00 Test Item Value Reference Range Interpretation Comments GLUCOSE BEDSIDE TESTING (test code 174 mg/dL 70-110 H = GLUBED) GLUCOSE BEDSIDE [id number] 07:50:00 Test Item Value Reference Range Interpretation Comments GLUCOSE BEDSIDE TESTING (test code 105 mg/dL 70-110 N = GLUBED) GLUCOSE BEDSIDE [id number] 12:08:00 Test Item Value Reference Range Interpretation Comments GLUCOSE BEDSIDE TESTING (test code 121 mg/dL 70-110 H = GLUBED) GLUCOSE BEDSIDE [id number] 07:52:00 Test Item Value Reference Range Interpretation Comments GLUCOSE BEDSIDE TESTING (test code 104 mg/dL 70-110 N = GLUBED) GLUCOSE BEDSIDE [id number] 20:18:00 Test Item Value Reference Range Interpretation Comments GLUCOSE BEDSIDE TESTING (test code 127 mg/dL 70-110 H = GLUBED) GLUCOSE BEDSIDE [id number] 16:39:00 Test Item Value Reference Range Interpretation Comments GLUCOSE BEDSIDE TESTING (test code = 87 mg/dL 70-110 N GLUBED) GLUCOSE BEDSIDE [id number] 12:16:00 Test Item Value Reference Range Interpretation Comments GLUCOSE BEDSIDE TESTING (test code 114 mg/dL 70-110 H = GLUBED) BASIC METABOLIC [id number] 08:07:00 Test Item Value Reference Range Interpretation Comments SODIUM (test code = NA) 138 mmol/L 134-147 N POTASSIUM (test code = 4.0 mmol/L 3.4-5.0 N K) CHLORIDE (test code = 107 mmol/L 100-108 N CL) CARBON DIOXIDE (test 27 mmol/L 21-32 N code = CO2) ANION GAP (test code = 4.0 GAP calc 4.0-15.0 N GAP) GLUCOSE (test code = 112 MG/DL 70-110 H GLU) BLOOD UREA NITROGEN 13 MG/DL 7-18 N (test code = BUN) GLOMERULAR FILTRATION >=60 max estimate >60 RATE (test code = GFR) estGFR CREATININE (test code = 0.8 MG/DL 0.8-1.3 N CREAT) CALCIUM (test code = CA) 8.9 MG/DL 8.5-10.1 N [id number] 08:07:00 Test Item Value Reference Range Interpretation Comments LIPASE (test code = LIP) 76 Unit/L 114-286 L CBC W/AUTO [id number] 07:41:00 Test Item Value Reference Range Interpretation Comments WHITE BLOOD CELL (test code = 6.7 K/mm3 3.5-11.0 N WBC) RED BLOOD CELL (test code = RBC) 3.57 M/mm3 4.70-6.10 L HEMOGLOBIN (test code = HGB) 10.9 G/DL 12.3-15.9 L HEMATOCRIT (test code = HCT) 31.5 % 35.8-46.7 L MEAN CELL VOLUME (test code = 88.2 Fl 86.3-98.9 N MCV) MEAN CELL HGB (test code = MCH) 30.5 pg 28.9-34.4 N MEAN CELL HGB CONCETRATION (test 34.6 G/DL 32.1-34.5 H code = MCHC) RED CELL DISTRIBUTION WIDTH (test 14.2 SD 11.5-14.5 N code = RDW) PLATELET COUNT (test code = PLT) 270.0 K/mm3 150-450 N MEAN PLATELET VOLUME (test code = 8.50 fL 7.0-9.6 N MPV) NEUTROPHIL % (test code = NT%) 62.3 % 40-76 N LYMPHOCYTE % (test code = LY%) 20.4 % 20.5-51.1 L MONOCYTE % (test code = MO%) 8.8 % 1.7-9.3 N EOSINOPHIL % (test code = EO%) 8.4 % 0.0-6.0 H BASOPHIL % (test code = BA%) 0.1 % 0.0-2.0 N NEUTROPHIL # (test code = NT#) 4.17 K/mm3 1.8-7.6 N LYMPHOCYTE # (test code = LY#) 1.4 K/mm3 0.6-3.0 N MONOCYTE # (test code = MO#) 0.6 K/mm3 0.2-1.5 N EOSINOPHIL # (test code = EO#) 0.6 K/mm3 0.0-0.4 H BASOPHIL # (test code = BA#) 0.0 K/mm3 0.0-0.2 N MANUAL DIFF REQUIRED (test code = NO DIFF/SCN CRITERIA MDIFF) CBC W/AUTO [id number] 10:36:00 Test Item Value Reference Range Interpretation Comments WHITE BLOOD CELL (test code = 7.3 K/MM3 3.8-9.8 N WBC) RED BLOOD CELL (test code = 4.09 M/MM3 3.95-5.67 N RBC) HEMOGLOBIN (test code = HGB) 12.0 G/DL 12.4-16.7 L HEMATOCRIT (test code = HCT) 36.5 % 35.9-49.5 MEAN CELL VOLUME (test code = 89 fL 81.7-96.1 N MCV) MEAN CELL HGB (test code = MCH) 29.3 pg 27.6-33.2 N MEAN CELL HGB CONCETRATION 32.9 % 32.9-35.5 N (test code = MCHC) RED CELL DISTRIBUTION WIDTH 13.4 % 12.1-15.2 N (test code = RDW) PLATELET COUNT (test code = 230 K/MM3 129-368 N PLT) MEAN PLATELET VOLUME (test code 9.3 fl 7.4-10.4 N = MPV) NEUTROPHIL % (test code = NT%) 62.2 % 43-75 N IMMATURE GRANULOCYTE % (test 0.3 % 0.0-2.0 N code = IG%) LYMPHOCYTE % (test code = LY%) 24.6 % 14-44 N MONOCYTE % (test code = MO%) 9.3 % 4-13 N EOSINOPHIL % (test code = EO%) 3.2 % 0-6 N BASOPHIL % (test code = BA%) 0.4 % 0-2 N NUCLEATED RBC % (test code = 0.0 % 0-1.0 N NRBC%) NEUTROPHIL # (test code = NT#) 4.53 K/mm3 2.0-7.6 N IMMATURE GRANULOCYTE # (test 0.02 x10 3/uL 0-0.03 N code = IG#) LYMPHOCYTE # (test code = LY#) 1.79 K/mm3 1.0-3.8 N MONOCYTE # (test code = MO#) 0.68 K/mm3 0.1-0.8 N EOSINOPHIL # (test code = EO#) 0.23 K/mm3 0.0-0.2 H BASOPHIL # (test code = BA#) 0.03 K/mm3 0.0-0.2 N NUCLEATED RBC # (test code = 0.00 K/mm3 0.0-0.1 N NRBC#) GLUCOSE BEDSIDE [id number] 06:25:00 Test Item Value Reference Range Interpretation Comments GLUCOSE BEDSIDE TESTING (test code = 81 MG/DL 60-99 N GLUBED) BASIC METABOLIC [id number] 05:21:00 Test Item Value Reference Range Interpretation Comments SODIUM (test code = 135 MMOL/L 137-145 L NA) POTASSIUM (test code = 4.6 MMOL/L 3.5-5.1 N K) CHLORIDE (test code = 104 MMOL/L 98-107 N CL) CARBON DIOXIDE (test 22 MMOL/L 22-30 N code = CO2) ANION GAP (test code = 14 MMOL/L 14-24 N GAP) GLUCOSE (test code = 103 MG/DL 74-106 GLU) BLOOD UREA NITROGEN 21 MG/DL 9-20 H (test code = BUN) GLOMERULAR FILTRATION > 60 Report ing units: RATE (test code = GFR) ml/mi n/1.73 m2 (Modified MDRD Formula)Referen ce Range: > or = 6 0 ml/min/1.73 m2 CREATININE (test code 0.90 MG/DL 0.66-1.25 N = CREAT) CALCIUM (test code = 8.8 MG/DL 8.4-10.2 N CA) GLUCOSE BEDSIDE [id number] 16:56:00 Test Item Value Reference Range Interpretation Comments GLUCOSE BEDSIDE TESTING (test code 169 MG/DL 60-99 H = GLUBED) [id number] 13:33:00 Test Item Value Reference Range Interpretation Comments ACT-ISTAT (test code = ACTI) 334 SEC 74-137 H BASIC METABOLIC [id number] 06:34:00 Test Item Value Reference Range Interpretation Comments SODIUM (test code = 137 MMOL/L 137-145 N NA) POTASSIUM (test code = 4.4 MMOL/L 3.5-5.1 N K) CHLORIDE (test code = 101 MMOL/L 98-107 N CL) CARBON DIOXIDE (test 26 MMOL/L 22-30 N code = CO2) GLUCOSE (test code = 123 MG/DL 74-106 H GLU) BLOOD UREA NITROGEN 15 MG/DL 9-20 N (test code = BUN) GLOMERULAR FILTRATION > 60 Report ing units: RATE (test code = GFR) ml/mi n/1.73 m2 (Modified MDRD Formula)Referen ce Range: > or = 6 0 ml/min/1.73 m2 CREATININE (test code 0.90 MG/DL 0.66-1.25 N = CREAT) CALCIUM (test code = 9.7 MG/DL 8.4-10.2 N CA) LIPID PROFILE (CORONARY RISK)2018-06-23 06:34:00 Test Item Value Reference Range Interpretation Comments TRIGLYCERIDES (test 117 MG/DL TRIGLYCE RIDES code = TRIG) REFERENCE RANGE:Normal: < 150 mg/dLBorderline High: 150-199 mg/dLHi gh: 200-499 mg/dLVe ry High: >=500 mg/ dL CHOLESTEROL (test code 144 MG/DL <200 = CHOL) HDL CHOLESTEROL (test 49 MG/DL 40-59 N code = HDL) LIPOPROTEIN LDL (test 93 MG/DL 0-99 N OPTIM AL.........<100 code = LDL) mg/dLNEAR OPTIMAL/ABOVE OPTIMAL........ .100-12 9 mg/dL BORDER LINE HIGH.........13 0-159 mg/dL HIGH.........16 0-189 mg/dL VERY HIGH.........>/ = 190 mg/dL [id number] 06:34:00 Test Item Value Reference Range Interpretation Comments MAGNESIUM (test code = MAG) 2.4 MG/DL 1.6-2.3 H PROTHROMBIN [id number] 06:29:00 Test Item Value Reference Range Interpretation Comments PROTHROMBIN TIME 11.0 SECONDS 9.6-11.6 N PATIENT (test code = PTP) INTERNATIONAL NORMAL 1.0 0.8-1.1 N The INR is to be RATIO (test code = used only for INR) monitoring oral anticoagulantth erap y. INDICATION I NR VALUE ---- ---- ---- -------1. Prophylaxis, de ep venous thrombos is, including high risk surgery. 2.0 - 3.0 2. Prophylaxis, deep venous thrombosis, hip surgery, treatm ent for deep venous thrombosis or pulmonary prevention of systemic emboli sm in patients wit h valvular heart disease, atrial fibrillation, tissue heart va lve, or acute myocar dial infarction. 2.0 - 3.0 3. Deicer Tester al prosthesis hear t valves, recurre nt systemic emboli sm. 3.0 - 4.5 Comments to Chicken Sexer: WILL BRING TO LABPTT [id number] 06:29:00 Test Item Value Reference Range Interpretation Comments PTT ACTIVATED (test code = APTT) 32.0 SECONDS 22.0-33.0 N Comments to Chicken Sexer: WILL BRING TO LABBASIC METABOLIC [id number] 06:23:00 Test Item Value Reference Range Interpretation Comments SODIUM (test code = 137 MMOL/L 137-145 N NA) POTASSIUM (test code = 4.4 MMOL/L 3.5-5.1 N K) CHLORIDE (test code = 101 MMOL/L 98-107 N CL) CARBON DIOXIDE (test 26 MMOL/L 22-30 N code = CO2) GLUCOSE (test code = 123 MG/DL 74-106 H GLU) BLOOD UREA NITROGEN 15 MG/DL 9-20 N (test code = BUN) GLOMERULAR FILTRATION > 60 Report ing units: RATE (test code = GFR) ml/mi n/1.73 m2 (Modified MDRD Formula)Referen ce Range: > or = 6 0 ml/min/1.73 m2 CREATININE (test code 0.90 MG/DL 0.66-1.25 N = CREAT) CALCIUM (test code = 9.7 MG/DL 8.4-10.2 N CA) LIPID PROFILE (CORONARY RISK)2018-06-23 06:23:00 Test Item Value Reference Range Interpretation Comments TRIGLYCERIDES (test 117 MG/DL TRIGLYCE RIDES code = TRIG) REFERENCE RANGE:Normal: < 150 mg/dLBorderline High: 150-199 mg/dLHi gh: 200-499 mg/dLVe ry High: >=500 mg/ dL CHOLESTEROL (test code 144 MG/DL <200 = CHOL) HDL CHOLESTEROL (test 49 MG/DL 40-59 N code = HDL) LIPOPROTEIN LDL (test MG/DL 0-99 code = LDL) [id number] 06:23:00 Test Item Value Reference Range Interpretation Comments MAGNESIUM (test code = MAG) 2.4 MG/DL 1.6-2.3 H CBC W/AUTO [id number] 06:11:00 Test Item Value Reference Range Interpretation Comments WHITE BLOOD CELL (test code = 7.5 K/MM3 3.8-9.8 N WBC) RED BLOOD CELL (test code = 4.78 M/MM3 3.95-5.67 N RBC) HEMOGLOBIN (test code = HGB) 14.1 G/DL 12.4-16.7 N HEMATOCRIT (test code = HCT) 41.8 % 35.9-49.5 N MEAN CELL VOLUME (test code = 87 fL 81.7-96.1 N MCV) MEAN CELL HGB (test code = MCH) 29.5 pg 27.6-33.2 N MEAN CELL HGB CONCETRATION 33.7 % 32.9-35.5 N (test code = MCHC) RED CELL DISTRIBUTION WIDTH 13.2 % 12.1-15.2 N (test code = RDW) PLATELET COUNT (test code = 265 K/MM3 129-368 N PLT) MEAN PLATELET VOLUME (test code 8.7 fl 7.4-10.4 N = MPV) NEUTROPHIL % (test code = NT%) 66.2 % 43-75 N IMMATURE GRANULOCYTE % (test 0.7 % 0.0-2.0 N code = IG%) LYMPHOCYTE % (test code = LY%) 20.6 % 14-44 N MONOCYTE % (test code = MO%) 7.3 % 4-13 N EOSINOPHIL % (test code = EO%) 4.5 % 0-6 N BASOPHIL % (test code = BA%) 0.7 % 0-2 N NUCLEATED RBC % (test code = 0.0 % 0-1.0 N NRBC%) NEUTROPHIL # (test code = NT#) 4.99 K/mm3 2.0-7.6 N IMMATURE GRANULOCYTE # (test 0.05 x10 3/uL 0-0.03 H code = IG#) LYMPHOCYTE # (test code = LY#) 1.55 K/mm3 1.0-3.8 N MONOCYTE # (test code = MO#) 0.55 K/mm3 0.1-0.8 N EOSINOPHIL # (test code = EO#) 0.34 K/mm3 0.0-0.2 H BASOPHIL # (test code = BA#) 0.05 K/mm3 0.0-0.2 N NUCLEATED RBC # (test code = 0.00 K/mm3 0.0-0.1 N NRBC#) Notes Date/Time Note Provider Source 2020-01-07 09:46:00-00:00 [facility] Clinical Note REPORT#:[id number] REPORT STATUS: Signed DATE:01/07/20 TIME: 945 PATIENT: EDNA LAWS UNIT #: [id number] ROOM/BED: [address] : 63 AGE: 54 SEX: M ATTEND: Anton Birch MD ADM AUTHOR: Rufus Courtney MD * ALL edits or amendments must be made on the [employer]/computer document * Clinical Note Note: [facility] Rfuus melissa M.D. (cell text [phone]) Assessment/Plan 1.) Anemia of acute blood loss- .Hgb 12.2, asymp tomatic. 2.) S/p Left Calcaneal osteotomy Tendon repair a nd transfer- .acute pain control. Anticoagulation as per Dr. Birch. PT t o see how he can walk. Lives alone. Nephew to stay tonight. 3.) Hypertension CAD- .follow BP and hold Rxs if SBP<120. Stable. 4.) Diabetes-2 GERD OsteoArt hritis Hyperlipidemia R nephrectomy status for prior renal Ca- .continue on Rx. Prior Events/Overnight: Uneventful. Chief Complaint: No significant complaints. Objective Vital Signs Date Temp Pulse Resp B/P B/P Mean Pulse Ox FiO2 01/05-01/06 96.8-98.1 60-105 12-18 100-152/58-92 83.3-111.7 94-100 32 Gen: Alert, oriented, in mild discomfort - has n ot ambulated to bathroom. Neck: No Masses, No Thyromegaly- CV: Regular Rate Rhythm / Edema- no significant Resp: Clear To Ascultation / Normal Respiratory Effort ABD: NonTender / NonDistended MS/Skin: No sign of compartment syndrome / +toes DF/PF / nl capillary refill of toes Other: splint on foot Labs/X-ray: Laboratory Tests: 01/06 01/06 01/05 01/05 0516 0300 2002 1558 Chemistry Sodium (136 - 145 mmol/L) 137 Potassium (3.5 - 5.1 mmol/L) 4.4 Chloride (98 - 107 mmol/L) 99.0 Carbon Dioxide (21 - 32 mmol/L) 28.3 BUN (7 - 18 mg/dL) 19 H Creatinine (0.55 - 1.30 mg/dL) 1.26 Glomerular Filtr Rate (>60) 59.2 Glucose (70 - 110 mg/dL) 116 H POC Glucose (60 - 125 mg/dL) 119 125 169 H Calcium (8.2 - 10.1 mg/dL) 8.8 Hematology WBC (5.7 - 10.5 K/mm3) 12.3 H RBC (4.2 - 5.4 M/mm3) 4.27 Hgb (12 - 16 g/dL) 12.2 Hct (37 - 47 %) 36.2 L MCV (80 - 98 fL) 85 MCH (27 - 34 pg) 28.6 MCHC (30.8 - 34.1 g/dL) 33.7 RDW (11 - 16 %) 13.5 Plt Count (130 - 400 K/mm3) 238 MPV (8.9 - 12.1 fL) 9.5 Neut % (Auto) (45 - 70 %) 81.8 H Lymph % (Auto) (20 - 40 %) 10.1 L Carroll % (Auto) (3 - 10 %) 7.4 Eos % (Auto) (1 - 5 %) 0.1 L Baso % (Auto) (0.0 - 1.1 %) 0.2 Neut # (Auto) (2.00 - 7.50 K/mm3) 10.07 H Lymph # (Auto) (1.50 - 4.00 K/mm3) 1.24 L Carroll # (Auto) (0.2 - 0.8 K/mm3) 0.91 H Eos # (Auto) (0.04 - 0.4 K/mm3) 0.01 L Baso # (Auto) (0.02 - 0.10 K/mm3) 0.02 Add Manual Diff (MANUAL DIFF) NO Nucleated RBC % (0 - 0 %) 0 Rufus Mccarty M.D. at 1059 RPT #:[id number] END OF REPORT 2020-01-07 07:09:00-00:00 [facility] Pain Management Progress Note REPORT#:[id number] REPORT STATUS: Signed DATE:01/07/20 TIME: 708 PATIENT: EDNA LAWS UNIT #: [id number] ROOM/BED: [address] : 63 AGE: 54 SEX: M ATTEND: Anton Birch MD ADM AUTHOR: Charmaine Bales CERTIFIED NURSE PRACTITIONER * ALL edits or amendments must be made on the [employer] document * Subjective Chief Complaint: L FOOT PAIN S/P CALCANEAL OSTEOTOMY, TENDON REPA IR Comments: Last Documented: Result Date Time Pulse Ox 95 01/06 234 FiO2 32 01/06 234 O2 Delivery Nasal cannula 01/06 234 O2 Flow Rate 3 01/06 234 B/P 120/65 01/06 229 B/P Mean 83.3 01/06 229 Temp 36.2 01/06 229 Pulse 80 01/06 229 Resp 16 01/06 229 History: PMH: HTN, NIDDM, CAD-STENTS x 2, GERD, R NEPHRE CTOMY POD: 1 APMS RN: Lissy WING RN Medication: DILAUDID Pump settings: BASAL RATE: O DOSE: 0.2MG DELAY: 8 MIN 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 PT TALKATIVE. Plan: TEXTILES PRINTER TO BE DC'D BY FLOOR NURSE THIS AM PT TO TRANSITION TO ORAL PAIN MEDS ANTICIPATE D/C HOME TODAY. at 0710 RPT #:[id number] END OF REPORT 2020-01-07 07:09:00-00:00 [facility] Pain Management Progress Note REPORT#:[id number] REPORT STATUS: Signed DATE:01/07/20 TIME: 708 PATIENT: EDNA LAWS UNIT #: [id number] ROOM/BED: [address] : 63 AGE: 54 SEX: M ATTEND: Anton Birch MD ADM AUTHOR: Charmaine Bales NP * ALL edits or amendments must be made on the [employer]/computer document * Subjective Chief Complaint: L FOOT PAIN S/P CALCANEAL OSTEOTOMY, TENDON REPA IR Comments: Last Documented: Result Date Time Pulse Ox 95 01/06 234 FiO2 32 01/06 234 O2 Delivery Nasal cannula 01/06 234 O2 Flow Rate 3 01/06 234 B/P 120/65 01/06 229 B/P Mean 83.3 01/06 229 Temp 36.2 01/06 229 Pulse 80 01/06 229 Resp 16 01/06 229 History: PMH: HTN, NIDDM, CAD-STENTS x 2, GERD, R NEPHRE CTOMY POD: 1 APMS RN: Lissy WING RN Medication: DILAUDID Pump settings: BASAL RATE: O DOSE: 0.2MG DELAY : 8 MIN 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 PT TALKATIVE. Plan: TEXTILES PRINTER TO BE DC'D BY FLOOR NURSE THIS AM PT TO TRANSITION TO ORAL PAIN MEDS ANTICIPATE D/C HOME TODAY. at 0710 at 0920 RPT #:[id number] END OF REPORT 2020-01-07 06:32:00-00:00 [facility] Clinical Note REPORT#:[id number] REPORT STATUS: Signed DATE:01/07/20 TIME: 06 PATIENT: EDNA LAWS UNIT #: [id number] [facility] AGE: 54 SEX: M ATTEND: Anton Birch MD ADM AUTHOR: Rolo Birch MD * ALL edits or amendments must be made on the [employer] document * Clinical Note Note: pain under control afebrile VSS LLE--splint intact, +DF/PF toes, LT intact, good cap refill in toes plan--d/c home Electronically Signed by Rolo Birch MD on at 0633 RPT #:[id number] END OF REPORT 2020-01-06 18:48:00-00:00 [facility] Clinical Note REPORT#:[id number] REPORT STATUS: Signed DATE:01/06/20 TIME: 1847 PATIENT: EDNA LAWS UNIT #: [id number] ROOM/BED: [address] : 63 AGE: 54 SEX: M ATTEND: Anton Birch MD ADM AUTHOR: Rufus Courtney MD * ALL edits or amendments must be made on the [employer] document * Clinical Note Note: [facility] Rufus melissa MD (cell text [phone]) Internal Medicine Consult at request of : Dr Shady Birch Chief Complaint: left foot pain HPI: 54 yo M is now s/p Left calcaneal osteotomy , peroneal tendon repair of posterior-tibialis tenolysis, flexor dig itorium londus transfer by Dr. Birch. Comorbidities: see below. PmHx: .CAD (stents x 2 in 03/2018, 06/2018), Type 2 diabetes, hypertension, hyperlipidemia, GERD, right renal cell carcinoma stage 3 (right partial nephrectomy) ALLERGY: Allergies: No Known Allergies (Coded, 06/27/19) Home Medications: Home Medications: metFORMIN XR (GLUCOPHAGE XR) 750 MG PO BID TICAGRELOR (BRILINTA) 90 MG PO BID PRAVASTATIN (PRAVACHOL) 80 MG PO BEDTIME GABAPENTIN (NEURONTIN) 300 MG PO BEDTIME IBUPROFEN (ADVIL) 400 MG PO Q6H PRN PRN PAIN ASPIRIN EC (ECOTRIN) 81 MG PO DAILY CARVEDILOL (COREG) 3.125 MG PO BID OMEPRAZOLE ER (PriLOSEC) 40 MG PO DAILY HYDROcodone/APAP (NORCO 5/325) 1 TAB PO Q4H PRN PRN pain SgHx: . Cholecystectomy, partial nephrectomy SHx: Tob: none FHx: .No significant hx of DVT/PE . Alcohol: none Drugs: none Lives: alone ROS: [X] all systems reviewed and negative excep t- [ ] Con: . Fever/ Wt loss [ ] CV: cpain/edema. [ ] Pul: . cough/SOB [ ] GI: hematemesis/diarrhe a [ ] : . dysuria or hematuria [X] MS: knee pain [ ] Neuro: . headache/loss sensation [ ] Heme: . adenopathy/Ecchymosis Vitals: Vital Signs Date Temp Pulse Resp B/P B/P Mean Pulse Ox FiO2 10/05 96.8-98.1 60-89 12-18 100-152/58-92 108.4 -111.7 98-100 32 Gen: Groggy, in mild discomfort, nl nutrition. EYE: Nl lids conjunctiva. ENT: Nl ears Nose, nl lips,. Neck: Supple, nl thyroid, No masses. CV: Regular Rate Rhythm, no heave or significan t murmur. Edema- none Feet toes normal temperature. RESP: Clear to Auscultation, normal Respiratory effort. ABD: Soft, NonDistended,. LYM: No significant cervical Lymphadenopathy. MS: No sign of compartment syndrome, distal foot is wrapped, NEURO: Nonfocal, grossly normal sensation of LE, +toes (slight) DF/PF, pink and warm . Preop Labs (01/01/20): CBC:. Hgb 12.8, Plt 235, CHEM: Na 138, K 4.6, Cr 1.04 (eGFR 73.9%) (medium to high risk of complications or morbidi ty) (major surgery) (IV sedative, meds) Assessment Plan 1.) Anemia of Acute Blood Loss- .will recheck to barbara. 2.) S/p Left Calcaneal osteotomy Tendon repair a nd transfer- .acute pain control. Anticoagulation as per Dr. Birch. 3.) Hypertension CAD- .follow BP and hold Rxs if SBP<120. Stable. 4.) Diabetes-2 GERD OsteoArt hritis Hyperlipidemia R nephrectomy status for prior renal Ca- .continue on Rx. Rufus Mccarty M.D. Thanks! at 2157 RPT #:[id number] END OF REPORT 2020-01-06 10:38:00-00:00 [id number] [place] [address] PATIENT NAME: EDNA LAWS ADMIT DATE: 0 ACCOUNT NO: [id number] ROOM NO: Y.O20 AGE: 54 REPORT TYPE: OPERATIVE REPORT SEX: M ADMITTING PHYSICIAN:Rolo Birch MD ATTENDING PHYSICIAN:Rolo Birch MD OPERATION DATE: 01/06/2020 PREOPERATIVE DIAGNOSES: 1. 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 2. Left peroneal tendinopathy. POSTOPERATIVE DIAGNOSES: 1. 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 2. Left peroneal tendinopathy. PROCEDURES PERFORMED: 1. Left hindfoot reconstruction: a. Medial displacing calcaneal osteotomy. b. Posterior tibialis tenolysis. c. Flexor digitorum longus tendon transfer. d. Spring ligament repair/reconstruction. 2. Left peroneal tendon repair/tenodesis. SURGEON: Rolo Birch M.D. BUTTON BUTTONHOLE MARKER: Dr. Theresa De Dios. ANESTHESIA: General plus local. ESTIMATED BLOOD LOSS: Minimal. SPECIMENS: None. COMPLICATIONS: None. DISPOSITION: The patient was taken to recovery r oom in stable condition and admitted to the observation unit for continued c are. INDICATIONS FOR THE OPERATION: The patie nt is a 54-year-old gentleman with the aforementioned problems in his left hindfoot martínez t have become unresponsive to nonoperative management. He presents today elect ively for the aforementioned procedures and I verified the [facility] has submitted a letter of certification to the [facility] quali fying for the exemption for performing elective surgery during the COVID-19 pandemic. PATIENT NAME: EDNA LAWS 4052 DESCRIPTION OF PROCEDURE: After obtaining the pr oper informed consent and discussing risks and benefits of surgery, the pa tient was given preoperative antibiotics in the holding area. The cor rect leg was identified and signed. He was taken to the operating r oom and was placed on the operating table in supine position. He was placed under general anesthesia by the anesthesiologist without any complications. A tourniquet was plac ed onto his left thigh and a bump was placed under his left hip. His left low er extremity was then prepped and draped in a sterile fashion. The leg was benjy vated, exsanguinated with an Esmarch, and the tourniquet was inflated to 300 mmHg. We then made a curvilinear lateral hindfoot incision from the retrofibular groove region across the calcaneal tuberosity. Careful attent ion was made to protect any identified branches of the sural nerve. The peronea l tendons were then exposed. There was significant flattening of the peroneus brevis wi th a low lying muscle belly, which was removed. There was also a peroneus melanie rtus, which was excised. We then performed a tenodesis of the peroneus brevi s to the peroneus longus with 2-0 PDS suture. Next, a medial displacing calcan eal osteotomy was then performed with a sagittal sa w, translating the tuberosity medially approximately 8 to 10 mm. The osteotomy was stabilized with an Arthrex 7.0 mm headless screw placed through a small stab incision at the post erior heel under radiographic guidance with good fixation. The prominent later al wall was then smoothened with a reciprocating rasp. T hese wounds were then irrigated and closed in usual fashion making sure to close the superior perone al retinaculum. The bump was then removed in order to allow the leg to senior support analyst ally rotate. An incision was then made from the medial malleolus just past th e navicular. Full-thickness flaps were created. The dise ased posterior tibialis tendon was then observed at the insertion site. This was taken down off the navicular and released near the medial malleolus. A healthy flexor digitorum samuel philly tendon was then harvested near the knot of Ryan. A whipstitch was placed onto this tendon. We then placed an Arthrex internal b race into the sustentaculum lara under radiographic guidance. The attenuated spring ligament was the n repaired with 0 Ethibond suture in a [id number] fashion. A drill hol e was placed into the medial aspect of the navicular. One limb of the internal brace was placed from dorsal to plantar. The other limb was brought out from plantar to dorsal with the flexor digitorum longus tendon. These structures were then tensioned appropriately and stabilized in the tunnel with a tenodesis screw with good fixation. The wound was then irrigated and close d in the usual fashion in layers. The wounds were infiltrated with 30 mL of 0.5% Marcaine plain and then sterilely dressed. He was pl aced into a well-padded posterior splint in gravity equinus. The tourniquet was let down and the toe s were well perfused at that time. The patient tolerated procedure well. He a woke from general anesthesia without any complications. He was placed on his hospital bed, taken to the recovery room in stable condition where he will be admitted to the observation unit for continued care. Dictated By: Rolo Birch MD WT: OP:JIM/HEMANT/BAILEY Conf#: [id number]/DID#: [id number] Authenticated and Edited by Rolo Birch MD O n 01/07/20 6:38:49 AM PATIENT NAME: EDNA LAWS 4052 Electronically Signed by Rolo Birch MD on at 0642 PATIENT NAME: EDNA LAWS 4052 2020-01-06 08:42:00-00:00 [facility] Brief Op Note REPORT#:[id number] REPORT STATUS: Signed DATE:01/06/20 TIME: 08 PATIENT: EDNA LAWS UNIT #: [id number] ROOM/BED: : 61 AGE: 54 SEX: M ATTEND: Anton Birch MD ADM AUTHOR: Rolo Birch MD * ALL edits or amendments must be made on the el [employer]/computer document * Op/Inv Proc Note - Brief Pre-procedure diagnosis: left PTTD left peroneal tendinopathy Post-procedure diagnosis: same as pre procedure dx Procedures performed: left hindfoot reconstruction left peroneal tendon repair Primary Surgeon: Eyal Assembler Production Line(s): [employer] Findings: left PTTD left peroneal tendinopathy Complications: none Estimated blood loss in ml's: 35 Specimens removed/altered: none Electronically Signed by Rolo Birch MD on at 1024 RPT #:[id number] END OF REPORT 2019-09-06 22:20:22-00:00 SRIDHAR GUTIERRES [facility] OPERATIVE/PROCEDURE REPORT EDNA LAWS FACILITY: [facility] Billing #: [id number] Room: [address] [place] [address] MR #: [id number] : 1965 DATE OF PROCEDURE: 09/06/2019 SURGEON: Sridhar Gutierres MD PREOPERATIVE DIAGNOSIS: Right renal mass. POSTOPERATIVE DIAGNOSIS: Right renal mass. OPERATIVE PROCEDURES: Right robotic-assisted lap aroscopic partial nephrectomy with intraoperative ultrasou nd. BUTTON BUTTONHOLE MARKER: Anthony Mason RES ANESTHESIA: General. DRAINS: A 19-Dominican round Rodrigo-Carson drain an d a 16-Dominican Ch catheter. BLOOD LOSS: 150 mL. COMPLICATIONS: None. NEPHROMETRY SCORE: 2+ 3+ 3+T+1 Gerota's fat mode rately adherent. SPECIMENS: 1. Right renal mass. 2. Fat overlying tumor. 3. Base of tumor biopsy. FINDINGS: 1. Early branching right renal artery. 2. 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 3. Mostly endophytic lateral upper pole posterio r renal mass abutting the upper pole calyx and renal sinus fa t. DESCRIPTION OF PROCEDURE: Mr. Laws is a 54-ye ar-old gentleman, who was referred to me by my partner for incidentally detected right renal mass. He also had gallstones and was undergoing a cholecystectomy recently. H e has fully recovered from that and after informed consent, wished to proceed with a partial nephrectomy for managemen t of a small enhancing renal mass. The patient was identified in the preoperative [facility] area and in the operating room, both verbally and by tavia zheng. Informed consent had been obtained and the patie nt was brought to the operating room, placed in the supine posi tion where appropriate anesthesia was induced. A Ch cath eter was then placed by the nursing staff and he was then plac ed in the modified flank position with his right side supp orted on gel roll and his right arm cradled in pink foam. He was secured to the table about the hips, legs, and shoulders to avoid shifting during the procedure. His abdomen was prepped an d draped in the usual sterile fashion. We began the procedure with a Veress needle in t he right lower quadrant and inflated to a pressure of 15 mmHg. We then selected four robotic trocar sites spreading fro m about 2 fingerbreadths below the costal margin in the mi dclavicular line and four fingerbreadths in between each spa nning down in a semicircular fashion towards the anterior superi or iliac spine. We then placed a 12 mm AirSeal port in the uppe r midline, which would later be our extraction port as well as a 5 mm therapy assistant port in the umbilicus. This was at the location of a previous cholecystectomy port. We placed an marlo tional 5 mm liver retractor port just to the left of the upp er midline. All port sites were placed under direct vision a nd the initial port was placed with the OptiView device and the re was no injury noted during access and the Veress needle was removed. We then fully rotated the table and docked the X i da Kaia surgical system. A white line of Toldt was incis ed and the colon was reflected medially. The duodenum was i dentified and Kocherized to expose the anterior surface of the vena cava. It was during this process that we realized that th e gonadal vein was not inserting into the vena cava rather into the renal vein. We then established a plane in the lateral border of the vena cava and elevated the gonadal vein as well as the ureter and freed and took care posterior attachments to the psoas muscle. We marched and secured packets of lympha tic tissue as we approached the renal vein. Then, became clear that we would not have good access to the posterior aspect of the renal vein with the gonadal vein with this particular aberr ant insertion. We skeletonized and secured with a firing of the Endo-BRISEYDA stapler. This allowed us to place the kidney on more traction with our 4th robotic arm, which allowed exposure of the slightly cephalad renal artery. It was skeletoni zed for later clamping. Detailed review of his preoperative CT scan show ed an early branch of the renal artery. Indeed, we were able to identify this in the superior border of the renal vein. I t was skeletonized for later clamping. We then proceeded to perform a full mobilization of the kidney, given the location of the mass. A plane was deve loped between the upper medial aspect of the kidney and the ad renal gland that was carried down to the psoas muscle and th en out laterally to the sidewall. Then, all the lateral and most of the posterior attachments were secured down to t he level of the lower pole. This allowed the kidney to rotate me dially in the upper pole to rotate as well. We placed a vagina l packing behind the kidney to prop it up and into a more favorable view. We then unroofed the Gerota's fat to identify r enal capsule. We left fat over the tumor, but did send a sampl e of this separate for final pathology. We used a BK robotic ultrasound drop-in probe an d performed a diagnostic ultrasound. This demonstrated a mostl y endophytic renal mass, it abutted the upper pole collecting system and renal sinus. We marked out our planned resection . The patient had received Lasix and mannitol. We then clamped both artery branches aforementioned and the pat ent received ICG to confirm ischemia. With the pneumoperitone um turned up to 20, for that portion of the resection, we beg an a wedge resection of the mass. This was carried down thr ough the upper pole calyx and into the renal sinus fat in order to obtain good margins. We did send a biopsy for frozen section , which came back negative for tumor. We completed our resect ion and then performed our renorrhaphy in several layers. We closed the collecting system in a dedicated 3 -0 Vicryl layer to great effect. We then used two separate 3-0 V -Loc sutures to secure the corticomedullary junction for hemo stasis. There was an additional 3-0 Vicryl, which was used on a few large venous sinuses in the base of the defect. We the n unclamped for a total warm ischemia time of 36 minutes. Th is was due to the complexity of the resection as well a s the repair. This was also made more difficult by the slightl y posterior lateral upper position of the tumor. There was g reat hemostasis upon unclamping and only one addition al suture needed to be passed, 3-0 Vicryl, the base of the defect. We then performed our renorrhaphy with 2-0 Vicryl w [facility] Weck clips and buyer internship ties. We used a total of six to great affect. Tisseel was placed at the base of the defect and the tumor was placed in a 10 mm EndoCatch bag. The vaginal pac davi was removed and the additional Tisseel was placed in the hilar dissection area. The kidney was replaced in its normal anatomic position. The specimen was extracted th rough an extended AirSeal port and all port sites were lo oked out under direct vision and there was no bleeding noted. T his was only after 10 mL of Marcaine was placed in a tap bloc k configuration. The extraction site was closed wi th a 0 Vicryl in a continuous fashion. All port sites were microscopist iously irrigated and closed with a 4-0 Monocryl and sea led with Dermabond. It is important to note that the late ral inferior robotic trocar was used as a drain site and a 19 -Dominican round Rodrigo-Carson drain had been placed while we wer e still docked with the robot and sutured into position with a permanent suture. The patient was returned to the supine p osition, where he awoke from anesthesia without event. All need le counts and instrument counts were correct at the end of the case. I was present and performed all shetty aspects of the pro cedure. MAGDALENO/MODL /[id number] 2019-07-02 15:31:00-00:00 [facility] ([facility]) Post Anesthesia Evaluation REPORT#:[id number] REPORT STATUS: Signed DATE:07/02/19 TIME:1531 PATIENT: EDNA LAWS UNIT #: [id number] ROOM/BED: : 63 AGE: 54 SEX: M ATTEND: Seb Davis MD ADM AUTHOR: Faye Freeman MD * ALL edits or amendments must be made on the el [employer]/computer document * General Post-op: post surgery rounds Post Anesthesia Evaluation Anes. changes from pre-op eval ORM Surgeries: Surgery Date and Time: 07/02/2019929 Primary Procedure: LAPAROSCOPIC CHOLECYSTECTOMY Anesthetic: GETA Date: 07/02/19 Level of consciousness: pat ent awake, able to answer questions, participate in this eval. Neurological assessment: Neuromuscular block: resolved as expected Vital signs: Last Documented: Result Date Time Pulse Ox 98 07/01 1401 B/P 136/85 07/01 1401 O2 Delivery Room air 07/01 1401 Temp 36.2 07/01 1401 Pulse 68 07/01 1401 Resp 18 07/01 1401 O2 Flow Rate 10.501679 07/01 1300 Cardiovascular: CV system stable, vital signs st able Respiratory/Airway: respiratory system stable, m aintains without support Pain: adequately controlled, pain med. administe red Hydration: adequate Temp status: greater than 96.8F, normothermic Presence of N/V: yes (meds given) Anesthesia complications: no Other changes requiring f/u: none Conclusions: no apparent anes. issues, outpts ev al prior DC home Electronically Signed by Faye Freeman MD on 06/03 04/22 at 1531 RPT #: [id number] END OF REPORT 2019-07-02 13:04:00-00:00 [id number] [place] [address] PATIENT NAME: EDNA LAWS ADMIT DATE: 0 ACCOUNT NO: [id number] ROOM NO: AGE: 54 REPORT TYPE: OPERATIVE REPORT SEX: M ADMITTING PHYSICIAN: ATTENDING PHYSICIAN: Moraima Davis MD OPERATION DATE: 07/02/2019 PREOPERATIVE DIAGNOSIS: Acute cholecystitis. POSTOPERATIVE DIAGNOSIS: Acute cholecystitis. PROCEDURE: Laparoscopic cholecystectomy. SURGEON: Moraima Davis MD BUTTON BUTTONHOLE MARKER:MARTIN Kang ANESTHESIA: General endotracheal. ANESTHESIOLOGIST: Dr. Freeman. ESTIMATED BLOOD LOSS: Minimal. FLUID: 1400 mL of crystalloid. SPECIMEN: Gallbladder. COMPLICATIONS: None. INDICATIONS: The patient is a 54-year-old male who was admitted to [facility] a week ago with acute cholecystitis. The patient is on Brilinta and due to needing the medication to be held prior to surgery, he was discharged and told to hold the medications. He was scheduled for ou tpatient cholecystectomy upon completing 7 days of holding Brilinta. R isks and benefits of surgery have been explained to the patient. He understands the diagnosis and treatment plan. All of his questions have been answered. DESCRIPTION OF PROCEDURE: Th e patient was brought to the operating room, placed supine on the table. General endotracheal anesth esia was administered. The patient's abdomen was clippe d, prepped, and draped in the usual sterile fashion. A surgical time-out was performed. In the supra umbilical region, local was infiltrated. A 1-cm curvilinear incision was mad e at the site. Subcutaneous tissues were spread with a clamp. The fascia was identified and grasped with Marko. Two stay sutures of 0 Vicryl placed on e ither side of the midline. These sutures were elevated, midline fascial inc ision made. Digit was introduced into the abdominal cavity. There were no underlying adhesions. Next, Janee trocar was placed. Pneumoperitoneum was established to 15 mmHg. PATIENT NAME: EDNA LAWS 8821 Under laparoscopic visualization, additional por ts were placed. In the subxiphoid midline and in the right subcostal re gion, local was infiltrated. The local infiltration on the right subcostal re gion was at the anterior axillary and midclavicular lines. At these 3 sit es, skin incisions were made. On the right side of the abdomen, two 5-mm ports were placed. In the subxiphoid region, a 10-mm trocar were placed. T he patient was positioned in reverse Trendelenburg with a leftward tilt. The gallbladder was grasped and retracted cephalad over the liver downward later al to open the triangle of Calot. The cystic duct followed by cystic artery circumferentially dissected free of surrounding structures. Clips were place d twice proximally, twice distally on the cystic duct, which was transecte d. Cystic artery was clipped twice proximally, twice distally and transected. With hook cautery, the gallbladder was delivered off the liver bed. Onc e freed, it was placed within an EndoCatch. The specimen was drawn to the subx iphoid fascial incision. Liver bed was inspected. Bleeding points were ca uterized. The right upper quadrant and liver bed were irrigated with salin e. Saline was evacuated. The subxiphoid fascial incision was closed w ith 0 Vicryl introduced with a Lloyd- Hans closure device. Once this suture was pl aced, the suture was tied at this location. Pneumoperitoneum was released. Al l trocars were removed. The supraumbilical fascial incision was closed with 0 Vicryl in interrupted fashion. Skin closure was done with 4-0 Vicryl s ubcuticular stitch. Wounds were cleansed and sterile dressings applied. At the end of procedure, sponge, lap, instrument, and needle counts corre ct. Dictated By: Moraima Davis MD WT: OP:L.LYLE/MARIA DEL ROSARIO/BAILEY Conf#: [id number]/DID#: [id number] Authenticated and Edited by Moraima Davis MD On 07/10/19 8:46:56 AM at 0850 PATIENT NAME: EDNA LAWS [id number] 2019-07-02 12:46:00-00:00 [facility] ([facility]) Op/Inv Procedure Note - Brief REPORT#:[id number] REPORT STATUS: Signed DATE:07/02/19 TIME:1246 PATIENT: EDNA LAWS UNIT #: [id number] ROOM/BED: : 63 AGE: 54 SEX: M ATTEND: Seb Davis MD ADM AUTHOR: Moraima Davis MD * ALL edits or amendments must be made on the el [employer]/computer document * Op/Inv Proc Note - Brief TEXT Brief Op/Inv Procedure Note Note details: *PRE-PROCEDURE DIAGNOSIS: Acute cholecysitits *POST-PROCEDURE DIAGNOSIS: Same[] *PROCEDURE(S) PERFORMED: Laparoscopic cholecystectomy *PRIMARY SURGEON: Jordana Davis MD *BUTTON BUTTONHOLE MARKER(S): [] ANESTHETIC: GEA- Lydia *ESTIMATED BLOOD LOSS in ml's: minimal *SPECIMEN(S) REMOVED: gallbladder *COMPLICATIONS: None[] DRAIN(S): None[] TUBE(S): None[] IMPLANT(S): None[] FLUIDS: 1400 cc crystalloid URINE OUTPUT: [] *FINDINGS: cholecystitis DISPOSITION: To PACU[] Electronically Signed by Moraima Davis MD on 0 07/02/19 at 1249 RPT #: [id number] END OF REPORT 2019-06-24 13:51:00-00:00 [id number] [address] PATIENT NAME: EDNA LAWS ADMIT DATE: 0 ACCOUNT NO: [id number] ROOM NO: [facility] AGE: 54 REPORT TYPE: eECHOCARDIOGRAM REPORT SEX: M ADMITTING PHYSICIAN: Miguel Godfrey MD ATTENDING PHYSICIAN: Miguel Godfrey MD *[facility]* [address] [place] [id number] Transthoracic Echocardiogram Patient: Edna Laws Study Date: 06/24/2019 BP: 129 / 78 Location: [facility] URN: [id number] : 1965 Age: 54 Height: 67.7 in / 172 cm Gender: M Weight: 175 .6 lb / 79.8 kg BMI/BSA: 27 kg/m 2 / 1.93 m 2 *Ordering Physician: * Corine Vu MD *Interpreting Physician: * Corine Vu MD *Clinical Documentation Clerk: * Nisa Christine Indications: CAD, PTCA/STENT. Study data: Transthoracic echocardiogram. Proced ure: Transthoracic echocardiography was performed. Images were obta ined using a [employer] cardiac ultrasound machine. Image quality was fair. Comp lete 2D, complete spectral Doppler, and color Doppler. Location: [facility]. Patient status: Inpatient. Patient room number: 205. Wes dy status: Routine. Rhythm: Normal sinus rhythm. Findings Left ventricle: The cavity size is normal. Systo lic function is normal. The estimated ejection fraction is 55-59%. Wall motion is normal; there are no regional wall motion abnormalities. Doppl er parameters are consistent with abnormal left ventricular relaxa tion (grade 1 diastolic dysfunction). PATIENT NAME: EDNA LAWS 7172 Right ventricle: The cavity size is normal. Syst olic function is normal. Left atrium: The atrium is normal in size. Right atrium: The atrium is normal in size. Aorta: The aortic root is not dilated. Aortic valve: The leaflets are mildly thickened. There is no evidence of stenosis. There is no regurgitation. Mitral valve: The valve is structurally normal. There is trivial regurgitation. Tricuspid valve: The valve is structurally laura l. There is mild regurgitation. Pulmonic valve: Not well visualized. There is no regurgitation. Pericardium: There is no pericardial effusion. Pulmonary arteries: Systolic pressure is within the normal range. Measurements Left ventricle Value Ref RVOT Value Ref EL, LAX 3.9 cm 4.2 - 5.8 Peak v, S 0.79 m/sec --------- ESD, LAX 2.8 cm 2.5 - 4.0 Peak grad, S 2 mm Hg --------- ESD/bsa, LAX 1.5 cm/m 2 1.3 - 2.1 FS, LAX 28 % 25 - 43 Left atrium Value Ref PW, ED 0.8 cm 0.6 - 1.0 AP dim, ES MM 3.4 cm 3.0 - 4.0 IVS/PW, ED 0.99 --------- LA/Ao root ratio, MM 1.01 --------- EF 55 % 52 - 72 EL, MM 4.1 cm 4.2 - 5.8 Aortic valve Value Ref ESD, MM 3.0 cm 2.5 - 4.0 Leaflet sep, MM 1.94 cm --------- FS, MM 27 % 25 - 43 Peak v, S 1.7 m/sec --------- PW, ED MM 0.7 cm 0.6 - 1.0 Mean v, S 1.19 m/sec --------- PW, ES MM 1.2 cm --------- VTI, S 38.8 cm --------- PW/ID ratio, ED MM 0.16 --------- Mean grad, S 6.5 mm Hg --------- Mass/ht, MM 46 g/m 52 - 126 Peak grad, S 11.5 mm Hg --------- Mass/ht 2.7, MM 18 g/m 2.7 --------- LVOT/AV, V TI ratio 0.58 --------- EF, [facility] Teich. 53 % >=55 JESÚS, VTI 1.66 cm 2 --------- E', med emil, TDI 8.7 cm/sec >=7.0 LVOT/AV, Vpea k ratio 0.59 --------- E/e', med emil, TDI 8 --------- JESÚS, Vmax PATIENT NAME: EDNA LAWS 7172 1.71 cm 2 --------- LVOT Value Ref Mitral valve Value Ref Diam, S 1.92 cm --------- Peak E 0.68 m/sec --------- Area 2.9 cm 2 --------- Peak A 0.78 m/sec --------- Peak sharon, S 1 m/sec --------- Decel time 171 ms --------- Mean sharon, S 0.72 m/sec --------- Peak E/A ratio 0.87 --------- VTI, S 22.3 cm --------- Peak grad, S 4 mm Hg --------- Tricuspid valve Value Ref Mean grad, S 2 mm Hg --------- Peak E 0.54 m/sec --------- SV 64 ml --------- TR peak v 2.31 m/sec <=2.8 SV/bsa 33 ml/m 2 --------- Peak RV-RA grad, S 21 mm Hg --------- Ventricular septum Value Ref Aortic root Value Ref IVS, ED 0.8 cm 0.6 - 1.0 Root diam, ED MM 3.36 cm --------- IVS, ED MM 0.7 cm 0.6 - 1.0 IVS, ES MM 1.0 cm --------- Right ventricle Value Ref EL, LAX 2.7 cm --------- Conclusions Summary: Left ventricle: The cavity size is norm al. Systolic function is normal. The estimated ejection fraction is 55 -59%. Wall motion is normal; there are no regional wall motion abnorm alities. Doppler parameters are consistent with abnormal left maribeth tricular relaxation (grade 1 diastolic dysfunction). Prepared and el ectronically signed by Corine Vu MD 06/24/2019 13:51 at 1351 PATIENT NAME: EDNA LAWS [id number] 2019-06-24 12:15:00-00:00 [facility] ([facility]) Discharge Summary REPORT#:[id number] REPORT STATUS: Signed DATE:06/24/19 TIME:1215 PATIENT: EDNA LAWS UNIT #: [id number] ROOM/BED: [place] [address] : 63 AGE: 54 SEX: M ATTEND: Andrez Godfrey MD ADM AUTHOR: Miguel Godfrey MD * ALL edits or amendments must be made on the el ectronic/computer document * PCP PCP Discharge to: home General Information Date of admission: Observation Start Date: 06/23/19 Date of admission: 06/23/19 Date of discharge: 06/24/19 Admission diagnosis: abd pain Discharge diagnosis: Acute Choecystitis CAD with Stent DM2 HTN Dyslipidemia plan resumed home meds , surgery consult appreciated - recoomed out patient follow up and hold 7 days of brilinta will dc home on PO antibx Hospital course: Acute Choecystitis CAD with Stent DM2 HTN Dyslipidemia plan resumed home meds , surgery consult appreciated - recoomed out patient follow up and hold 7 days of brilinta will dc home on PO antibx Consultants: cardiology, surgery Pt. condition on discharge: improved, stable Med Rec Med Rec Discharge meds: Continue taking these medications: ASPIRIN EC (ECOTRIN) 81 MG TAB.EC 81 MILLIGRAM ORAL DAILY. metFORMIN XR (GLUCOPHAGE XR) 750 MG TAB.SR.24H 750 MILLIGRAM ORAL TWICE DAILY. Instructions: Resume on 06/26/2018 CARVEDILOL (COREG) 3.125 MG TAB 3.125 MILLIGRAM ORAL TWICE DAILY. OMEPRAZOLE ER (PriLOSEC) 40 MG CAP.DR 40 MILLIGRAM ORAL DAILY. RANITIDINE (ZANTAC) 150 MG TAB 150 MILLIGRAM ORAL DAILY. as needed for HEARTBU RN SIMETHICONE/SOD BICARB/CITRIC ACID (E-Z-GAS II E FFER GRANULES) 4 GM PACKET 1 PACKET ORAL DAILY. as needed for HEARTBURN TICAGRELOR (BRILINTA) 90 MG TAB 90 MILLIGRAM ORAL EVERY 12 HOURS. Qty = 60 PRAVASTATIN (PRAVACHOL) 40 MG TAB 80 MILLIGRAM ORAL DAILY. Qty = 30 Start taking the following new medications: CEFUROXIME AXETIL (CEFTIN) 500 MG TAB 500 MILLIGRAM ORAL TWICE DAILY. Qty = 10 No Refills metroNIDAZOLE (FLAGYL) 500 MG TAB 500 MILLIGRAM ORAL TWICE DAILY. Qty = 10 No Refills Objective VS/I O Last Documented: Result Date Time Pulse Ox 97 06/23 1133 B/P 124/79 06/23 1133 B/P Mean 93.9 06/23 1133 O2 Delivery Room air 06/23 1133 Temp 98.1 06/23 1133 Pulse 73 06/23 1133 Resp 16 06/23 1133 24 hour I O ending at 0700: 06/23 0700 06/22 1900 Intake Total Output Total Balance Number Voids 1 Output, Emesis Patient Weight Weight (lb): 176 Weight (oz): 5.92 Weight (kg): 80.000 General appearance: awake ENT: normal nose Cardiovascular: regular rate rhythm GI: soft Musculoskeletal: full range of motion Skin: dry Discharge Instructions Diet: cardiac Activity: as tolerated F/U labs/procedures/tests: pcp in 1 week, surgery in 1 week Prescriptions: on chart Discharge management: greater than 30 mins Electronically Signed by Miguel Godfrey MD on 0 06/24/19 at 1220 RPT #: [id number] END OF REPORT 2019-06-24 11:24:00-00:00 [facility] ([facility]) Cardiology Progress Note REPORT#:[id number] REPORT STATUS: Signed DATE:06/24/19 TIME:1124 PATIENT: EDNA LAWS UNIT #: [id number] ROOM/BED: [place] [address] : 63 AGE: 54 SEX: M ATTEND: Andrez Godfrey MD ADM AUTHOR: Corine Vu MD * ALL edits or amendments must be made on the el [employer]/computer document * Subjective Patient reports: No: abdominal pain, chest pain, nausea, shortnes s of breath. Free Text Subj Notes Free Text Subj Notes: Feeling well completing the echocardiogram of th e heart on AM rounds. Awaiting verification of the negative lexiscan cardiolite scan from Dr. Corey' s office in 02/2019. Objective General VS/I O: 24 hour I O ending at 0700: 06/23 0700 06/22 1900 Intake Total Output Total Balance Number Voids 1 Output, Emesis Vital Signs: Date Time Temp Pulse Resp B/P B/P Pulse O2 O2 F low FiO2 Mean Ox Delivery Rate 06/23 0732 36.8 70 16 129/78 95.2 97 Room air 06/23 0437 36.5 71 18 118/77 91.1 97 Room air 06/23 0028 36.3 71 18 120/71 87.7 98 Room air 06/22 1939 36.6 80 18 141/84 103.0 97 Room air 06/22 1614 36.5 72 18 137/87 103.8 99 Room air 06/22 1139 36.3 77 18 124/76 91.9 99 Room air Patient Weight Weight (lb): 176 Weight (oz): 5.92 Weight (kg): 80.000 Medications: Active Meds + DC'd Last 24 Hrs Carvedilol 3.125 MG BID PO Pantoprazole 40 MG DAILY@0600 PO Pravastatin Sodium 80 MG QPM PO Insulin Human Lispro S/SCALE LOW AC HS SUBQ Dextrose/Water 50 ML ASDIR PRN IV Ondansetron HCl 4 MG Q4H PRN PRN IV Sodium Chloride 1,000 ML ASDIR IV Acetaminophen 650 MG Q4H PRN PRN RECTAL Hydromorphone HCl 0.5 MG Q4H PRN PRN IV Hydromorphone HCl 1 MG Q4H PRN PRN IV Physical Exam General appearance: alert, awake, no acute distr ess Neck: non-tender, normal thyroid, no bruit/NL ca rotids, no JVD, no lymphadenopathy Cardiovascular: CV assessment: regular rate and rhythm, normal heart sounds, no gallop Murmur assessment: 2/6 ARIEL at the LLSB. Respiratory: clear to auscultation, Midline trac hea. Abdomen: soft, non-tender, normal bowel sounds, no guarding, no mass/ organomegaly, no pulsatile mass Upper extremity: UE assessment: normal capillary refill, no jocelyn a Lower extremity: LE assessment: normal capillary refill, no jocelyn a Results Findings/Data: Laboratory Tests 06/23 06/22 06/22 06/22 0730 1937 1612 1140 Chemistry POC Glucose (70 - 110 mg/dL) 104 127 H 87 114 H Results: labs reviewed Diagnosis, Assessment Plan Free Text DxA P Notes Free Text DxA P Notes: From a cardiac standpoint, Mr. Edna Laws w as presenting with acute cholecystitis. He has been evaluated by maricarmen antoine the Emergency Room at [facility] in [place] as well as General Surgery. They do plan on proceeding with the cholecystect corrie. He clinically has no active chest pain and no congestive heart failure decompensat ion. We will attempt to retrieve the nuclear stress test from Dr. Fowler's office that was completed in 02/2019. If this indeed is negative, he should b e at acceptable risk for his planned surgery. Given his fall on 05/18/2018 and bruisi ng of his left chest, I will also get an echocardiogram of the heart to look for any left ventricular dysfunction or evidence of pericardial effusion from the trauma. Other concurrent problems do inclu de a background history of type 2 diabetes mellitus, hypertension (controlled), h yperlipidemia, angioplasty with stent x2 in the left anterior descending artery, most recent in 06/2018. Given the time course post PTCA/stent, he should be at acceptable risk for holding the asp irin and the Brilinta preoperatively for 3 to 5 days, to be started as soon as possible postoperatively. He also has a history of circum cision, left knee injury and reports of fracture in the right knee in the pas t, hiatus hernia, esophageal reflux, and EMOTIONAL REACTION TO STEROIDS. RECOMMENDATIONS: As above. We will follo w the patient with you. Echocardiogram of the heart is pending. ADDENDUM At 1803 hours, we did complete an EKG. It shows sinus rhythm at 72 beats per minute. There is a right bundle-branch block pat tern as well as nonspecific J-point elevation in the pre cordial leads, lead I, aVL. He also has nonspecific inferior T-wave changes. Electronically Signed by Corine Vu MD n 06/24/19 at 1130 [facility]: [id number] END OF REPORT 2019-06-23 18:10:00-00:00 [id number] [facility] [id number] [place] [id number] PATIENT NAME: EDNA LAWS ADMIT DATE: ACCOUNT NO: [id number] ROOM NO: L.S205 AGE: 54 REPORT TYPE: CONSULTATION SEX: M ADMITTING PHYSICIAN: Miguel Godfrey MD ATTENDING PHYSICIAN: Miguel Godfrey MD CONSULTATION DATE: 06/23/2019 CONSULTING PHYSICIAN: Corine Vu MD CARDIOLOGY CONSULTATION IDENTIFICATION: This is a 54 -year-old gentleman, who is followed by Dr. Fowler in [place]. He does have a history of previous angioplasty and stent in the left anterior descending artery on 2018. T here was a redo stent with angioplasty and stent placed in the left anterior descending artery in 06/2018. He does have background history of cardi ac risk factors including age, gender, type 2 diabetes mellitus, hy pertension, and hyperlipidemia. There is no smoking history or family history of premature coronary artery disease. The patient states he had workup including a nuclear stress test in 01/2019. At that time, he is unsure whether he had an echocardiogram co mpleted. REASON FOR CONSULTATION: Evaluation of preoperat danisha clearance for expected cholecystectomy. HISTORY OF PRESENT ILLNESS: The patient has history beginning on 06/20/2019 of right upper quadrant pain and pressure in his lo wer abdomen. He denied any nausea, vomiting, or diarrhea. He was assessed b y General Surgery and do plan on proceeding with cholecystectomy. He states he had no limitations in his exercise effort. In fact, he was in the middle o f remodeling a house when he fell 4-1/2 feet to the floor and had sustained injuries involving his left ankle and left side of his torso. This was on 05/18/19. The patient denies any PND, orthopnea, or peripheral edema. PAST MEDICAL HISTORY: This is otherwise notable for previous arthroscopic surgery in the left knee in 2004. He does have a history of hiatus hernia, esophageal reflux. He also has had a circumcisio n back in 2004. ALLERGIES: HE HAS STATED SENSITIVITIES TO STEROI DS, WHICH CAUSED EMOTIONAL UPSET. MEDICATIONS: Please see MAR. SOCIAL HISTORY: He currently works at a [employer]. 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 He has nev er smoked and there is no history of alcohol excess or recreational drug u se. FAMILY HISTORY: This is negative for any diabete s mellitus or cancer. PATIENT NAME: EDNA LAWS 7172 REVIEW OF SYSTEMS: A 14-point review of systems including integumentary, neurological, cardiac, pulmonary, digestive, uro logical, musculoskeletal, and psychiatric systems otherwis e notable for reported mass in his right kidney that has been worked up as an outpatient. PHYSICAL EXAMINATION: GENERAL: On examination, the patient is in no ac osmin distress. VITAL SIGNS: Show blood pres sure of 137/87, resting heart rate was 72 beats per minute (regular), respiratory rate 18 breaths pe r minute. He is afebrile. HEAD AND NECK: He had normal carotid upstroke an d amplitude. No carotid bruits. I cannot appreciate any cervical adenopa thy or thyromegaly. CARDIOVASCULAR: There is no jugular venous diste ntion. Auscultation showed regular S1 and S2. He does h ave a II/ systolic ejection murmur at the base of the heart and left lower sternal border. I canno t appreciate any S3 or S4 gallops. CHEST: He had midline trachea. His chest is bob r to auscultation and percussion. ABDOMEN: He had a soft abdomen. There is minimal tenderness on the left side of his abdomen. He denied any tenderness in the right side. I cannot appreciate any hepatosplenomegaly. There are no abnormal bruits. EXTREMITIES: He had no significant peripheral ed janet. Peripheral pulses are present and equal bilaterally. EKG: There was no EKG found in the chart. We hav e requested one stat and is still pending. ADDITIONAL LABORATORY DATA: Additional labs incl uded from 06/23/2019 at 0718 hours, CBC with a low hemoglobin 10.9, hematocri t 31.5%, white blood count is normal at 6.7, and platelet count was 270. Serum electrolytes were within normal limits with BUN/creatinine 13/0.8 and pot assium 4.0. We do have lipase that was low at 76. IMPRESSION: From a cardiac standpoint, Mr. Juancarlos Laws was presenting with acute cholecystitis. He has been evaluated by maricarmen antoine the Emergency Room at [facility] in [place] as well as General Surgery. They do plan on proceeding with chol ecystectomy. He clinically has no active chest pain and no congestive heart fail ure decompensation. We will attempt to retrieve the nuclear stress test from Dr. Fowler's office that was completed in 02/2019. If this indeed is negative, he should be at accepta ble risk for his planned surgery. Given his fall on 05/18/2018 and bruisi ng of his left chest, I will also get an echocardiogram of the heart to look for any left ventricular dysfunction or evidence of pericardial effusion from the trauma. Other concurrent problems do inclu de a background history of type 2 diabetes mellitus, hypertension (controlled), h yperlipidemia, angioplasty with stent x2 in the left anterior descending artery, most recent in 06/20 18. Given the time course, he should be at acceptable risk for holding the asp irin and the Brilinta preoperatively for 3 to 5 days, to be started as soon as possible postoperatively. He also has a history of circum cision, left knee injury and reports of fracture in the right knee in the pas t, hiatus hernia, esophageal reflux, and EMOTIONAL REACTION TO STEROIDS. RECOMMENDATIONS: As above. We will follow the genaro theodore with you. EKG pending PATIENT NAME: EDNA LAWS 7172 and echocardiogram of the heart is pending. ADDENDUM At 1803 hours, we did complete an EKG. It shows sinus rhythm at 72 beats per minute. There is a right bundle-branch block pat tern as well as nonspecific J-point elevation in the pre cordial leads, lead I, aVL. He also has nonspecific inferior T-wave changes. Dictated By: Corine Vu MD WT: CON:GAUTAM/KENISHA/NTS Conf#: [id number]/DID#: [id number] Authenticated by Corine Vu MD On 09/29/2019 05: 38:31 PM at 1738 PATIENT NAME: EDNA LAWS 7172 2019-06-23 18:03:00-00:00 [id number] [place] [id number] PATIENT NAME: EDNA LAWS ADMIT DATE: 0 ACCOUNT NO: [id number] ROOM NO: L.S205 AGE: 54 REPORT TYPE: eELECTROCARDIOGRAM SEX: M ADMITTING PHYSICIAN: Miguel Godfrey MD ATTENDING PHYSICIAN: Miguel Godfrey MD Order: [id number] Test Reason : CARDIAC CLEARANCE Test Date/Time Stamp: MonJun 23 2019 18:03:57 Blood Pressure : / mmHG Vent. Rate : 072 BPM Atrial Rate : 072 BPM P-R Int : 158 ms QRS Dur : 166 ms QT Int : 420 ms P-R-T Axes : 023 066 005 degree s QTc Int : 459 ms Normal sinus rhythm Right bundle branch block Cannot rule out Inferior infarct , age undetermi gene Abnormal ECG Confirmed by CORINE VU MD ([id number]) on 06/25/2019 12: 31:42 PM Referred By: Miguel Godfrey Confirmed by:CORINE VU MD at 1231 PATIENT NAME: EDNA LAWS 7172 2019-06-23 17:35:00-00:00 [id number] [address] PATIENT NAME: EDNA LAWS ADMIT DATE: 0 ACCOUNT NO: [id number] ROOM NO: L.S205 AGE: 54 REPORT TYPE: CONSULTATION SEX: M ADMITTING PHYSICIAN: Miguel Godfrey MD ATTENDING PHYSICIAN: Miguel Godfrey MD CONSULTATION DATE: 06/23/2019 CONSULTING PHYSICIAN: Moraima Davis MD GENERAL SURGERY CONSULTATION REASON FOR CONSULTATION: Evaluation for cholecys titis. HISTORY OF PRESENT ILLNESS: The patient is a 54- year-old male who reports history of having right upper quadrant p ain associated with greasy food intake since 2013. For the past sev eral days, he has had worsening and continuous pain after eating [place] food. The patient has histo ry of CAD and is on Brilinta. His last dose was yesterday. He was wheeler sferred from office Emergency Room and he has had a CT scan of the abdomen and pelvis which showed acute cholecystitis with cholelithiasis. The patient's liver functio n tests and white cell count are normal. 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 He had sustained fractured left ribs and contusions to his trunk and left lower extremity. PAST MEDICAL HISTORY: Significant for, 1. Hypertension. 2. Dyslipidemia. 3. Diabetes mellitus type 2. 4. Right kidney mass. 5. Coronary artery disease. PAST SURGICAL HISTORY: Significant for knee surg zoltan. SOCIAL HISTORY: The patient is single, has no ch ildren. He has no history of illicit drug, alcohol, or tobacco use. FAMILY HISTORY: Significant for dementia. REVIEW OF SYSTEMS: CONSTITUTIONAL: The patient denies fever or chil ls. EYES: Denies any eye pain, ocular discharge, or yellowing of the eyes. EARS, NOSE, THROAT: Denies any hearing deficit, nasal discharge, or throat pain. CARDIOVASCULAR: Denies chest pain, palpitations, or orthopnea. RESPIRATORY: Denies cough, wheezing, or sputum p roduction. GASTROINTESTINAL: He did hav e some abdominal pain and nausea. Denies diarrhea, PATIENT NAME: EDNA LAWS 7172 hematemesis, or hematochezia. He did report havi ng constipation. NEUROLOGICAL: Denies headache, syncope, or dizzi ness. MUSCULOSKELETAL: The patient complains of left ankle, leg, and knee pain status post traumatic fall. SKIN: The patient has ecchymosis and bruising al anurag his abdominal wall, left chest, left lower extremity, and left gluteus. PHYSICAL EXAMINATION: GENERAL: The patient appears in no acute distres s. VITAL SIGNS: Show temp 97.7, pulse 72, r espirations 18, blood pressure 137/87. HEENT: Normocephalic and atraumatic. Extraocular movements are intact. CARDIOVASCULAR: S1 and S2. LUNGS: Clear to auscultation. ABDOMEN: Soft. He has ecchymosis along his left chest, left abdominal wall, and suprapubic region. He has mild right upper q uadrant tenderness. No guarding. No rebound. He has tenderness over the ecchymotic regions with what looks to be abdominal wall hematoma on the left side of the abdomen. EXTREMITIES: He has no lateral aspect of his lef t thigh gluteus and left leg, he has ecchymosis and bruising. LABORATORY DATA: White cell count 6.7, hemoglobi n 10.9, hematocrit 31.5, platelet count is 270. Sodium 138, potassium 4, chloride 107, CO2 of 27, BUN 13, creatinine 0.8, glucose is 112. Lipase is 76 . ASSESSMENT: 1. Acute cholecystitis. 2. Cholelithiasis. 3. Soft tissue contusion, status post traumatic fall. 4. Coronary artery disease, on anticoagulant. 5. Hypertension. 6. Diabetes mellitus type 2. 7. Dyslipidemia. PLAN: The patient will need cholecystectomy, has been having recurrent episodes of pain since 2013 and has h ad a continuous stretch of pain these past few days. The patient's last dose of Brilinta was yesterd ay. I spoke with nanoelectronics engineer on the case and he recommends holding Brilinta f or 3 to 5 days. Patient may be discharged home and have surgery scheduled af ter he has completed the required number of days of Brillanta cessation p rior to surgery. Dictated By: Moraima Davis MD WT: CON:L.LYLE/MARIA DEL ROSARIO/BAILEY Conf#: [id number]/DID#: [id number] Authenticated and Edited by Moraima Davis MD On 07/10/19 8:40:33 AM at 0843 PATIENT NAME: EDNA LAWS 7172 2019-06-23 10:58:00-00:00 [facility] ([facility]) History Physical - Adult REPORT#:[id number] REPORT STATUS: Signed DATE:06/23/19 TIME:1058 PATIENT: EDNA LAWS UNIT #: [id number] ROOM/BED: [place] [address] : 63 AGE: 54 SEX: M ATTEND: Andrez Godfrey MD ADM AUTHOR: Miguel Godfrey MD * ALL edits or amendments must be made on the [employer]/computer document * History of Present Illness HPI Chief complaint: abd pain HPI: This patient is a transfer from [facility] where he presented with abdominal pain. Work-up showed acute cholecystitis and the patient was transferred to [facility] .Patient also has a mass in his right kidney and is being worked up for that as an out patient. At present patient has RUQ pain, 4/ 10, nausea, non radiating, no fever, no chills. History Past medical history: Reports: Diabetes mellitus, GERD/gastritis, Hype rtension, Dyslipidemia. Additional medical history: HLD, RBBB Past surgical history: Reports: Vascular procedure (cardiac cath/stenti ng), Knee procedure ( arthroscopic surgery). Additional surgical history: recent circumcision Family history: Reports: CAD < 40 yrs old, Dementia/Alzheimer's dis. 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 Currently works at a [employer] Medication/Allergy-Vaccine Hx Home Medications: ASPIRIN EC (ECOTRIN) 81 MG PO DAILY CARVEDILOL (COREG) 3.125 MG PO BID metFORMIN XR (GLUCOPHAGE XR) 750 MG PO BID OMEPRAZOLE ER (PriLOSEC) 40 MG PO DAILY PRAVASTATIN (PRAVACHOL) 80 MG PO DAILY RANITIDINE (ZANTAC) 150 MG PO DAILY PRN HEARTBUR N SIMETHICONE/SOD BICARB/CITRI C ACID (E-Z-GAS II EFFER GRANULES) 1 PACKET PO DAILY PRN HEARTBURN TICAGRELOR (BRILINTA) 90 MG PO Q12HR Discontinued Medications CLINDAMYCIN HCL (CLEOCIN) 300 MG PO Q8H Discontinued reason: DC prior to admit SULFAMETHOXAZOLE/TMP (BACTRIM 400/80 MG) 1 TAB P O BID Discontinued reason: DC prior to admit Allergies: Uncoded Allergies: STEROIDS MEDICATIONS (Severe, ALLERGY 03/16/18) Review of Systems All systems rev neg: except as marked (abd pain) Physical Exam VS/I O Vital Signs: Date Time Temp Pulse Resp B/P B/P Pulse O2 O2 F low FiO2 Mean Ox Delivery Rate 06/22 0742 97.9 78 18 121/79 92.9 96 Room air 06/22 0540 97.5 77 18 114/90 98 97 Room air 24 hour I O ending at 0700: 06/22 0700 06/21 1900 Intake Total Output Total Balance Patient 176 lb Weight Weight Stated/Reported Measurement Method Patient Weight Weight (lb): 176 Weight (oz): 5.92 Weight (kg): 80.000 General appearance: alert Head/Eyes: atraumatic ENT: normal nose Neck: supple Cardiovascular: regular rate rhythm Respiratory: clear to auscultation Abdomen/GI: soft Genitourinary: urine Extremities: warm Musculoskeletal: full range of motion Neuro/SEED AND FERTILIZER SPECIALIST: alert Skin: dry, intact Lymphatic: no lymphadenopathy Diagnosis, Assessment Plan Free Text DxA P Notes Free Text DxA P Notes: Acute Choecystitis CAD with Stent DM2 HTN Dyslipidemia plan resume home meds surgery consult, follow up labs , juliana control. cards consult Electronically Signed by Miguel Godfrey MD on 0 06/23/19 at 1103 [facility] [id number] END OF REPORT 2018-06-24 13:06:00-00:00 [id number] [place] [address] PATIENT NAME: EDNA LAWS ADMIT DATE: 06/23/18 ACCOUNT NO: [id number] [facility] 53 REPORT TYPE: DISCHARGE SUMMARY REPORT SEX: M ADMITTING PHYSICIAN:Juan Miguel Melo MD ATTENDING PHYSICIAN:Juan Miguel Melo MD ADMISSION DATE: 06/23/2018 DISCHARGE DATE: 06/24/2018 PRINCIPAL DIAGNOSIS AT ADMISSION: Coronary arter y disease. DISCHARGE DIAGNOSES: 1. Coronary artery disease, status post drug-elu ting stent placement of left anterior descending. 2. Hypertension. 3. Diabetes mellitus. 4. Hyperlipidemia. 5. Gastroesophageal reflux disease. 6. Right bundle branch block. 7. Left forearm cellulitis. 8. Suspect olecranon bursitis. HOSPITAL COURSE: Please refer to the admission h istory and physical for admission details. BRIEF HISTORY: The patient is a 53-year-old male with known hypertension, diabetes mellitus, hyperlipidemia, and coronary artery disease, who started having episodes of chest juliana n over the last few days. A nuclear stress test was performed by his cardiologis t, Dr. Fowler which showed ischemia in the inferior apical and anterior apical region consistent wit h restenosis or recurrent disease in the same area. He was brought to this facility to undergo left heart catheterization. He was note d to have a 90% lesion at the beginning of the long stent of the LAD. In the mid stent, there was a 60% lesion and there was slow flow distally. A drug-eluting stent was placed a fter balloon dilation. Post stent placement, there was 0% residual stenosis and there was a good flow. He was admitted to the telemetry unit for overnight observation. After the procedure, he was noted to have some swelling davis ggestive of hematoma in the right groin area, which resolved with applying p ressure. He reported slight pain, which also improved with pain medi cation. He was monitored overnight and remained hemodynamically sta ble. He had no further complaints complications and was discharged to home early this morning in sta ble condition. The patient was recently diagnosed with a cellul itis of the proximal left forearm for which he has been on Bactrim and clindamycin. Both the medications were continued. He reported pain and swelling in the left elbow area. There was a fluctuant swelling noted over the olecrano n process suggestive of olecranon bursitis. The pat ent was instructed to follow up with an orthopedist in his town to have the bursa drained. PATIENT NAME: EDNA LAWS ACCOUNT #: [id number] PHYSICAL EXAMINATION: I had a [id number] encou nter with the patient and examination was performed prior to discharge. DISPOSITION: The patient was discharged to home in stable condition. DISCHARGE MEDICATIONS: The p atient was instructed to resume all his medications as prior to admission. FOLLOWUP: The patient was in structed to follow up with Dr. Hal Fowler within a week, and with the orthopedist as mentioned ab cinthia. Dictated By: Juan Miguel Melo MD WT: DS:JIGNESH/MILLIE/BAILEY Conf#: [id number]/DID#: [id number] Authenticated by Juan Miguel Melo MD On 06/28/2018 0 7:41:39 AM Electronically Signed by Juan Miguel Melo MD on 06/02 11/19 at 0742 PATIENT NAME: EDNA LAWS ACCOUNT #: [id number] 2018-06-24 07:52:00-00:00 [facility] ([facility] Cardiology Progress Note REPORT#:[id number] REPORT STATUS: Signed DATE:06/24/18 TIME: 751 PATIENT: EDNA LAWS UNIT #: [id number] ROOM/BED: [address] : 63 AGE: 53 SEX: M ATTEND: Juan Miguel Melo MD ADM AUTHOR: Geoff Cottrell MD * ALL edits or amendments must be made on the [employer]/computer document * Subjective Patient reports: No: chest pain, palpitations, shortness of breat h. Objective General VS/I O: 24 hour I O ending at 0700: 06/24 0700 06/23 1900 Intake Total 1440.00 1100.00 Output Total 700 Balance 1440.00 400.00 Intake, IV 1200.00 500.00 Intake, Oral 240 600 Number Voids 3 1 Output, Urine 700 Patient 77.273 kg Weight Weight Stated/Reported Measurement Method Vital Signs: Date Time Temp Pulse Resp B/P B/P Pulse O2 O2 F low FiO2 Mean Ox Delivery Rate 06/24 0748 97.5 62 14 105/67 79.7 97 06/24 0459 97.7 70 18 112/72 85.3 96 06/23 2351 97.5 74 18 109/65 79.7 94 06/24 2011 97.5 82 18 113/73 86.5 95 06/23 1626 97.3 90 18 120/72 88.0 94 Room air 06/23 1517 68 121/78 92.0 97 06/23 1447 69 123/83 96.3 98 06/23 1417 63 120/76 90.8 95 06/23 1347 64 105/70 81.8 95 06/23 1317 65 113/75 87.5 95 06/23 1247 62 114/75 88.3 96 06/23 1246 97.9 66 18 122/78 92.9 96 Room air Medications: Active Meds + DC'd Last 24 Hrs Aspirin 81 MG DAILY PO Colchicine 0.6 MG NOW ONE PO (DC) Atorvastatin Calcium 20 MG BEDTIME PO Carvedilol 3.125 MG BID PO Ticagrelor 90 MG Q12HR PO Clindamycin HCl 300 MG Q8HR PO Trimethoprim/Sulfamethoxazole 1 UDTAB BID PO Sodium Chloride 1,000 ML .Q10H IV Ranitidine HCl 150 MG DAILY PRN PRN PO Acetaminophen 650 MG ASDIR PRN PO Hydrocodone Bitart/Acetaminophen 1 TAB Q4H PRN P RN PO Nitroglycerin 0.4 MG Q5M PRN PRN SL Ondansetron HCl 4 MG Q8H PRN PRN IV Midazolam HCl 0 .STK-MED ONE .ROUTE (DC) Ticagrelor 0 .STK-MED ONE .ROUTE (DC) Fentanyl Citrate 0 .STK-MED ONE .ROUTE (DC) Midazolam HCl 0 .STK-MED ONE .ROUTE (DC) Sodium Chloride 1,000 ML Q10H IV (DC) Ticagrelor 90 MG PREOP PO (DC) Physical Exam General appearance: alert, awake, oriented Head/Eyes: atraumatic, normocephalic ENT: moist mucosal membranes Neck: no JVD Cardiovascular: CV assessment: regular rate and rhythm Respiratory: clear to auscultation, no distress Musculoskeletal: full range of motion Neuro/SEED AND FERTILIZER SPECIALIST: alert, oriented X 3, CN II-XII intact Skin: dry, intact Wound/incision: Site condition: dressing clean dry Psychiatry: normal affect, normal judgment/insig ht, normal mood Results Findings/Data: Laboratory Tests 06/24 06/24 06/23 0614 [id number] 1648 Chemistry Sodium (137 - 145 MMOL/L) 135 L Potassium (3.5 - 5.1 MMOL/L) 4.6 Chloride (98 - 107 MMOL/L) 104 Carbon Dioxide (22 - 30 MMOL/L) 22 Anion Gap (14 - 24 MMOL/L) 14 BUN (9 - 20 MG/DL) 21 H Creatinine (0.66 - 1.25 MG/DL) 0.90 Glomerular Filtr Rate > 60 Glucose (74 - 106 MG/DL) 103 POC Glucose (60 - 99 MG/DL) 81 169 H Calcium (8.4 - 10.2 MG/DL) 8.8 Laboratory Tests 06/23 0837 Coagulation Activated Coag Time (74 - 137 SEC) 334 H Diagnosis, Assessment Plan Free Text DxA P Notes Free Text DxA P Notes: IMP: CAD s/p PTCA stent PLAN: d/c home f/u one week. at 1100 RPT #:[id number] END OF REPORT 2018-06-24 06:07:00-00:00 [id number] [place] [address] PATIENT NAME: EDNA LAWS ADMIT DATE: 06/23/18 ACCOUNT NO: [id number] ROOM NO: Z.360 AGE: 53 REPORT TYPE: ELECTROCARDIOGRAM SEX: M ADMITTING PHYSICIAN:Juan Miguel Melo MD ATTENDING PHYSICIAN:Juan Miguel Melo MD Order: [id number] Test Reason : CAD Test Date/Time Stamp: MonJun 24 2018 06:07:20 Blood Pressure : / mmHG Vent. Rate : 066 BPM Atrial Rate : 066 BPM P-R Int : 160 ms QRS Dur : 158 ms QT Int : 438 ms P-R-T Axes : 040 071 010 degree s QTc Int : 459 ms Normal sinus rhythm Right bundle branch block Abnormal ECG When compared with ECG of 23-JUN-2018 09:24, T wave inversion now evident in Inferior leads Confirmed by HAL FOWLER ([id number]) on 06/24/2018 8:48:20 AM Referred By: Hal Fowler Confirmed by:HAL ROCK at 0848 PATIENT NAME: EDNA LAWS ACCOUNT #: [id number] 2018-06-23 19:24:00-00:00 [facility] History Physical - Adult REPORT#:[id number] REPORT STATUS: Signed DATE:06/23/18 TIME: 1923 PATIENT: EDNA LAWS UNIT #: [id number] ROOM/BED: [address] : 63 AGE: 53 SEX: M ATTEND: Juan Miguel Melo MD ADM AUTHOR: Juan Miguel Melo MD * ALL edits or amendments must be made on the [employer]/computer document * History of Present Illness HPI Chief complaint: Post-op for cardiac cath. Complains of pain in s urgical site and elbow PCP: PCP: Hal Fowler MD HPI: 53 yo M pt with PMHx of HTN, CAD, DM, Hy percholesterolemia, GERD and RBBB; was seen post-op for left heart catheterization, drug-eluting stent of the LAD, and sealing device on the right groin. Pt. complains of pain and bulging at surgical site in right groin. He also reports pain in his elbow due to an infected bruise from a fall some days ago. Otherwise no complain ts. 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 He previously had long stent placed in LAD due to C AD. He also reports a fall while getting out of his car 4 days ago, from where h e abrassed his elbow. He cleaned it at home but upon presentation to the ER in [facility] 1 day ago, he was told that it was infected and started on Clindamycin and Bactrim. He also noticed 2 large bruise on forearm. Current medications include; Brilinta, Omeprazol e, Metformin, Pravastatin and Coreg. please see medication list for do bharath. He reported allergic reaction to an unknown steroid (rash and emotional outburst) but states that he has been treated with Prednisone after that and had no re actions. No other known drug allergies History Past medical history: Reports: Diabetes mellitus, GERD/gastritis, Hype rtension, Dyslipidemia. Additional medical history: HLD, RBBB Past surgical history: Reports: Vascular procedure (cardiac cath/stenti ng), Knee procedure ( arthroscopic surgery). Additional surgical history: recent circumcision Family history: Reports: CAD < 40 yrs old, Dementia/Alzheimer's dis. 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 Currently works at a [employer] Medication/Allergy-Vaccine Hx Allergies: Uncoded Allergies: STEROIDS MEDICATIONS (Severe, ALLERGY 03/16/18) Review of Systems Constitutional: Reports: fatigue. Skin: Reports: abrasion, bruising, ecchymosis, swellin g. Musculoskeletal: Reports: extremity pain (ramiro gical site (R groin)), extremity swelling (surgical site (R groin)). Systems reviewed negative: cardiovascular, ENT, eyes, GI, , neuro, psych, respiratory Physical Exam VS/I O Vital Signs: Date Time Temp Pulse Resp B/P B/P Pulse O2 O2 F low FiO2 Mean Ox Delivery Rate 06/23 1626 97.3 90 18 120/72 88.0 94 Room air 06/23 1517 68 121/78 92.0 97 06/23 1447 69 123/83 96.3 98 06/23 1417 63 120/76 90.8 95 06/23 1347 64 105/70 81.8 95 06/23 1317 65 113/75 87.5 95 06/23 1247 62 114/75 88.3 96 06/23 1246 97.9 66 18 122/78 92.9 96 Room air General appearance: alert, awake, oriented, plea randall, conversational, mental status normal, no respiratory distress Head/Eyes: atraumatic, clear cornea, normal conj unctiva/sclera ENT: moist mucosal membranes, normal nose, laura l pharynx Neck: full range of motion, non-tender, no JVD Cardiovascular: regular rate rhythm, normal hear t sounds, no murmur Respiratory: clear to auscultation, no distress, aerating well Abdomen/GI: soft, non-tender, no guarding, no re bound Genitourinary: Distention and tenderness with mo vement at surgical site Extremities: moves all, no clubbing, no cyanosis Musculoskeletal: full range of motion, no CVA te nderness, no muscle spasm Neuro/SEED AND FERTILIZER SPECIALIST: alert, oriented X 3, normal speech Psychiatry: normal affect, normal mood Results Findings/Data: Laboratory Tests: 06/23 06/23 06/23 1648 0837 0600 Chemistry Sodium (137 - 145 MMOL/L) 137 Potassium (3.5 - 5.1 MMOL/L) 4.4 Chloride (98 - 107 MMOL/L) 101 Carbon Dioxide (22 - 30 MMOL/L) 26 BUN (9 - 20 MG/DL) 15 Creatinine (0.66 - 1.25 MG/DL) 0.90 Glomerular Filtr Rate > 60 Glucose (74 - 106 MG/DL) 123 H POC Glucose (60 - 99 MG/DL) 169 H Calcium (8.4 - 10.2 MG/DL) 9.7 Magnesium (1.6 - 2.3 MG/DL) 2.4 H Triglycerides (MG/DL) 117 Cholesterol (<200 MG/DL) 144 LDL Cholesterol Measurd (0 - 99 MG/DL) 93 HDL Cholesterol (40 - 59 MG/DL) 49 Coagulation INR (0.8 - 1.1) 1.0 APTT (22.0 - 33.0 SECONDS) 32.0 PT Patient/Control Mix (9.6 - 11.6 SECONDS) 11. 0 Activated Coag Time (74 - 137 SEC) 334 H Hematology WBC (3.8 - 9.8 K/MM3) 7.5 RBC (3.95 - 5.67 M/MM3) 4.78 Hgb (12.4 - 16.7 G/DL) 14.1 Hct (35.9 - 49.5 %) 41.8 MCV (81.7 - 96.1 fL) 87 MCH (27.6 - 33.2 pg) 29.5 MCHC (32.9 - 35.5 %) 33.7 RDW (12.1 - 15.2 %) 13.2 Plt Count (129 - 368 K/MM3) 265 MPV (7.4 - 10.4 fl) 8.7 Neut % (Auto) (43 - 75 %) 66.2 Lymph % (Auto) (14 - 44 %) 20.6 Carroll % (Auto) (4 - 13 %) 7.3 Eos % (Auto) (0 - 6 %) 4.5 Baso % (Auto) (0 - 2 %) 0.7 Neut # (Auto) (2.0 - 7.6 K/mm3) 4.99 Lymph # (Auto) (1.0 - 3.8 K/mm3) 1.55 Carroll # (Auto) (0.1 - 0.8 K/mm3) 0.55 Eos # (Auto) (0.0 - 0.2 K/mm3) 0.34 H Baso # (Auto) (0.0 - 0.2 K/mm3) 0.05 Immature Gran % (0.0 - 2.0 %) 0.7 Nucleated RBC % (0 - 1.0 %) 0.0 Nucleated RBCs # (Man) (0.0 - 0.1 K/mm3) 0.00 Results: labs reviewed, vital signs stable, curr ent med profile rev'd Diagnosis, Assessment Plan Free Text DxA P Notes Free Text DxA P Notes: ASSESSMENT - CAD; s/p left heart catheterization and drug-e luting stent of the LAD - ?? Right groin hematoma; s/p sealing device on the right groin - HTN, controlled - DM - HLD - GERD - RBBB PLAN -Admit for observation -Will monitor right groin closely -Will resume home meds -Will d/c home in am, if remains stable. Quality Medications Current medication review: I attest that the foregoing medication list in t he medical record is true, accurate, and complete to the best of my knowled ge. BMI Screening > 25 or < 18.5 Patient's BMI: Current BMI: 25.9 BMI status/follow-up: abnl BMI, pt to F/U w/PCP Tobacco Use/Counseling Tobacco use/counseling: non tobacco user HTN Screening/Follow-up Last documented vitals: Last Documented: Result Date Time Pulse Ox 97 06/24 0748 B/P 105/67 06/24 0748 B/P Mean 79.7 06/24 0748 Temp 97.5 06/24 0748 Pulse 62 06/24 0748 Resp 14 06/24 0748 O2 Delivery Room air 06/23 1626 B/P assess/follow-up: pre-existing hx of HTN Electronically Signed by Juan Miguel Melo MD on 06/24 at 6036 RPT #:[id number] END OF REPORT 2018-06-23 09:24:00-00:00 [id number] [place] [id number] PATIENT NAME: EDNA LAWS ADMIT DATE: 06/23/18 ACCOUNT NO: [id number] ROOM NO: Z360 AGE: 53 REPORT TYPE: ELECTROCARDIOGRAM SEX: M ADMITTING PHYSICIAN:Liudmila Latham MD ATTENDING PHYSICIAN:Hal Fowler MD Order: [id number] Test Reason : CAD Test Date/Time Stamp: MonJun 23 2018 09:24:21 Blood Pressure : / mmHG Vent. Rate : 059 BPM Atrial Rate : 059 BPM P-R Int : 158 ms QRS Dur : 158 ms QT Int : 452 ms P-R-T Axes : 048 098 049 degree s QTc Int : 447 ms Sinus bradycardia Right bundle branch block Abnormal ECG When compared with ECG of 23-JUN-2018 06:22, No significant change was found Confirmed by HAL FOLWER ([id number]) on 06/23/2018 2:37:13 PM Referred By: Hal Fowler Confirmed by:HAL ROCK at 1437 PATIENT NAME: EDNA LAWS ACCOUNT #: [id number] 2018-06-23 09:04:00-00:00 [id number] [place] [id number] PATIENT NAME: EDNA LAWS ADMIT DATE: 06/23/18 ACCOUNT NO: [id number] ROOM NO: Z360 AGE: 53 REPORT TYPE: CARDIAC CATHETERIZATION REPORT SEX: M ADMITTING PHYSICIAN:Liudmila Latham MD ATTENDING PHYSICIAN:Hal Fowler MD PROCEDURE DATE: 06/23/2018 DEVIL DOG: Hal Fowler MD TITLE OF THE PROCEDURE: 1. Left heart catheterization. 2. Drug-eluting stent of the LAD. 3. Sealing device on the right groin. INDICATION FOR THE PROCEDURE: Recurrent angina, coronary artery disease, previous long LAD stent. ESTIMATED BLOOD LOSS: Minimal. COMPLICATIONS: None. CONTRAST: 110 mL. ANESTHESIA: Conscious sedation with Versed and f entanyl and 1% lidocaine for local anesthesia. FINAL DIAGNOSES: Restenosis of the LAD stent at the proximal edge and in the mid with slow flow in the LA D, status post new stent in the proximal area of the previous stent and post-dilating with th e stent balloon. The recommendation is medical therapy. PROCEDURE IN DETAIL: After informed consent, the patient was brought to the cardiac catheterization lab in a stable fasting nonsedated state. He was prepped and draped in the usual sterile fashion. After conscious sedation, 1% lidocaine was administered to the right common f emoral artery area for local anesthesia. A 6-Dominican sheath was placed in the right common femoral artery using standard techniques and fluoroscop y. After heparinization, left coronary angiogram showed unchanged circumflex th at was ectatic and had a 30% plaque in the second obtuse marginal. The LAD had 40% mid plaque, but then followed by 99% lesion right at the beginning of the long st ent. In the mid stent, there was a 60% lesion and there was slow flow distall y. Right coronary artery was unchanged with 20% proximal plaquing, 30% mid, 2 0% distal. Left ventricular angiogram showed normal ejection fraction and wa ll motion, left ventricular end-diastolic pressure of 20 and no significant aortic valve gradient and no wall motion abnormalities. So the intervention p art, the guide used was the same guide as before XB LAD. The wire us ed was a Luge. I predilated the lesion with an Emerge 2.5 x 12 and then I placed it was a Lutonix stent 3 x 15. I PATIENT NAME: EDNA LAWS ACCOUNT #: [id number] overlapped it with the old stent over the proxim al edge. There was a lesion that was difficult to dilate . It took 22 atmospheres for it to dilate properly. Then, I used a stent balloo n to post-dilate the previous stent that was a 2.5. So I postdilated it with a balloon inside the ol d stent that resulted in less than 0% residual and good distal flow and no ang iographic complications. The right groin was sealed using Angio-Seal. There w ere no complications. The patient tolerated the procedure well and was tra nsferred back to the holding area for observation to be observed over night and to be discharged tomorrow on medical therapy and risk factor modification. Dictated By: Hal Fowler MD WT: CATH:YUNG/MAGALIS/BAILEY Conf#: [id number]/DID#: [id number] Authenticated by Hal Fowler MD On 06/02 12:35:40 PM at 1236 PATIENT NAME: EDNA LAWS ACCOUNT #: [id number] 2018-06-23 06:22:00-00:00 [id number] [place] [address] PATIENT NAME: EDNA LAWS ADMIT DATE: 06/23/18 ACCOUNT NO: [id number] ROOM NO: AGE: 53 REPORT TYPE: ELECTROCARDIOGRAM SEX: M ADMITTING PHYSICIAN: ATTENDING PHYSICIAN:Hal Fowler MD Order: [id number] Test Reason : PREOP Test Date/Time Stamp: MonJun 23 2018 06:22:03 Blood Pressure : / mmHG Vent. Rate : 064 BPM Atrial Rate : 064 BPM P-R Int : 156 ms QRS Dur : 158 ms QT Int : 442 ms P-R-T Axes : 040 117 042 degree s QTc Int : 455 ms Normal sinus rhythm Right bundle branch block Abnormal ECG When compared with ECG of 18-MAR-2018 04:43, QRS axis shifted right Confirmed by HAL FOWLER ([id number]) on 06/23/2018 8:15:43 AM Referred By: Hal Fowler Confirmed by:HAL ROCK at 0816 PATIENT NAME: EDNA LAWS ACCOUNT #: [id number] 2018-06-22 07:34:00-00:00 [id number] [place] [id number] PATIENT NAME: EDNA LAWS ADMIT DATE: ACCOUNT NO: [id number] ROOM NO: AGE: 53 REPORT TYPE: PREOP HISTORY AND PHYSICAL SEX: M ADMITTING PHYSICIAN: ATTENDING PHYSICIAN:Hal Fowler MD PATIENT NAME: EDNA LAWS ADMIT DATE:06/23/2018 ADMISSION DATE: 06/23/2018 DEVIL DOG: Hal Fowler MD REASON FOR ADMISSION: Angina, coronary artery di sease, ischemia, for cardiac catheterization and possible revascularization. HISTORY OF PRESENT ILLNESS: Edna is a 53-year-old patient of mine with known coronary artery disease, who recently received a long stent in the LAD on 2018 and it was a [employer] y 2.5 x 38 mm. He had significant angina prior to that. At that time, he had only disease in the distal LAD. The rest of the arteries showed plaq uing. The right coronary artery was small, but dominant. The patient's an dyana disappeared and he was doing well on medical therapy and he has been co mpliant with his medicines. Recently, he came in with worsening angina and d yspnea on mild exertion. Nuclear stress test showed recurrent ischemia in the inferoapical and anteroapical region consistent with rest enosis and/or recurrent disease in the same area. Given this information, the patient i s here for cardiac catheterization to assess fo r possible further revascularization. The patient's last echocardiogram showed normal ejecti on fraction on the nuclear stress test that was done recently. His ejection fra ction was mildly depressed, likely due to ischemia and there was apical hypokinesis, ej ection fraction was 51%. PAST MEDICAL HISTORY: Remark able for hypertension, hyperlipidemia, bifascicular block, dizziness, diabetes, acid reflux, hiatal hernia, chronic pancreatitis, gastritis, and allergies. PAST SURGICAL HISTORY: Previous cardiac catheter ization as mentioned above. ALLERGIES: NO KNOWN DRUG ALLERGIES. MEDICATIONS: Metformin, which is on hold, carved ilol 3.125 mg twice daily, Prilosec 40 mg daily, Zantac 150 mg at bedtime, aspirin 81 mg daily, Brilinta 90 mg b.i.d., and pravastatin 80 mg daily. SOCIAL HISTORY: There is no history of smoking, alcohol, or street drug use. FAMILY HISTORY: Negative for premature a therosclerosis. Positive for diabetes. REVIEW OF SYSTEMS: Remarkable for the above. He does have headaches and fatigue. No acute GI or symptoms other than w hat is mentioned above. No PATIENT NAME: EDNA LAWS ACCOUNT #: [id number] TIAs or strokes. He does have easy bruisability and history of sciatica. PHYSICAL EXAMINATION: GENERAL: Reveals a pleasant middle-aged male, in no acute distress. VITAL SIGNS: Blood pressure 106/74, pulse 70 and regular, respiratory rate 16 unlabored, temperature afebrile. HEENT: Head, atraumatic and normocephalic. Eyes and ENT examination within normal for age. NECK: Supple. No jugular venous distention, brui ts, or lymphadenopathy. Normal upstroke. LUNGS: Clear and resonant. HEART: Regular rate and rhyt hm, I/ systolic ejection murmur at the left lower sternal border. No gallops. ABDOMEN: Soft. No tenderness, no organomegaly, n o masses or bruits. EXTREMITIES: 2+ distal pulses. No edema, cyanosi s, or clubbing. NEUROLOGIC: Alert and oriented x3. The examinati on appears to be nonfocal. LABORATORY DATA: Pending. Noninvasive cardiovasc ular workup enclosed. IMPRESSION: This is a 53-year-old patient with d iabetes, coronary artery disease, recent long LAD stent, who comes back w ith recurrent angina and ischemia and the stent distribution. The patient has most likely restenosis around the edges of the sten t or occlusion of the stent. He is here for cardiac catheterization to assess for further revascular ization. The recommendation is to proceed with th e above. The risks and benefits of the planned procedure were discu ssed in detail with the patient and he is willing to proceed. Rest as per orders. Dictated By: Hal Fowler MD WT: PREOPHP:JIGNESH/MAGALIS/BAILEY Conf#: [id number]/DID#: [id number] Authenticated and Edited by aHl Fowler MD On 06/22/18 4:24:28 PM at 1728 PATIENT NAME: EDNA LAWS ACCOUNT #: Z [id number]
[2022-08-29 18:53] LABS: Absolute Lymphocytes (CBC) 2.4 K/uL (0.7-4.9); Lymphocytes % 32.5 % (15.3-44.8); MCV 86.4 fL (80-100); MPV 7.1 fL (7.6-11.3); RBC Red Blood Cell Count 4.29 M/uL (4.33-5.43)
--- NOTE | 2022-08-29 19:07 | RAD REPORT ---
EXAM DESCRIPTION: RAD - Chest Single View - 08/29/2022 7:02 pm CLINICAL HISTORY: CHEST PAIN COMPARISON: Chest Single View dated 03/24/2018; Chest Single View dated 03/19/2018; Chest Single Vie w dated 11/05/2016; Chest Single View dated 05/23/2016 FINDINGS: Lines: None. Lungs: No evidence of edema or pneumonia. Pleural: No significant pleural effusions or pneumothorax. Cardiac: The heart size is within normal limits. Mediastinum: Within normal limits. Bones: No acute fractures. Other: None IMPRESSION: No acute cardiopulmonary disease.
[2022-08-29 19:11] LABS: Albumin 4.2 g/dL (3.4-5.0); Bilirubin Total 0.6 mg/dL (0.2-1.0); Potassium 4.4 mEq/L (3.5-5.1); Protein, Total 7.7 g/dL (6.4-8.2); Troponin High Sensitivity 3.9 pg/mL (<58.9)
[2022-08-29 19:39] LABS: Specific Gravity 1.013 (1.005-1.030); Urine Bilirubin NEGATIVE (Negative); Urine Blood Negative (Negative); Urine Clarity Clear (Clear); Urine Color Colorless (Yellow); Urine Glucose NEGATIVE (Negative); Urine Protein NEGATIVE (Negative); Urine Urobilinogen Normal (Normal)
--- NOTE | 2022-08-29 19:41 | RAD REPORT ---
EXAM DESCRIPTION: CT - Head Brain Wo Cont - 08/29/2022 7:09 pm CLINICAL HISTORY: CONFUSED COMPARISON: Head Brain Wo Cont dated 05/23/2016; Head Brain Wo Cont dated 01/24/2016 TECHNIQUE: All CT scans are performed using dose optimization technique as appropriate and may inclu de automated exposure control or mA/KV adjustment according to patient size. FINDINGS: No intracranial hemorrhage, hydrocephalus or extra-axial fluid collection.No areas of brai n edema or evidence of midline shift. The paranasal sinuses and mastoids are clear. The calvarium is intact. IMPRESSION: No acute intracranial abnormality.
--- NOTE | 2022-08-29 19:59 | EDPHYS ---
Physician Documentation [facility] Name: Alexandr Laws Age: 57 yrs Sex: Male : 1965 Arrival Date: 08/29/2022 Time: 17:57 Bed 5 Private MD: ED Physician Marvel Lopez HPI: 08/29 18:35 This 57 yrs old Male presents to ER via Ambulatory with complaints of Blood bs3 Pressure Problem. 18:35 57-year-old male history of diabetes, GERD, HLD, HTN presents with not feeling himself bs3 he notes the symptoms of been going on for a long period of time however today he was dizzy in the morning he took his blood pressure and it was low he drank water ate popcorn containing salt and his blood pressure improved but he still felt off and therefore he came in he denies any overt fevers or chills, chest pain, sob, abdomianl pain. He notes his right arm was aching recently. . Historical: - Allergies: 18:24 No Known Allergies; nj1 - PMHx: 18:24 Diabetes - NIDDM; Gastric Reflux; High Cholesterol; Hypertension; Coronary nj1 atherosclerosis; - PSHx: 18:24 Partial nephrectomy; Stented artery; Left knee repair; Cholecystectomy; nj1 - Immunization history:: Client reports having NOT received the Covid vaccine. - Social history:: Smoking status: Patient denies any tobacco usage or history of. ROS: 18:35 Constitutional: Negative for fever, chills bs3 18:35 All other systems are negative. Exam: 18:35 Constitutional: This is a well developed, well nourished patient who is awake, alert, bs3 and in no acute distress. Head/Face: Normocephalic, atraumatic. Eyes: Pupils equal round and reactive to light, extra-ocular motions intact. Lids and lashes normal. ENT: mmm, no posterior phyarngeal erythema Neck: Trachea midline, no thyromegaly, no neck stiffness Chest/axilla: Normal chest wall appearance and motion. Nontender with no deformity. No lesions are appreciated. Cardiovascular: Regular rate and rhythm with a normal S1 and S2. symmetric pulses in upper extremities Respiratory: Lungs have equal breath sounds bilaterally, clear to auscultation, no respiratory distress Abdomen/GI: Soft, non-tender, no rebound or guarding Skin: Warm, dry with normal turgor. Normal color with no rashes, no lesions, and no evidence of cellulitis. MS/ Extremity: No cyanosis. Neurovascular intact. Full, normal range of motion. Normal symmetric pulses in upper extremities Neuro: Awake and alert, GCS 15, oriented to person, place, time, and situation. Cranial nerves II-XII grossly intact. Motor strength 5/5 in all extremities. Sensory grossly intact. Normal toe former stitchdowns strength normal gait he is alert and oriented he has normal naming of objects Psych: Awake, alert, with orientation to person, place and time. Behavior, mood, and affect are within normal limits. 19:21 Normal sinus rhythm at 65 right bundle branch block QTc 426 as interpreted by myself [facility] Vital Signs: 18:20 BP 134 / 91; Pulse 71; Resp 16; Temp 98.4(TE); Pulse Ox 100% ; Weight 81.65 kg; Height nj1 5 ft. 8 in. ; 19:30 BP 124 / 86; Pulse 67; Resp 18; Pulse Ox 99% on R/A; Pain 4/10; pf1 18:20 Body Mass Index 27.37 (81.65 kg, 172.72 cm) nj1 19:30 Pain Scale: Adult pf1 MDM: 18:14 Patient medically screened. [facility] 18:38 Differential Diagnosis: CVA, electrolyte abnormality, alcohol intoxication, bs3 hypoglycemia, intracranial bleed, overdose, pneumonia, seizure, UTI, volume depletion. Data reviewed: vital signs, nurses notes. ED course: His neuro exam is normal here his vital signs are normal his history is not consistent with an aortic dissection vertebral artery dissection he initially said that his symptoms were fairly new but then said that he talked about his symptoms with his primary care doctor months ago at his follow-up visits. 19:56 ED course: Patient reassessed feeling well he was reassessed and ambulating without [facility] difficulty had a steady gait he had no symptoms currently his work-up was nondiagnostic he does report the symptoms have been chronic and usually he just ignores unclear etiology for his symptoms I do not think he has a dissection or not consistent with a CVA his symptom duration is greater than 6 hours as troponin was negative. 19:57 ED course: We had a shared decision-making conversation we discussed observation in the [facility] hospital but patient wanted to go home will discharge home given a copy of his labs advise follow-up with primary care and his operations administrator within 1 week. 08/29 18:28 Order name: CBC with Diff; Complete Time: 19:19 [facility] 08/29 18:28 Order name: Comprehensive Metabolic Panel; Complete Time: 19:19 [facility] 08/29 18:28 Order name: Troponin High Sensitivity; Complete Time: 19:19 [facility] 08/29 18:28 Order name: Urinalysis w/ reflexes; Complete Time: 19:54 [facility] 08/29 18:28 Order name: XRAY Chest (1 view) - STROKE; Complete Time: 19:19 [facility] 08/29 18:28 Order name: CT Head Brain wo Cont; Complete Time: 19:54 [facility] 08/29 18:28 Order name: EKG - Nurse/Tech; Complete Time: 18:45 [facility] 08/29 18:46 Order name: IV Start; Complete Time: 18:46 ll1 Administered Medications: No medications were administered Disposition Summary: 08/29/22 19:58 Discharge Ordered Location: Home bs3 Problem: new bs3 Symptoms: have improved bs3 Condition: Stable bs3 Diagnosis - Weakness bs3 Followup: bs3 - With: Private Physician - When: 2 - 3 days - Reason: Re-evaluation by your physician Discharge Instructions: - Discharge Summary Sheet bs3 - Weakness bs3 Forms: - Medication Reconciliation Form bs3 - Thank You Letter bs3 - Antibiotic Education bs3 - Prescription Opioid Use bs3 Signatures: Dispatcher [employer] Mello Jordan RN RN ll1 Marvel Lopez MD MD bs3 Pooja Brakley RN RN nj1 Corrections: (The following items were deleted from the chart) 18: 18:24 Allergies: Partial nephrectomy; nj1 nj1
--- NOTE | 2022-08-29 19:59 | ER ---
Nurse's Notes [facility] Name: Alexandr Laws Age: 57 yrs Sex: Male : 1965 Arrival Date: 08/29/2022 Time: 17:57 Bed 5 Private MD: Diagnosis: Weakness Presentation: 08/29 18:20 Chief complaint: Patient states: Not feeling well, check his blood pressure (90's nj1 systolic). I was feeling lightheaded, dizzy. Drank some fluids, eat some popcorn, I started feeling better, then I took my medications including blood pressure medicine. Ebola Screen: Patient denies travel to an Ebola-affected area in the 21 days before illness onset. Initial Sepsis Screen: Does the patient meet any 2 criteria? No. Patient's initial sepsis screen is negative. Does the patient have a suspected source of infection? No. Patient's initial sepsis screen is negative. Risk Assessment: Do you want to hurt yourself or someone else? Patient reports no desire to harm self or others. Onset of symptoms was August 29, 2022. 18:20 Method Of Arrival: Ambulatory [facility] 18:20 Acuity: MIKEY 3 nj1 18:20 Coronavirus screen: Vaccine status: Patient reports being unvaccinated. [facility] Historical: - Allergies: 18:24 No Known Allergies; nj1 - PMHx: 18:24 Diabetes - NIDDM; Gastric Reflux; High Cholesterol; Hypertension; Coronary nj1 atherosclerosis; - PSHx: 18:24 Partial nephrectomy; Stented artery; Left knee repair; Cholecystectomy; nj1 - Immunization history:: Client reports having NOT received the Covid vaccine. - Social history:: Smoking status: Patient denies any tobacco usage or history of. Screenin:07 [facility] ED Fall Risk Assessment (Adult) Impaired Gait Yes (1 pt) Mobility Assist ll1 Device Used Yes (1 pt) Score/Fall Risk Level 0 - 2 = Low Risk Oriented to surroundings, Maintained a safe environment, Educated pt \T\ family on fall prevention, incl call for assistance when getting out of bed, Hourly rounding (assess needs \T\ fall precautionary measures) done. Abuse screen: Denies threats or abuse. Nutritional screening: No deficits noted. Tuberculosis screening: No symptoms or risk factors identified. Assessment: 18:43 General: Appears in no apparent distress. Behavior is calm, cooperative, appropriate ll1 for age. General: Reports fatigue for low BP. Pain: Denies pain. Neuro: Level of Consciousness is awake, alert, obeys commands, Oriented to person, place, time, situation, Appropriate for age Moves all extremities. Full function Speech is normal, Facial symmetry appears normal, Reports a syncopal episode weakness. 19:20 General: Appears in no apparent distress. comfortable, well groomed, well developed, pf1 Behavior is calm, cooperative, appropriate for age, quiet. 19:20 Pain: Complains of pain in head Pain currently is 4 out of 10 on a pain scale. pf1 Cardiovascular: Reports lightheadedness, with lightheadedness. Patient stated has a history of lightheadedness. Respiratory: No deficits noted. Airway is patent Trachea midline Respiratory effort is even, unlabored, Respiratory pattern is regular, symmetrical. GI: No deficits noted. No signs and/or symptoms were reported involving the gastrointestinal system. : No deficits noted. No signs and/or symptoms were reported regarding the genitourinary system. EENT: No deficits noted. No signs and/or symptoms were reported regarding the EENT system. Derm: No deficits noted. No signs and/or symptoms reported regarding the dermatologic system. Derm: No deficits noted. No signs and/or symptoms reported regarding the dermatologic system. Musculoskeletal: No deficits noted. No signs and/or symptoms reported regarding the musculoskeletal system. Circulation, motion, and sensation intact. Capillary refill < 3 seconds, Range of motion: intact in all extremities. Vital Signs: 18:20 BP 134 / 91; Pulse 71; Resp 16; Temp 98.4(TE); Pulse Ox 100% ; Weight 81.65 kg; Height nj1 5 ft. 8 in. ; 19:30 BP 124 / 86; Pulse 67; Resp 18; Pulse Ox 99% on R/A; Pain 4/10; pf1 18:20 Body Mass Index 27.37 (81.65 kg, 172.72 cm) nj1 19:30 Pain Scale: Adult pf1 ED Course: 17:59 Patient arrived in ED. ts1 18:17 Marvel Lopez MD is Attending Physician. bs3 18:24 Triage completed. nj1 18:28 Arm band placed on right wrist. nj1 18:35 Mello Driver RN is Primary Nurse. ll1 18:44 Inserted saline lock: 22 gauge in right antecubital area, using aseptic technique. ll1 Blood collected. 19:04 XRAY Chest (1 view) - STROKE In Process Unspecified. EDMS 19:08 Patient has correct armband on for positive identification. Bed in low position. Call ll1 light in reach. Side rails up X2. Client placed on continuous cardiac and pulse oximetry monitoring. NIBP monitoring applied. monitoring specialist on. 19:10 CT Head Brain wo Cont In Process Unspecified. EDMS 19:55 Primary Nurse role handed off by Mello Driver, RN rv1 20:15 No provider procedures requiring assistance completed. pf1 20:15 IV discontinued, intact, bleeding controlled, No redness/swelling at site. Pressure pf1 dressing applied. Administered Medications: No medications were administered Medication: 19:08 VIS not applicable for this client. ll1 Outcome: 19:58 Discharge ordered by . bs3 20:25 Discharged to home via wheelchair. pf1 20:25 Condition: improved 20:25 Discharge instructions given to patient, Instructed on discharge instructions, follow up and referral plans. Demonstrated understanding of instructions, follow-up care. 20:25 Patient left the ED. pf1 Signatures: Dispatcher [employer] EDWY Mello Driver, WANDY RN ll1 Marvel Lopez MD MD bs3 Alycia Holguin RN RN pf1 Tabby Carmichael rv1 Pooja Barkley RN RN nj1 Lavinia Bird, PAS PAS ts1 Corrections: (The following items were deleted from the chart) 18:27 18:24 Allergies: Partial nephrectomy; nj1 nj1 18:28 18:20 BP 134 / 91; Pulse 71bpm; Resp 16bpm; Pulse Ox 100%; nj1 nj1
[2022-08-29 20:39] VITALS: TEMP 98.4
[2022-08-29 20:43] VITALS: BP 124/86; O2SAT 99
--- NOTE | 2022-08-31 14:40 | EKG ---
Test Date: 2022-08-29 Test Time: 18:42:53 Service Agent: REGINA MEASUREMENT RESULTS: Intervals: Rate: 65 NV: 166 QRSD: 156 QT: 410 QTc: 426 Gaston: P: 55 NV: 166 QRS: 110 T: 41 INTERPRETIVE STATEMENTS: Normal sinus rhythm Right bundle branch block Abnormal ECG Compared to ECG 03/24/2018 03:29:07 No significant changes Electronically Signed On 08-31-22 14:38:01 CDT by Lele Huerta
== END 2022-08-29 20:25 | disposition home or self-care (01) ==
LOC: ER 17:57
DX: R53.1 Weakness (principal); I10 Essential (primary) hypertension; E11.9 Type 2 diabetes mellitus without complications
CPT/HCPCS: 36415; 70450; 71045; 80053; 81003; 84484; 85025; 93005; 99284

== ENCOUNTER → 2023-06-28 | Emergency (ER) | payer OTHER ==
[~2023-06-28] MED LIST: FOLIC ACID 5 MG/ML VIAL ONE; MECLIZINE HCL 12.5 MG TAB ONE; TENECTEPLASE 50 MG/10 ML VIAL IV ONE
[2023-06-28 15:58] LABS: Absolute Eosinophils 0.2 K/uL (0-0.5); Absolute Lymphocytes (CBC) 2.4 K/uL (0.7-4.9); Absolute Monocytes 0.6 K/uL (0.1-1.3); Absolute Neutrophil 5.9 K/uL (1.8-8.0); Basophils % 0.4 % (0-1.3); Eosinophils % 2.6 % (0-4.4); Hematocrit 40.3 % (39.6-49.0); Hemoglobin 13.6 g/dL (13.6-17.9); Lymphocytes % 26.1 % (15.3-44.8); MCH 29.1 pg (27.0-35.0); MCHC 33.7 g/dL (32.0-36.0); MCV 86.4 fL (80-100); MPV 7.6 fL (7.6-11.3); Monocytes % 6.5 % (3.3-12.3); Neutrophils % 64.4 % (41.7-73.7); Platelets 266 thou/uL (152-406); RBC Red Blood Cell Count 4.66 M/uL (4.33-5.43); Red Cell Distribution Width 14.1 % (12.1-15.2)
--- NOTE | 2023-06-28 15:58 | RAD REPORT ---
EXAM DESCRIPTION: CT - Ct Stroke Brain Wo Cont - 06/28/2023 3:45 pm CLINICAL HISTORY: Blurred vision and dizziness COMPARISON: 2022 TECHNIQUE: Computed axial tomography of the head was obtained. All CT scans are performed using dose optimization technique as appropriate and may include automated exposure control or mA/KV adjustment according to patient size. FINDINGS: An intracranial bleed is not seen . The ventricles are normal in caliber. No extra-axial fluid collection is noted. No significant hypodensity within the brain Fluid within the sinuses/ mastoids is not seen. IMPRESSION: No acute intracranial abnormality is seen. If patient's symptoms persist MRI of the bra in would be recommended Dr Lerma the emergency room was notified at 3:53 p.m. June 28, 2023
[2023-06-28 16:02] LABS: PT Prothrombin Time 12.5 SECONDS (9.5-12.5); PTT, Activated Partial Thromb 36.6 SECONDS (24.3-36.9); Protime INR 1.14
[2023-06-28 16:13] LABS: Anion Gap 9.1 mEq/L (5.0-15.0); BUN Blood Urea Nitrogen 25 mg/dL (7-18); Bicarbonate 26 mEq/L (21-32); Glomerular Filtration Rate 69 ml/min (=/>90); Glucose Level 108 mg/dL (74-106); Potassium 4.1 mEq/L (3.5-5.1); Sodium Level 138 mEq/L (136-145)
--- NOTE | 2023-06-28 16:15 | EDPHYS ---
Physician Documentation [facility] Name: Alexandr Laws Age: 58 yrs Sex: Male : 1965 Arrival Date: 06/28/2023 Time: 15:16 Bed 17 Private MD: Hafsa Lind ED Physician Joshua Acharya HPI: 06/27 15:44 This 58 yrs old Male presents to ER via Ambulatory with complaints of rn Confusion, Head pressure. 15:44 The patient presents with confusion, disorientation. Onset: The symptoms/episode rn began/occurred at 14:40. Possible causes: unknown. Associated signs and symptoms: Pertinent positives: dizziness, Blurred vision. Current symptoms: In the emergency department the patient's symptoms have improved. The patient has not experienced similar symptoms in the past. Patient reports that approximately 1440, was shopping at [employer] when felt dizziness, blurred vision, disorientation. Was somehow able to drive himself here, states "pushed himself to do it ", feels a little bit better but not completely back to baseline. Patient states feels "something is off ". Has known CAD but no history of stroke. Also reports has problems with hypoglycemia, not sure what his sugar is at this time. No fever or recent illness. Does feel head pressure. No focal weakness or numbness. No seizure. No recent head trauma.. Historical: - Allergies: 15:43 No Known Allergies; hb - Home Meds: 15:43 aspirin 81 mg Oral chew once daily [Active]; BRILINTA 90 mg Oral tab [Active]; hb carvedilol 3.125 mg Oral tab 1 tab [Active]; carvedilol 3.125 mg Oral tab 1 tab [Active]; metformin 750 mg Oral Tb24 1 tab once daily [Active]; Nexium 40 mg Oral cpDR [Active]; pravastatin 80 mg Oral tab once daily [Active]; - PMHx: 15:28 coronary atherosclerosis; Diabetes - NIDDM; Gastric Reflux; High Cholesterol; ll1 Hypertension; - PSHx: 15:28 Cholecystectomy; left knee repair; Partial nephrectomy; Stented artery; ll1 - Immunization history:: Adult Immunizations up to date. - Social history:: Smoking status: Patient denies any tobacco usage or history of. - Family history:: not pertinent. - Hospitalizations: : No recent hospitalization is reported. ROS: 15:47 Constitutional: Negative for fever, chills, and weight loss, Eyes: Positive for blurred rn vision Neck: Negative for injury, pain, and swelling, Cardiovascular: Negative for chest pain, palpitations, and edema, Respiratory: Negative for shortness of breath, cough, wheezing, and pleuritic chest pain, Abdomen/GI: Negative for abdominal pain, nausea, vomiting, diarrhea, and constipation, Back: Negative for injury and pain, MS/Extremity: Negative for injury and deformity, Skin: Negative for injury, rash, and discoloration, Neuro: Positive for headache, negative for focal weakness or numbness. Negative for seizure. Positive for dizziness Exam: 15:47 Constitutional: This is a well developed, well nourished patient who is awake, alert, rn and in no acute distress. Slow to respond, seems slightly confused Head/Face: Normocephalic, atraumatic. Eyes: Pupils equal round and reactive to light, extra-ocular motions intact. Lids and lashes normal. Conjunctiva and sclera are non-icteric and not injected. Cornea within normal limits. Periorbital areas with no swelling, redness, or edema. Visual linton intact and no diplopia. ENT: Dry mucous membranes Cardiovascular: Regular rate and rhythm. No pulse deficits. Respiratory: No increased work of breathing, no retractions or nasal flaring. Abdomen/GI: Soft, non-tender MS/ Extremity: Pulses equal, no cyanosis. Neurovascular intact. Full, normal range of motion. Equal circumference. Neuro: Awake and alert, GCS 15, oriented to person, place, time, and situation. Cranial nerves II-XII grossly intact. Motor strength 5/5 in all extremities. Sensory grossly intact. Unsteady gait, feels like he is going to fall without assistance. Normal [id number]. No nystagmus. 16:34 ECG was reviewed by the Attending Physician. rn Vital Signs: 15:36 BP 143 / 97; Pulse 84; Resp 16; Temp 97.4(TE); Pulse Ox 98% on R/A; Weight 85 kg (M); ll1 Height 5 ft. 8 in. ; Pain 0/10; 16:31 BP 152 / 87; Pulse 78; Resp 16; Pulse Ox 99% on R/A; ll1 17:54 BP 134 / 88; Pulse 77; Resp 16; Pulse Ox 98% on R/A; Pain 0/10; ll1 15:36 Body Mass Index 28.49 (85.00 kg, 172.72 cm) ll1 15:36 Pain Scale: Adult ll1 17:54 Pain Scale: Adult ll1 NIH Stroke Scale Scores: 15:50 NIHSS Score: 0 rn 16:32 NIHSS Score: 0 kd3 MDM: 15:27 Patient medically screened. rn 15:50 ED course: NIH is 0. Glucose normal.. rn 15:50 ED course: Patient does state under a lot of stress today, already into verbal rn altercations today. Was not in argument at time of onset of symptoms. Symptoms do seem to be improving slowly but not back to baseline.. 15:54 ED course: Dr. Starr reports CT head without contrast neg for acute findings. . rn 15:59 ED course: Consulted with Dr. Martins, he is concerned for possible posterior CVA, rn recommends TNK. Reports aspirin and brilinta not a contraindication. . 16:10 ED course: Discussed at length with patient, especially after consultation with rn neurologist Dr. Martins, decision made to give patient TNK and patient consents. All questions answered. Patient is within the window and has acute neurological deficits, possibly posterior.. 16:12 Differential Diagnosis: CVA, electrolyte abnormality, volume depletion, Vertigo, stress rn reaction. Data reviewed: vital signs, nurses notes, lab test result(s), radiologic studies, CT scan, and as a result, I will admit patient. Consideration of Admission/Observation Patient was admitted/placed on observation. Escalation of care including admission/observation considered. Care significantly affected by the following chronic conditions: Diabetes, Hypertension. 16:13 Counseling: I had a detailed discussion with the patient and/or guardian regarding the rn historical points, exam findings, and any diagnostic results supporting the discharge/admit diagnosis, lab results, radiology results, the need for further work-up and treatment in the hospital, the need to transfer to another facility. 16:14 ED course: I personally spent 35 minutes engaged in work directly related to the rn individual patient's care. This does not include any time spent performing procedures. The patient has been deemed critically ill because of acute onset of neurological symptoms requiring immediate evaluation, rushed imaging and lab work, consultation with neurology, patient education and consent for TNK and TNK administration as well as organization of transfer for higher level of care.. 16:32 ED course: Accepted for transfer to [facility] neuro ICU. rn 17:03 ED course: Pt feels like symptoms are improving, not completely back to baseline yet.. rn 06/27 15:40 Order name: Basic Metabolic Panel; Complete Time: 16:29 06/27 15:40 Order name: CBC with Diff; Complete Time: 16:13 06/27 15:40 Order name: High Sensitivity Troponin; Complete Time: 16:29 06/27 15:40 Order name: Protime (+inr); Complete Time: 16:13 06/27 15:40 Order name: Ptt, Activated; Complete Time: 16: 06/27 15:40 Order name: Glucose, Ancillary Testing EDCT 06/27 16:22 Order name: CREATININE WHOLE BLOOD; Complete Time: 16:29 [facility] 06/27 15:40 Order name: CT Stroke Brain w/o Contrast; Complete Time: 16: 06/27 15:40 Order name: Stroke CXR 1 View; Complete Time: 17:03 06/27 15:47 Order name: CT Head Angio; Complete Time: 16: 06/27 15:47 Order name: Neck Angio CT; Complete Time: 16: 06/27 15:40 Order name: EKG; Complete Time: 15:40 06/27 15:40 Order name: Accucheck; Complete Time: 15:48 06/27 15:40 Order name: Cardiac monitoring; Complete Time: 16: 06/27 15:40 Order name: EKG - Nurse/Tech; Complete Time: 16: 06/27 15:40 Order name: IV Saline Lock; Complete Time: 15:48 06/27 15:40 Order name: Labs collected and sent; Complete Time: 16: 06/27 15:40 Order name: NPO; Complete Time: 16: 06/27 15:40 Order name: O2 Per Protocol; Complete Time: 16:23 06/27 15:40 Order name: O2 Sat Monitoring; Complete Time: 16: 06/27 15:40 Order name: Stroke Swallow Screen; Complete Time: 16:31 rn EC:34 Rate is 73 beats/min. Rhythm is regular. HI interval is normal. QRS interval is rn prolonged at 160 msec. QT interval is normal. No Q waves. T waves are Normal. No ST changes noted. Clinical impression: NSR w/ Non-specific ST/T Changes. Interpreted by me. Reviewed by me. Administered Medications: 15:56 Drug: Meclizine PO 50 mg PO once Route: PO; kd3 17:38 Follow up: Response: No adverse reaction ll1 16:14 Drug: TNK FOR STROKE - Tenecteplase IV 0.25 mg/kg IV at per protocol once; MAX ll1 DOSE 25 mg, IVP over 5 seconds Route: IV; Rate: per protocol; Site: left antecubital; 16:16 Follow up: Response: No adverse reaction; IV Status: Completed infusion; IV Intake: ll1 4.2ml 17:35 Drug: foLIC Acid IVPB 1 mg IVPB once Route: IVPB; Site: right antecubital; ll1 17:38 Follow up: Response: No adverse reaction; IV Status: Completed infusion; IV Intake: ll1 0.2ml Point of Care Testing: Blood Glucose: 15:28 Blood Glucose: 113 mg/dL; hb Ranges: Critical Glucose Levels:Adult <50 mg/dl or >400 mg/dl <40 mg/dl or >180 mg/dl Disposition: 16:14 Critical Care:. rn Disposition Summary: 06/28/23 16:14 Transfer Ordered Notes: Transfer Location: [facility] rn Reason: Higher level of care rn Condition: Stable rn Problem: new rn Symptoms: are unchanged rn Accepting Physician: (06/28/23 18:04) ll1 Diagnosis - Cerebral infarction, unspecified rn Forms: - Medication Reconciliation Form rn - SBAR form biomedical engineering internship time excluding procedures: 16:14 Critical care time: Bedside Care: 30 minutes, Consultation: 5 minutes. Total time: 35 rn minutes NIH Stroke Scale - NIH Stroke Score Date: 06/28/2023 Time: 15:50 Total Score = 0 10. Dysarthria (speech clarity - read or repeat words) - 0(Normal) 11. Extinction and Inattention (visual/tactile/auditory/spatial/personal) - 0(No abnormality) 1a. Level of Consciousness (LOC) - 0(Alert) 1b. Level of Consciousness (LOC) (Month \\T\\ Age) - 0(Both) 1c. LOC Commands (Open \\T\\ Closes Eyes/Spa Concierge) - 0(Both) 2. Best Gaze (Lateral Gaze Paresis) - 0(Normal) 3. Visual Field Loss - 0(No visual loss) 4. Facial Palsy - 0(Normal) 5a. Left Arm: Motor (10-second hold) - 0(No drift) 5b. Right Arm: Motor (10-second hold) - 0(No drift) 6a. Left Leg: Motor (5-second hold - always test supine) - 0(No drift) 6b. Right Leg: Motor (5-second hold - always test supine) - 0(No drift) 7. Limb Ataxia (finger/nose \\T\\ heel/lawrence - test with eyes open) - 0(Absent) 8. Sensory Loss (pinprick arms/legs/face) - 0(Normal) 9. Best Language: Aphasia (description/naming/reading) - 0(No aphasia) Initials: tracey NIH Stroke Scale - NIH Stroke Score Date: 06/28/2023 Time: 16:32 Total Score = 0 10. Dysarthria (speech clarity - read or repeat words) - 0(Normal) 11. Extinction and Inattention (visual/tactile/auditory/spatial/personal) - 0(No abnormality) 1a. Level of Consciousness (LOC) - 0(Alert) 1b. Level of Consciousness (LOC) (Month \\T\\ Age) - 0(Both) 1c. LOC Commands (Open \\T\\ Closes Eyes/Spa Concierge) - 0(Both) 2. Best Gaze (Lateral Gaze Paresis) - 0(Normal) 3. Visual Field Loss - 0(No visual loss) 4. Facial Palsy - 0(Normal) 5a. Left Arm: Motor (10-second hold) - 0(No drift) 5b. Right Arm: Motor (10-second hold) - 0(No drift) 6a. Left Leg: Motor (5-second hold - always test supine) - 0(No drift) 6b. Right Leg: Motor (5-second hold - always test supine) - 0(No drift) 7. Limb Ataxia (finger/nose \\T\\ heel/lawrence - test with eyes open) - 0(Absent) 8. Sensory Loss (pinprick arms/legs/face) - 0(Normal) 9. Best Language: Aphasia (description/naming/reading) - 0(No aphasia) Initials: kd3 Signatures: Dispatcher [employer] Joshua Devine MD MD rn Baxter, Heather RN Mello Staley RN RN ll1 Monica Casas RN RN kd3 Corrections: (The following items were deleted from the chart) 18:04 16:14 Dr. webb ll1
--- NOTE | 2023-06-28 16:15 | ER ---
Nurse's Notes [facility] Name: Alexandr Laws Age: 58 yrs Sex: Male : 1965 Arrival Date: 06/28/2023 Time: 15:16 Bed 17 Private MD: Hafsa Lind Diagnosis: Cerebral infarction, unspecified Presentation: 06/27 13:35 Chief complaint: Reports sudden onset of "not feeling right " while shopping at 1440. hb 15:36 Ebola Screen: Patient denies travel to an Ebola-affected area in the 21 days before 1 illness onset. Initial Sepsis Screen: Does the patient meet any 2 criteria? No. Patient's initial sepsis screen is negative. Does the patient have a suspected source of infection? No. Patient's initial sepsis screen is negative. Risk Assessment: Do you want to hurt yourself or someone else? Patient reports no desire to harm self or others. 15:36 Method Of Arrival: [facility] 15:36 Acuity: MIKEY 2 1 15:36 Coronavirus screen: At this time, the client does not indicate any symptoms associated hb with coronavirus-19. Onset of symptoms was June 28, 2023 at 14:40. Triage Assessment: 15:38 General: Appears in no apparent distress. Behavior is calm, cooperative. Neuro: Level hb of Consciousness is awake, alert, obeys commands, Oriented to person, place, time, situation. Cardiovascular: Patient's skin is warm and dry. Respiratory: Respiratory effort is even, unlabored, Respiratory pattern is regular, symmetrical. Historical: - Allergies: 15:43 No Known Allergies; hb - Home Meds: 15:43 aspirin 81 mg Oral chew once daily [Active]; BRILINTA 90 mg Oral tab [Active]; hb carvedilol 3.125 mg Oral tab 1 tab [Active]; carvedilol 3.125 mg Oral tab 1 tab [Active]; metformin 750 mg Oral Tb24 1 tab once daily [Active]; Nexium 40 mg Oral cpDR [Active]; pravastatin 80 mg Oral tab once daily [Active]; - PMHx: 15:28 coronary atherosclerosis; Diabetes - NIDDM; Gastric Reflux; High Cholesterol; ll1 Hypertension; - PSHx: 15:28 Cholecystectomy; left knee repair; Partial nephrectomy; Stented artery; ll1 - Immunization history:: Adult Immunizations up to date. - Social history:: Smoking status: Patient denies any tobacco usage or history of. - Family history:: not pertinent. - Hospitalizations: : No recent hospitalization is reported. Screenin:55 [place] Swallow Protocol Exclusion Criteria: Exclusion Criteria Result: Proceed Brief kd3 Cognitive Screen What is your name? Normal, Where are you right now? Normal, What year is it? Normal. Oral Mechanism Examination Facial Symmetry: Normal, Motion: Normal, Lip Closure: Normal, Oral Mechanism Result: Normal. 3 oz Water Swallow Challenge: Pt able to drink all water without stopping, coughing, choking or throat clearing: Yes Result: PASS MD Notified: Joshua Acharya MD. 16:28 [facility] ED Fall Risk Assessment (Adult) History of falling in the last 3 months, ll1 including since admission No falls in past 3 months (0 pts) Confusion or Disorientation Yes (5 pts) Intoxicated or Sedated No (0 pts) Impaired Gait Yes (1 pt) Mobility Assist Device Used Yes (1 pt) Altered Elimination No (0 pt). Abuse screen: Denies threats or abuse. Nutritional screening: No deficits noted. Tuberculosis screening: No symptoms or risk factors identified. Assessment: 15:28 General: Finger Stick of 113 . kd3 15:35 General: Appears uncomfortable, Behavior is calm, cooperative, appropriate for age. ll1 Pain: Complains of pain in head Pain Quality of pain is described as pressure. Neuro: Reports dizziness, headache. Cardiovascular: No deficits noted. 15:38 Reassessment: CODE STROKE CALLED, PT TO CT. hb 15:39 General: Pt transferred to CT by stretcher by this RN . kd3 16:00 Reassessment: No changes from previously documented assessment. ll1 16:14 Reassessment: No changes from previously documented assessment. TNK administered, see ll1 flowsheet. 17:00 Reassessment: No changes from previously documented assessment. Patient and/or family ll1 updated on plan of care and expected duration. Pain level reassessed. Patient is alert, oriented x 3, equal unlabored respirations, skin warm/dry/pink. 17:35 Reassessment: No changes from previously documented assessment. Patient and/or family ll1 updated on plan of care and expected duration. Pain level reassessed. Patient is alert, oriented x 3, equal unlabored respirations, skin warm/dry/pink. Signed transfer form. 18:04 Reassessment: No changes from previously documented assessment. Patient and/or family ll1 updated on plan of care and expected duration. Pain level reassessed. Patient is alert, oriented x 3, equal unlabored respirations, skin warm/dry/pink. Vital Signs: 15:36 BP 143 / 97; Pulse 84; Resp 16; Temp 97.4(TE); Pulse Ox 98% on R/A; Weight 85 kg (M); ll1 Height 5 ft. 8 in. ; Pain 0/10; 16:31 BP 152 / 87; Pulse 78; Resp 16; Pulse Ox 99% on R/A; ll1 17:54 BP 134 / 88; Pulse 77; Resp 16; Pulse Ox 98% on R/A; Pain 0/10; ll1 15:36 Body Mass Index 28.49 (85.00 kg, 172.72 cm) ll1 15:36 Pain Scale: Adult ll1 17:54 Pain Scale: Adult ll1 NIH Stroke Scale Scores: 15:50 NIHSS Score: 0 rn 16:32 NIHSS Score: 0 kd3 ED Course: 15:19 Patient arrived in ED. mr 15:19 Hafsa Lind DO is Private Physician. mr 15:27 Joshua Acharya MD is Attending Physician. rn 15:28 Mello Driver, WANDY is Primary Nurse. ll1 15:28 Arm band placed on Patient placed in an exam room, on a stretcher. ll1 15:35 Initial lab(s) drawn, by pa. Inserted saline lock: 20 gauge in right antecubital area, ll1 using aseptic technique. Blood collected. 15:36 Triage completed. ll1 15:47 CT Stroke Brain w/o Contrast In Process Unspecified. EDMS 15:56 CT Head Angio In Process Unspecified. EDMS 15:[address] In Process Unspecified. EDMS 16:00 EKG done, by ED staff, reviewed by Joshua Acharya MD. kd3 16:07 Inserted saline lock: 20 gauge in left antecubital area, using aseptic technique. kd3 16:29 Stroke CXR 1 View In Process Unspecified. EDMS 16:29 Patient has correct armband on for positive identification. Bed in low position. Call ll1 light in reach. Provided Education on: ER procedures and process. Client placed on continuous cardiac and pulse oximetry monitoring. NIBP monitoring applied. library monitor on. 17:27 No provider procedures requiring assistance completed. Patient transferred, IV remains ll1 in place. Administered Medications: 15:56 Drug: Meclizine PO 50 mg PO once Route: PO; kd3 17:38 Follow up: Response: No adverse reaction ll1 16:14 Drug: TNK FOR STROKE - Tenecteplase IV 0.25 mg/kg IV at per protocol once; MAX ll1 DOSE 25 mg, IVP over 5 seconds Route: IV; Rate: per protocol; Site: left antecubital; 16:16 Follow up: Response: No adverse reaction; IV Status: Completed infusion; IV Intake: ll1 4.2ml 17:35 Drug: foLIC Acid IVPB 1 mg IVPB once Route: IVPB; Site: right antecubital; ll1 17:38 Follow up: Response: No adverse reaction; IV Status: Completed infusion; IV Intake: ll1 0.2ml Medication: 16:30 VIS not applicable for this client. ll1 Point of Care Testing: Blood Glucose: 15:28 Blood Glucose: 113 mg/dL; hb Ranges: Intake: 16:16 IV: 4ml; Total: 4ml. ll1 17:38 IV: 0ml; Total: 4ml. 1 Outcome: 16:14 ER care complete, transfer ordered by MD. webb 17:27 Transferred by ground EMS to [facility], Transfer form completed. 1 17:27 Condition: stable 17:27 Instructed on the need for transfer, 18:04 Patient left the ED. 1 NIH Stroke Scale - NIH Stroke Score Date: 06/28/2023 Time: 15:50 Total Score = 0 10. Dysarthria (speech clarity - read or repeat words) - 0(Normal) 11. Extinction and Inattention (visual/tactile/auditory/spatial/personal) - 0(No abnormality) 1a. Level of Consciousness (LOC) - 0(Alert) 1b. Level of Consciousness (LOC) (Month \\T\\ Age) - 0(Both) 1c. LOC Commands (Open \\T\\ Closes Eyes/Commercial Lines Account Executive) - 0(Both) 2. Best Gaze (Lateral Gaze Paresis) - 0(Normal) 3. Visual Field Loss - 0(No visual loss) 4. Facial Palsy - 0(Normal) 5a. Left Arm: Motor (10-second hold) - 0(No drift) 5b. Right Arm: Motor (10-second hold) - 0(No drift) 6a. Left Leg: Motor (5-second hold - always test supine) - 0(No drift) 6b. Right Leg: Motor (5-second hold - always test supine) - 0(No drift) 7. Limb Ataxia (finger/nose \\T\\ heel/lawrence - test with eyes open) - 0(Absent) 8. Sensory Loss (pinprick arms/legs/face) - 0(Normal) 9. Best Language: Aphasia (description/naming/reading) - 0(No aphasia) Initials: wandy NIH Stroke Scale - NIH Stroke Score Date: 06/28/2023 Time: 16:32 Total Score = 0 10. Dysarthria (speech clarity - read or repeat words) - 0(Normal) 11. Extinction and Inattention (visual/tactile/auditory/spatial/personal) - 0(No abnormality) 1a. Level of Consciousness (LOC) - 0(Alert) 1b. Level of Consciousness (LOC) (Month \\T\\ Age) - 0(Both) 1c. LOC Commands (Open \\T\\ Closes Eyes/Commercial [employer] Account Executive) - 0(Both) 2. Best Gaze (Lateral Gaze Paresis) - 0(Normal) 3. Visual Field Loss - 0(No visual loss) 4. Facial Palsy - 0(Normal) 5a. Left Arm: Motor (10-second hold) - 0(No drift) 5b. Right Arm: Motor (10-second hold) - 0(No drift) 6a. Left Leg: Motor (5-second hold - always test supine) - 0(No drift) 6b. Right Leg: Motor (5-second hold - always test supine) - 0(No drift) 7. Limb Ataxia (finger/nose \\T\\ heel/lawrence - test with eyes open) - 0(Absent) 8. Sensory Loss (pinprick arms/legs/face) - 0(Normal) 9. Best Language: Aphasia (description/naming/reading) - 0(No aphasia) Initials: kd3 Signatures: Dispatcher [employer] EDLA [place], Linda, Reg Reg mr Joshua Acharya MD MD rn Baxter, Heather, RN RN hb Lewis, Lynsay, RN RN ll1 Monica Casas RN RN kd3 Corrections: (The following items were deleted from the chart) 15:37 15:32 Chief complaint: Patient states: "I don't feel right, something is just hb not right." hb 15:38 15:36 BP 143 / 97; Pulse 84bpm; Resp 16bpm; Pulse Ox 98% RA; Temp 97.4F hb Temporal; Pain 0/10, Adult; hb 16:21 15:36 BP 143 / 97; Pulse 84bpm; Resp 16bpm; Pulse Ox 98% RA; Temp 97.4F ll1 Temporal; 81.65 kg; Height 5 ft. 8 in.; BMI: 27.3; Pain 0/10, Adult; hb 16:32 16:02 NIHSS Score: 1 kd3 kd3 16:32 16:29 NIHSS Score: 1 kd3 kd3 17:24 16:20 TNK FOR STROKE - Tenecteplase IV 21 mg IV at per protocol in left ll1 antecubital ll1
--- NOTE | 2023-06-28 16:16 | RAD REPORT ---
EXAM DESCRIPTION: Anthony Angio06/28/2023 3:54 pm CLINICAL HISTORY: Blurred vision and dizziness COMPARISON: None TECHNIQUE: 100 cc Isovue [address] angiogram of the neck was obtained. 3D MIPS reconstruction performed. All CT scans are performed using dose optimization technique as appropriate and may include automated exposure control or mA/KV adjustment according to patient size. FINDINGS: Visualized aortic arch and great vessels unremarkable Common carotid, internal carotid and external carotid arteries bilaterally unremarkable Vertebral arteries unremarkable No dissection is seen. No high-grade stenosis [place] crieria Mild stenosis 0 to 49 % Moderate stenosis 50-69% Severe stenosis 70-99% IMPRESSION: No significant abnormality is displayed
--- NOTE | 2023-06-28 16:19 | RAD REPORT ---
EXAM DESCRIPTION: CTHead angio06/28/2023 3:54 pm CLINICAL HISTORY: Blurred vision and dizziness COMPARISON: none TECHNIQUE: 100 cc Isovue [address] angiogram of the head was obtained. 3D MIPS reconstruction performed. All CT scans are performed using dose optimization technique as appropriate and may include automated exposure control or mA/KV adjustment according to patient size. FINDINGS: The distal internal carotid basilar, anterior cerebral, middle cerebral and posterior cere bral arteries do not demonstrate a significant stenosis An aneurysm is not seen No large vessel occlusion IMPRESSION: No significant abnormality is displayed
[2023-06-28 16:26] LABS: Troponin High Sensitivity < 3.0 pg/mL (<58.9)
--- NOTE | 2023-06-28 17:02 | RAD REPORT ---
EXAM DESCRIPTION: [facility] Single View06/28/2023 4:27 pm CLINICAL HISTORY: Hypertension/blurred vision COMPARISON: 2022 FINDINGS: The lungs appear clear of acute infiltrate. The heart is normal size IMPRESSION: No acute abnormalities displayed
[2023-06-28 18:56] VITALS: TEMP 97.4
[2023-06-28 19:24] VITALS: BP 134/88; O2SAT 98
== END ==
LOC: ER 15:16
DX: I63.9 Cerebral infarction, unspecified (principal); I10 Essential (primary) hypertension; R29.700 NIHSS score 0; E11.9 Type 2 diabetes mellitus without complications; E78.00 Pure hypercholesterolemia, unspecified; Z79.82 Long term (current) use of aspirin
CPT/HCPCS: 85025; 80048; 36415; 85610; 82565; 82947; 85730; 84484; 70496; 70498; 70450; 71045; 96374; Q9967; J8597; J3101; 93005

== ENCOUNTER 2023-07-08 10:39 | Emergency (ER) | payer OTHER ==
--- NOTE | 2023-07-08 11:14 | RAD REPORT ---
EXAM DESCRIPTION: CTAbdomen Pelvis Wo Contrast - 07/08/2023 10:58 am CLINICAL HISTORY: ABD PAIN COMPARISON: Stone Protocol dated 06/21/2019; Abdomen Pelvis W Contrast dated 06/23/2016; Stone Jaguar col dated 05/17/2016; CTSTONE PROTOCOL dated 01/21/2014; Neck Angio dated 06/28/2023 TECHNIQUE: CT of the abdomen and pelvis was performed. All CT scans are performed using dose optimization technique as appropriate and may include automated exposure control or mA/KV adjustment according to patient size. FINDINGS: Lower chest: No acute abnormality. Liver: No acute abnormality or suspicious lesions. Biliary: Cholecystectomy Stomach: No significant focal abnormality. Duodenum: No significant focal abnormality. Pancreas: No significant abnormality. Spleen: No significant abnormality. Adrenal: No suspicious lesions. Kidney/ureter: No hydronephrosis. No renal calculi. Probable partial nephrectomy tip pole right kidne y. Retroperitoneum: No retroperitoneal adenopathy. Vascular: No aneurysm. Bowel: No significant focal abnormality. Normal appendix . Peritoneum: No ascites or free air. Small fat containing umbilical hernia . Bladder: Grossly unremarkable. Reproductive: No adnexal masses. Bones: No acute fracture. Other: n/a IMPRESSION: No acute intra-abdominal or pelvic finding.
[2023-07-08 11:24] LABS: Absolute Eosinophils 0.4 K/uL (0-0.5); Absolute Lymphocytes (CBC) 1.6 K/uL (0.7-4.9); Absolute Monocytes 0.4 K/uL (0.1-1.3); Absolute Neutrophil 4.2 K/uL (1.8-8.0); Basophils % 0.6 % (0-1.3); Eosinophils % 5.8 % (0-4.4); Hematocrit 38.9 % (39.6-49.0); Hemoglobin 13.1 g/dL (13.6-17.9); Lymphocytes % 24.1 % (15.3-44.8); MCH 29.2 pg (27.0-35.0); MCHC 33.5 g/dL (32.0-36.0); MPV 7.3 fL (7.6-11.3); Monocytes % 5.5 % (3.3-12.3); Platelets 249 thou/uL (152-406); RBC Red Blood Cell Count 4.47 M/uL (4.33-5.43); Red Cell Distribution Width 14.4 % (12.1-15.2)
[2023-07-08 11:43] LABS: Albumin/Globulin Ratio 1.1 (1.1-1.8); Anion Gap 9.2 mEq/L (5.0-15.0); Bilirubin Total 0.8 mg/dL (0.2-1.0); Globulin 3.6 g/dL (2.3-3.5); Potassium 4.2 mEq/L (3.5-5.1); Protein, Total 7.6 g/dL (6.4-8.2)
--- NOTE | 2023-07-08 11:50 | EDPHYS ---
Physician Documentation [facility] Name: Alexandr Laws Age: 58 yrs Sex: Male : 1965 Arrival Date: 07/08/2023 Time: 10:39 Bed 6 Private MD: Hafsa Lind ED Physician Dangelo Zuniga HPI: 07/07 11:46 This 58 yrs old Male presents to ER via Ambulatory with complaints of kb Abdominal Pain. 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 Denies n/v/d. States the pain is dull now. States he felt completely normal prior to the pain. . Historical: - Allergies: 10:49 No Known Allergies; nj1 - PMHx: 10:49 coronary atherosclerosis; Diabetes - NIDDM; Gastric Reflux; High Cholesterol; nj1 Hypertension; - PSHx: 10:49 Cholecystectomy; left knee repair; Partial nephrectomy; Stented artery; nj1 - Immunization history:: Client reports having NOT received the Covid vaccine. - Infectious Disease History:: Denies. - Social history:: Smoking status: Patient denies any tobacco usage or history of. ROS: 11:48 Constitutional: As per HPI kb Exam: 11:48 Constitutional: This is a well developed, well nourished patient who is awake, alert, kb and in no acute distress. Head/Face: Normocephalic, atraumatic. ENT: Moist Mucous membranes Cardiovascular: Regular rate Respiratory: Respirations even and unlabored. No increased work of breathing. Talking in full sentences Abdomen/GI: Soft, non-tender. No distention Skin: Warm, dry with normal turgor. Normal color. MS/ Extremity: Pulses equal, no cyanosis. Neurovascular intact. Full, normal range of motion. Neuro: Awake and alert, GCS 15, oriented to person, place, time, and situation. Moves all extremities. Normal gait. Vital Signs: 10:42 BP 113 / 82; Pulse 80; Resp 17; Temp 97.1(TE); Pulse Ox 97% on R/A; Weight 83.91 kg; nj1 Height 5 ft. 8 in. ; Pain 06/10; 10:42 Body Mass Index 28.13 (83.91 kg, 172.72 cm) nj1 10:42 Pain Scale: Adult nj1 MDM: 10:42 Patient medically screened. kb 11:48 Differential diagnosis: appendicitis, non-specific abd pain, muscle cramp, muscle kb strain, hernia. Data reviewed: vital signs, nurses notes. Counseling: I had a detailed discussion with the patient and/or guardian regarding the historical points, exam findings, and any diagnostic results supporting the discharge/admit diagnosis, lab results, radiology results, the need for outpatient follow up, a family practitioner, to return to the emergency department if symptoms worsen or persist or if there are any questions or concerns that arise at home. 07/07 10:46 Order name: CBC with Diff; Complete Time: 11:32 kb 07/07 10:46 Order name: CMP; Complete Time: 11:46 kb 07/07 10:46 Order name: CT Abd/Pelvis - Without Contrast; Complete Time: 11:16 kb 07/07 10:46 Order name: IV Saline Lock; Complete Time: 11:23 kb 07/07 10:46 Order name: Labs collected and sent; Complete Time: 11:23 kb Administered Medications: No medications were administered Disposition Summary: 07/08/23 11:49 Discharge Ordered Notes: Location: Home kb Condition: Stable kb Diagnosis - Lower abdominal pain, unspecified kb Followup: kb - With: Private Physician - When: 2 - 3 days - Reason: Recheck today's complaints, Continuance of care, Re-evaluation by your physician Followup: kb - With: Emergency Department - When: As needed - Reason: Worsening of condition Discharge Instructions: - Discharge Summary Sheet kb - Abdominal Pain, Adult, [id number] kb - Muscle Strain, [id number] kb Forms: - Medication Reconciliation Form kb - Thank You Letter kb - Antibiotic Education kb - Prescription Opioid Use kb - Patient Portal Instructions kb - Leadership Thank You Letter kb Signatures: Dispatcher [employer] Madai Nix, COMBATANT DIVER QUALIFIED-C COMBATANT DIVER QUALIFIED-Pooja Alejandra RN RN nj1 Corrections: (The following items were deleted from the chart) 10:47 10:47 CBC+H.LAB.BRZ ordered. EDPR EDPR 10:47 10:47 COMPREHENSIVE METABOLIC PANEL+C.LAB.BRZ ordered. EDMS EDMS 10:47 10:47 Abdomen Pelvis Wo Con+CT.RAD.BRZ ordered. EDMS EDMS
--- NOTE | 2023-07-08 11:50 | ER ---
Nurse's Notes [facility] Name: Alexandr Laws Age: 58 yrs Sex: Male : 1965 Arrival Date: 07/08/2023 Time: 10:39 Bed 6 Private MD: Hafsa Lind Diagnosis: Lower abdominal pain, unspecified Presentation: 07/07 10:42 Chief complaint: Patient states: Right lower quadrant abdominal pain, onset 30 minutes nj1 ago, pain has improved since. Denies nausea. 10:42 Coronavirus screen: Vaccine status: Patient reports being unvaccinated. Ebola Screen: nj1 Patient denies travel to an Ebola-affected area in the 21 days before illness onset. Initial Sepsis Screen: Does the patient meet any 2 criteria? No. Patient's initial sepsis screen is negative. Does the patient have a suspected source of infection? No. Patient's initial sepsis screen is negative. Risk Assessment: Do you want to hurt yourself or someone else? Patient reports no desire to harm self or others. Onset of symptoms was July 08, 2023 at 10:10. 10:42 Method Of Arrival: Ambulatory nj 10:42 Acuity: MIKEY 3 nj1 Historical: - Allergies: 10:49 No Known Allergies; nj1 - PMHx: 10:49 coronary atherosclerosis; Diabetes - NIDDM; Gastric Reflux; High Cholesterol; nj1 Hypertension; - PSHx: 10:49 Cholecystectomy; left knee repair; Partial nephrectomy; Stented artery; nj1 - Immunization history:: Client reports having NOT received the Covid vaccine. - Infectious Disease History:: Denies. - Social history:: Smoking status: Patient denies any tobacco usage or history of. Screenin:05 [facility] ED Fall Risk Assessment (Adult) History of falling in the last 3 months, aa5 including since admission No falls in past 3 months (0 pts) Confusion or Disorientation No (0 pts) Intoxicated or Sedated No (0 pts) Impaired Gait No (0 pts) Mobility Assist Device Used No (0 pt) Altered Elimination No (0 pt) Score/Fall Risk Level 0 - 2 = Low Risk Oriented to surroundings, Maintained a safe environment, Educated pt \T\ family on fall prevention, incl call for assistance when getting out of bed. Abuse screen: Denies threats or abuse. Nutritional screening: No deficits noted. Tuberculosis screening: No symptoms or risk factors identified. Assessment: 11:05 General: Appears comfortable, Behavior is calm, cooperative. Pain: Complains of pain in aa5 right lower quadrant Pain currently is 0 out of 10 on a pain scale. Quality of pain is described as crampy, Pain began today Is episodic. Neuro: Level of Consciousness is awake, alert, obeys commands, Oriented to person, place, time, situation. Cardiovascular: Heart tones S1 S2 present Rhythm is regular. Respiratory: Airway is patent Respiratory effort is even, unlabored, Respiratory pattern is regular, symmetrical. GI: Abdomen is round non-distended, Bowel sounds present X 4 quads. Abd is soft and non tender X 4 quads. Patient currently denies diarrhea, nausea, rectal bleeding, vomiting. : No signs and/or symptoms were reported regarding the genitourinary system. EENT: No signs and/or symptoms were reported regarding the EENT system. Derm: Skin is pink, warm \T\ dry. Musculoskeletal: Range of motion: intact in all extremities. Vital Signs: 10:42 BP 113 / 82; Pulse 80; Resp 17; Temp 97.1(TE); Pulse Ox 97% on R/A; Weight 83.91 kg; nj1 Height 5 ft. 8 in. ; Pain 3/10; 10:42 Body Mass Index 28.13 (83.91 kg, 172.72 cm) nj1 10:42 Pain Scale: Adult nj1 ED Course: 10:41 Patient arrived in ED. rg4 10:41 Hafsa Lind DO is Private Physician. rg4 10:42 Madai Wallace FNP-C is [facility]. kb 10:42 Dangelo Zuniga MD is Attending Physician. kb 10:44 Bea Guevara, WANDY is Primary Nurse. aa5 10:49 Triage completed. nj1 10:49 Arm band placed on right wrist. nj1 10:59 CT Abd/Pelvis - Without Contrast In Process Unspecified. EDMS 11:05 Patient has correct armband on for positive identification. Bed in low position. Call aa5 light in reach. Side rails up X 1. 11:15 Initial lab(s) drawn, by me, sent to lab. Inserted saline lock: 20 gauge in right aa5 antecubital area, using aseptic technique. Blood collected. 12:49 Provided Education on: medications, follow up. hb 12:49 No provider procedures requiring assistance completed. IV discontinued, intact, hb bleeding controlled, No redness/swelling at site. Pressure dressing applied. Administered Medications: No medications were administered Medication: 11:27 VIS not applicable for this client. aa5 Outcome: :49 Discharge ordered by . chris 12:49 Discharged to home ambulatory, hb 12:49 Condition: stable 12:49 Discharge instructions given to patient, Instructed on discharge instructions, follow up and referral plans. medication usage, Demonstrated understanding of instructions, follow-up care, medications, 12:50 Patient left the ED. iw Signatures: Dispatcher [employer] EDMS Madai Wallace, LENS GRINDER ROUGH-C LENS GRINDER ROUGH-Ckb Pamela Perera, RN RN Bea Guevara RN RN aa5 Laura Hager, RN RN Leonora Hurst rg4 Pooja Barkley RN RN nj1
[2023-07-08 17:09] VITALS: BP 113/82; TEMP 97.1; O2SAT 97
== END 2023-07-08 12:50 | disposition home or self-care (01) ==
LOC: ER 10:39
DX: R10.31 Right lower quadrant pain (principal); I10 Essential (primary) hypertension; E11.9 Type 2 diabetes mellitus without complications; Z28.310 Unvaccinated for COVID-19
CPT/HCPCS: 36415; 74176; 80053; 85025; 99283

== ENCOUNTER 2023-08-08 18:30 | Emergency (ER) | payer OTHER ==
[2023-08-08 20:15] LABS: Absolute Eosinophils 0.5 K/uL (0-0.5); Absolute Lymphocytes (CBC) 2.5 K/uL (0.7-4.9); Absolute Monocytes 0.7 K/uL (0.1-1.3); Basophils % 0.4 % (0-1.3); Eosinophils % 4.7 % (0-4.4); Hematocrit 39.9 % (39.6-49.0); Hemoglobin 13.4 g/dL (13.6-17.9); Lymphocytes % 25.4 % (15.3-44.8); MCH 29.2 pg (27.0-35.0); MCHC 33.6 g/dL (32.0-36.0); MCV 86.9 fL (80-100); MPV 7.2 fL (7.6-11.3); Monocytes % 7.3 % (3.3-12.3); Neutrophils % 62.2 % (41.7-73.7); Platelets 251 thou/uL (152-406); RBC Red Blood Cell Count 4.59 M/uL (4.33-5.43); Red Cell Distribution Width 14.1 % (12.1-15.2)
--- NOTE | 2023-08-08 20:18 | RAD REPORT ---
[facility] 7:47 pm CLINICAL HISTORY: MALAISE COMPARISON: Chest Single View dated 06/28/2023; Chest Single View dated 08/29/2022; Chest Single View dated 03/24/2018; Chest Single View dated 03/19/2018 TECHNIQUE: Portable AP view of the chest. FINDINGS: The lungs are clear. No pneumothorax or effusion. The cardiomediastinal contours are unre markable. IMPRESSION: No acute cardiopulmonary process.
[2023-08-08 20:28] LABS: Magnesium 2.1 mg/dL (1.6-2.4); Troponin High Sensitivity 4.6 pg/mL (<58.9)
--- NOTE | 2023-08-08 20:46 | EDPHYS ---
Physician Documentation [facility] Name: Alexandr Laws Age: 58 yrs Sex: Male : 1965 Arrival Date: 08/08/2023 Time: 18:30 Bed 5 Private MD: Hafsa Lind ED Physician Joshua Acharya HPI: 08/07 20:43 This 58 yrs old Male presents to ER via Ambulatory with complaints of High kb Pulse Rate. 20:43 Pt is a 58 year old male who presents for malaise and elevated heart rate. States he kb was feeling fatigued so he laid down, but then decided to check his BP and HR. States his HR was 105 and he has never seen it above 100 so he came to get checked out. Denies cough, congestion, fever, n/v/d, shortness of breath, chest pain. Historical: - Allergies: 18:41 No Known Allergies; as6 - PMHx: 18:41 coronary atherosclerosis; Diabetes - NIDDM; Gastric Reflux; High Cholesterol; as6 Hypertension; - PSHx: 18:41 Cholecystectomy; left knee repair; Partial nephrectomy; Stented artery; as6 - Immunization history:: Adult Immunizations up to date. - Infectious Disease History:: Denies. - Social history:: Smoking status: Patient denies any tobacco usage or history of. ROS: 20:43 Constitutional: As per HPI kb Exam: 20:05 Constitutional: This is a well developed, well nourished patient who is awake, alert, kb and in no acute distress. Head/Face: Normocephalic, atraumatic. ENT: Moist Mucous membranes Cardiovascular: Regular rate Respiratory: Respirations even and unlabored. No increased work of breathing. Talking in full sentences Abdomen/GI: Soft, non-tender. No distention Skin: Warm, dry with normal turgor. Normal color. MS/ Extremity: Pulses equal, no cyanosis. Neurovascular intact. Full, normal range of motion. Neuro: Awake and alert, GCS 15, oriented to person, place, time, and situation. Moves all extremities. Normal gait. 20:05 ECG was reviewed by the Attending Physician. Vital Signs: 18:39 BP 139 / 99; Pulse 95; Resp 16 S; Temp 98.2(TE); Pulse Ox 99% on R/A; Weight 83.91 kg as6 (R); Height 5 ft. 8 in. (R); Pain 0/10; 20:04 BP 138 / 92; Pulse 81; Resp 16; Pulse Ox 99% ; vc1 20:56 BP 131 / 96; Pulse 82; Resp 16 S; Temp 98; Pulse Ox 97% on R/A; ha1 18:39 Body Mass Index 28.13 (83.91 kg, 172.72 cm) as6 18:39 Pain Scale: Adult as6 MDM: 18:44 Patient medically screened. kb 20:44 Data reviewed: vital signs, nurses notes. kb 20:45 Differential Diagnosis arrhythmia, abnormal electrolytes, dehydration. Counseling: I kb had a detailed discussion with the patient and/or guardian regarding the historical points, exam findings, and any diagnostic results supporting the discharge/admit diagnosis, lab results, radiology results, the need for outpatient follow up, a family practitioner, to return to the emergency department if symptoms worsen or persist or if there are any questions or concerns that arise at home. 08/07 19:25 Order name: Basic Metabolic Panel; Complete Time: 20:29 kb 08/07 19:25 Order name: CBC with Diff; Complete Time: 20:17 kb 08/07 19:25 Order name: Magnesium; Complete Time: 20:29 kb 08/07 19:25 Order name: Troponin HS; Complete Time: 20:29 kb 08/07 19:25 Order name: XRAY Chest (1 view); Complete Time: 20:20 kb 08/07 19:25 Order name: EKG; Complete Time: 19:26 kb 08/07 19:25 Order name: Cardiac monitoring; Complete Time: 20:05 kb 08/07 19:25 Order name: EKG - Nurse/Tech; Complete Time: 20:05 kb 08/07 19:25 Order name: IV Saline Lock; Complete Time: 20:05 kb 08/07 19:25 Order name: Labs collected and sent; Complete Time: 20:05 kb 08/07 19:25 Order name: O2 Per Protocol; Complete Time: 20:05 kb 08/07 19:25 Order name: O2 Sat Monitoring; Complete Time: 20:05 kb EC:05 Rate is 78 beats/min. Rhythm is regular. QRS Export is Normal. RI interval is normal at kb 160 msec. QRS interval is normal at 152 msec. QT interval is normal at 460 msec. Administered Medications: No medications were administered Disposition Summary: 08/08/23 20:45 Discharge Ordered Notes: Location: Home kb Condition: Stable kb Diagnosis - Other malaise and fatigue kb Followup: kb - With: Emergency Department - When: As needed - Reason: Worsening of condition Followup: kb - With: Private Physician - When: 2 - 3 days - Reason: Recheck today's complaints, Continuance of care, Re-evaluation by your physician Discharge Instructions: - Discharge Summary Sheet kb - Fatigue kb Forms: - Medication Reconciliation Form kb - Antibiotic Education kb - Prescription Opioid Use kb - Patient Portal Instructions kb - Leadership Thank You Letter kb Signatures: Dispatcher [employer] EDMS Madai Wallace, CIVILIAN JAIL OFFICER-C WILBER-Kaveh Pfeiffer RN RN as6 Corrections: (The following items were deleted from the chart) 19:26 19:26 BASIC METABOLIC PANEL+C.LAB.BRZ ordered. EDMS EDMS 19:26 19:26 CBC+H.LAB.BRZ ordered. EDMS EDMS 19:26 19:26 MAGNESIUM+C.LAB.BRZ ordered. EDMS EDMS 19:26 19:26 Troponin High Sensitivity+C.LAB.BRZ ordered. EDMS EDMS 20:45 20:43 Pt is a 58 year old male who presents for malaise and elevated heart rate. States kb he was feeling fatigued so he laid down, but then decided to check his BP and HR. States his HR was 105 and he has never seen it above 100 so he came to get checked out.. kb
--- NOTE | 2023-08-08 20:46 | ER ---
Nurse's Notes [facility] Name: Alexandr Laws Age: 58 yrs Sex: Male : 1965 Arrival Date: 08/08/2023 Time: 18:30 Bed 5 Private MD: Hafsa Lind Diagnosis: Other malaise and fatigue Presentation: 08/07 18:39 Chief complaint: Patient states: pt feels fatigued and checked his blood pressure at as6 home and it said that his heart rate was 105 and that is not normal for him. Coronavirus screen: At this time, the client does not indicate any symptoms associated with coronavirus-19. Ebola Screen: No symptoms or risks identified at this time. Initial Sepsis Screen: Does the patient meet any 2 criteria? No. Patient's initial sepsis screen is negative. Does the patient have a suspected source of infection? No. Patient's initial sepsis screen is negative. Risk Assessment: Do you want to hurt yourself or someone else? Patient reports no desire to harm self or others. Onset of symptoms was August 08, 2023. 18:39 Acuity: MIKEY 3 as6 18:39 Method Of Arrival: Ambulatory as6 Historical: - Allergies: 18:41 No Known Allergies; as6 - PMHx: 18:41 coronary atherosclerosis; Diabetes - NIDDM; Gastric Reflux; High Cholesterol; as6 Hypertension; - PSHx: 18:41 Cholecystectomy; left knee repair; Partial nephrectomy; Stented artery; as6 - Immunization history:: Adult Immunizations up to date. - Infectious Disease History:: Denies. - Social history:: Smoking status: Patient denies any tobacco usage or history of. Screenin:57 [facility] ED Fall Risk Assessment (Adult) History of falling in the last 3 months, ha1 including since admission No falls in past 3 months (0 pts) Confusion or Disorientation No (0 pts) Intoxicated or Sedated No (0 pts) Impaired Gait No (0 pts) Mobility Assist Device Used No (0 pt) Altered Elimination No (0 pt) Score/Fall Risk Level 0 - 2 = Low Risk Oriented to surroundings, Maintained a safe environment, Educated pt \T\ family on fall prevention, incl call for assistance when getting out of bed, Hourly rounding (assess needs \T\ fall precautionary measures) done. Abuse screen: Denies threats or abuse. Denies injuries from another. Nutritional screening: No deficits noted. Tuberculosis screening: No symptoms or risk factors identified. Assessment: 19:25 General: Appears comfortable, Behavior is calm, cooperative. Pain: Denies pain. Neuro: ha1 Level of Consciousness is awake, alert, obeys commands. Cardiovascular: Capillary refill < 3 seconds Patient's skin is warm and dry. Cardiovascular: Heart tones S1 S2 present Rhythm is sinus rhythm. Cardiovascular: Reports since elevated heart rate at home. heart rate at 105 at home. Respiratory: Airway is patent Respiratory effort is even, unlabored, Respiratory pattern is regular, symmetrical. GI: No signs and/or symptoms were reported involving the gastrointestinal system. : No signs and/or symptoms were reported regarding the genitourinary system. Derm: Skin is pink, warm \T\ dry. Musculoskeletal: Circulation, motion, and sensation intact. Range of motion: intact in all extremities. 20:11 Reassessment: Patient and/or family updated on plan of care and expected duration. Pain ha1 level reassessed. Patient is alert, oriented x 3, equal unlabored respirations, skin warm/dry/pink. Patient denies pain at this time. 20:56 Reassessment: Patient and/or family updated on plan of care and expected duration. Pain ha1 level reassessed. Patient is alert, oriented x 3, equal unlabored respirations, skin warm/dry/pink. Patient denies pain at this time. Patient states feeling better. Patient states symptoms have improved. Vital Signs: 18:39 BP 139 / 99; Pulse 95; Resp 16 S; Temp 98.2(TE); Pulse Ox 99% on R/A; Weight 83.91 kg as6 (R); Height 5 ft. 8 in. (R); Pain 0/10; 20:04 BP 138 / 92; Pulse 81; Resp 16; Pulse Ox 99% ; vc1 20:56 BP 131 / 96; Pulse 82; Resp 16 S; Temp 98; Pulse Ox 97% on R/A; ha1 18:39 Body Mass Index 28.13 (83.91 kg, 172.72 cm) as6 18:39 Pain Scale: Adult as6 ED Course: 18:34 Patient arrived in ED. mr 18:35 Hafsa Lind DO is Private Physician. mr 18:39 Arm band placed on. as6 18:41 Triage completed. as6 18:44 Madai Wallace [facility]-C [facility]. kb 18:44 Joshua Acharya MD is Attending Physician. kb 19:25 Patient has correct armband on for positive identification. Placed in gown. Bed in low ha1 position. Call light in reach. Side rails up X 1. 19:49 XRAY Chest (1 view) In Process Unspecified. EDMS 20:04 Inserted saline lock: 20 gauge in right antecubital area, using aseptic technique. oe Blood collected. 20:04 EKG done, by ED staff. oe 20:22 Troponin HS Sent. oe 20:22 Magnesium Sent. oe 20:22 Basic Metabolic Panel Sent. oe 20:57 No provider procedures requiring assistance completed. IV discontinued, intact, ha1 bleeding controlled, No redness/swelling at site. Pressure dressing applied. 20:58 Provided Education on: following up with PCP. ha1 Administered Medications: No medications were administered Medication: 20:58 VIS not applicable for this client. ha1 Outcome: 20:45 Discharge ordered by . kb 20:57 Discharged to home ambulatory, ha1 20:57 Condition: stable 20:57 Discharge instructions given to patient, Instructed on discharge instructions, follow up and referral plans. Demonstrated understanding of instructions, follow-up care, 20:59 Patient left the ED. ha1 Signatures: Dispatcher [employer] EDTN Madai Wallace, JOHN IT ADMINISTRATIVE ASSISTANT-Ckb Linda Tol[place], Reg Reg mr Duong, Wesley oe Kaveh Amato RN RN as6 Marilin Michelle RN RN vc1 Joya Way, WANDY RN ha1
[2023-08-08 21:31] VITALS: BP 131/96; TEMP 98; O2SAT 97
--- NOTE | 2023-08-10 14:05 | EKG ---
Test Date: 2023-08-08 Test Time: 19:46:16 Drug Enforcement Administration Agent: AMAYA MEASUREMENT RESULTS: Intervals: Rate: 78 OK: 160 QRSD: 152 QT: 404 QTc: 460 [place]: P: 53 OK: 160 QRS: 130 T: 31 INTERPRETIVE STATEMENTS: Normal sinus rhythm Right bundle branch block Abnormal ECG Compared to ECG 06/28/2023 14:59:56 No significant changes Electronically Signed On 08-10-23 14:00:46 CDT by Lele Huerta
== END 2023-08-08 20:59 | disposition home or self-care (01) ==
LOC: ER 18:30
DX: R53.81 Other malaise (principal); R53.83 Other fatigue; I10 Essential (primary) hypertension; E11.9 Type 2 diabetes mellitus without complications
CPT/HCPCS: 36415; 71045; 80048; 83735; 84484; 85025; 93005; 99284

== ENCOUNTER 2023-08-31 13:29 | Emergency (ER) | payer OTHER ==
--- NOTE | 2023-08-31 14:35 | RAD REPORT ---
EXAM DESCRIPTION: RAD - Chest Single View - 08/31/2023 2:18 pm CLINICAL HISTORY: COUGH Chest pain. COMPARISON: Chest Single View dated 08/08/2023; Chest Single View dated 06/28/2023; Chest Single View d ated 08/29/2022; Chest Single View dated 03/24/2018 FINDINGS: Portable technique limits examination quality. The lungs are emphysematous but grossly clear. The heart is normal in size. No displaced fractures. IMPRESSION: No acute intrathoracic process suspected.
[2023-08-31 15:02] LABS: SARS-CoV-2 Antigen CONTROL BLUE LINE VIS/BG OK
[2023-08-31 15:04] LABS: SARS-CoV-2 Antigen Rapid Res Positive (Negative)
--- NOTE | 2023-08-31 15:10 | ER ---
Nurse's Notes [facility] Name: Alexandr Laws Age: 58 yrs Sex: Male : 1965 Arrival Date: 08/31/2023 Time: 13:29 Bed 5 Private MD: Diagnosis: COVID-19, viral illness Presentation: 08/30 13:49 Chief complaint: Patient states: SORE THROAT LIGHT HEADED, DIZZY, FLU LIKE SYMPTOMS db WITH COUGH STARTED ON MONDAY. Coronavirus screen: Client denies travel out of the [place] in the last 14 days. At this time, the client does not indicate any symptoms associated with coronavirus-19. Ebola Screen: Patient negative for fever greater than or equal to 101.5 degrees Fahrenheit, and additional compatible Ebola Virus Disease symptoms Patient denies exposure to infectious person. Patient denies travel to an Ebola-affected area in the 21 days before illness onset. No symptoms or risks identified at this time. Initial Sepsis Screen: Does the patient meet any 2 criteria? No. Patient's initial sepsis screen is negative. Does the patient have a suspected source of infection? No. Patient's initial sepsis screen is negative. Risk Assessment: Do you want to hurt yourself or someone else? Patient reports no desire to harm self or others. Onset of symptoms was August 26, 2023. 13:49 Method Of Arrival: Ambulatory db 13:49 Acuity: MIKEY 3 db Triage Assessment: 13:52 General: Appears in no apparent distress. comfortable, Behavior is calm, cooperative. db Pain: Denies pain. Neuro: Level of Consciousness is awake, alert, obeys commands, Oriented to person, place, time, situation. Cardiovascular: Reports. Historical: - Allergies: 13:51 No Known Allergies; db - PMHx: 13:51 coronary atherosclerosis; Gastric Reflux; Diabetes - NIDDM; High Cholesterol; db Hypertension; - PSHx: 13:51 left knee repair; Partial nephrectomy; Stented artery; Cholecystectomy; db - Immunization history:: Adult Immunizations up to date, Client reports receiving the 2nd dose of the Covid vaccine, Client reports receiving the 1st dose of the Covid vaccine. - Infectious Disease History:: Denies. - Social history:: Smoking status: Patient denies any tobacco usage or history of. Screenin:16 [facility] ED Fall Risk Assessment (Adult) History of falling in the last 3 months, ko1 including since admission No falls in past 3 months (0 pts) Confusion or Disorientation No (0 pts) Intoxicated or Sedated No (0 pts) Impaired Gait No (0 pts) Mobility Assist Device Used Yes (1 pt) Altered Elimination No (0 pt) Score/Fall Risk Level 0 - 2 = Low Risk Oriented to surroundings, Maintained a safe environment, Educated pt \T\ family on fall prevention, incl call for assistance when getting out of bed, Assessed \T\ reinforced patient's understanding of fall precautions, Provided non-skid footwear, Hourly rounding (assess needs \T\ fall precautionary measures) done, Used ambulatory aids as needed (educated on \T\ assisted with), Used gait belt as appropriate. Abuse screen: Denies threats or abuse. Denies injuries from another. Nutritional screening: No deficits noted. Tuberculosis screening: No symptoms or risk factors identified. Assessment: 14:30 General: Appears in no apparent distress. Behavior is appropriate for age. Pain: ko1 Complains of pain in top of head and forehead Pain does not radiate. Pain began gradually. Neuro: No deficits noted. Cardiovascular: No deficits noted. Respiratory: Reports cough that is non-productive. GI: No deficits noted. : No deficits noted. EENT: Reports nasal congestion nasal discharge. Derm: No deficits noted. Musculoskeletal: No deficits noted. Vital Signs: 13:49 BP 122 / 91; Pulse 84; Resp 16; Temp 97.8; Pulse Ox 99% ; Weight 79.83 kg; Height 5 ft. db 8 in. ; 15:16 BP 118 / 82; Pulse 80; Resp 16; Pulse Ox 99% ; ko1 13:49 Body Mass Index 26.76 (79.83 kg, 172.72 cm) db ED Course: 13:33 Patient arrived in ED. im 13:36 Hattie Costello MD is Attending Physician. sp3 13:51 Triage completed. db 13:52 Arm band placed on Patient placed. db 14:20 CXR XRAY In Process Unspecified. EDMS 14:26 Strep Sent. ko1 14:26 SARS RAPID Sent. ko1 14:26 Flu Sent. ko1 14:42 Zeynep Claudio, RN is Primary Nurse. ko1 15:16 Patient has correct armband on for positive identification. Bed in low position. Call ko1 light in reach. Side rails up X 1. Provided Education on: call light, labs. Pulse ox on. NIBP on. Door closed. Noise minimized. Lights dimmed. Warm blanket given. Pillow given. 15:16 No provider procedures requiring assistance completed. EKG done, COVID swab sent to ko1 lab. Flu and/or RSV swab sent to lab. Strep swab sent to lab. Patient did not have IV access during this emergency room visit. O2 via RA. Administered Medications: No medications were administered Medication: 15:16 VIS not applicable for this client. ko1 Point of Care Testing: Blood Glucose: 13:54 Blood Glucose: 131 mg/dL; db Ranges: Outcome: 15:10 Discharge ordered by . sp3 15:23 Discharged to home ambulatory, ko1 15:23 Condition: stable 15:23 Discharge instructions given to patient, Instructed on discharge instructions, follow up and referral plans. medication usage, Demonstrated understanding of instructions, follow-up care, medications, Prescriptions given X 1, 15:24 Patient left the ED. ko1 Signatures: Dispatcher [employer] EDMS Hattie Costello MD MD sp3 Zeynep Claudio, RN RN ko1 Lissette Yung, RN RN db Adalgisa Montiel Corrections: (The following items were deleted from the chart) 13:51 13:49 Onset of symptoms was August 31, 2023 db db
--- NOTE | 2023-08-31 15:10 | EDPHYS ---
Physician Documentation [facility] Name: Alexandr Laws Age: 58 yrs Sex: Male : 1965 Arrival Date: 08/31/2023 Time: 13:29 Bed 5 Private MD: ED Physician Hattie Costello HPI: 08/30 14:23 This 58 yrs old Male presents to ER via Ambulatory with complaints of Flu sp3 Symptoms, Irregular Pulse. 14:23 58-year-old male with history of CAD, diabetes, hyperlipidemia, hypertension presents sp3 to the ED with chief complaint cough, body aches, chills and possible sick contact. He denies any chest pain, shortness of breath, syncope, near syncope, back pain, headache, productive cough, or any other signs or symptoms on ROS at this time. He initially said he had "irregular pulse" but he states that it just felt a little fast when he had the chills but it was not truly irregular. No history of A-fib reported.. Historical: - Allergies: 13:51 No Known Allergies; db - PMHx: 13:51 coronary atherosclerosis; Gastric Reflux; Diabetes - NIDDM; High Cholesterol; db Hypertension; - PSHx: 13:51 left knee repair; Partial nephrectomy; Stented artery; Cholecystectomy; db - Immunization history:: Adult Immunizations up to date, Client reports receiving the 2nd dose of the Covid vaccine, Client reports receiving the 1st dose of the Covid vaccine. - Infectious Disease History:: Denies. - Social history:: Smoking status: Patient denies any tobacco usage or history of. ROS: 14:24 Constitutional: Negative for fever, chills, and weight loss, Eyes: Negative for injury, sp3 pain, redness, and discharge, ENT: Negative for injury, pain, and discharge, Neck: Negative for injury, pain, and swelling, Cardiovascular: Negative for chest pain, palpitations, and edema, Abdomen/GI: Negative for abdominal pain, nausea, vomiting, diarrhea, and constipation, Back: Negative for injury and pain, MS/Extremity: Negative for injury and deformity, Skin: Negative for injury, rash, and discoloration, Neuro: Negative for headache, weakness, numbness, tingling, and seizure, Psych: Negative for depression, anxiety, suicide ideation, homicidal ideation, and hallucinations, Allergy/Immunology: Negative for hives, rash, and allergies, Endocrine: Negative for neck swelling, polydipsia, polyuria, polyphagia, and marked weight changes, Hematologic/Lymphatic: Negative for swollen nodes, abnormal bleeding, and unusual bruising, 14:24 All other systems are negative, Exam: 14:24 Constitutional: This is a well developed, well nourished patient who is awake, alert, sp3 and in no acute distress. Head/Face: Normocephalic, atraumatic. Eyes: Pupils equal round and reactive to light, extra-ocular motions intact. Lids and lashes normal. Conjunctiva and sclera are non-icteric and not injected. Cornea within normal limits. Periorbital areas with no swelling, redness, or edema. ENT: Nares patent. No nasal discharge, no septal abnormalities noted. External auditory canals are clear. Oropharynx with no redness, swelling, or masses, exudates, or evidence of obstruction, uvula midline. Mucous membranes moist. Neck: Trachea midline, no thyromegaly or masses palpated, and no cervical lymphadenopathy. Supple, full range of motion without nuchal rigidity, or vertebral point tenderness. No Meningismus. Chest/axilla: Normal chest wall appearance and motion. Nontender with no deformity. No lesions are appreciated. Cardiovascular: Regular rate and rhythm with a normal S1 and S2. No gallops, murmurs, or rubs. Normal PMI, no JVD. No pulse deficits. Respiratory: Lungs have equal breath sounds bilaterally, clear to auscultation and percussion. No rales, rhonchi or wheezes noted. No increased work of breathing, no retractions or nasal flaring. Abdomen/GI: Soft, non-tender, with normal bowel sounds. No distension or tympany. No guarding or rebound. No evidence of tenderness throughout. Back: No spinal tenderness. No costovertebral tenderness. Full range of motion. Skin: Warm, dry with normal turgor. Normal color with no rashes, no lesions, and no evidence of cellulitis. MS/ Extremity: Pulses equal, no cyanosis. Neurovascular intact. Full, normal range of motion. Neuro: Awake and alert, GCS 15, oriented to person, place, time, and situation. Cranial nerves II-XII grossly intact. Motor strength 5/5 in all extremities. Sensory grossly intact. Cerebellar exam normal. Normal gait. Psych: Awake, alert, with orientation to person, place and time. Behavior, mood, and affect are within normal limits. 14:51 ECG was reviewed by the Attending Physician. EKG demonstrates normal sinus rhythm at 80 sp3 bpm with right bundle branch block normal intervals nonspecific ST's ST changes without evidence of acute ischemia. Vital Signs: 13:49 BP 122 / 91; Pulse 84; Resp 16; Temp 97.8; Pulse Ox 99% ; Weight 79.83 kg; Height 5 ft. db 8 in. ; 15:16 BP 118 / 82; Pulse 80; Resp 16; Pulse Ox 99% ; ko1 13:49 Body Mass Index 26.76 (79.83 kg, 172.72 cm) db MDM: 13:50 Patient medically screened. sp3 14:25 Data reviewed: vital signs, nurses notes, old medical records, lab test result(s), EKG, sp3 radiologic studies. ED course: 58-year-old male with PMH above with mild URI symptoms. Differential diagnosis includes viral illness, influenza, COVID-19, strep pharyngitis, bronchitis, pneumonia, among others. I am not highly suspicious for acute [place], CAD/ACS pathology, PE, TAD, sepsis, shock, or any critical pathology at this time. Disposition probable discharge with any medications added as indicated.. 15:09 ED course: Chest x-ray negative. COVID-19 is positive. We will safely discharged home sp3 at this time.. 08/30 13:50 Order name: Flu; Complete Time: 15:07 sp3 08/30 13:50 Order name: SARS RAPID; Complete Time: 15:07 sp3 08/30 14:05 Order name: Strep sp3 08/30 14:06 Order name: Glucose, Ancillary Testing; Complete Time: 14:37 EDMS 08/30 15:04 Order name: Throat Culture EDMS 08/30 14:05 Order name: CXR XRAY; Complete Time: 14:37 sp3 08/30 13:50 Order name: EKG; Complete Time: 13:51 sp3 08/30 13:50 Order name: EKG - Nurse/Tech; Complete Time: 14:50 sp3 Administered Medications: No medications were administered Point of Care Testing: Blood Glucose: 13:54 Blood Glucose: 131 mg/dL; db Ranges: Critical Glucose Levels:Adult <50 mg/dl or >400 mg/dl <40 mg/dl or >180 mg/dl Disposition Summary: 08/31/23 15:10 Discharge Ordered Notes: Location: Home sp3 Condition: Stable sp3 Diagnosis - COVID-19, viral illness sp3 Followup: sp3 - With: Private Physician - When: Upon discharge from the Emergency Department - Reason: Continuance of care Discharge Instructions: - Discharge Summary Sheet sp3 - COVID-19 sp3 Forms: - Medication Reconciliation Form sp3 - Antibiotic Education sp3 - Prescription Opioid Use sp3 - Patient Portal Instructions sp3 - Leadership Thank You Letter sp3 Prescriptions: - Paxlovid 300 mg (150 mg x 2)-100 mg Oral Tablet, Dose Pack - take 1 dose pack ORAL route per package directions; 1 application; Refills: 0, sp3 Product Selection Permitted Signatures: Dispatcher [employer] Hattie Samuel MD MD sp3 Zeynep Claudio RN RN koLissette Silva RN RN db
[2023-08-31 15:39] VITALS: BP 118/82; TEMP 97.8; O2SAT 99
--- NOTE | 2023-09-01 16:51 | EKG ---
Test Date: 2023-08-31 Test Time: 14:47:43 Heel Finisher: QUOC MEASUREMENT RESULTS: Intervals: Rate: 79 HI: 158 QRSD: 152 QT: 414 QTc: 474 [place]: P: 41 HI: 158 QRS: 114 T: 36 INTERPRETIVE STATEMENTS: Normal sinus rhythm Right bundle branch block Abnormal ECG Compared to ECG 08/08/2023 19:46:16 No significant changes Electronically Signed On 09-01-23 16:48:40 CDT by Lele Huerta
== END 2023-08-31 15:24 | disposition home or self-care (01) ==
LOC: ER 13:29
DX: U07.1 COVID-19 (principal); B34.9 Viral infection, unspecified
CPT/HCPCS: 36415; 71045; 82947; 87070; 87081; 87804; 87811; 93005; 99284

== ENCOUNTER 2023-09-16 01:38 | Emergency (ER) | payer OTHER ==
[2023-09-16] MEDS ORDERED: ONDANSETRON 4 MG/2 ML VIAL ONE (02:12)
[2023-09-16] MEDS ORDERED: MORPHINE 4 MG/ML SYR ONE (02:13)
[2023-09-16 02:31] LABS: Absolute Eosinophils 0.3 K/uL (0-0.5); Absolute Lymphocytes (CBC) 2.2 K/uL (0.7-4.9); Absolute Monocytes 0.7 K/uL (0.1-1.3); Absolute Neutrophil 4.7 K/uL (1.8-8.0); Basophils % 0.5 % (0-1.3); Eosinophils % 3.9 % (0-4.4); Hematocrit 39.3 % (39.6-49.0); Hemoglobin 13.5 g/dL (13.6-17.9); Lymphocytes % 27.6 % (15.3-44.8); MCH 29.6 pg (27.0-35.0); MCHC 34.3 g/dL (32.0-36.0); MCV 86.3 fL (80-100); MPV 7.3 fL (7.6-11.3); Monocytes % 8.3 % (3.3-12.3); Neutrophils % 59.7 % (41.7-73.7); Platelets 261 thou/uL (152-406); RBC Red Blood Cell Count 4.56 M/uL (4.33-5.43); Red Cell Distribution Width 14.3 % (12.1-15.2)
[2023-09-16 02:33] LABS: Specific Gravity 1.017 (1.005-1.030); Sqamous Epithelial <5 /HPF (None Seen); Urine Bacteria None Seen /HPF (<20); Urine Bilirubin NEGATIVE (Negative); Urine Blood Trace (Negative); Urine Clarity Clear (Clear); Urine Color Light-Yellow (Yellow); Urine Culture Reflex Order NOT NEEDED; Urine Glucose 1+ (Negative); Urine Ketones NEGATIVE (Negative); Urine Microscopic Reflex YN ORDER UMIC; Urine Nitrite NEGATIVE (Negative); Urine Protein NEGATIVE (Negative); Urine RBC <5 /HPF (None Seen); Urine Urobilinogen Normal (Normal); Urine WBC None Seen /HPF (<5); Urine pH 6.5 (5.0-7.0)
[2023-09-16 02:44] LABS: Albumin 3.6 g/dL (3.4-5.0); Albumin/Globulin Ratio 0.9 (1.1-1.8); Anion Gap 7.8 mEq/L (5.0-15.0); Bilirubin Total 0.4 mg/dL (0.2-1.0); Globulin 3.9 g/dL (2.3-3.5); Potassium 3.8 mEq/L (3.5-5.1); Protein, Total 7.5 g/dL (6.4-8.2)
[2023-09-16] MEDS ORDERED: MAGNES/ALUMIN/SIMET 30ML UCUP ONE (05:55)
[2023-09-16] MEDS ORDERED: DICYCLOMINE HCL 10 MG CAP ONE (05:56)
--- NOTE | 2023-09-16 06:00 | ER ---
Nurse's Notes [facility] Name: Alexandr Laws Age: 58 yrs Sex: Male : 1965 Arrival Date: 09/16/2023 Time: 01:38 Bed 20 Private MD: Diagnosis: Abdominal pain, unspecified Presentation: 09/15 01:49 Chief complaint: Patient states: lower back pain radiating to abdomen, gassy, bloating, lg3 belching since 2200. Coronavirus screen: Client denies travel out of the [place] in the last 14 days. At this time, the client does not indicate any symptoms associated with coronavirus-19. Ebola Screen: No symptoms or risks identified at this time. Initial Sepsis Screen: Does the patient meet any 2 criteria? No. Patient's initial sepsis screen is negative. Does the patient have a suspected source of infection? No. Patient's initial sepsis screen is negative. Risk Assessment: Do you want to hurt yourself or someone else? Patient reports no desire to harm self or others. Onset of symptoms was September 15, 2023. 01:49 Method Of Arrival: Ambulatory lg3 01:49 Acuity: MIKEY 3 lg3 Triage Assessment: 01:51 General: Appears in no apparent distress. uncomfortable, Behavior is calm, cooperative. lg3 Pain: Complains of pain in low back area and abdomen. EENT: No deficits noted. No signs and/or symptoms were reported regarding the EENT system. Neuro: No deficits noted. Law Agitation-Sedation Scale (RASS): 0 - Alert and Calm Level of Consciousness is awake, alert, obeys commands, Oriented to person, place, time, situation. Cardiovascular: No deficits noted. Denies chest pain, shortness of breath, Capillary refill < 3 seconds Clubbing of nail beds is absent JVD is absent Patient's skin is warm and dry. Respiratory: No deficits noted. Airway is patent Respiratory effort is even, unlabored, Respiratory pattern is regular, symmetrical. GI: Abdomen is round non-distended, Reports lower abdominal pain, upper abdominal pain, bloating, cramping, gaseousness, indigestion. : No deficits noted. No signs and/or symptoms were reported regarding the genitourinary system. Derm: No deficits noted. No signs and/or symptoms reported regarding the dermatologic system. Skin is intact, is healthy with good turgor, Skin is dry, Skin is normal, Skin temperature is warm. Musculoskeletal: No deficits noted. Circulation, motion, and sensation intact. Range of motion: intact in all extremities. Historical: - Allergies: 01:51 No Known Allergies; lg3 - Home Meds: 01:51 carvedilol 6.25 mg oral tablet [Active]; metformin 750 mg Oral Tb24 1 tab once daily lg3 [Active]; aspirin 81 mg Oral chew once daily [Active]; BRILINTA 90 mg Oral tab [Active]; Nexium 40 mg Oral cpDR [Active]; pravastatin 80 mg Oral tab once daily [Active]; - PMHx: 01:51 coronary atherosclerosis; Diabetes - NIDDM; Gastric Reflux; High Cholesterol; lg3 Hypertension; - PSHx: 01:51 Cholecystectomy; left knee repair; Partial nephrectomy; Stented artery; lg3 - Immunization history:: Adult Immunizations up to date. - Infectious Disease History:: Denies. - Social history:: Smoking status: Patient denies any tobacco usage or history of. Patient/guardian denies using alcohol, street drugs. - Family history:: not pertinent. Screenin:10 [facility] ED Fall Risk Assessment (Adult) History of falling in the last 3 months, kd3 including since admission No falls in past 3 months (0 pts) Confusion or Disorientation No (0 pts) Intoxicated or Sedated No (0 pts) Impaired Gait No (0 pts) Mobility Assist Device Used No (0 pt) Altered Elimination No (0 pt) Score/Fall Risk Level 0 - 2 = Low Risk Oriented to surroundings. Abuse screen: Denies threats or abuse. Denies injuries from another. Nutritional screening: No deficits noted. Tuberculosis screening: No symptoms or risk factors identified. Assessment: 02:09 General: Appears uncomfortable, Behavior is calm, cooperative. Pain: Complains of pain kd3 in abdomen and back and low back area. Neuro: Level of Consciousness is awake, alert, obeys commands, Oriented to person, place, time, situation. Cardiovascular: Patient's skin is warm and dry. Respiratory: Airway is patent Trachea midline Respiratory effort is even, unlabored, Respiratory pattern is regular, symmetrical. 02:10 GI: Bowel sounds present X 4 quads. Abd is soft X 4 quads. kd3 02:59 Reassessment: Patient and/or family updated on plan of care and expected duration. Pain kd3 level reassessed. Patient is alert, oriented x 3, equal unlabored respirations, skin warm/dry/pink. Vital Signs: 01:49 BP 147 / 93; Pulse 75; Resp 17 S; Temp 97.8(TE); Pulse Ox 100% on R/A; Weight 81.65 kg lg3 (R); Height 5 ft. 8 in. (R); Pain 7/10; 02:08 BP 145 / 96; Pulse 67; Resp 15; Pulse Ox 100% on R/A; kd3 02:58 BP 130 / 91; Pulse 79; Resp 15; Pulse Ox 95% on R/A; kd3 04:00 BP 127 / 89; Pulse 74; Resp 18; Pulse Ox 100% ; cp4 05:30 BP 115 / 83; Pulse 67; Resp 18; Pulse Ox 95% ; cp4 01:49 Body Mass Index 27.37 (81.65 kg, 172.72 cm) lg3 01:49 Pain Scale: Adult lg3 ED Course: 01:42 Patient arrived in ED. gm2 01:45 Oz Boyce MD is Attending Physician. rt 01:51 Triage completed. lg3 01:51 Arm band placed on right wrist. lg3 02:07 Monica Casas, WANDY is Primary Nurse. kd3 02:10 Patient has correct armband on for positive identification. kd3 02:11 CBC with Diff Sent. kd3 02:11 CMP Sent. kd3 02:11 Lipase Sent. kd3 02:11 Urinalysis w/ reflexes Sent. kd3 02:11 Inserted saline lock: 20 gauge in right antecubital area, using aseptic technique. kd3 Blood collected. 02:12 Initial lab(s) drawn, by ED staff, sent to lab. Urine collected: clean catch specimen, kd3 clear. 03:11 CT Abd/Pelvis - IV Contrast Only In Process Unspecified. EDMS 06:11 Provided Education on: abdominal pain. cp4 06:11 No provider procedures requiring assistance completed. intact, bleeding controlled, No cp4 redness/swelling at site. Pressure dressing applied. Administered Medications: 02:18 Drug: Ondansetron IVP 4 mg IVP once; over 2 minutes Route: IVP; Site: right antecubital;kd3 06:10 Follow up: Response: No adverse reaction cp4 02:18 Drug: morphine IVP or IV 4 mg IVP once over 4 mins Route: IVP; Infused Over: 4 mins; kd3 Site: right antecubital; 06:10 Follow up: Response: No adverse reaction cp4 05:59 Drug: Alum-Mag Hydroxide-Simeth PO Suspension (200 mg-200 mg-20 mg/5 mL) 30 ml PO once cp4 Route: PO; 06:10 Follow up: Response: No adverse reaction cp4 05:59 Drug: Dicyclomine PO 20 mg PO once Route: PO; cp4 06:10 Follow up: Response: No adverse reaction cp4 Medication: 02:10 VIS not applicable for this client. kd3 Outcome: 06:00 Discharge ordered by . rt 06:11 Discharged to home ambulatory, cp4 06:11 Condition: stable 06:11 Discharge instructions given to patient, Instructed on discharge instructions, follow up and referral plans. medication usage, Demonstrated understanding of instructions, follow-up care, medications, Prescriptions given X 1, 06:11 Patient left the ED. cp4 Signatures: Dispatcher [employer] EDMS Stacey Sahu RN RN patel3 Monica Casas RN RN kd3 Oz Boyce MD MD rt Potter, Christina cp4 Dalia Balderrama [facility]
--- NOTE | 2023-09-16 06:00 | EDPHYS ---
Physician Documentation [facility] Name: Alexandr Laws Age: 58 yrs Sex: Male : 1965 Arrival Date: 09/16/2023 Time: 01:38 Bed 20 Private MD: ED Physician Oz Boyce HPI: 09/15 02:13 This 58 yrs old Male presents to ER via Ambulatory with complaints of Low Back rt Pain, Abdominal Pain. 02:13 Patient presents to the ED with a low back pain radiating to the abdomen starting rt tonight about 10. Reports bloating sensation for the past several days. States that his he has had pancreatitis previously. Reports nausea without vomiting. Denies other acute complaints at this time, symptoms are moderate in severity, aching nature, and otherwise radiating, no other aggravating or alleviating factors.. Historical: - Allergies: 01:51 No Known Allergies; lg3 - Home Meds: 01:51 carvedilol 6.25 mg oral tablet [Active]; metformin 750 mg Oral Tb24 1 tab once daily lg3 [Active]; aspirin 81 mg Oral chew once daily [Active]; BRILINTA 90 mg Oral tab [Active]; Nexium 40 mg Oral cpDR [Active]; pravastatin 80 mg Oral tab once daily [Active]; - PMHx: 01:51 coronary atherosclerosis; Diabetes - NIDDM; Gastric Reflux; High Cholesterol; lg3 Hypertension; - PSHx: 01:51 Cholecystectomy; left knee repair; Partial nephrectomy; Stented artery; lg3 - Immunization history:: Adult Immunizations up to date. - Infectious Disease History:: Denies. - Social history:: Smoking status: Patient denies any tobacco usage or history of. Patient/guardian denies using alcohol, street drugs. - Family history:: not pertinent. ROS: 02:13 Constitutional: Negative for fever, chills, and weight loss, Cardiovascular: Negative rt for chest pain, palpitations, and edema, Respiratory: Negative for shortness of breath, cough, wheezing, and pleuritic chest pain, MS/Extremity: Negative for injury and deformity, Skin: Negative for injury, rash, and discoloration, Neuro: Negative for headache, weakness, numbness, tingling, and seizure, 02:13 Abdomen/GI: Positive for abdominal pain, nausea, 02:13 Back: Positive for pain at rest, Negative for injury or acute deformity, Exam: 02:13 Constitutional: This is a well developed, well nourished patient who is awake, alert, rt and in no acute distress. Head/Face: Normocephalic, atraumatic. Chest/axilla: Normal chest wall appearance and motion. Nontender with no deformity. No lesions are appreciated. Cardiovascular: Regular rate and rhythm with a normal S1 and S2. No gallops, murmurs, or rubs. Normal PMI, no JVD. No pulse deficits. Respiratory: Lungs have equal breath sounds bilaterally, clear to auscultation and percussion. No rales, rhonchi or wheezes noted. No increased work of breathing, no retractions or nasal flaring. Skin: Warm, dry with normal turgor. Normal color with no rashes, no lesions, and no evidence of cellulitis. MS/ Extremity: Pulses equal, no cyanosis. Neurovascular intact. Full, normal range of motion. Neuro: Awake and alert, GCS 15, oriented to person, place, time, and situation. Cranial nerves II-XII grossly intact. Motor strength 5/5 in all extremities. Sensory grossly intact. Cerebellar exam normal. Normal gait. 02:13 Abdomen/GI: Tenderness diffusely without rebound, guarding, distention, Vital Signs: 01:49 BP 147 / 93; Pulse 75; Resp 17 S; Temp 97.8(TE); Pulse Ox 100% on R/A; Weight 81.65 kg lg3 (R); Height 5 ft. 8 in. (R); Pain 7/10; 02:08 BP 145 / 96; Pulse 67; Resp 15; Pulse Ox 100% on R/A; kd3 02:58 BP 130 / 91; Pulse 79; Resp 15; Pulse Ox 95% on R/A; kd3 04:00 BP 127 / 89; Pulse 74; Resp 18; Pulse Ox 100% ; cp4 05:30 BP 115 / 83; Pulse 67; Resp 18; Pulse Ox 95% ; cp4 01:49 Body Mass Index 27.37 (81.65 kg, 172.72 cm) lg3 01:49 Pain Scale: Adult lg3 MDM: 01:53 Patient medically screened. rt 06:14 Differential diagnosis: Pancreatitis, biliary obstruction, bowel obstruction, rt enteritis. Data reviewed: vital signs, nurses notes. Independent interpretation of the following test(s) in the Emergency Department CT Scan: My interpretation is No bowel obstruction seen on interpretation of CT scan images. Care significantly affected by the following chronic conditions: Diabetes. Counseling: I had a detailed discussion with the patient and/or guardian regarding the historical points, exam findings, and any diagnostic results supporting the discharge/admit diagnosis, lab results, radiology results, the need for outpatient follow up, to return to the emergency department if symptoms worsen or persist or if there are any questions or concerns that arise at home. Response to treatment: the patient's symptoms have markedly improved after treatment. 09/15 02:03 Order name: CBC with Diff; Complete Time: 02:45 rt 09/15 02:03 Order name: CMP; Complete Time: 02:45 rt 09/15 02:03 Order name: Lipase; Complete Time: 02:45 rt 09/15 02:03 Order name: Urinalysis w/ reflexes; Complete Time: 02:45 rt 09/15 02:03 Order name: CT Abd/Pelvis - IV Contrast Only rt 09/15 02:03 Order name: IV Saline Lock; Complete Time: 02:11 rt 09/15 02:03 Order name: Labs collected and sent; Complete Time: 02:11 rt Administered Medications: 02:18 Drug: Ondansetron IVP 4 mg IVP once; over 2 minutes Route: IVP; Site: right antecubital;kd3 06:10 Follow up: Response: No adverse reaction cp4 02:18 Drug: morphine IVP or IV 4 mg IVP once over 4 mins Route: IVP; Infused Over: 4 mins; kd3 Site: right antecubital; 06:10 Follow up: Response: No adverse reaction cp4 05:59 Drug: Alum-Mag Hydroxide-Simeth PO Suspension (200 mg-200 mg-20 mg/5 mL) 30 ml PO once cp4 Route: PO; 06:10 Follow up: Response: No adverse reaction cp4 05:59 Drug: Dicyclomine PO 20 mg PO once Route: PO; cp4 06:10 Follow up: Response: No adverse reaction cp4 Disposition Summary: 09/16/23 06:00 Discharge Ordered Notes: Location: Home rt Problem: new rt Symptoms: have improved rt Condition: Stable rt Diagnosis - Abdominal pain, unspecified rt Followup: rt - With: Private Physician - When: 2 - 3 days - Reason: Discharge Instructions: - Discharge Summary Sheet rt - Abdominal Pain, Adult rt Forms: - Medication Reconciliation Form rt - Antibiotic Education rt - Prescription Opioid Use rt - Patient Portal Instructions rt - Leadership Thank You Letter rt Prescriptions: - dicyclomine 10 mg Oral capsule - take 1 capsule ORAL route 4 times per day as needed for abdominal pain; 15 rt capsule; Refills: 0, Product Selection Permitted Signatures: Dispatcher [employer] Stacey Gilmore RN RN lg3 Monica Casas RN RN kd3 Oz Boyce MD MD rt Lore Connors cp4
[2023-09-16 06:53] VITALS: BP 115/83; TEMP 97.8; O2SAT 95
--- NOTE | 2023-09-16 19:18 | RAD REPORT ---
EXAM DESCRIPTION: CT - Abdomen Pelvis W Contrast - 09/16/2023 7:10 am CLINICAL HISTORY: ABD PAIN COMPARISON: 07/08/2023 TECHNIQUE: CT of the abdomen and pelvis performed following IV administration of iodinated contras t. This exam was performed according to our departmental dose-optimization program, which includes au tomated exposure control, adjustment of the mA and/or kV according to patient size and/or use of iter ative reconstruction technique. FINDINGS: Lung Bases: The visualized lung bases are clear. Bones: Mild endplate spondylosis and facet arthropathy. Osteoarthritic change of the hips. Abdomen: Liver: The liver has normal size and density. Gallbladder: Cholecystectomy. Spleen, Pancreas, and Adrenal Glands: The spleen, pancreas, and adrenal glands are unremarkable. Kidneys: No hydronephrosis or obstructing calculus. Postoperative change of the superior pole of the right kidney. Vasculature: The aorta and IVC have normal caliber and position. The portal vein is patent. The pro ximal visceral and renal arteries are patent. Stomach: The stomach and duodenum have normal course. Other: No free intraperitoneal air. No free fluid or lymphadenopathy. Pelvis: Bladder: Mild wall thickening of the urinary bladder. Bowel: No dilated loops of large or small bowel. Moderate amount of stool. Wall thickening of the p roximal small bowel with shotty superior mesenteric lymph nodes. Appendix: Normal appendix. Pelvis: Enlarged prostate. IMPRESSION: 1. Wall thickening of the proximal small bowel with shotty superior mesenteric lymph n odes. These findings could be seen with nonspecific enteritis. 2. Mild wall thickening of the urinary bladder. This could be seen with cystitis. 3. Enlarged prostate. Electronically signed by: Anthony Figueroa DO 09/16/2023 05:33 AM [id number] Due to temporary technical issues with the PACS/Fluency reporting system, reports are being signed by the in house radiologists without review as a courtesy to insure prompt reporting. The interpreting radiologist is fully responsible for the content of the report.
== END 2023-09-16 06:11 | disposition home or self-care (01) ==
LOC: ER 01:38
DX: R10.30 Lower abdominal pain, unspecified (principal); M54.50 Low back pain, unspecified
CPT/HCPCS: 85025; 81001; 36415; 83690; 80053; 74177; 96375; 96374; 99284; Q9967; J2405

== ENCOUNTER 2023-10-04 18:23 | Emergency (ER) | payer OTHER ==
[2023-10-04] MEDS ORDERED: LIDOCAINE 2% W/EPI 1:200,000 MPF 20 ML VIAL IM ONE (20:37)
[2023-10-04] MEDS ORDERED: HYDROCODONE/APAP 5/325 MG TAB ONE (20:37)
[2023-10-04] MEDS ORDERED: TDAP (DIPHTH,PERTUSS(ACELL),TET VAC) 0.5 ML VIAL IMVAC ONE (20:37)
--- NOTE | 2023-10-04 21:13 | RAD REPORT ---
EXAM DESCRIPTION: RAD - Tib Fib Right - 10/04/2023 8:59 pm CLINICAL HISTORY: puncture wound COMPARISON: <Comparisons> FINDINGS: No fracture, dislocation or radiopaque foreign body. Moderate posterior calcaneal spur.
--- NOTE | 2023-10-04 22:39 | EDPHYS ---
Physician Documentation [facility] Name: Alexandr Laws Age: 58 yrs Sex: Male : 1965 Arrival Date: 10/04/2023 Time: 18:23 Bed 2 Private MD: Dangelo Mac HPI: 10/03 20:10 This 58 yrs old Male presents to ER via Ambulatory with complaints of Puncture cp Wound To Leg. 20:10 The patient presents with an injury, a puncture wound, piece of metal. The complaints cp affect the lateral aspect of right calf. Context: the patient can fully bear weight, the patient is able to ambulate, with mild difficulty. Onset: The symptoms/episode began/occurred just prior to arrival. Associated signs and symptoms: The patient has no apparent associated signs or symptoms. Historical: - Allergies: 19:04 Sulfa (Sulfonamide Antibiotics); db - Home Meds: 19:04 BRILINTA 90 mg Oral tab [Active]; db - PMHx: 19:04 Diabetes - NIDDM; coronary atherosclerosis; High Cholesterol; Gastric Reflux; db Hypertension; - PSHx: 20:44 Cholecystectomy; left knee repair; Partial nephrectomy; Stented artery; kd3 - Immunization history:: Adult Immunizations unknown. - Infectious Disease History:: Denies. - Social history:: Smoking status: Patient denies any tobacco usage or history of. ROS: 20:15 MS/extremity: Positive for pain, puncture, swelling, tenderness, of the lateral aspect cp of right calf, mild bleeding, 20:15 Constitutional: Negative for body aches, chills, fever, poor PO intake, cp 20:15 Cardiovascular: Negative for chest pain, cp 20:15 Abdomen/GI: Negative for abdominal pain, 20:15 Neuro: Negative for numbness, weakness, 20:15 All other systems are negative, Exam: 20:20 Constitutional: The patient appears in no acute distress, alert, awake, non-toxic, well cp developed, well nourished, uncomfortable, 20:20 Head/Face: Normocephalic, atraumatic. cp 20:20 Chest/axilla: Inspection: normal, 20:20 Cardiovascular: Rate: normal, 20:20 Respiratory: the patient does not display signs of respiratory distress, Respirations: normal, 20:20 Musculoskeletal/extremity: Extremities: grossly normal except: noted in the lateral aspect of right calf: puncture type wound noted with mid bleeding, swelling and tenderness to palpation, ROM: full active range of motion, in the right knee and right ankle, Perfusion: the extremity is normally perfused throughout, 20:20 Neuro: Orientation: to person, place \T\ time. Mentation: is normal, Vital Signs: 19:02 BP 146 / 87; Pulse 82; Resp 18; Temp 98.1(O); Pulse Ox 96% ; Weight 81.65 kg; Height 5 db ft. 8 in. ; 20:45 BP 133 / 93; Pulse 71; Resp 16; Pulse Ox 98% on R/A; kd3 21:49 BP 125 / 86; Pulse 63; Resp 19; Pulse Ox 93% on R/A; kd3 22:12 BP 121 / 85; Pulse 62; Resp 16; Pulse Ox 98% on R/A; kd3 19:02 Body Mass Index 27.37 (81.65 kg, 172.72 cm) db MDM: 19:04 Patient medically screened. cp 22:37 Data reviewed: vital signs, nurses notes, radiologic studies, plain films. cp 22:37 Differential diagnosis: open fracture, foreign body. I considered the following cp discharge prescriptions or medication management in the emergency department Medications were administered in the Emergency Department. See MAR. Care significantly affected by the following chronic conditions: Diabetes. Response to treatment: the patient's symptoms have markedly improved after treatment, and as a result, I will discharge patient. Special discussion: I discussed in detail with the patient the higher chance of wound infection based on his presenting history. 10/03 19:52 Order name: XRAY Tib Fib RIGHT; Complete Time: 21:27 cp 10/03 21:27 Order name: Wound Care; Complete Time: 22:55 cp 10/03 22:37 Order name: Wound dressing; Complete Time: 22:55 cp Administered Medications: 20:43 Drug: HYDROcodone-acetaminophen PO 5 mg-325 mg 1 tabs PO once Route: PO; kd3 22:59 Follow up: Response: No adverse reaction; Pain is decreased kd3 20:43 Drug: Boostrix Tdap IM 0.5 ml IM once; as a single dose Route: IM; Site: left deltoid; kd3 22:59 Follow up: Response: (VIS) Vaccine information sheet provided today. Questions and/or kd3 concerns addressed. VIS edition date: Nov 06, 2020.; No adverse reaction 22:55 Drug: Cephalexin PO 500 mg PO once Route: PO; kd3 22:59 Follow up: Response: No adverse reaction kd3 22:59 Drug: Lidocaine Infiltration (2 %) 10 ml 5 ml Infiltration once; with epinephrine kd3 Volume: 5 ml; Route: Infiltration; Disposition Summary: 10/04/23 22:38 Discharge Ordered Notes: Location: Home cp Problem: new cp Symptoms: have improved cp Condition: Stable cp Diagnosis - Puncture wound without foreign body, right lower leg, initial encounter cp Followup: cp - With: Private Physician - When: 2 - 3 days - Reason: Worsening of condition Discharge Instructions: - Discharge Summary Sheet cp - Puncture Wound cp Forms: - Medication Reconciliation Form cp - Antibiotic Education cp - Prescription Opioid Use cp - Patient Portal Instructions cp - Leadership Thank You Letter cp Prescriptions: - Cephalexin 500 mg Oral Capsule - take 1 capsule ORAL route every 8 hours for 10 days; 30 capsule; Refills: 0, cp Product Selection Permitted Addendum: 10/07/2023 07:45 Co-signature as Attending Physician, Dangelo Zuniga MD I agree with the assessment and c solares plan of care. Signatures: Dispatcher [employer] EDDangelo Head MD MD cha Page, Corey, PA PA Moncia Llily, RN RN kd3 Lissette Yung RN RN db
--- NOTE | 2023-10-04 22:39 | ER ---
Nurse's Notes [facility] Name: Alexandr Laws Age: 58 yrs Sex: Male : 1965 Arrival Date: 10/04/2023 Time: 18:23 Bed 2 Private MD: Diagnosis: Puncture wound without foreign body, right lower leg, initial encounter Presentation: 10/03 19:02 Chief complaint: Patient states: RIGHT LEG PUNCTURE WOUND TODAY WHILE IN GARAGE CUT db LEG. UNSURE HOW DEEP IT IS. NOTED SMALL 1 INCH WIDE PUNCTURE. BLEEDING CONTROLLED. INCIDENT 30 MIN AGO. ON BRILINTA. Coronavirus screen: Client denies travel out of the [place] in the last 14 days. At this time, the client does not indicate any symptoms associated with coronavirus-19. Ebola Screen: Patient negative for fever greater than or equal to 101.5 degrees Fahrenheit, and additional compatible Ebola Virus Disease symptoms Patient denies exposure to infectious person. Patient denies travel to an Ebola-affected area in the 21 days before illness onset. No symptoms or risks identified at this time. Initial Sepsis Screen: Does the patient meet any 2 criteria? No. Patient's initial sepsis screen is negative. Does the patient have a suspected source of infection? No. Patient's initial sepsis screen is negative. Risk Assessment: Do you want to hurt yourself or someone else? Patient reports no desire to harm self or others. Onset of symptoms was October 04, 2023. 19:02 Method Of Arrival: Ambulatory db 19:02 Acuity: MIKEY 3 db Triage Assessment: 19:04 General: Appears in no apparent distress. comfortable, Behavior is calm, cooperative. db Pain: Complains of pain in right leg. Neuro: Level of Consciousness is awake, alert, obeys commands, Oriented to person, place, time, situation. Injury Description: Puncture sustained to right leg. Historical: - Allergies: 19:04 Sulfa (Sulfonamide Antibiotics); db - Home Meds: 19:04 BRILINTA 90 mg Oral tab [Active]; db - PMHx: 19:04 Diabetes - NIDDM; coronary atherosclerosis; High Cholesterol; Gastric Reflux; db Hypertension; - PSHx: 20:44 Cholecystectomy; left knee repair; Partial nephrectomy; Stented artery; kd3 - Immunization history:: Adult Immunizations unknown. - Infectious Disease History:: Denies. - Social history:: Smoking status: Patient denies any tobacco usage or history of. Screenin:44 [facility] ED Fall Risk Assessment (Adult) History of falling in the last 3 months, kd3 including since admission No falls in past 3 months (0 pts) Confusion or Disorientation No (0 pts) Intoxicated or Sedated No (0 pts) Impaired Gait No (0 pts) Mobility Assist Device Used No (0 pt) Altered Elimination No (0 pt) Score/Fall Risk Level 0 - 2 = Low Risk Oriented to surroundings. Abuse screen: Denies threats or abuse. Denies injuries from another. Nutritional screening: No deficits noted. Tuberculosis screening: No symptoms or risk factors identified. Assessment: 20:43 General: Appears in no apparent distress. Behavior is calm, cooperative. General: Pt kd3 placed on continuous monitoring, medicated for pain and updated tetanus vaccine to the left deltoid. PT provided a warm blanket for comfort. . Pain: Complains of pain in lateral aspect of right calf. Neuro: Level of Consciousness is awake, alert, obeys commands, Oriented to person, place, time, situation. Cardiovascular: Patient's skin is warm and dry. Respiratory: Airway is patent Trachea midline Respiratory effort is even, unlabored, Respiratory pattern is regular, symmetrical. 22:12 Reassessment: Patient is alert, oriented x 3, equal unlabored respirations, skin kd3 warm/dry/pink. Patient states feeling better. Patient states symptoms have improved. General: Provider at bedside. . Neuro: Level of Consciousness is awake, alert, obeys commands, Oriented to person, place, time, situation. Vital Signs: 19:02 BP 146 / 87; Pulse 82; Resp 18; Temp 98.1(O); Pulse Ox 96% ; Weight 81.65 kg; Height 5 db ft. 8 in. ; 20:45 BP 133 / 93; Pulse 71; Resp 16; Pulse Ox 98% on R/A; kd3 21:49 BP 125 / 86; Pulse 63; Resp 19; Pulse Ox 93% on R/A; kd3 22:12 BP 121 / 85; Pulse 62; Resp 16; Pulse Ox 98% on R/A; kd3 19:02 Body Mass Index 27.37 (81.65 kg, 172.72 cm) db ED Course: 18:25 Patient arrived in ED. im 19:04 Triage completed. db 19:04 Dangelo Duran PA is PHCP. cp 19:04 Dangelo Zuniga MD is Attending Physician. cp 19:04 Arm band placed on Patient placed in an exam room. db 20:27 Monica Casas, RN is Primary Nurse. kd3 20:44 Patient has correct armband on for positive identification. Provided Education on: kd3 tetanus . 21:01 XRAY Tib Fib RIGHT In Process Unspecified. EDMS 22:58 Assist provider with laceration repair on lateral aspect of right calf and right leg. kd3 Patient did not have IV access during this emergency room visit. Administered Medications: 20:43 Drug: HYDROcodone-acetaminophen PO 5 mg-325 mg 1 tabs PO once Route: PO; kd3 22:59 Follow up: Response: No adverse reaction; Pain is decreased kd3 20:43 Drug: Boostrix Tdap IM 0.5 ml IM once; as a single dose Route: IM; Site: left deltoid; kd3 22:59 Follow up: Response: (VIS) Vaccine information sheet provided today. Questions and/or kd3 concerns addressed. VIS edition date: Nov 06, 2020.; No adverse reaction 22:55 Drug: Cephalexin PO 500 mg PO once Route: PO; kd3 22:59 Follow up: Response: No adverse reaction kd3 22:59 Drug: Lidocaine Infiltration (2 %) 10 ml 5 ml Infiltration once; with epinephrine kd3 Volume: 5 ml; Route: Infiltration; Medication: 22:58 Vaccine Information Statement (VIS) provided today. Questions and/or concerns kd3 addressed. VIS edition date: November 06, 2020. Outcome: 22:38 Discharge ordered by . cp 22:58 Discharged to home ambulatory, kd3 22:58 Condition: stable 22:58 Discharge instructions given to patient, Instructed on discharge instructions, follow up and referral plans. Demonstrated understanding of instructions, follow-up care, medications, Prescriptions given X 1, 22:59 Patient left the ED. kd3 Signatures: Dispatcher [employer] EDTN Dangelo Duran PA PA cp Doucette, Kyli, RN RN kd3 Lissette Yung RN RN db Adalgisa Montiel im
[2023-10-04] MEDS ORDERED: CEPHALEXIN 250 MG CAP ONE (22:51)
[2023-10-04 23:40] VITALS: BP 121/85; TEMP 98.1; O2SAT 98
== END 2023-10-04 22:59 | disposition home or self-care (01) ==
LOC: ER 18:23
DX: S81.831A Puncture wound without foreign body, right lower leg, initial encounter (principal)
CPT/HCPCS: 96372; 99284

== ENCOUNTER 2024-03-29 19:13 | Emergency (ER) | payer OTHER ==
--- NOTE | 2024-03-29 20:21 | RAD REPORT ---
EXAM: CT Ct Stroke Brain Wo Cont HISTORY: STROKE ALERT COMPARISON: 06/28/2023 TECHNIQUE: Multiple contiguous axial images were obtained for a CT of the brain without contrast. Sag ittal and coronal reformats were performed. One or more of the following dose reduction techniques were used: Automated exposure control, adjus tment of the mA and kV according to patient size, and iterative reconstruction. Unless otherwise specified, incidental findings do not require dedicated imaging follow-up. FINDINGS: No evidence of hydrocephalus, intracranial hemorrhage, or extra-axial fluid collection. The brain is normal in morphology. The calvarium is intact. The visualized paranasal sinuses and mastoid air cells are essentially clear . IMPRESSION: No evidence of acute intracranial abnormality. THIS REPORT CONTAINS FINDINGS THAT MAY BE CRITICAL TO PATIENT CARE. The findings were verbally commun icated via telephone to Dangelo A Page, PAC on 03/29/2024 8:04PM.
[2024-03-29 20:22] LABS: Absolute Eosinophils 0.1 K/uL (0-0.5); Absolute Lymphocytes (CBC) 1.8 K/uL (0.7-4.9); Absolute Monocytes 0.5 K/uL (0.1-1.3); Absolute Neutrophil 3.2 K/uL (1.8-8.0); Basophils % 0.5 % (0-1.3); Hematocrit 37.9 % (39.6-49.0); Hemoglobin 12.5 g/dL (13.6-17.9); Lymphocytes % 31.9 % (15.3-44.8); MCH 28.9 pg (27.0-35.0); MCV 87.6 fL (80-100); MPV 7.1 fL (7.6-11.3); Monocytes % 9.2 % (3.3-12.3); Neutrophils % 56.4 % (41.7-73.7); Platelets 222 thou/uL (152-406); RBC Red Blood Cell Count 4.32 M/uL (4.33-5.43); Red Cell Distribution Width 14.5 % (12.1-15.2)
[2024-03-29] MEDS ORDERED: FOLIC ACID 5 MG/ML VIAL ONE (20:22)
--- NOTE | 2024-03-29 20:22 | RAD REPORT ---
EXAMINATION: CTA HEAD CLINICAL INDICATION: Male, 59 years old. WEAKNESS TECHNIQUE: Axial CT images were obtained through the head after intravenous contrast utilizing angiog raphic protocol with 3D post-processing (maximum intensity projection images, volume rendered images and/or shaded surface rendered images). One or more of the following dose reduction technique s were used: Automated exposure control, adjustment of the mA and/or kV according to patient size, and/or iterative reconstruction. Unless otherwise specified, incidental findings do not require dedic ated imaging follow-up. COMPARISON: No prior exam. FINDINGS: ICA: The petrous, cavernous, and supraclinoid segments of the bilateral internal carotid arteries are normal. DINA: Anterior cerebral arteries are normal bilaterally. The anterior communicating artery is patent. MCA: Middle cerebral arteries are normal bilaterally. CHILD CARE CENTRE DIRECTOR: Posterior cerebral arteries are normal bilaterally. Right posterior communicating artery is yancey nt. Vertebrobasilar: The vertebral arteries are patent. The basilar artery is normal in appearance. 3D images confirm these findings. IMPRESSION: Normal head CTA.
--- NOTE | 2024-03-29 20:24 | RAD REPORT ---
EXAMINATION: CT Neck Angio CLINICAL INDICATION: Male, 59 years old. [facility] MAIN weakness Bed Name: 26 TECHNIQUE: Axial CT images were obtained from the aortic arch to the skull base after intravenous con trast utilizing angiographic protocol. Multiplanar reformats, as well as 3D post-processing (maximum intensity projection images, volume rendered images and/or shaded surface rendered images) w ere generated and reviewed. One or more of the following dose reduction techniques were used: Automated exposure control, adjustment of the mA and/or kV according to patient size, and/or iterativ e reconstruction. Unless otherwise specified, incidental findings do not require dedicated imaging follow-up. COMPARISON: 06/28/2023 FINDINGS: AORTA: The imaged aortic arch is normal. Normal three-vessel configuration of the arch. CCA: No artifact The common carotid arteries are patent and normal in caliber. ICA/ECA: Bilateral internal and external carotid arteries are patent. There is no significant interna l carotid artery stenosis. VERTEBRAL: The cervical vertebral arteries are patent to the skull base. Vertebral arteries are codom inant. SOFT TISSUE: No significant neck soft tissue abnormalities. The visualized lung apices show mild grou ndglass opacities and interstitial prominence in the posterior right apex, nonspecific. Mild multilevel cervical spine degenerative changes contributing to moderate degrees of neural forami nal narrowing at C4-5 and C6-7. 3D images confirm these findings. IMPRESSION: No significant flow abnormality of the neck vessels is identified. NASCET criteria used to quantify ICA stenosis, with the following grading scheme: Mild 0-49% stenosis Moderate 50-69% stenosis Severe 70-99% stenosis Reference: [place] Symptomatic Carotid Endarterectomy Trial Collaborators; Jamilah THORNTON, Abbie PIERRE, Glen RB, et al. Beneficial effect of carotid endarterectomy in symptomatic patients with high-grade carotid stenosis. N Engl J Med. 1990Nov 15;325(7):445-53.
[2024-03-29 20:27] LABS: PT Prothrombin Time 12.8 SECONDS (9.4-12.5); PTT, Activated Partial Thromb 33.8 SECONDS (24.3-36.9); Protime INR 1.15
[2024-03-29 20:39] LABS: ALT/SGPT 20 U/L (16-61); AST/SGOT 14 U/L (15-37); Albumin 3.5 g/dL (3.4-5.0); Alkaline Phosphatase 61 U/L (45-117); Anion Gap 6.7 mEq/L (5.0-15.0); BUN Blood Urea Nitrogen 25 mg/dL (7-18); Bicarbonate 25 mEq/L (21-32); Bilirubin Direct 0.2 mg/dL (0-0.2); Bilirubin Indirect, Calculated 0.4 mg/dL (0.2-0.8); Bilirubin Total 0.6 mg/dL (0.2-1.0); Globulin 3.4 g/dL (2.3-3.5); Glomerular Filtration Rate 83 ml/min (=/>90); Glucose Level 88 mg/dL (74-106); Magnesium 1.9 mg/dL (1.6-2.4); Potassium 3.7 mEq/L (3.5-5.1); Protein, Total 6.9 g/dL (6.4-8.2); Sodium Level 136 mEq/L (136-145)
[2024-03-29 20:46] LABS: Troponin High Sensitivity < 3.0 pg/mL (<58.9)
--- NOTE | 2024-03-29 20:48 | RAD REPORT ---
EXAMINATION: ONE VIEW CHEST XR CLINICAL INDICATION: Male, 59 years old.,weakness TECHNIQUE: Frontal chest projection is submitted. Examination is limited by patient positioning and t echnique. COMPARISON: 08/31/2023 FINDINGS: The lungs are well inflated and clear. No pneumothorax or sizable effusion. The heart is normal in s ize. Mediastinal contours are unremarkable. IMPRESSION: No acute intrathoracic abnormalities.
--- NOTE | 2024-03-29 21:00 | ER ---
Nurse's Notes [facility] Name: Alexandr Laws Age: 59 yrs Sex: Male : 1965 Arrival Date: 03/29/2024 Time: 19:13 Bed 26 Private MD: Diagnosis: Weakness-right arm and right leg;Paresthesia of skin-right side of face and right arm and right leg Presentation: 03/29 19:33 Chief complaint: Patient states: RIGHT SIDED NUMBNESS AND TINGLING ONSET TODAY AT 1500. cm10 PT STATES THAT THE NUMBNESS IS TO THE RIGHT SIDE OF HIS FACE AND RIGHT ARM. Coronavirus screen: Client denies travel out of the [place] in the last 14 days. Ebola Screen: Patient denies travel to an Ebola-affected area in the 21 days before illness onset. No symptoms or risks identified at this time. Initial Sepsis Screen: Does the patient meet any 2 criteria? No. Patient's initial sepsis screen is negative. Initial Sepsis Screen: Does the patient have a suspected source of infection? No. Patient's initial sepsis screen is negative. Risk Assessment: Do you want to hurt yourself or someone else? Patient reports no desire to harm self or others. Onset of symptoms was March 29, 2024. 19:33 Method Of Arrival: Ambulatory cm10 19:33 Acuity: MIKEY 2 cm10 Triage Assessment: 19:35 General: Appears in no apparent distress. uncomfortable, Behavior is calm, cooperative, cm10 appropriate for age. Neuro: No deficits noted. Level of Consciousness is awake, alert, obeys commands, Oriented to person, place, time, situation, Appropriate for age Reports numbness in face, right arm and right leg. Historical: - Allergies: 19:32 Sulfa (Sulfonamide Antibiotics); cm10 - Home Meds: 19:35 BRILINTA 90 mg Oral tab [Active]; aspirin 81 mg Oral chew once daily [Active]; cm10 carvedilol 6.25 mg Oral tablet [Active]; metformin 750 mg Oral Tb24 1 tab once daily [Active]; pravastatin 80 mg Oral tab once daily [Active]; Jardiance 10 mg oral tablet [Active]; Protonix Oral [Active]; - PMHx: 19:32 coronary atherosclerosis; Diabetes - NIDDM; Gastric Reflux; High Cholesterol; cm10 Hypertension; - PSHx: 19:32 Cholecystectomy; left knee repair; Partial nephrectomy; Stented artery; cm10 - Immunization history:: Adult Immunizations up to date. - Infectious Disease History:: Denies. - Social history:: Smoking status: Patient denies any tobacco usage or history of. Screenin:57 [facility] ED Fall Risk Assessment (Adult) History of falling in the last 3 months, jb4 including since admission No falls in past 3 months (0 pts) Confusion or Disorientation No (0 pts) Intoxicated or Sedated No (0 pts) Impaired Gait No (0 pts) Mobility Assist Device Used No (0 pt) Altered Elimination No (0 pt) Score/Fall Risk Level 0 - 2 = Low Risk Oriented to surroundings, Maintained a safe environment. Abuse screen: Denies threats or abuse. Nutritional screening: No deficits noted. Tuberculosis screening: No symptoms or risk factors identified. Assessment: 19:40 VAN Scoring: Arm Drift: Patients demonstrates NO arm weakness. Patient is VAN Negative. jb4 Visual Disturbance: No visual disturbance noted. Christina Swallow Protocol Brief Cognitive Screen What is your name? Normal, Where are you right now? Normal, What year is it? Abnormal Oral Mechanism Examination Facial Symmetry: Normal, Motion: Normal, Lip Closure: Normal, 3 oz Water Swallow Challenge: Pt able to drink all water without stopping, coughing, choking or throat clearing: Yes Result: PASS MD Notified: Dangelo Zuniga MD. TNKase (Tenecteplase) Screening: Contraindications: Rapidly improving condition or minor deficit: Yes. 20:55 Reassessment: Patient appears in no apparent distress at this time. Patient and/or jb4 family updated on plan of care and expected duration. Pain level reassessed. Patient is alert, oriented x 3, equal unlabored respirations, skin warm/dry/pink. 21:58 Neuro: Law Agitation-Sedation Scale (RASS): 0 - Alert and Calm Level of jb4 Consciousness is awake, alert, obeys commands, Oriented to person, place, time, situation, Shirt Closer are equal bilaterally Moves all extremities. Full function Gait is steady, Speech is normal, Facial symmetry appears normal. 22:59 Reassessment: Patient appears in no apparent distress at this time. Patient and/or jb4 family updated on plan of care and expected duration. Pain level reassessed. Patient is alert, oriented x 3, equal unlabored respirations, skin warm/dry/pink. 23:21 Reassessment: attempted to call report twice. Placed on hold for a total of 20 minutes. jb4 will call back. 23:48 Reassessment: report given to WANDY Wynne at receiving facility. jb4 Vital Signs: 19:33 BP 127 / 86; Pulse 84; Resp 16; Temp 97.4(TE); Pulse Ox 97% ; Weight 78.47 kg; Height 5 cm10 ft. 8 in. ; Pain 0/10; 21:02 BP 130 / 92; Pulse 72; Resp 16; Pulse Ox 96% on R/A; jb4 21:58 BP 128 / 89; Pulse 74; Resp 16; Pulse Ox 94% on R/A; jb4 22:59 BP 124 / 85; Pulse 86; Resp 16; Pulse Ox 99% on R/A; jb4 23:57 BP 128 / 98; Pulse 77; Resp 16; Pulse Ox 95% on R/A; jb4 19:33 Body Mass Index 26.30 (78.47 kg, 172.72 cm) cm10 19:33 Pain Scale: Adult cm10 Juan Diego Coma Score: 21:58 Eye Response: spontaneous(4). Motor Response: obeys commands(6). Verbal Response: jb4 oriented(5). Total: 15. NIH Stroke Scale Scores: 19:40 NIHSS Score: 1 jb4 20:15 NIHSS Score: 1 cp 21:58 NIHSS Score: 1 jb4 ED Course: 19:15 Patient arrived in ED. mr 19:34 Triage completed. cm10 19:34 Arm band placed on right wrist. Patient placed in an exam room, on a stretcher. cm10 19:40 Patient has correct armband on for positive identification. Bed in low position. Call jb4 light in reach. Side rails up X 1. Provided Education on: plan of care. Client placed on continuous cardiac and pulse oximetry monitoring. NIBP monitoring applied. quality assurance monitor body on. Pulse ox on. 19:44 Dangelo Duran PA is PHCP. cp 19:44 Dangelo Zuniga MD is Attending Physician. cp 20:03 CT Head Angio In Process Unspecified. EDMS 20:03 CT Neck Angio In Process Unspecified. EDMS 20:03 CT Stroke Brain w/o Contrast In Process Unspecified. EDMS 20:07 Stroke CXR 1 View In Process Unspecified. EDMS 20:10 Initial lab(s) drawn, by ED staff, sent to lab. EKG done, by ED staff, reviewed by lgCynthia Zuniga MD. Inserted saline lock: 20 gauge in left antecubital area, using aseptic technique. Blood collected. Flushed with 10 mL NS. Patient maintains SpO2 saturation greater than 95% on room air. 20:16 Ptt, Activated Sent. jb4 20:16 Protime (+inr) Sent. jb4 20:16 Magnesium Sent. jb4 20:54 Matthew Knowles, RN is Primary Nurse. jb4 20:59 initiated transfer with Katrina Dueñas \T\ [facility] transfer. kmf 22:45 pt was accepted to [facility] Bed 1051. number for nurse to nurse report formerly [facility] [phone]. Accepting Martha Frances \T\ 0321. Admin approval given by Katrina Dueñas \T\ 2240. [facility] to transfer pt once nurse to nurse is complete. 23:58 No provider procedures requiring assistance completed. Patient transferred, IV remains jb4 in place. Administered Medications: 20:27 Drug: foLIC Acid IVPB 1 mg IVPB once Route: IVPB; Site: left antecubital; jb4 20:28 Follow up: Response: No adverse reaction; IV Status: Completed infusion jb4 21:57 Drug: Aspirin PO Chewable Tablet 243 mg PO once; 81 mg tablets x 3 Route: PO; jb4 Medication: 23:57 VIS not applicable for this client. jb4 Outcome: 20:59 ER care complete, transfer ordered by MD. grace 23:58 Transferred by [facility] to [facility], Transfer form completed. jb4 X-rays sent w/ patient. 23:58 Condition: stable 23:58 Discharge instructions given to patient, Instructed on the need for transfer, Demonstrated understanding of instructions, 23:58 Patient left the ED. jb4 NIH Stroke Scale - NIH Stroke Score Date: 03/29/2024 Time: 19:40 Total Score = 1 10. Dysarthria (speech clarity - read or repeat words) - 0(Normal) 11. Extinction and Inattention (visual/tactile/auditory/spatial/personal) - 0(No abnormality) 1a. Level of Consciousness (LOC) - 0(Alert) 1b. Level of Consciousness (LOC) (Month \T\ Age) - 0(Both) 1c. LOC Commands (Open \T\ Closes Eyes/Superintendent Tests) - 0(Both) 2. Best Gaze (Lateral Gaze Paresis) - 0(Normal) 3. Visual Field Loss - 0(No visual loss) 4. Facial Palsy - 0(Normal) 5a. Left Arm: Motor (10-second hold) - 0(No drift) 5b. Right Arm: Motor (10-second hold) - 0(No drift) 6a. Left Leg: Motor (5-second hold - always test supine) - 0(No drift) 6b. Right Leg: Motor (5-second hold - always test supine) - 0(No drift) 7. Limb Ataxia (finger/nose \T\ heel/lawrence - test with eyes open) - 0(Absent) 8. Sensory Loss (pinprick arms/legs/face) - 1(Mild to moderate loss) 9. Best Language: Aphasia (description/naming/reading) - 0(No aphasia) Initials: jb4 NIH Stroke Scale - NIH Stroke Score Date: 03/29/2024 Time: 20:15 Total Score = 1 10. Dysarthria (speech clarity - read or repeat words) - 0(Normal) 11. Extinction and Inattention (visual/tactile/auditory/spatial/personal) - 0(No abnormality) 1a. Level of Consciousness (LOC) - 0(Alert) 1b. Level of Consciousness (LOC) (Month \T\ Age) - 0(Both) 1c. LOC Commands (Open \T\ Closes Eyes/Superintendent Tests) - 0(Both) 2. Best Gaze (Lateral Gaze Paresis) - 0(Normal) 3. Visual Field Loss - 0(No visual loss) 4. Facial Palsy - 0(Normal) 5a. Left Arm: Motor (10-second hold) - 0(No drift) 5b. Right Arm: Motor (10-second hold) - 0(No drift) 6a. Left Leg: Motor (5-second hold - always test supine) - 0(No drift) 6b. Right Leg: Motor (5-second hold - always test supine) - 0(No drift) 7. Limb Ataxia (finger/nose \T\ heel/lawrence - test with eyes open) - 0(Absent) 8. Sensory Loss (pinprick arms/legs/face) - 1(Mild to moderate loss) 9. Best Language: Aphasia (description/naming/reading) - 0(No aphasia) Initials: cp NIH Stroke Scale - NIH Stroke Score Date: 03/29/2024 Time: 21:58 Total Score = 1 10. Dysarthria (speech clarity - read or repeat words) - 0(Normal) 11. Extinction and Inattention (visual/tactile/auditory/spatial/personal) - 0(No abnormality) 1a. Level of Consciousness (LOC) - 0(Alert) 1b. Level of Consciousness (LOC) (Month \T\ Age) - 0(Both) 1c. LOC Commands (Open \T\ Closes Eyes/Superintendent Tests) - 0(Both) 2. Best Gaze (Lateral Gaze Paresis) - 0(Normal) 3. Visual Field Loss - 0(No visual loss) 4. Facial Palsy - 0(Normal) 5a. Left Arm: Motor (10-second hold) - 0(No drift) 5b. Right Arm: Motor (10-second hold) - 0(No drift) 6a. Left Leg: Motor (5-second hold - always test supine) - 0(No drift) 6b. Right Leg: Motor (5-second hold - always test supine) - 0(No drift) 7. Limb Ataxia (finger/nose \T\ heel/lawrence - test with eyes open) - 0(Absent) 8. Sensory Loss (pinprick arms/legs/face) - 1(Mild to moderate loss) 9. Best Language: Aphasia (description/naming/reading) - 0(No aphasia) Initials: jb4 Signatures: Dispatcher [employer] EDND [place], [facility] Reg mr Dangelo Duran PA PA cp Bryson, James, RN RN jb4 Stacye Sahu RN RN lg3 Leana Unger, RN RN kb3 Aurea Pacheco, RN RN cm10 Shannon Kline formerly [facility] Corrections: (The following items were deleted from the chart) 04/01 15:44 15:42 Addendum: [email or web address] kb3 16:32 15:42 Addendum: Other [place] Swallow Screening completed \T\ 2015 on 03/29/2024 per [email or web address] Fernando Knowles RN Addendum: Other [place] Swallow Screening completed \T\ 2015 on 03/29/2024 per Fernando Benson RN kb3
--- NOTE | 2024-03-29 21:00 | EDPHYS ---
Physician Documentation [facility] Name: Alexandr Laws Age: 59 yrs Sex: Male : 1965 Arrival Date: 03/29/2024 Time: 19:13 Bed 26 Private MD: ED Physician Dangelo Zuniga HPI: 03/29 19:50 This 59 yrs old Male presents to ER via Ambulatory with complaints of Right cp side numbness/pain. 19:50 The patient's problem is reported as paresthesias, in right upper extremity, in right cp lower extremity, in right side of face, weakness, in the right upper extremity, in the right lower extremity. Onset: The symptoms/episode began/occurred this afternoon before 3 o'clock. 19:50 Duration: The episode is continuous. cp 19:50 Context: symptoms became apparent while driving. cp 19:50 Patient's baseline: Neuro: alert and fully oriented, Motor: no deficits, Ambulation: cp walks without assistance, Speech: normal. 19:50 Associated signs and symptoms: Pertinent negatives: abdominal pain, chest pain, cp confusion, palpitations, seizure, vomiting. Historical: - Allergies: 19:32 Sulfa (Sulfonamide Antibiotics); cm10 - Home Meds: 19:35 BRILINTA 90 mg Oral tab [Active]; aspirin 81 mg Oral chew once daily [Active]; cm10 carvedilol 6.25 mg Oral tablet [Active]; metformin 750 mg Oral Tb24 1 tab once daily [Active]; pravastatin 80 mg Oral tab once daily [Active]; Jardiance 10 mg oral tablet [Active]; Protonix Oral [Active]; - PMHx: 19:32 coronary atherosclerosis; Diabetes - NIDDM; Gastric Reflux; High Cholesterol; cm10 Hypertension; - PSHx: 19:32 Cholecystectomy; left knee repair; Partial nephrectomy; Stented artery; cm10 - Immunization history:: Adult Immunizations up to date. - Infectious Disease History:: Denies. - Social history:: Smoking status: Patient denies any tobacco usage or history of. ROS: 19:55 Constitutional: Negative for body aches, chills, fever, poor PO intake, cp 19:55 ENT: Negative for drainage from ear(s), ear pain, sore throat, difficulty swallowing, difficulty handling secretions, 19:55 Cardiovascular: Negative for chest pain, 19:55 Respiratory: Negative for cough, shortness of breath, wheezing, 19:55 Abdomen/GI: Negative for abdominal pain, vomiting, diarrhea, constipation, 19:55 Neuro: Positive for numbness, weakness, of the right arm and right leg and right side of face, Negative for altered mental status, speech changes, 19:55 All other systems are negative, cp Exam: 20:00 Constitutional: The patient appears in no acute distress, alert, awake, cp non-diaphoretic, non-toxic, well developed, well nourished, 20:00 Head/Face: Normocephalic, atraumatic. cp 20:00 Eyes: Periorbital structures: appear normal, Pupils: equal, round, and reactive to light and accomodation, Extraocular movements: intact throughout, Conjunctiva: normal, no exudate, no injection, Sclera: no appreciated abnormality, Lids and lashes: appear normal, bilaterally, 20:00 ENT: External ear(s): are unremarkable, Nose: is normal, Mouth: Lips: moist, Oral mucosa: pink and intact, moist, 20:00 Neck: ROM/movement: is normal, is supple, without pain, no range of motions limitations, 20:00 Chest/axilla: Inspection: normal, 20:00 Cardiovascular: Rate: normal, Rhythm: regular, Edema: is not appreciated, JVD: is not appreciated, 20:00 Respiratory: the patient does not display signs of respiratory distress, Respirations: normal, no use of accessory muscles, no retractions, labored breathing, is not present, Breath sounds: are clear throughout, no decreased breath sounds, no stridor, no wheezing, 20:00 Abdomen/GI: Inspection: abdomen appears normal, Palpation: abdomen is soft and non-tender, in all quadrants, 20:00 Back: pain, is absent, ROM is normal, 20:00 Neuro: Orientation: to person, place \T\ time. Mentation: able to follow commands, Cerebellar function: Romberg testing is negative, Motor: moves all fours, Sensation: numbness, that is mild, of the right hand, right arm and right leg, 20:15 Radiologist reports: no acute findings cp 20:15 ECG was reviewed by the Attending Physician. cp Vital Signs: 19:33 BP 127 / 86; Pulse 84; Resp 16; Temp 97.4(TE); Pulse Ox 97% ; Weight 78.47 kg; Height 5 cm10 ft. 8 in. ; Pain 0/10; 21:02 BP 130 / 92; Pulse 72; Resp 16; Pulse Ox 96% on R/A; jb4 21:58 BP 128 / 89; Pulse 74; Resp 16; Pulse Ox 94% on R/A; jb4 22:59 BP 124 / 85; Pulse 86; Resp 16; Pulse Ox 99% on R/A; jb4 23:57 BP 128 / 98; Pulse 77; Resp 16; Pulse Ox 95% on R/A; jb4 19:33 Body Mass Index 26.30 (78.47 kg, 172.72 cm) cm10 19:33 Pain Scale: Adult cm10 NIH Stroke Scale Scores: 19:40 NIHSS Score: 1 jb4 20:15 NIHSS Score: 1 cp 21:58 NIHSS Score: 1 jb4 Juan Diego Coma Score: 21:58 Eye Response: spontaneous(4). Motor Response: obeys commands(6). Verbal Response: jb4 oriented(5). Total: 15. MDM: 19:46 Medical Screening Exam initiated cp 21:00 Data reviewed: vital signs, nurses notes, radiologic studies, CT scan, plain films, and cp as a result, I will transfer patient. 21:00 Differential diagnosis: CVA, TIA, metabolic disorder, drug effects. Management of cp patient was discussed with the following: Epic Application Coordinator: DR Martins who recommends transfer for MRI. I considered the following discharge prescriptions or medication management in the emergency department Medications were administered in the Emergency Department. See MAR. Care significantly affected by the following chronic conditions: Diabetes, Hypertension. Counseling: I had a detailed discussion with the patient and/or guardian regarding the historical points, exam findings, and any diagnostic results supporting the discharge/admit diagnosis, lab results, radiology results, the need to transfer to another facility, for higher level of care. 03/29 19:45 Order name: Basic Metabolic Panel; Complete Time: 21:43 cp 03/29 21:47 Interpretation: Normal except: CL 108; BUN 25; GFR 83. cp 03/29 19:45 Order name: CBC with Diff; Complete Time: 21:43 cp 03/29 19:45 Order name: Hepatic Function; Complete Time: 21:43 cp 03/29 19:45 Order name: High Sensitivity Troponin; Complete Time: 21:43 cp 03/29 19:45 Order name: Magnesium; Complete Time: 21:43 cp 03/29 19:45 Order name: Protime (+inr); Complete Time: 21:43 cp 03/29 19:45 Order name: Ptt, Activated; Complete Time: 21:43 cp 03/29 20:16 Order name: Glucose, Ancillary Testing; Complete Time: 21:43 EDMS 03/29 19:45 Order name: CT Head Angio; Complete Time: 21:43 cp 03/29 19:45 Order name: CT Neck Angio; Complete Time: 21:43 cp 03/29 19:46 Order name: CT Stroke Brain w/o Contrast; Complete Time: 21:43 cp 03/29 19:46 Order name: Stroke CXR 1 View; Complete Time: 21:43 cp 03/29 19:46 Order name: Accucheck; Complete Time: 20:15 cp 03/29 19:46 Order name: Cardiac monitoring; Complete Time: 20:15 cp 03/29 19:46 Order name: EKG - Nurse/Tech; Complete Time: 20:15 cp 03/29 19:46 Order name: IV Saline Lock; Complete Time: 20:15 cp 03/29 19:46 Order name: Labs collected and sent; Complete Time: 20:15 cp 03/29 19:46 Order name: NPO; Complete Time: 20:15 cp 03/29 19:46 Order name: O2 Per Protocol; Complete Time: 20:15 cp 03/29 19:46 Order name: O2 Sat Monitoring; Complete Time: 20:15 cp 03/29 19:46 Order name: Stroke Swallow Screen; Complete Time: 20:16 cp EC:15 Rate is 73 beats/min. Rhythm is regular. AL interval is normal. QRS interval is cp prolonged at 156 msec. QT interval is normal. T waves are Inverted in lead aVR. Interpreted by me. Reviewed by me. Administered Medications: 20:27 Drug: foLIC Acid IVPB 1 mg IVPB once Route: IVPB; Site: left antecubital; jb4 20:28 Follow up: Response: No adverse reaction; IV Status: Completed infusion jb4 21:57 Drug: Aspirin PO Chewable Tablet 243 mg PO once; 81 mg tablets x 3 Route: PO; jb4 Disposition: 03/30 23:54 Chart complete. cp Disposition Summary: 03/29/24 20:59 Transfer Ordered Notes: Transfer Location: [facility] cp Reason: Higher level of care cp Condition: Stable cp Problem: new cp Symptoms: are unchanged cp Accepting Physician: DR Nagel(03/29/24 23:58) jb4 Diagnosis - Weakness - right arm and right leg(03/29/24 21:21) cp - Paresthesia of skin - right side of face and right arm and right leg(03/29/24 21:21)cp Forms: - Medication Reconciliation Form cp - SBAR form cp NIH Stroke Scale - NIH Stroke Score Date: 03/29/2024 Time: 19:40 Total Score = 1 10. Dysarthria (speech clarity - read or repeat words) - 0(Normal) 11. Extinction and Inattention (visual/tactile/auditory/spatial/personal) - 0(No abnormality) 1a. Level of Consciousness (LOC) - 0(Alert) 1b. Level of Consciousness (LOC) (Month \T\ Age) - 0(Both) 1c. LOC Commands (Open \T\ Closes Eyes/Poultry Slaughterer) - 0(Both) 2. Best Gaze (Lateral Gaze Paresis) - 0(Normal) 3. Visual Field Loss - 0(No visual loss) 4. Facial Palsy - 0(Normal) 5a. Left Arm: Motor (10-second hold) - 0(No drift) 5b. Right Arm: Motor (10-second hold) - 0(No drift) 6a. Left Leg: Motor (5-second hold - always test supine) - 0(No drift) 6b. Right Leg: Motor (5-second hold - always test supine) - 0(No drift) 7. Limb Ataxia (finger/nose \T\ heel/lawrence - test with eyes open) - 0(Absent) 8. Sensory Loss (pinprick arms/legs/face) - 1(Mild to moderate loss) 9. Best Language: Aphasia (description/naming/reading) - 0(No aphasia) Initials: jb4 NIH Stroke Scale - NIH Stroke Score Date: 03/29/2024 Time: 20:15 Total Score = 1 10. Dysarthria (speech clarity - read or repeat words) - 0(Normal) 11. Extinction and Inattention (visual/tactile/auditory/spatial/personal) - 0(No abnormality) 1a. Level of Consciousness (LOC) - 0(Alert) 1b. Level of Consciousness (LOC) (Month \T\ Age) - 0(Both) 1c. LOC Commands (Open \T\ Closes Eyes/Poultry Slaughterer) - 0(Both) 2. Best Gaze (Lateral Gaze Paresis) - 0(Normal) 3. Visual Field Loss - 0(No visual loss) 4. Facial Palsy - 0(Normal) 5a. Left Arm: Motor (10-second hold) - 0(No drift) 5b. Right Arm: Motor (10-second hold) - 0(No drift) 6a. Left Leg: Motor (5-second hold - always test supine) - 0(No drift) 6b. Right Leg: Motor (5-second hold - always test supine) - 0(No drift) 7. Limb Ataxia (finger/nose \T\ heel/lawrence - test with eyes open) - 0(Absent) 8. Sensory Loss (pinprick arms/legs/face) - 1(Mild to moderate loss) 9. Best Language: Aphasia (description/naming/reading) - 0(No aphasia) Initials: cp NIH Stroke Scale - NIH Stroke Score Date: 03/29/2024 Time: 21:58 Total Score = 1 10. Dysarthria (speech clarity - read or repeat words) - 0(Normal) 11. Extinction and Inattention (visual/tactile/auditory/spatial/personal) - 0(No abnormality) 1a. Level of Consciousness (LOC) - 0(Alert) 1b. Level of Consciousness (LOC) (Month \T\ Age) - 0(Both) 1c. LOC Commands (Open \T\ Closes Eyes/Poultry Slaughterer) - 0(Both) 2. Best Gaze (Lateral Gaze Paresis) - 0(Normal) 3. Visual Field Loss - 0(No visual loss) 4. Facial Palsy - 0(Normal) 5a. Left Arm: Motor (10-second hold) - 0(No drift) 5b. Right Arm: Motor (10-second hold) - 0(No drift) 6a. Left Leg: Motor (5-second hold - always test supine) - 0(No drift) 6b. Right Leg: Motor (5-second hold - always test supine) - 0(No drift) 7. Limb Ataxia (finger/nose \T\ heel/lawrence - test with eyes open) - 0(Absent) 8. Sensory Loss (pinprick arms/legs/face) - 1(Mild to moderate loss) 9. Best Language: Aphasia (description/naming/reading) - 0(No aphasia) Initials: jbLexi Addendum: 04/01/2024 15:00 Co-signature as Attending Physician, Dangelo Zuniga MD I agree with the [facility] assessment and plan of care. Signatures: Dispatcher [employer] EDAL Dangelo Zuniga MD MD [facility] Dangelo Duran PA PA cp Matthew Knowles, RN RN jb4 Aurea Pacheco RN RN cm10 Corrections: (The following items were deleted from the chart) 03/29 19:46 19:46 Neck Angio+CT.RAD.BRZ ordered. EDAL EDAL 19:46 19:46 CT-STROKE BRAIN W/O CONTRAST+CT.RAD.BRZ ordered. EDAL EDMS 19:46 19:46 Chest Single View+RAD.RAD.BRZ ordered. [facility] EDAL 20:37 20:00 Radiologist reports: no acute findings cp cp 21:21 20:59 doctor cp cp 21:21 20:59 Weakness cp cp 21:21 20:59 Paresthesia of skin cp cp 23:58 21:21 DR Nagel jb4 03/30 00:36 03/29 19:35 Constitutional: Negative for body aches, chills, fever, poor PO cp intake, cp 03/30 00:36 03/29 19:35 Neuro: Positive for numbness, weakness, of the right arm and right cp leg and right side of face, Negative for altered mental status, speech changes, cp 03/30 00:36 03/29 19:35 Cardiovascular: Negative for chest pain, cp cp 03/30 00:36 03/29 19:35 Respiratory: Negative for cough, shortness of breath, wheezing, cp cp 03/30 00:36 03/29 19:35 Abdomen/GI: Negative for abdominal pain, vomiting, diarrhea, cp constipation, cp 03/30 00:36 03/29 19:35 ENT: Negative for drainage from ear(s), ear pain, sore throat, cp difficulty swallowing, difficulty handling secretions, cp 03/30 23:52 03/29 20:00 Neuro: Orientation: to person, place \T\ time. Mentation: able to cp follow commands, Motor: moves all fours, Sensation: numbness, that is mild, of the left hand, left arm and left leg, cp
[2024-03-29] MEDS ORDERED: ASPIRIN 81 MG CHEWABLE TABLET ONE (21:55)
[2024-03-30 00:55] VITALS: TEMP 97.4
[2024-03-30 01:03] VITALS: BP 128/98; O2SAT 95
--- NOTE | 2024-04-01 11:17 | EKG ---
Test Date: 2024-03-29 Test Time: 20:08:19 Flour Broker: SRI MEASUREMENT RESULTS: Intervals: Rate: 73 NM: 166 QRSD: 156 QT: 398 QTc: 438 [place]: P: 40 NM: 166 QRS: 109 T: 44 INTERPRETIVE STATEMENTS: Normal sinus rhythm Right bundle branch block Abnormal ECG Compared to ECG 08/31/2023 14:47:43 No significant changes Electronically Signed On 04-01-24 11:12:37 TOURIST INFORMATION ASSISTANT by Davon Rodrigez
== END 2024-03-29 23:58 | disposition short-term general hospital (02) ==
LOC: ER 19:13
DX: R53.1 Weakness (principal); R20.2 Paresthesia of skin; E11.9 Type 2 diabetes mellitus without complications; I10 Essential (primary) hypertension; E78.00 Pure hypercholesterolemia, unspecified; Z79.82 Long term (current) use of aspirin
CPT/HCPCS: 93005; 85025; 80048; 36415; 83735; 85610; 82565; 82947; 80076; 85730; 84484; 70496; 70498; 70450; 71045; 96374; 99285; Q9967

== ENCOUNTER 2024-07-12 11:33 | Emergency (ER) | payer OTHER ==
--- NOTE | 2024-07-12 12:23 | RAD REPORT ---
EXAMINATION: CT Stone Protocol CLINICAL INDICATION: Male, 59 years old. FLANK PAIN TECHNIQUE: CT abdomen and pelvis was performed, without IV contrast, as per department protocol. Axia l, sagittal and coronal reconstructions were obtained. One or more of the following dose reduction techniques were used: Automated exposure control, adjustment of the mA and kV according to the patien t size, and iterative reconstruction. Unless otherwise specified, incidental findings do not require dedicated imaging follow-up. COMPARISON: 09/16/2023 FINDINGS: The lack of intravenous contrast limits the sensitivity of this exam for evaluation of solid visceral organs, vascular structures, and retroperitoneum. LOWER CHEST: The visualized lung bases are clear. LIVER: Normal in size and contour. No focal lesion. BILIARY SYSTEM: Status post cholecystectomy. SPLEEN: Normal size. No focal lesion. PANCREAS: No mass, ductal dilation, or aria-pancreatic fluid. ADRENALS: Normal; no mass. KIDNEYS AND URETERS: Stable posttreatment changes at the superior pole of the right kidney. Normal si ze and contour otherwise. No hydronephrosis. URINARY BLADDER: Normal contour. GASTROINTESTINAL TRACT: No evidence of bowel obstruction, significant free fluid, free air or abscess . APPENDIX: Normal appendix. LYMPH NODES: No lymphadenopathy. MUSCULOSKELETAL: No acute or suspicious osseous abnormality. ADDITIONAL FINDINGS: None. IMPRESSION: No acute or concerning abnormalities in the abdomen or pelvis, with evaluation limited by lack of IV contrast. Stable findings as above.
[2024-07-12 12:56] LABS: Absolute Basophils 0.1 K/uL (0-0.5); Absolute Eosinophils 0.4 K/uL (0-0.5); Absolute Lymphocytes (CBC) 2.3 K/uL (0.7-4.9); Absolute Monocytes 0.7 K/uL (0.1-1.3); Absolute Neutrophil 4.9 K/uL (1.8-8.0); Basophils % 0.7 % (0-1.3); Eosinophils % 4.5 % (0-4.4); Hematocrit 43.6 % (39.6-49.0); Lymphocytes % 27.5 % (15.3-44.8); MCH 29.5 pg (27.0-35.0); MCHC 34.4 g/dL (32.0-36.0); MCV 85.8 fL (80-100); MPV 7.1 fL (7.6-11.3); Monocytes % 7.9 % (3.3-12.3); Neutrophils % 59.4 % (41.7-73.7); Nucleated Red Blood Cells % 0.2 % (0-0); Platelets 249 thou/uL (152-406); RBC Red Blood Cell Count 5.08 M/uL (4.33-5.43); Red Cell Distribution Width 14.7 % (12.1-15.2)
[2024-07-12 12:59] LABS: Sqamous Epithelial None Seen /HPF (None Seen); Urine Bacteria None Seen /HPF (<20); Urine Bilirubin NEGATIVE (Negative); Urine Blood Trace (Negative); Urine Clarity Clear (Clear); Urine Color Light-Yellow (Yellow); Urine Culture Reflex Order NOT NEEDED; Urine Glucose 4+ (Over) (Negative); Urine Ketones NEGATIVE (Negative); Urine Microscopic Reflex YN ORDER UMIC; Urine Mucus Slight /HPF (None Seen); Urine Nitrite NEGATIVE (Negative); Urine Protein TRACE (Negative); Urine Urobilinogen Normal (Normal); Urine WBC <5 /HPF (<5)
[2024-07-12 13:19] LABS: Bilirubin Total 0.7 mg/dL (0.2-1.0); Globulin 4.2 g/dL (2.3-3.5); Protein, Total 8.2 g/dL (6.4-8.2)
[2024-07-12] MEDS ORDERED: ONDANSETRON 4 MG/2 ML VIAL ONE (14:05)
[2024-07-12] MEDS ORDERED: MORPHINE 4 MG/ML SYR ONE (14:06)
[2024-07-12] MEDS ORDERED: FAMOTIDINE 20 MG/2 ML VIAL IV ONE (14:07)
--- NOTE | 2024-07-12 14:32 | EDPHYS ---
Physician Documentation [facility] Name: Alexandr Laws Age: 59 yrs Sex: Male : 1965 Arrival Date: 07/12/2024 Time: 11:33 Bed Treatment Private MD: [facility]INA Physician Dangelo Zuniga HPI: 07/12 14:27 This 59 yrs old Male presents to ER via Ambulatory with complaints of Flank joni Pain. 14:27 The patient complains of pain in the left low back and left mid back. The pain does not joni radiate. Onset: The symptoms/episode began/occurred just prior to arrival. Modifying factors: The symptoms are alleviated by remaining still, the symptoms are aggravated by movement, palpation/percussion. Associated signs and symptoms: The patient has no apparent associated signs or symptoms. Severity of pain: At its worst the pain was mild moderate in the emergency department the pain has improved moderately. The patient has not experienced similar symptoms in the past. leaned over pain in left side , flank. Historical: - Allergies: 11:46 Sulfa (Sulfonamide Antibiotics); hb - PMHx: 11:46 Diabetes - NIDDM; coronary atherosclerosis; High Cholesterol; Gastric Reflux; hb Hypertension; 11:48 Renal Cancer; hb - PSHx: 11:46 left knee repair; Cholecystectomy; Partial nephrectomy; Stented artery; hb - Immunization history:: Adult Immunizations unknown. - Infectious Disease History:: Denies. - Family history:: not pertinent. - Social history:: Smoking status: unknown. ROS: 14:27 Constitutional: Negative for fever, chills, and weight loss, Eyes: Negative for injury, joni pain, redness, and discharge, ENT: Negative for injury, pain, and discharge, Neck: Negative for injury, pain, and swelling, Cardiovascular: Negative for chest pain, palpitations, and edema, Respiratory: Negative for shortness of breath, cough, wheezing, and pleuritic chest pain, Abdomen/GI: Negative for abdominal pain, nausea, vomiting, diarrhea, and constipation, : Negative for injury, bleeding, discharge, and swelling, MS/Extremity: Negative for injury and deformity, Skin: Negative for injury, rash, and discoloration, Neuro: Negative for headache, weakness, numbness, tingling, and seizure, Psych: Negative for depression, anxiety, suicide ideation, homicidal ideation, and hallucinations, Allergy/Immunology: Negative for hives, rash, and allergies, Endocrine: Negative for neck swelling, polydipsia, polyuria, polyphagia, and marked weight changes, 14:27 Back: Positive for pain with movement, of the left mid back, Exam: 14:27 Constitutional: This is a well developed, well nourished patient who is awake, alert, joni and in no acute distress. Head/Face: Normocephalic, atraumatic. Eyes: Pupils equal round and reactive to light, extra-ocular motions intact. Lids and lashes normal. Conjunctiva and sclera are non-icteric and not injected. Cornea within normal limits. Periorbital areas with no swelling, redness, or edema. ENT: Nares patent. No nasal discharge, no septal abnormalities noted. Tympanic membranes are normal and external auditory canals are clear. Oropharynx with no redness, swelling, or masses, exudates, or evidence of obstruction, uvula midline. Mucous membranes moist. Neck: Trachea midline, no thyromegaly or masses palpated, and no cervical lymphadenopathy. Supple, full range of motion without nuchal rigidity, or vertebral point tenderness. No Meningismus. Chest/axilla: Normal chest wall appearance and motion. Nontender with no deformity. No lesions are appreciated. Cardiovascular: Regular rate and rhythm with a normal S1 and S2. No gallops, murmurs, or rubs. Normal PMI, no JVD. No pulse deficits. Respiratory: Lungs have equal breath sounds bilaterally, clear to auscultation and percussion. No rales, rhonchi or wheezes noted. No increased work of breathing, no retractions or nasal flaring. Abdomen/GI: Soft, non-tender, with normal bowel sounds. No distension or tympany. No guarding or rebound. No evidence of tenderness throughout. Male : Normal genitalia with no discharge or lesions. Skin: Warm, dry with normal turgor. Normal color with no rashes, no lesions, and no evidence of cellulitis. MS/ Extremity: Pulses equal, no cyanosis. Neurovascular intact. Full, normal range of motion., bilateral aka Neuro: Awake and alert, GCS 15, oriented to person, place, time, and situation. Cranial nerves II-XII grossly intact. Motor strength 5/5 in all extremities. Sensory grossly intact. Cerebellar exam normal. Normal gait. Psych: Awake, alert, with orientation to person, place and time. Behavior, mood, and affect are within normal limits. 14:27 Back: pain, that is mild, ROM is normal, normal spinal alignment noted, CVA tenderness, is absent, vertebral tenderness, is not appreciated, muscle spasm, is not present, Vital Signs: 11:43 BP 132 / 82; Pulse 88; Resp 16; Temp 98.5; Pulse Ox 100% on R/A; Weight 79.38 kg; hb Height 5 ft. 8 in. ; Pain 7/10; 13:50 BP 134 / 84; Pulse 86; Resp 20; Pulse Ox 100% on R/A; kj2 14:43 BP 128 / 82; Pulse 84; Resp 18; Temp 98; Pulse Ox 99% on R/A; kj2 11:43 Body Mass Index 26.61 (79.38 kg, 172.72 cm) hb 11:43 Pain Scale: Adult hb MDM: 11:38 Medical Screening Exam initiated joni 14:30 Differential diagnosis: nephrolithiasis, pyelonephritis, UTI, pancreatitis. Data [facility] reviewed: vital signs, nurses notes, lab test result(s), radiologic studies, CT scan. Consideration of Admission/Observation Escalation of care including admission/observation considered. I considered the following discharge prescriptions or medication management in the emergency department Medications were administered in the Emergency Department. See MAR. Independent interpretation of the following test(s) in the Emergency Department CT Scan: My interpretation is ct stone. Test considered but Not performed: EKG: no ekg. Historians other than the Patient: pt well informed. Care significantly affected by the following chronic conditions: Hypertension, gerd, high chlesterol. 07/12 11:39 Order name: CBC with Diff; Complete Time: 14:02 [facility] 07/12 11:39 Order name: CMP; Complete Time: 14:02 [facility] 07/12 11:39 Order name: Lipase; Complete Time: 14:02 [facility] 07/12 11:39 Order name: Urinalysis w/ reflexes; Complete Time: 14:02 [facility] 07/12 11:39 Order name: CT Stone Protocol; Complete Time: 14:02 [facility] 07/12 11:39 Order name: IV Saline Lock; Complete Time: 12:46 [facility] 07/12 11:39 Order name: Labs collected and sent; Complete Time: 12:46 joni Administered Medications: 14:20 Drug: Famotidine IVP 20 mg IVP once; dilute with 10 mL 0.9% NaCl; give over 2 minutes kj2 Route: IVP; Site: left antecubital; 14:44 Follow up: Response: No adverse reaction kj2 14:20 Drug: Ondansetron IVP 4 mg IVP once; over 2 minutes Route: IVP; Site: left antecubital; kj2 14:44 Follow up: Response: No adverse reaction kj2 14:20 Drug: morphine IVP or IV 4 mg IVP once over 4 mins Route: IVP; Infused Over: 4 mins; kj2 Site: left antecubital; 14:45 Follow up: Response: No adverse reaction kj2 Disposition Summary: 07/12/24 14:32 Discharge Ordered Notes: Location: Home joni Problem: new joni Symptoms: have improved joni Condition: Stable joni Diagnosis - Unspecified symptoms and signs involving the musculoskeletal system joni Followup: joni - With: Private Physician - When: 2 - 3 days - Reason: Recheck today's complaints, Continuance of care, Re-evaluation by your physician Discharge Instructions: - Discharge Summary Sheet joni - Abdominal Pain, Adult joni - Chest Wall Pain joni - Musculoskeletal Pain joni - Chest Wall Pain, [id number] joni - Abdominal Pain, Adult, [id number] [facility] Forms: - Medication Reconciliation Form [facility] - Antibiotic Education joni - Prescription Opioid Use joni - Patient Portal Instructions [facility] - Leadership Thank You Letter [facility] Prescriptions: - Tylenol-Codeine #3 300mg-30mg Oral tablet - take 1 tablet ORAL route every 4-6 hours As needed; 20 tablet; Refills: 0, joni Product Selection Permitted Signatures: Dispatcher [employer] Dangelo Cobos MD MD cha Baxter, Heather, RN RN Malou Lazar RN RN kj2
--- NOTE | 2024-07-12 14:32 | ER ---
Nurse's Notes [facility] Name: Alexandr Laws Age: 59 yrs Sex: Male : 1965 Arrival Date: 07/12/2024 Time: 11:33 Bed Treatment Private MD: Diagnosis: Unspecified symptoms and signs involving the musculoskeletal system Presentation: 07/12 11:43 Chief complaint: Left flank pain and belching x 2 hours. Hx of pancreatitis, feels hb similar to previous episode. Coronavirus screen: At this time, the client does not indicate any symptoms associated with coronavirus-19. Ebola Screen: No symptoms or risks identified at this time. Initial Sepsis Screen: Does the patient meet any 2 criteria? No. Patient's initial sepsis screen is negative. Does the patient have a suspected source of infection? No. Patient's initial sepsis screen is negative. Risk Assessment: Do you want to hurt yourself or someone else? Patient reports no desire to harm self or others. Onset of symptoms was July 12, 2024. 11:43 Method Of Arrival: Ambulatory hb 11:43 Acuity: MIKEY 3 hb Historical: - Allergies: 11:46 Sulfa (Sulfonamide Antibiotics); hb - PMHx: 11:46 Diabetes - NIDDM; coronary atherosclerosis; High Cholesterol; Gastric Reflux; hb Hypertension; 11:48 Renal Cancer; hb - PSHx: 11:46 left knee repair; Cholecystectomy; Partial nephrectomy; Stented artery; hb - Immunization history:: Adult Immunizations unknown. - Infectious Disease History:: Denies. - Family history:: not pertinent. - Social history:: Smoking status: unknown. Screenin:00 [facility] ED Fall Risk Assessment (Adult) History of falling in the last 3 months, kj2 including since admission No falls in past 3 months (0 pts) Confusion or Disorientation No (0 pts) Intoxicated or Sedated No (0 pts) Impaired Gait No (0 pts) Mobility Assist Device Used No (0 pt) Altered Elimination No (0 pt) Score/Fall Risk Level 0 - 2 = Low Risk Maintained a safe environment, Hourly rounding (assess needs \T\ fall precautionary measures) done. Abuse screen: Denies threats or abuse. Denies injuries from another. Nutritional screening: No deficits noted. Tuberculosis screening: No symptoms or risk factors identified. Assessment: 13:50 General: Appears in no apparent distress. Behavior is cooperative. Pain: Complains of kj2 pain in left flank Pain currently is 6 out of 10 on a pain scale. Neuro: Level of Consciousness is awake, alert, obeys commands, Oriented to person, place, time, situation. Cardiovascular: Patient's skin is warm and dry. Respiratory: Airway is patent Respiratory effort is unlabored. GI: Reports belching. : No signs and/or symptoms were reported regarding the genitourinary system. 14:42 Reassessment: Patient appears in no apparent distress at this time. Patient and/or kj2 family updated on plan of care and expected duration. Pain level reassessed. Patient is alert, oriented x 3, equal unlabored respirations, skin warm/dry/pink. Vital Signs: 11:43 BP 132 / 82; Pulse 88; Resp 16; Temp 98.5; Pulse Ox 100% on R/A; Weight 79.38 kg; hb Height 5 ft. 8 in. ; Pain 7/10; 13:50 BP 134 / 84; Pulse 86; Resp 20; Pulse Ox 100% on R/A; kj2 14:43 BP 128 / 82; Pulse 84; Resp 18; Temp 98; Pulse Ox 99% on R/A; kj2 11:43 Body Mass Index 26.61 (79.38 kg, 172.72 cm) hb 11:43 Pain Scale: Adult hb ED Course: 11:36 Patient arrived in ED. im 11:38 Dangelo Zuniga MD is Attending Physician. joni 11:46 Triage completed. hb 11:47 Arm band placed on. hb 12:13 CT Stone Protocol In Process Unspecified. EDMS 12:46 CBC with Diff Sent. ty 12:46 CMP Sent. ty 12:46 Lipase Sent. ty 12:46 Urinalysis w/ reflexes Sent. ty 12:46 Urine collected: clean catch specimen, clear. Inserted saline lock: 20 gauge in left ty forearm, using aseptic technique. Blood collected. Flushed with 10 mL NS. 14:00 Patient has correct armband on for positive identification. Bed in low position. Call kj2 light in reach. Provided Education on: call light. 14:20 Malou Lazar, WANDY is Primary Nurse. kj2 14:44 No provider procedures requiring assistance completed. IV discontinued, intact, kj2 bleeding controlled, No redness/swelling at site. Pressure dressing applied. Administered Medications: 14:20 Drug: Famotidine IVP 20 mg IVP once; dilute with 10 mL 0.9% NaCl; give over 2 minutes kj2 Route: IVP; Site: left antecubital; 14:44 Follow up: Response: No adverse reaction kj2 14:20 Drug: Ondansetron IVP 4 mg IVP once; over 2 minutes Route: IVP; Site: left antecubital; kj2 14:44 Follow up: Response: No adverse reaction kj2 14:20 Drug: morphine IVP or IV 4 mg IVP once over 4 mins Route: IVP; Infused Over: 4 mins; kj2 Site: left antecubital; 14:45 Follow up: Response: No adverse reaction kj2 Medication: 14:43 VIS not applicable for this client. kj2 Outcome: 14:32 Discharge ordered by MD. quinones 14:44 Discharged to home ambulatory, kj2 14:44 Condition: stable 14:44 Discharge instructions given to patient, Instructed on discharge instructions, follow up and referral plans. 15:00 Patient left the ED. kj2 Signatures: Dispatcher [employer] EDDangelo Head MD MD cha Baxter, Heather, RN RN Adalgisa Liu Tylor ty Jordan, Krystal, RN RN kj2
[2024-07-12 15:29] VITALS: BP 128/82; TEMP 98; O2SAT 99
== END 2024-07-12 15:00 | disposition home or self-care (01) ==
LOC: ER 11:33
DX: R29.91 Unspecified symptoms and signs involving the musculoskeletal system (principal)
CPT/HCPCS: 85025; 81001; 36415; 83690; 80053; 76377; 74176; 96375; 96374; 99284; J2405